=== PATIENT | female | born 1965 | race Caucasian/White ===

== ENCOUNTER → 2022-04-12 | Outpatient (CLI) | payer OTHER, SELFPAY ==
[2022-04-12 16:25] LABS: D-Dimer Quantitative (DVT/PE) 0.34 FEU/ug/m (0.27-0.49)
== END | disposition home or self-care (01) ==
LOC: LABSPEC 15:04
PROVIDERS: Visit Provider Family Medicine
DX: R07.89 Other chest pain (principal)
CPT/HCPCS: 85379

== ENCOUNTER → 2024-05-03 | Outpatient (CLI) | payer OTHER, SELFPAY ==
--- NOTE | 2024-05-03 08:00 | RAD_ITS ---
PROCEDURE: ESOPHAGUS DUAL CONTRAST 05/03/2024 REASON FOR EXAM: GERD TECHNIQUE: Images from an intraoperative cholangiogram submitted by FLUOROSCOPIC TIME: 34 seconds. 3.6 mGy FLUOROGRAPHIC IMAGES: 44 COMPARISON: None. FINDINGS: The patient ingested barium. No evidence of esophageal obstruction. No mass lesion is seen. No evidence of gastroesophageal reflux. The patient ingested a 12 mm tablet of barium without any difficulty. RAD/Esophagus Dual Contrast IMPRESSION: Unremarkable air contrast esophagram. Reading Location: [facility]
== END | disposition home or self-care (01) ==
PROVIDERS: PCP Family Medicine; Referring Provider Otolaryngology; Visit Provider Otolaryngology
DX: K21.9 Gastro-esophageal reflux disease without esophagitis (principal)
CPT/HCPCS: 74221

== ENCOUNTER → 2024-08-06 | Outpatient (CLI) | payer OTHER, SELFPAY ==
--- OUTSIDE RECORDS SUMMARY | 2024-08-06 06:51 | XMS RPT_ITS | CCD ---
Author Organization [facility] Care Team Providers Care Insurance Producer Name Role Phone Shlomo Miller MD Primary Care Provider Shlomo Miller MD Primary Care Provider [employer] BUSINESS CONTINUITY MANAGER.Coleen CRUZ Unavailable [employer] BUSINESS CONTINUITY MANAGER.PEANUT SORTERBelkis Unavailable Dr. Mohinder Giron MD Attending Provider Dr. Mohinder Giron MD Referring Provider Dr. Shlomo Miller MD Primary Care Provider KASSANDRA NOE JR Attending Unavaila BETTINA Hummel Referring Unavailable ANGELA, SHLOMO Loredo Primary Care Unavailable JEN PALACIOS Attending Unavailable HILDA SUN Referring Unavail able ANGELA, SHLOMO Loredo Primary Care Unavailable JEN PALACIOS Attending Unavailable HILDA SUN Referring Unavail able SHLOMO MILLER Primary Care Unavailable JEN PALACIOS Attending Unavailable HILDA SUN Referring Unavail able ANGELA, SHLOMO Loredo Primary Care Unavailable SHLOMO MILLER Referring Unavailable SHLOMO MILLER Primary Care Unavailable SHLOMO MILLER Referring Unavailable ANGELA, SHLOMO Loredo Primary Care Unavailable SHLOMO MILLER Referring Unavailable ANGELA, SHLOMO Loredo Primary Care Unavailable GERTRUDE GOLDBERG Attending Unavailable SHLOMO MILLER Primary Care Unavailable SHLOMO MILLER Referring Unavailable SHLOMO MILLER Primary Care Unavailable SHLOMO MILLER Attending Unavailable SHLOMO MILLER Primary Care Unavailable COLEEN DUNNE Attending Unavailable ANGELA, SHLOMO Loredo Primary Care Unavailable GERTRUDE GOLDBERG Referring Unavailable MADELEINE MILLAN Attending Unavailable SHLOMO MILLER Primary Care Unavailable HAURY, KEON Referring Unavailable ANGELA, SHLOMO Loredo Primary Care Unavailable BETTINA BERMUDEZ Attending Unavailable ANGELA, SHLOMO Loredo Primary Care Unavailable HILDA SUN Referring Unavail able ANGELA, SHLOMO J Primary Care Unavailable HILDA SUN Referring Unavail able ANGELA, SHLOMO Loredo Primary Care Unavailable BETTINA BERMUDEZ Referring Unavailable ANGELA, SHLOMO Loredo Attending Unavailable ANGELA, SHLOMO J Primary Care Unavailable ANGELA, SHLOMO J Primary Care Unavailable HILDA SUN Referring Unavail able KEON RIGGS Attending Unavailable ANGELA, SHLOMO Loredo Primary Care Unavailable ANGELA, SHLOMO Loredo Primary Care Unavailable HILDA SUN Attending Unavail able BETTINA BERMUDEZ Referring Unavailable ANGELA, SHLOMO Loredo Primary Care Unavailable ANGELA, SHLOMO Loredo Primary Care Unavailable ANTHONY PRITCHARD Admitting Unavaila ble ANTHONY PRITCHARD Attending Unavaila ble ANGELA, SHLOMO Loredo Primary Care Unavailable MADELEINE MILLAN Referring Unavailable ANGELA, SHLOMO Gertrude Primary Care Unavailable Mohinder Giron Referring Unavailabl e Angela, Shlomo Primary Care Unavailable Mohinder Giron Attending Unavailmarcelo e Madeleine Millan Attending Unavailable Madeleine Millan Referring Unavailable Pol[place], Shlomo Primary Care Unavailable Madeleine Millan Attending Unavailable Madeleine Millan Referring Unavailable [place], Shlomo Primary Care Unavailable Allergies Allergy Classification Reported Allergen(s) Allergy Type Date of Onset Reaction(s) Facility 5-jdkefi-6-methyl- 7-hffgjyvltxbg-8-o ne (1 source) 2-dqcblh-8-methy j-5-tonhdetwnifn -3-one Drug Allergy 9 Rash [facility] hydroquinone (1 source) hydroquinone Drug Allergy [address] [facility] Opioid Agonists (1 source) Meperidine Drug Allergy 6 [facility] Work Phone: Penicillins (antibiotic) (1 source) Penicillin G Drug Allergy 6 [facility] Propylene glycol (1 source) Propylene glycol Drug Allergy 9 Rash [facility] Sulfonamides (antibiotic) (1 source) Sulfonamides (Antibiotic) Drug Allergy 6 [facility] (20 sources) 8-xxqugh-1-methy f-0-ekeetfuhreip -3-one; Translations: [METHYLCHLOROISO THIAZOLINONE] Drug Allergy 9 [facility] (20 sources) hydroquinone; Translations: [HYDROQUINONE] Drug Allergy 1 [facility] Work Phone: (20 sources) Meperidine; Translations: [MEPERIDINE (PF)] Drug Allergy 6 Other: See Comments [facility] Work Phone: (20 sources) Penicillin G; Translations: [PENICILLIN G] Drug Allergy 6 [facility] Work Phone: (20 sources) Propylene glycol; Translations: [PROPYLENE GLYCOL] Drug Allergy 9 [facility] (20 sources) Sulfonamides (Antibiotic); Translations: [SULFA (SULFONAMIDE ANTIBIOTICS)] Propensity to adverse reactions 6 [facility] Work Phone: (20 sources) Methylisothiazol inone; Translations: [METHYLISOTHIAZO LINONE] Drug Allergy 9 [facility] (1 source) 0-rwtusj-2-methy w-1-judrxyogqvzg -3-one Drug Allergy 5 [facility] (1 source) hydroquinone Drug Allergy 5 [facility] (1 source) Meperidine Drug Allergy 5 [facility] (1 source) Penicillins Drug allergy (disorder) 5 [facility] (1 source) Propylene glycol Drug Allergy 5 [facility] (1 source) Sulfonamides (Antibiotic) Drug allergy (disorder) 5 [facility] Medications Current Medications Medication Drug Class(es) Dates Sig (Normalized) Sig (Original) Ascorbic Acid (20 sources) Vitamin C ascorbic acid (V ITAMIN C ORAL) Take by mouth. Last dose 05/14/24 for OR 06/12/24 Active ascorbic acid (V ITAMIN C ORAL) Take by mouth. Active ascorbic acid (V ITAMIN C ORAL) Take by mouth. 0 Active Comment on above: Take by mouth. cholecalciferol 0.05 mg oral capsule (20 sources) Vitamin D Cholecalciferol, Vitamin D3, 50 mcg (2,000 unit) cap Take by mouth. Last dose 05/14/24 for OR 06/12/24 Active Cholecalciferol, Vitamin D3, 50 mcg (2,000 unit) cap Take by mouth. Active Comment on above: Take by mouth. clobetasol propionate 0.0005 mg/mg topical ointment (20 sources) Corticosteroid Start: 03-02-19 clobetasol (TEMOVATE) 0.05 % ointment Apply 1 application to affected area twice daily. For two weeks then use once per week . 30 g 03/02/2019 Active Comment on above: Apply 1 application to affected area twice daily. For two weeks then use once per week . dapsone 100 mg oral tablet (6 sources) Sulfone Start: 07-05-19 End: 10-03-19 take 1 tablet by mouth once daily dapsone 100 mg tablet Indications: Organizing pneumonia (HCC) , Need for pneumocystis prophylaxis Take 1 tablet by mouth once daily. 30 tablet 2 07/04/2024 10/02/2024 Active doxycycline monohydrate 100 mg oral tablet (3 sources) Tetracycline-class Drug Start: 05-17-19 End: 05-27-19 take 1 tablet by mouth twice daily doxycycline monohydrate 100 mg tablet Indications: Multiple lung nodules on CT Take 1 tablet by mouth two times a day for 10 days. 20 tablet 05/16/2024 05/26/2024 Active Start: 11-26-2022 End: 12-06-2022 take 1 tablet by mouth twice daily doxycycline (VIBRA-TABS) 100 mg tablet Indications: Persistent cough for 3 weeks or longer Take 1 tablet by mouth two times a day for 10 days. 20 tablet 0 11/26/2022 12/06/2022 Active Start: 04-13-2022 End: 04-23-2022 take 1 tablet by mouth twice daily doxycycline monohydrate 100 mg tablet Indications: Abnormal x-ray Take 1 tablet by mouth twice daily for 10 days. 20 tablet 0 04/13/2022 04/23/2022 Active Comment on above: Take 1 tablet by essence th twice daily for 10 days. Take 1 tablet by essence th two times a day for 10 days. iv contrast (will be provided with radiology test) (20 sources) Start: 05-02-2024 End: 05-03-2024 iv contrast (will be provided with radiology test) Indications: Liver mass MRI Liver Inject, intravenously, once for 1 dose. No IV access, insert saline lock prior to the beginning of sedation, infusion, injection of imaging exam. Discontinue saline lock post exam. If Pt. has a central line or IVAD, may access for administration according to line specific nursing protocol. Once exam is complete flush line and de-access according to line specific nursing protocol in the MR contrast administration guidelines link. 1 Each 05/02/2024 05/03/2024 Active Start: 04-17-2024 End: 06-06-2024 iv contrast (will be provide d with radiology test) CT Urogram WO/W Inject, intravenously, once for 1 dose.No IV access, insert saline lock prior to the beginning of sedation, infusion, injection of imaging exam. Discontinue saline lock post exam. If Pt. has a central line or IVAD, may access for administration according to line specific nursing protocol. Once exam is complete flush line and de-access according to line specific nursing protocol in the CT contrast administration guidelines link. 1 Each 04/17/2024 06/06/2024 Discontinued (Course of therapy completed) Start: 04-17-2024 iv contrast (w ill be provided with radiology test) CT Urogram WO/W Inject, intravenously, once for 1 dose.No IV access, insert saline lock prior to the beginning of sedation, infusion, injection of imaging exam. Discontinue saline lock post exam. If Pt. has a central line or IVAD, may access for administration according to line specific nursing protocol. Once exam is complete flush line and de-access according to line specific nursing protocol in the CT contrast administration guidelines link. 1 Each 04/17/2024 Active Start: 06-15-2023 End: 06-16-2023 iv contrast (will be provide d with radiology test) CT Chest W -Inject, intravenously, once for 1 dose.No IV access, insert saline lock prior to the beginning of sedation, infusion, injection of imaging exam. Discontinue saline lock post exam. If Pt. has a central line or IVAD, may access for administration according to line specific nursing protocol. Once exam is complete flush line and de-access according to line specific nursing protocol in the CT contrast administration guidelines link. 1 Each 0 06/15/2023 06/16/2023 Active MULTIVITAMIN TAB (20 sources) Start: 03-29-2005 MULTIVITAMIN T AB Take by mouth. Last dose 05/14/24 for OR 06/12/24 0 03/29/2005 Active Start: 03-29-2005 MULTIVITAMIN T AB Take one(1) tablet daily. 0 03/29/2005 Active Comment on above: Take one(1) tablet d aily. nitrofurantoin, macrocrystals 25 mg / nitrofurantoin, monohydrate 75 mg oral capsule (20 sources) Nitrofuran Antibacterial Start: 11-05-2020 End: 10-13-2023 nitrofurantoin monohydrate and macrocrystal (MACROBID) 100 mg capsule Take one tablet PO after intercourse 30 capsule 2 10/14/2023 Active Comment on above: Take one tablet PO a fter intercourse Take 1 capsule by mo [facility] twice daily for 7 days. Take 1 capsule by mo [facility] twice daily with meals for 7 days. pentamidine isethionate 50 mg/ml inhalation solution (4 sources) Antiprotozoal Start: 07-23-2024 End: 07-23-2024 pentamidine (NEBUPENT) 300 mg inhalation solution Indications: Need for pneumocystis prophylaxis 300 mg nebulized every 4 weeks 1 each 5 07/23/2024 Active predniSONE 10 mg oral tablet (20 sources) Start: 07-31-2024 predniSONE (DELTASONE) 10 mg tablet Take 30 mg a day for 4 weeks then 20 mg a day until further notice 100 tablet 1 07/31/2024 Active Start: 07-04-2024 End: 08-03-2024 take 2 tablets by mouth once daily predniSONE (DELTASONE) 20 mg tablet Indications: Organizing pneumonia (HCC) Take 2 tablets by mouth once daily. 60 tablet 07/04/2024 08/03/2024 Active Start: 11-26-2022 End: 12-05-2022 predniSONE (DELTASONE) 10 mg tablet Indications: Persistent cough for 3 weeks or longer Take 4 tabs daily for 3 days, then 2 tabs daily for 3 days, then 1 tab daily for 3 days with food. 21 tablet 11/26/2022 12/05/2022 Start: 02-11-2022 End: 06-13-2023 predniSONE (DELTASONE) 20 mg tablet as needed. 02/11/2022 06/13/2023 Discontinued Comment on above: as needed. Take 4 tabs daily fo r 3 days, then 2 tabs daily for 3 days, then 1 tab daily for 3 days with food. 1000 ml sodium chloride 9 mg/ml injection (2 sources) Start: 04-18-19 End: 04-18-19 inject 1 dose intravenously once 0.9 % sodium chloride (NACL 0.9%) infusion Inject 150 mL/hr intravenously one time only for 1 dose. Administer at rate defined per CT contrast administration specifications. To be provided with radiology test. 1 Each 04/17/2024 04/17/2024 Active Completed/Discontinued Medications Medication Drug Class(es) Dates Sig (Normalized) Sig (Original) benzonatate 100 mg oral capsule (20 sources) Non-narcotic Antitussive Start: 08-30-2023 End: 04-06-2024 take 100-200 mg by mouth every eight hours as needed benzonatate (TESSALON PERLES) 100 mg capsule Take 1-2 capsules by mouth three times a day as needed for cough. 40 capsule 08/30/2023 04/06/2024 Discontinued Start: 09-08-2022 End: 06-13-2023 take 1 capsule by mouth three times daily as needed for cough benzonatate (TESSALON PERLES) 100 mg capsule Indications: URI, acute Take 1 capsule by mouth three times daily as needed for cough. 30 capsule 09/08/2022 06/13/2023 Discontinued Comment on above: Take 1 capsule by mo uth three times daily as needed for cough. cetirizine hydrochloride 10 mg oral capsule (12 sources) Histamine-1 Receptor Antagonist End: take 1 capsule by mouth every twenty-four hours as needed Cetirizine (ZYRTEC) 10 mg cap Take 1 capsule by mouth at bedtime as needed. 06/13/2023 Discontinued Comment on above: Take 1 capsule by mo uth at bedtime as needed. ciprofloxacin 500 mg oral tablet (2 sources) Quinolone Antimicrobial Start: 025 End: ciprofloxacin HCl 500 mg tab(s) (CIPRO) fluticasone propionate 0.05 mg/actuat metered dose nasal spray (12 sources) Corticosteroid End: fluticasone (FLONASE ALLERGY RELIEF) 50 mcg/actuation nasal spray Use 2 Sprays in each nostril as needed. 06/13/2023 Discontinued Comment on above: Use 2 Sprays in each nostril as needed. 120 actuat fluticasone propionate 0.115 mg/actuat / salmeterol 0.021 mg/actuat metered dose inhaler (15 sources) Corticosteroid, beta2-Adrenergic Agonist Start: End: take 2 puff(s) by mouth twice daily fluticasone-salmeter ol HFA (ADVAIR HFA) 115-21 mcg/actuation inhaler Indications: Chronic cough Inhale 2 Puffs as instructed two times a day. Rinse mouth after use. 1 Each 3 06/13/2023 04/06/2024 Discontinued hydrocortisone 25 mg/ml topical cream (20 sources) Corticosteroid End: hydrocortisone 2.5 % cream Apply to affected area twice daily. 04/06/2024 Discontinued Comment on above: Apply to affected ar ea twice daily. miSOPROStol 0.2 mg oral tablet (6 sources) Prostaglandin E1 Analog Start: End: miSOPROStol (CYTOTEC) 200 mcg tablet Take two tablets PO night before procedure and two tablets morning of procedure 4 tablet 0 01/12/2023 06/13/2023 Discontinued Comment on above: Take two tablets PO night before procedure and two tablets morning of procedure omeprazole 20 mg delayed release oral capsule (20 sources) Proton Pump Inhibitor Start: End: take 1 capsule by mouth once daily before breakfast omeprazole (PRILOSEC) 20 mg capsule Indications: Indigestion , Chronic cough Take 1 capsule by mouth daily before breakfast. 1/2 hr before meal. 30 capsule 1 07/13/2023 05/30/2024 Discontinued sertraline 50 mg oral tablet (6 sources) Serotonin Reuptake Inhibitor Start: End: take 0.5 tablet by mouth once daily, then take 1 tablet by mouth once daily sertraline (ZOLOFT) 50 mg tablet Indications: Anxiety Take 1/2 tab once a day orally for one week then 1 tab once a day 30 tablet 5 04/12/2022 05/13/2022 Discontinued Comment on above: Take 1/2 tab once a day orally for one week then 1 tab once a day triamcinolone acetonide 0.005 mg/mg topical ointment (20 sources) Corticosteroid Start: 021 End: 025 triamcinolone acetonide topical 0.5 % ointment Apply to affected area twice daily. 30 g 11/10/2021 04/06/2024 Discontinued Start: 11-05-2020 End: 10-27-2021 Triamcinolone Acetonide 0.05 % oint Use pea sized amount on affected area twice daily for two weeks the use prn or once per week for maintenance 30 g 0 11/05/2020 10/27/2021 Discontinued Comment on above: Apply to affected ar ea twice daily. Use pea sized amount on affected area twice daily for two weeks the use prn or once per week for maintenance Problems Active Problems Problem Classification Problem Date Documented Date Episodic/Chronic Abdominal pain (1 source) Pain in pelvis; Translations: [Pelvic and perineal pain] 04-02-2024 Episodic Anxiety disorders (20 sources) Obsessive-compulsive disorder; Translations: [Obsessive-compulsive disorder, unspecified] Onset: 03-30-2010 02-09-2021 Chronic Disorders of lipid metabolism (20 sources) Mixed hyperlipidemia; Translations: [Mixed hyperlipidemia] Onset: 03-17-2017 Chronic Esophageal disorders (3 sources) Gastroesophageal reflux disease without esophagitis; Translations: [Gastro-esophageal reflux disease without esophagitis] Onset: 04-25-2024 04-25-2024 Chronic Genitourinary symptoms and ill-defined conditions (20 sources) Urinary incontinence; Translations: [Unspecified urinary incontinence] Onset: 03-28-2013 03-28-2013 Chronic Lymphadenitis (20 sources) Hilar lymphadenopathy ; Translations: [Localized enlarged lymph nodes] Onset: 05-30-2024 05-16-2024 Episodic Nonmalignant breast conditions (8 sources) Lump in upper inner quadrant of left breast; Translations: [Unspecified lump in the left breast, upper inner quadrant] Onset: 04-24-2024 04-06-2024 Episodic Nonspecific chest pain (1 source) Chest discomfort; Translations: [Other chest pain] Episodic Nutritional deficiencies (1 source) Vitamin D deficiency; Translations: [Vitamin D deficiency, unspecified] Chronic Other diseases of bladder and urethra (20 sources) Overactive bladder; Translations: [Overactive bladder] Onset: 11-22-2011 11-22-2011 Chronic Other disorders of stomach and duodenum (1 source) Indigestion; Translations: [Functional dyspepsia] 07-13-2023 Episodic Other ear and sense organ disorders (1 source) Otalgia, right ear; Translations: [Otalgia, unspecified] 11-26-2022 Episodic Other hematologic conditions (1 source) Methemoglobinemia; Translations: [Methemoglobinemia, unspecified] 07-23-2024 Episodic Other hematologic conditions (2 sources) Methemoglobinemia, unspecified; Translations: [Methemoglobinemia] Onset: 07-23-2024 Episodic Other liver diseases (1 source) Liver cyst; Translations: [Other specified diseases of liver] 05-30-2024 Chronic Other liver diseases (1 source) Other specified diseases of liver; Translations: [Liver cyst] Onset: 05-30-2024 Chronic Other liver diseases (5 sources) Liver mass; Translations: [Hepatomegaly, not elsewhere classified] 05-02-2024 Episodic Other liver diseases (1 source) Hepatomegaly, not elsewhere classified; Translations: [Liver mass] Onset: 05-03-2024 Episodic Other lower respiratory disease (2 sources) Cough; Translations: [Cough, unspecified type] Episodic Other lower respiratory disease (4 sources) Persistent cough; Translations: [Persistent cough for 3 weeks or longer] 11-25-2022 Episodic Other lower respiratory disease (20 sources) Chronic cough; Translations: [Chronic cough] Onset: 05-30-2024 06-13-2023 Episodic Other lower respiratory disease (10 sources) Multiple nodules of lung; Translations: [Other nonspecific abnormal finding of lung field] 05-02-2024 Episodic Other lower respiratory disease (18 sources) Nodule of lung; Translations: [Solitary pulmonary nodule] Onset: 05-30-2024 05-30-2024 Episodic Other lower respiratory disease (9 sources) Computed tomography result abnormal; Translations: [Other nonspecific abnormal finding of lung field] Onset: 06-12-2024 06-12-2024 Episodic Other lower respiratory disease (1 source) Solitary pulmonary nodule; Translations: [Lung nodule] Onset: 05-30-2024 Episodic Other lower respiratory disease (3 sources) Other nonspecific abnormal finding of lung field; Translations: [Multiple lung nodules on CT] Onset: 05-08-2024 Episodic Other screening for suspected conditions (not mental disorders or infectious disease) (2 sources) Plain X-ray result abnormal; Translations: [Abnormal findings on diagnostic imaging of other specified body structures] Chronic Other upper respiratory infections (2 sources) Acute upper respiratory infection; Translations: [Acute upper respiratory infection, unspecified] Onset: 04-25-2024 04-25-2024 Episodic Residual codes; unclassified (1 source) Prevention status; Translations: [Need for pneumocystis prophylaxis] 07-23-2024 Episodic Spondylosis; intervertebral disc disorders; other back problems (20 sources) Degeneration of cervical intervertebral disc; Translations: [Other cervical disc degeneration, unspecified cervical region] Onset: 11-19-2021 Chronic Unclassified (1 source) Need for pneumocystis prophylaxis; Translations: [Need for pneumocystis prophylaxis] Onset: 07-04-2024 Unclassified (1 source) Encounter for other specified prophylactic measures; Translations: [Encounter for other specified prophylactic measures] Onset: 08-01-2024 Past or Other Problems Problem Classification Problem Date Documented Date Episodic/Chronic Anal and rectal conditions (20 sources) Anal fissure; Translations: [Anal fissure, unspecified] Onset: 09-09-2013 09-09-2013 Episodic Genitourinary symptoms and ill-defined conditions (20 sources) Carlo hematuria; Translations: [Gross hematuria] Onset: 03-28-2013 03-28-2013 Episodic Menopausal disorders (20 sources) Postmenopausal bleeding; Translations: [Postmenopausal bleeding] Onset: 10-04-2011 Resolved: 02-28-2012 01-24-2023 Chronic Other connective tissue disease (20 sources) Plantar fasciitis of left foot; Translations: [Plantar fascial fibromatosis] Onset: 11-30-2018 11-30-2018 Episodic Other connective tissue disease (20 sources) Muscle weakness; Translations: [Muscle weakness (generalized)] Onset: 04-26-2023 04-26-2023 Episodic Other female genital disorders (20 sources) Abnormal uterine bleeding; Translations: [Abnormal uterine and vaginal bleeding, unspecified] Onset: 02-28-2012 Resolved: 02-02-2017 02-02-2017 Chronic Other non-epithelial cancer of skin (20 sources) Basal cell carcinoma of face; Translations: [Basal cell carcinoma of skin of unspecified parts of face] Onset: 10-16-2020 Episodic Other non-traumatic joint disorders (20 sources) Instability of joint of left ankle; Translations: [Other instability, left ankle] Onset: 03-29-2017 03-29-2017 Episodic Other screening for suspected conditions (not mental disorders or infectious disease) (8 sources) Patient encounter status; Translations: [Encounter for screening mammogram for malignant neoplasm of breast] Onset: 10-03-2023 Episodic Spondylosis; intervertebral disc disorders; other back problems (20 sources) Symptom of neck; Translations: [Cervicalgia] Onset: 12-31-2011 Resolved: 03-13-2012 Episodic Thyroid disorders (20 sources) Subclinical hypothyroidism; Translations: [Other specified hypothyroidism] Onset: 02-19-2010 Resolved: 03-13-2012 02-09-2021 Chronic Unclassified (1 source) Patient encounter status 04-06-2024 Unclassified (2 sources) Preprocedural examination done 05-30-2024 Results Test Name Value Interpretation Reference Range Facility JOSE ROBERTO [id number] 07-23-2024 Angiotensin converting enzyme [Catalytic activity/Vol] 31 U/L Normal <=52 [facility] Comment on above: Order Comment: Speci men Type: BLOOD SPECIMENOrdering Facility: [facility] Address: [address] [place] [address] Result Comment: Yaneli ficially low JOSE ROBERTO levels may be found for patients taking JOSE ROBERTO inhibitors or after the administration of gadolinium. This test was developed, and its performance characteristics determined by the [facility] Department of Pathology and Laboratory Medicine. It has not been cleared or approved by the FDA. The [facility] Department of Pathology and Laboratory Medicine is regulated under CLIA as qualified to perform high-complexity testing. This test is used for clinical purposes. It should not be regarded as investigational or for research. Performed By: #### [id number] ####[facility] [id number] [place] [address] [place] ARTERIAL BLOOD GASESOrdered By: Demetra Nascimento on 07-23-2024 Base excess Calc (Bld) [Moles/Vol] 2 mmol/L 0 - 2 mmol/L [facility] Body temperature 98.6 [degF] [facility] Carboxyhemoglobin (BldA) [Mass fraction] 1.9 % 0.0 - 2.0 % [facility] Comment on above: Carboxyhemoglobin Re ference Range for Smokers: 2.0-8.0% CO2 (Bld) [Partial pressure] 37 mm[Hg] [facility] HCO3 (Bld) [Moles/Vol] 26 mmol/L 22 - 26 mmol/L [facility] Hemoglobin (Bld) [Mass/Vol] 12.1 g/dL 11.5 - 15.5 g/dL [facility] Interpretation and review of laboratory results Abnormal [facility] Methemoglobin (Bld) [Mass fraction] 4.1 % High 0.0 - 1.5 % [facility] O2 Therapy RA=Room Air [facility] Oxygen (Bld) [Partial pressure] 78 mm[Hg] Low [facility] Oxyhemoglobin (BldA) [Mass fraction] 90 % Low 95 - 98 % [facility] pH (d) 7.46 [pH] High 7.35 - 7.45 [facility] PO2 / FIO2 Ratio 371 - PINF [facility] ARTERIAL BLOOD GASESon 07-23 Base excess Calc (Bld) [Moles/Vol] 2 mmol/L Normal 0-2 [facility] Comment on above: Order Comment: Speci men Type: ARTERIAL BLOOD SPECIMENOrdering Facility: [facility] Address: [address] [place] [address] Performed By: #### A LLBG ####[facility] RESPIRATORY THERAPYCLIA [id number] [address] Body temperature 98.6 [degF] Normal [facility] Comment on above: Order Comment: Speci men Type: ARTERIAL BLOOD SPECIMENOrdering Facility: [facility] Address: [address] [place] [address] Performed By: #### A LLBG ####[facility] RESPIRATORY THERAPYCLIA [id number] [place] [id number] [place] Carboxyhemoglobin (BldA) [Mass fraction] 1.9 % Normal 0.0-2.0 [facility] Comment on above: Order Comment: Speci men Type: ARTERIAL BLOOD SPECIMENOrdering Facility: [facility] Address: [address] [place] [address] Result Comment: Carb oxyhemoglobin Reference Range for Smokers: 2.0-8.0% Performed By: #### A LLBG ####[facility] RESPIRATORY THERAPYCLIA [id number] [place] [address] [place] CO2 (Bld) [Partial pressure] 37 mm Hg Normal 36-46 [facility] Comment on above: Order Comment: Speci men Type: ARTERIAL BLOOD SPECIMENOrdering Facility: [facility] Address: [address] [place] [address] Performed By: #### A LLBG ####[facility] RESPIRATORY THERAPYCLIA [id number] [place] [address] [place] HCO3 (Bld) [Moles/Vol] 26 mmol/L Normal 22-26 [facility] Comment on above: Order Comment: Speci men Type: ARTERIAL BLOOD SPECIMENOrdering Facility: [facility] Address: [address] [place] [address] Performed By: #### A LLBG ####[facility] RESPIRATORY THERAPYCLIA [id number] [place] [address] [place] Hemoglobin (Bld) [Mass/Vol] 12.1 g/dL Normal 11.5-15.5 [facility] Comment on above: Order Comment: Speci men Type: ARTERIAL BLOOD SPECIMENOrdering Facility: [facility] Address: [address] [place] [address] Performed By: #### A LLBG ####[facility] RESPIRATORY THERAPYCLIA [id number] [place] [address] [place] Methemoglobin (Bld) [Mass fraction] 4.1 % High 0.0-1.5 [facility] Comment on above: Order Comment: Speci men Type: ARTERIAL BLOOD SPECIMENOrdering Facility: [facility] Address: [address] [place] [address] Performed By: #### A LLBG ####[facility] RESPIRATORY THERAPYCLIA [id number] [address] [place] O2 THERAPY RA=Room Air Normal [facility] Comment on above: Order Comment: Speci men Type: ARTERIAL BLOOD SPECIMENOrdering Facility: [facility] Address: [address] [place] [address] Performed By: #### A LLBG ####[facility] RESPIRATORY THERAPYCLIA [id number] [address] [place] Oxygen (Bld) [Partial pressure] 78 mm Hg Low 85-95 [facility] Comment on above: Order Comment: Speci men Type: ARTERIAL BLOOD SPECIMENOrdering Facility: [facility] Address: [address] [place] [address] Performed By: #### A LLBG ####[facility] RESPIRATORY THERAPYCLIA [id number] [address] [place] Oxyhemoglobin (BldA) [Mass fraction] 90 % Low 95-98 [facility] Comment on above: Order Comment: Speci men Type: ARTERIAL BLOOD SPECIMENOrdering Facility: [facility] Address: [address] [place] [address] Performed By: #### A LLBG ####[facility] RESPIRATORY THERAPYCLIA [id number] [place] [address] [place] pH (Bld) 7.46 [pH] High 7.35-7.45 [facility] Comment on above: Order Comment: Speci men Type: ARTERIAL BLOOD SPECIMENOrdering Facility: [facility] Address: [address] [place] [address] Performed By: #### A LLBG ####[facility] RESPIRATORY THERAPYCLIA [id number] [place] [id number] [place] PO2 / FIO2 RATIO 371 mmHg Normal >300 [facility] Comment on above: Order Comment: Speci men Type: ARTERIAL BLOOD SPECIMENOrdering Facility: [facility] Address: [address] [place] [address] Performed By: #### A LLBG ####[facility] RESPIRATORY THERAPYCLIA [id number] [place] [address] [place] ASPERGILLUS AB CFon 07-24-19 25 ASPERGILLUS ANTIBODY BY CF <1:8 Normal <1:8 [facility] Comment on above: Order Comment: Speci men Type: BLOOD SPECIMENOrdering Facility: [facility] Address: [address] [place] [address] Result Comment: INTE RPRETIVE INFORMATION: Aspergillus Antibodies by CF A titer of 1:8 or greater suggests Aspergillus infection or allergy. Cross-reactions with dimorphic fungi are not unusual within the genus Aspergillus. Performed By: [facility] [address] [place] [address] [employer]: Mahin Gimenez MD, PhD CLIA Number: [id number] Performed By: #### A SPRCF ####[facility]IA [id number] [place] [address] BLASTOMYCES ANTIGEN, URINEon 07-23-2024 BLASTOMYCES ANTIGEN, URINE Not detected Normal [facility] Comment on above: Order Comment: Speci men Type: URINE SPECIMENOrdering Facility: [facility] Address: [address] [place] [address] Performed By: #### U BLSAG ####[facility]IESCLIA [id number] [place] [address] BLASTOMYCES DERMATITIDIS EIA, INTERP Not detected Normal Not Detected [facility] Comment on above: Order Comment: Speci men Type: URINE SPECIMENOrdering Facility: [facility] Address: [address] [place] [address] Result Comment: INTE RPRETIVE INFORMATION:Blastomyces Ag Quant by SHAKIRA, Urine The quantitative range of this assay is 1.25-200 U/mL. Antigen concentrations less than 1.25 U/mL or greater than 200 U/mL fall outside the linear range of the assay and cannot be accurately quantified. This EIA test should be used in conjunction with other diagnostic procedures, including microbiological culture, histological examination of biopsy samples, serology and/or radiographic evidence, to aid in the diagnosis of blastomycosis. Cross-reactivity with other endemic mycoses (Histoplasma and Coccidioides) may occur. Positive test results should be correlated with other clinical findings and relevant exposure history. This test was developed and its performance characteristics determined by [facility]. It has not been cleared or approved by the [place] Food and Drug Administration. This test was performed in a CLIA certified laboratory and is intended for clinical purposes. Performed By: [facility] [address] [place] [address] [employer]: Mahin Gimenez MD, PhD CLIA Number: [id number] Performed By: #### U BLSAG ####[facility]CLIA [id number] [place] [address] BLASTOMYCES DERMATITIDIS AB WITH REFLEXon 07-23-2024 BLASTOMYCES DERMATITIDIS TOTAL ANTIBODY QUALITATIVE RESULT Negative Normal Negative [facility] Comment on above: Order Comment: Speci men Type: BLOOD SPECIMENOrdering Facility: [facility] Address: [address] [place] [address] Result Comment: This EIA detects Blastomyces total (IgM and IgG) antibodies that typically appear within a few weeks after infection. Cross-reactivity with other dimorphic endemic fungi is not uncommon. Where the result is negative/indeterminate but Blastomycosis is clinically and epidemiologically suspected, repeat testing is suggested after 2-4 weeks. Performed By: #### B LASAB, 40504-1 ####[facility] [id number] [address] STATES OF [facility] CNOVon 07-23-2024 CNOV Office Visit (PULMWS ) DIXIE MILLER ([id number]) 1965 F Date Time Provider Department 07/23/24 8:00 AM MADELEINE MILLAN PULMWS During your visit today, we recorded the following information about you: Pulse Respiration Blood pressure Weight 74/minute 14/minute 128/80 73.5 kg Madeleine Millan MD 07/23/2024 10:15 AM Signed . Respiratory [place] Note Patient name: Dixie Miller PCP: Shlomo Miller MD CC: Follow up bronchoscopy and steroids Recording using Enval software for draft documentation of the visit was discussed with the patient/authorized it sales representative; all questions welcomed and answered. Patient/authorized it sales representative agreed to proceed HPI: Dixie Miller 58 year old female never smoker with PMH significant for eczema, chronic cough for 2 years recently seen in lung nodule clinic for abnormal CT chest, [place] showed multiple nodules, largest 1.2 cm groundglass and enlarged precarinal and hilar lymph nodes. Cough originally started in 2022 starting out as a typical URI and then developed persistent nonproductive cough, abnormal chest x-ray, treated with doxycycline for pneumonia. Initially cough was severe with coughing jags, occurred mainly at night and when lying supine. No GERD symptoms. She had improvement but not complete resolution of her cough. She was treated again with antibiotics, chest x-ray showing increased reticular markings. She had COVID infection in March of last year which resulted in worsening of her cough. Pulmonary function test showed some obstruction with improvement postbronchodilator so she was started on Advair at that time. No improvement in her cough with inhaled therapy nor empiric treatment for possible GERD. Chest CT ordered due to her persistent cough with findings as above. Initial evaluation in the lung nodule clinic concerning for possible sarcoidosis. She underwent a bronchoscopy with transbronchial biopsy which did not show granulomas but did show chronic inflammation. Cultures negative. BAL with 26% lymphocytes. No FCM. Procedure note states the multiple lymph nodes were evaluated but I could not find any pathology report report in the EMR. Started on steroids for possible organizing pneumonia. Unfortunately she has a sulfa allergy so unable to use Bactrim for PJP prophylaxis. She is currently on dapsone. No other respiratory symptoms including wheezing, chest pain, chest pressure, shortness of breath. DATA: PFT 2023: Labs: Calcium normal in 2022 Bronchoscopy: Component Ref Range AND Units 1 mo ago Diff Total, BAL cells counted 100 Neut%, BAL % 4 Lymph%, BAL % 26 [place]%, BAL % 5 Macro%, BAL % 64 Eosin%, BAL % 1 BAL Pathologist Interpretation Lymphocytes, monocytes, macrophages, and mesothelial cells with non-specific reactive change. Component FINAL DIAGNOSIS A - Lung, Left Upper Lobe, Transbronchial, [place] - Transbronchial BLADIMIR--lingula - Negative for malignant cells. B - Bronchoalveolar Lavage - right middle lobe BAL - Negative for malignant cells. FINAL DIAGNOSIS A. Lung, left upper lobe, lingula, transbronchial biopsy: - Fragments of lung parenchyma with a minute focus of organizing pneumonia and focal, mild, non-specific chronic inflammation (see comment). at 2011 EDT Diagnosis Comment CCM A. No neoplasm or granulomas are seen. Immunohistochemical stains show that CAM5.2 highlights benign pneumocytes and mesothelial cells while TTF-1 highlights benign pneumocytes. There is no significant positivity for p40 and Ki-67 does not highlight any areas of increased proliferation. These findings are consistent with the above diagnosis. Select slides were also reviewed by Dr. Iglesia Weiss, Thoracic pathologist, who agrees with the diagnosis. Imaging / Diagnostic Studies: DATE OF EXAM: May 08 2024 1:50PM [facility] 0539 - CT CHEST W IVCON / CLINICAL HISTORY: Lung nodules RESULT: Limitations: None. Lines, tubes, and devices: None. Lung parenchyma and airways: There are innumerable bilateral pulmonary nodules, predominantly along bronchovascular bundles and the pleural surface. For example: *8 mm nodule right upper lobe (7:45) *8 mm nodule right lower lobe (7:99) *12 mm nodule left upper lobe (7:43) *8 mm nodule left lower lobe (7:85) No consolidation. Right middle lobe atelectasis. Narrowing of bronchi to the right upper, middle and lower lobes due to hilar lymphadenopathy. Pleural space: No pleural effusion. No pleural thickening. Lower neck, lymph nodes, and mediastinum: The imaged thyroid gland is normal. Enlarged mediastinal and bilateral hilar lymph nodes. For example: *1.4 cm precarinal lymph node (5:65) *1.2 cm right hilar lymph node (5:76) (more content not included)... [facility] (PULWS) DIXIE MILLER ([id number]) 1965 F Date Time Provider Department 07/23/24 MADELEINE MILLAN PULWS During your visit today, we recorded the following information about you: Vaishali Davis LPN 07/23/2024 10:20 AM Signed Patient calling in wondering if she should take the Dapsone prior to getting the ABG at [facility]? She is on her way now. CARLOS Donovan Kathleen, LPN 07/23/2024 10:39 AM Signed Spoke with patient. She will hold dose until her ABG results are available. CARLOS Sanchez Jennifer, MA 07/23/2024 1:40 PM Signed [facility] phones to report order for pentamidine is missing diagnosis. Order needs Dx code and or DX. SOFIYA Hurley Elizabeth Ann, MD 07/23/2024 4:13 PM Signed Addended by: MADELEINE MILLAN on: 07/23/2024 04:13 PM Modules accepted: Orders Merly Schmitz LPN 07/23/2024 4:24 PM Signed Order coded and faxed. Merly Schmitz LPN Allergies As of Date: 07/23/2024 Noted Allergy Reaction DEMEROL (MEPERIDINE (PF)) 03/19/2005 14 - Other: See Comments Comments: Very bad reaction-Possible Low BP HYDROQUINONE 02/19/2010 2 - Rash METHYLCHLOROISOTHIAZOL INONE 03/01/2018 2 - Rash METHYLISOTHIAZOLINONE 03/01/2018 2 - Rash PENICILLIN G 03/19/2005 PROPYLENE GLYCOL 03/01/2018 2 - Rash SULFA (SULFONAMIDE ANTIBIOTICS) 03/19/2005 Date Reviewed: 07/23/2024 Reviewed by: Madeleine Millan MD - Fully Assessed Primary Visit Diagnosis:Need for pneumocystis prophylaxis [Z29.89] Order(s):pentamidine (NEBUPENT) 300 mg inhalation mg nebulized every 4 weeksDisp: 1 eachRfl: 5 Prescriptions as of 07/23/2024 - pentamidine (NEBUPENT) 300 mg inhalation solution 300 mg nebulized every 4 weeks - dapsone 100 mg tablet Take 1 tablet by mouth once daily. - predniSONE (DELTASONE) 20 mg tablet Take 2 tablets by mouth once daily. - nitrofurantoin monohydrate and macrocrystal (MACROBID) 100 mg capsule Take one tablet PO after intercourse - Cholecalciferol, Vitamin D3, 50 mcg (2,000 unit) cap Take by mouth. Last dose 05/14/24 for OR 06/12/24 - ascorbic acid (VITAMIN C ORAL) Take by mouth. Last dose 05/14/24 for OR 06/12/24 - clobetasol (TEMOVATE) 0.05 % ointment Apply 1 application to affected area twice daily. For two weeks then use once per week . - MULTIVITAMIN TAB Take by mouth. Last dose 05/14/24 for OR 06/12/24 Problem List As Of Date 07/23/2024 Noted Resolved Routine general medical examination at [facility]*02/19/2010 07/14/2011 Class: Chronic Routine gynecological examination [Z01.419] 02/19/2010 07/14/2011 Class: Chronic Subclinical hypothyroidism [E03.8] 02/19/2010 03/13/2012 OCD (obsessive compulsive disorder) [F42.9] 03/30/2010 Postmenopausal bleeding [N95.0] 10/04/2011 02/28/2012 Overactive bladder [N32.81] 11/22/2011 Cervicalgia [M54.2] 12/31/2011 03/13/2012 Brachial neuritis or radiculitis NOS [M54.12] 12/31/2011 03/13/2012 Abnormal uterine bleeding [N93.9] 02/28/2012 02/02/2017 Urinary incontinence [R32] 03/28/2013 Gross hematuria [R31.0] 03/28/2013 Urge incontinence [N39.41] 03/28/2013 Anal fissure [K60.2] 09/09/2013 Mixed hyperlipidemia [E78.2] 03/17/2017 Left ankle instability [M25.372] 03/29/2017 Plantar fasciitis of left foot [M72.2] 11/30/2018 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] 10/16/2020 DDD (degenerative disc disease), cervical [M50.*11/19/2021 Urinary, incontinence, stress female [N39.3] 04/26/2023 Muscle weakness [M62.81] 04/26/2023 Lung nodule [R91.1] 05/30/2024 Preop testing [Z01.818] 06/08/2024 Chronic cough [R05.3] 06/12/2024 Lymphadenopathy [R59.1] 06/12/[address] lung screening [R91.8] 06/12/2024 Prescriptions ordered this encounter Disp Refills Start End PENTAMIDINE 300 MG SOLUTION FOR INHA* 1 ea* 5 07/23/2024 Class: Print RX Si mg nebulized every 4 weeks Medications Discontinued During This Encounter Prescriptions - pentamidine (NEBUPENT) 300 mg inhalation solution (Discontinued) 300 mg nebulized every 4 weeks Encounter Status:Closed by MERLY SCHMITZ on 07/23/24 Normal [facility] Coccidioides sp IgG and IgM panel (Unsp spec)on 07-23-2024 Coccidioides sp Ab Ql (S) Negative Normal Negative [facility] Comment on above: Order Comment: Speci men Type: BLOOD SPECIMENOrdering Facility: [facility] Address: [address] [place] [address] Performed By: #### Chantal ABDULLAHI, 49288-8 ####[facility] [id number] [place] [address] [place] Coccidioides sp IgG Ql (S) Negative Normal Negative [facility] Comment on above: Order Comment: Speci men Type: BLOOD SPECIMENOrdering Facility: [facility] Address: [address] [place] [address] Result Comment: This EIA detects Coccidioides IgG antibodies that are typically directed against the CF antigen and appear several weeks after infection. Cross-reactivity with other dimorphic endemic fungi is not uncommon. Clinical and epidemiological correlation is required. Performed By: #### Chantal ABDULLAHI, 07072-8 ####[facility] [id number] [place] [address] [place] Coccidioides sp IgM Ql (S) Negative Normal Negative [facility] Comment on above: Order Comment: Chano carmen Type: BLOOD SPECIMENOrdering Facility: [facility] Address: [address] [place] [address] Result Comment: This EIA detects Coccidioides IgM antibodies that are typically directed against the TP antigen and appear within a few weeks after infection. Cross-reactivity with other dimorphic endemic fungi is not uncommon. Where IgM is positive/indeterminate but IgG is negative/indeterminate, repeat testing is suggested after 2-3 weeks. Clinical and epidemiological correlation is required. Performed By: #### B LAS, 23761-1 ####[facility] [id number] [place] [address] [place] Fungus identified Nom (Isol) on 07-23-2024 Aspergillus sp Ab Immune diff Ql (S) Negative Normal Negative [facility] Comment on above: Order Comment: Specdavid carmen Type: BLOOD SPECIMENOrdering Facility: [facility] Address: [address] [place] [address] Result Comment: [place] rgillus antibody test by immunodiffusion may be used as an aid in diagnosis of chronic pulmonary aspergillosis including chronic cavitary pulmonary aspergillosis and chronic fibrosing pulmonary aspergillosis. Immunodiffusion test is more specific but less sensitive than complement fixation test. Clinical correlation is required. Performed By: #### 4 2804-5 ####[facility] [id number] [place] [address] [place] B. dermatitidis Ab Immune diff Ql (S) Negative Normal Negative [facility] Comment on above: Order Comment: Chano carmen Type: BLOOD SPECIMENOrdering Facility: [facility] Address: [address] [place] [address] Result Comment: [place] tomyces antibody test by Immunodiffusion may be used as an aid in diagnosis of infection with the dimorphic fungus Blastomyces dermatitidis. Blastomyces serology has low overall diagnostic sensitivity especially with localized disease. Immunodiffusion test is more specific but less sensitive than complement fixation test. Clinical and epidemiological correlation is required. Performed By: #### 4 2804-5 ####[facility] [id number] [place] [address] [place] Coccidioides sp Ab Immune diff Ql (S) Negative Normal Negative [facility] Comment on above: Order Comment: Speci men Type: BLOOD SPECIMENOrdering Facility: [facility] Address: [address] [place] [address] Result Comment: Cocc idioides antibody test by Immunodiffusion may be used as an aid in diagnosis of infection with the dimorphic fungus Coccidioides spp. Cannot exclude acute infection if the specimen collected 4-6 weeks after onset of signs and symptoms. Immunodiffusion test is more specific but less sensitive than EIA test. Clinical and epidemiological correlation is required. Performed By: #### 4 2804-5 ####[facility] [id number] [address] [place] H. capsulatum Ab Immune diff Ql (S) Negative Normal Negative [facility] Comment on above: Order Comment: Speci men Type: BLOOD SPECIMENOrdering Facility: [facility] Address: [address] [place] [address] Result Comment: Hist oplasma antibody test by Immunodiffusion may be used as an aid in diagnosis of infection with the dimorphic fungus Histoplasma capsulatum. Histoplasma antibody test has low overall diagnostic sensitivity especially with localized disease. Immunodiffusion test is more specific but less sensitive than complement fixation test. Clinical and epidemiological correlation is required. Performed By: #### 4 2804-5 ####[facility]ITAL[facility] [id number] [place] [address] [place] HISTOPLASMA AB CFon 07-24-19 25 HISTOPLASMA MYCELIA, CF <1:8 Normal <1:8 [facility] Comment on above: Order Comment: Speci men Type: BLOOD SPECIMENOrdering Facility: [facility] Address: [address], [place] [address] Result Comment: INTE RPRETIVE INFORMATION: Histoplasma Mycelia Antibodies by CF A titer of 1:8 or greater is generally considered presumptive evidence of histoplasmosis. A titer of 1:32 or greater or rising titers indicate strong presumptive evidence of histoplasmosis. Cross reactions, usually at lower titers, may occur with other fungal diseases. Performed By: #### H ISTCF ####[facility]IESCLIA [id number] [place] [address] HISTOPLASMA YEAST, CF <1:8 Normal <1:8 [facility] Comment on above: Order Comment: Speci men Type: BLOOD SPECIMENOrdering Facility: [facility] Address: [address] [place] [address] Result Comment: INTE RPRETIVE INFORMATION: Histoplasma Yeast Antibodies by CF A titer of 1:8 or greater is generally considered presumptive evidence of histoplasmosis. A titer of 1:32 or greater or rising titers indicate strong presumptive evidence of histoplasmosis. Cross reactions, usually at lower titers, may occur with other fungal diseases. Performed By: [facility] [address] [id number] Heel Seat Fitter Machine: Mahin Gimenez MD, PhD CLIA Number: [id number] Performed By: #### H ISTCF ####[facility]ORATORIESCLIA [id number] [place] [address] HISTOPLASMA AG URINEon 07-23 H. capsulatum Ag (U) [Mass/Vol] <0.2 Normal <0.2 [facility] Comment on above: Order Comment: Speci men Type: URINE SPECIMENOrdering Facility: [facility] Address: [address] [place] [address] Performed By: #### U HISTO ####[facility] [id number] [place] [address] [place] H. capsulatum Ag IA Ql (U) Negative Normal Negative [facility] Comment on above: Order Comment: Speci men Type: URINE SPECIMENOrdering Facility: [facility] Address: [address] [place] [address] Result Comment: Hist oplasma galactomannan antigen, urine test is used as an aid in diagnosing histoplasmosis. A negative result cannot rule out infection. Low positive results may at times be due to cross-reactivity with Blastomyces, Talaromyces marneffei, Paracoccidioides, and some Elida species. Clinical radiological, and epidemiological correlation is required. Performed By: #### U HISTO ####[facility] [id number] [facility] [place] [address] [place] INTERLEUKIN 2 RECEPTOR, ERIKAU WILFRIDO, SERUMon 07-23-2024 INTERLEUKIN-2 RECEPTOR 560.5 pg/mL Normal 175.3-858.2 [facility] Comment on above: Order Comment: Speci men Type: BLOOD SPECIMENOrdering Facility: [facility] Address: [address] [place] [address] Result Comment: INTE RPRETIVE INFORMATION: Cytokines Results are used to understand the pathophysiology of immune, infectious, or inflammatory disorders, or may be used for research purposes. This test was developed and its performance characteristics determined by [facility]. It has not been cleared or approved by the US Food and Drug Administration. This test was performed in a CLIA certified laboratory and is intended for clinical purposes. Performed By: [facility] [address] [place] [address] Heel Seat Fitter Machine: Mahin Gimenez MD, PhD CLIA Number: [id number] Performed By: #### S IL2R ####[facility] [id number] [place] [address] CNTHERAPYon 07-17-2024 CNTHERAPY OT/PT/Speech Visit (AKPTB) DIXIE MILLER ([id number]) 1965 F Date Time Provider Department 07/17/24 9:30 AM JEN PALACIOS AKPTB Date Time Provider Department Center 07/17/2024 9:30 AM [id number] PALACIOSAAKPTB [facility] Reason for Visit: PT Discharge [752] Primary Visit Diagnosis:Urinary, incontinence, stress female [N39.3] Allergies As of Date: 07/17/2024 Noted Allergy Reaction DEMEROL (MEPERIDINE (PF)) 03/19/2005 14 - Other: See Comments Comments: Very bad reaction-Possible Low BP HYDROQUINONE 02/19/2010 2 - Rash METHYLCHLOROISOTHIAZOL INONE 03/01/2018 2 - Rash METHYLISOTHIAZOLINONE 03/01/2018 2 - Rash PENICILLIN G 03/19/2005 PROPYLENE GLYCOL 03/01/2018 2 - Rash SULFA (SULFONAMIDE ANTIBIOTICS) 03/19/2005 Date Reviewed: 06/12/2024 Reviewed by: Linda Lguo, RN - Fully Assessed Prescriptions as of 07/17/2024 - dapsone 100 mg tablet Take 1 tablet by mouth once daily. - predniSONE (DELTASONE) 20 mg tablet Take 2 tablets by mouth once daily. - nitrofurantoin monohydrate and macrocrystal (MACROBID) 100 mg capsule Take one tablet PO after intercourse - Cholecalciferol, Vitamin D3, 50 mcg (2,000 unit) cap Take by mouth. Last dose 05/14/24 for OR 06/12/24 - ascorbic acid (VITAMIN C ORAL) Take by mouth. Last dose 05/14/24 for OR 06/12/24 - clobetasol (TEMOVATE) 0.05 % ointment Apply 1 application to affected area twice daily. For two weeks then use once per week . - MULTIVITAMIN TAB Take by mouth. Last dose 05/14/24 for OR 06/12/24 Normal [facility] G-6-PD QUANTITATIVEon 2024 G6PD (RBC) [Catalytic activity/Mass] 11.5 U/g Hb Normal 9.8-15.5 [facility] Comment on above: Order Comment: Speci men Type: BLOOD SPECIMEN [facility] Address: [address] [place] [address] Result Comment: This test was developed, and its performance characteristics determined by the [facility] Department of Pathology and Laboratory Medicine. It has not been cleared or approved by the FDA. The [facility] Department of Pathology and Laboratory Medicine is regulated under CLIA as qualified to perform high-complexity testing. This test is used for clinical purposes. It should not be regarded as investigational or for research. Performed By: #### 2 4323-8 #### [facility] CLIA [id number] [address] Hgb Bld-mCncon 07-04-2024 Hemoglobin (Bld) [Mass/Vol] 14.1 g/dL Normal 11.5-15.5 [facility] Comment on above: Order Comment: Speci men Type: BLOOD SPECIMEN [facility] Address: [address] [place] [address] Performed By: #### 2 4323-8 #### [facility] CLIA [id number] [address] [place] [address] CNTHERAPYon 06-19-2024 CNTHERAPY OT/PT/Speech Visit (AKPTB) DIXIE MILLER ([id number]) 1965 F Date Time Provider Department 06/19/24 9:30 AM JEN PALACIOS AKTRACIE Date Time Provider Department Center 06/19/2024 9:30 AM [id number] PALACIOSAAKPTB [facility] Reason for Visit: PT Progress Note [1596] Primary Visit Diagnosis:Urinary, incontinence, stress female [N39.3] Allergies As of Date: 06/19/2024 Noted Allergy Reaction DEMEROL (MEPERIDINE (PF)) 03/19/2005 14 - Other: See Comments Comments: Very bad reaction-Possible Low BP HYDROQUINONE 02/19/2010 2 - Rash METHYLCHLOROISOTHIAZOL INONE 03/01/2018 2 - Rash METHYLISOTHIAZOLINONE 03/01/2018 2 - Rash PENICILLIN G 03/19/2005 PROPYLENE GLYCOL 03/01/2018 2 - Rash SULFA (SULFONAMIDE ANTIBIOTICS) 03/19/2005 Date Reviewed: 06/12/2024 Reviewed by: Linda Lugo RN - Fully Assessed Prescriptions as of 06/19/2024 - nitrofurantoin monohydrate and macrocrystal (MACROBID) 100 mg capsule Take one tablet PO after intercourse - Cholecalciferol, Vitamin D3, 50 mcg (2,000 unit) cap Take by mouth. Last dose 05/14/24 for OR 06/12/24 - ascorbic acid (VITAMIN C ORAL) Take by mouth. Last dose 05/14/24 for OR 06/12/24 - clobetasol (TEMOVATE) 0.05 % ointment Apply 1 application to affected area twice daily. For two weeks then use once per week . - MULTIVITAMIN TAB Take by mouth. Last dose 05/14/24 for OR 06/12/24 Normal [facility] [id number] 06-12-2024 [id number] HNO ID: [id number] Author: LINDA LUGO, RN Service: ? Author Type: Registered Nurse Type: [id number] Filed: 06/12/2024 13:47 Note Text: What happens after a bronchoscopy? - In most cases, bronchoscopy is an outpatient procedure, so you won?t need to spend the night in the hospital. You can typically go home within a few hours of the procedure. - Your healthcare team will monitor you after the procedure to ensure you?re breathing and swallowing properly. Your provider may decide to order a chest X-ray after the procedure to check for any signs of problems. - You may have a numb throat for up to an hour. You may have a sore throat, cough or hoarseness for the next 24 hours. Using cough drops can help with this. Most people can return to normal activities the next day. - Your healthcare provider will let you know if you should restrict your activities in any way. - Your healthcare team will let you know when you should expect test results and when you should schedule a follow-up appointment. Can I eat and drink after a bronchoscopy? You shouldn?t eat or drink until the numbness wears off, which could take an hour or more. Once you don?t feel numb, start by sipping water and eating soft foods. Eating and drinking too soon could cause you to breathe the food or drink into your lungs (aspirate) or choke. Results and Follow-Up: How long does it take to get the results of a bronchoscopy? Ask your healthcare team when you can expect results. If they took biopsies during the procedure, the results should be available within one week. Other test results may be available sooner or later depending on the kind of testing.Your healthcare provider will use the results to determine the next steps of your care. This varies from person to person depending on what your provider finds during the bronchoscopy. When should I contact my healthcare provider? Call your healthcare team if you have any of the following symptoms, which can indicate an infection, collapsed lung or other problem: - Chest pain. - Difficulty breathing. - Persistent fever. - Persistent cough or coughing up blood. - Signs of pneumonia. A note from [facility]: Bronchoscopy is a safe procedure that helps your healthcare provider diagnose the cause of lung and airway problems. In some cases, providers also use bronchoscopy to treat lung and airway conditions. This outpatient procedure involves inserting a tube down into your lungs. If your healthcare provider recommends bronchoscopy, you?ll get more details to prepare. Information obtained from: [email or web address] py [facility] ANES POSTPROC EVALon 025 ANES POSTPROC EVAL HNO ID: [id number] Author: AGUILA ALLRED DO Service: ? Author Type: Anesthesiologist Type: Anesthesia Postprocedure Evaluation Filed: 06/12/2024 13:23 Note Text: POST ANESTHESIA EVALUATION NOTE : 1965 Procedure Summary Date: 06/12/24 [facility] Anest[facility] Start: 1146 Anesthesia Stop: 1250 Procedure: BRONCHOSCOPY,RIGID/FLE XIBLE,W/ FLUORO,W/TRANSENDOSCOP IC ENDOBRONCHIAL ULTRASOUND (EBUS) DURING BRONCHOSCOPIC DIAGNOSTIC/THERAPEUTIC INTERVENTION(S) PERIPHERAL LESION(S) (Bronchus) Diagnosis: Lymphadenopathy (Lymphadenopathy [R59.1]) Surgeons: Anthony Pritchard MD Responsible Provider: Aguila Allred DO Anesthesia Type: general ASA Status: 2 Anesthesia Type: general Airway Type: LMA Last Vitals Vitals Value Taken Time BP 109/66 06/12/24 1315 Temp 36.7 ?C (98.1 ?F) 06/12/24 1250 Pulse 98 06/12/24 1322 Resp 20 06/12/24 1315 SpO2 89 % 06/12/24 1322 Vitals shown include unfiled device data. Post Anesthesia Patient Status Patient Evaluation: PACU. PACU/ICU Patient Condition: stable. Anticipated Disposition: phase 2 then home. Neurological Status: aware and responsive. Pulmonary Status: breathing comfortably on room air Airway Control: returned to baseline unsupported. Cardiovascular Status: stable. Pain Management: clinically adequate Postoperative Hydration: acceptable. Intraoperative Events: no significant anesthesia events Post Operative Nausea/Vomiting Status: no significant post operative nausea or vomiting Recommendation: continue current plan of care. Anesthesia Observations No Documentation SIGNATURE: Aguila Allred DO PATIENT NAME: Dixie Miller DATE: June 12, 2024 TIME: 1:23 PM CSN: [id number] [facility] ANES PRE-OPon 06-12-2024 ANES PRE-OP HNO ID: [id number] Author: AGUILA ALLRED DO Service: ? Author Type: Anesthesiologist Type: Anesthesia Preprocedure Evaluation Filed: 06/12/2024 10:44 Note Text: ANESTHESIOLOGY DAY OF SURGERY NOTE : 1965 Procedure Information Date/Time: 06/12/24 1130 Procedure: BRONCHOSCOPY,RIGID/FLE XIBLE,W/ FLUORO,W/TRANSENDOSCOP IC ENDOBRONCHIAL ULTRASOUND (EBUS) DURING BRONCHOSCOPIC DIAGNOSTIC/THERAPEUTIC INTERVENTION(S) PERIPHERAL LESION(S) (Bronchus) Location: [facility] Surgeons: Anthony Pritchard MD Estimated body mass index is 26.18 kg/m? as calculated from the following: Height as of this encounter: 165.1 cm (5' 5). Weight as of this encounter: 71.4 kg (157 lb 4.8 oz). Most recent hematocrit and potassium results: Hematocrit 43.4 05/03/2024 Potassium 3.7 05/03/2024 Relevant Problems No relevant active problems I - PHYSICAL EVALUATION AIRWAY Patient intubated: No. Tracheostomy tube not present Mallampati: II. TM distance: <3 FB. Neck ROM: full ROM without neurological symptoms. Mouth opening: adequate. Short neck: no. Thick neck: no Additional exam findings: no II - ANESTHESIA PLAN ASA Score: 2 Anesthetic Plan: general Airway type: LMA The patient is not a current smoker. NPO Status: adequate Beta Katelyn Administration of chronic beta katelyn medication planned. Monitoring Plan Monitoring plan: standard ASA. Post Procedure Analgesic Plan Postoperative analgesic plan: parenteral or oral opioids and multimodal analgesia. Informed Consent Anesthetic risks, benefits, alternatives, personnel and consent discussed: yes. Patient / Responsible Republican agrees to proceed: yes Patient / Surrogate agrees to blood products: Yes DNR status not reviewed with patient and/or family prior to surgery. Significant changes in the patient condition since the History and Physical, not otherwise documented in primary service progress note: no. Vitals Value Taken Time BP 143/83 06/12/24 1015 Pulse 87 06/12/24 1013 Resp 18 06/12/24 1013 Temp 36.6 ?C (97.8 ?F) 06/12/24 1013 SpO2 97 % 06/12/24 1013 Facility-Administered Medications as of 06/12/2024 Medication Dose Route Frequency lidocaine (PF) 10 mg/mL (1 %) 2 mg injection (XYLOCAINE) 0.2 mL INTRADERMAL PRN NaCl 0.9% iv infusion 30 mL/hr INTRAVENOUS CONTINUOUS NaCl 0.9% iv flush bag 20 mL INTRAVENOUS PRN Outpatient Medications as of 06/12/2024 Medication Sig nitrofurantoin monohydrate and macrocrystal (MACROBID) 100 mg capsule Take one tablet PO after intercourse (Patient taking differently: Take 100 mg by mouth as needed. Take one tablet PO after intercourse) Cholecalciferol, Vitamin D3, 50 mcg (2,000 unit) cap Take by mouth. Last dose 05/14/24 for OR 06/12/24 ascorbic acid (VITAMIN C ORAL) Take by mouth. Last dose 05/14/24 for OR 06/12/24 clobetasol (TEMOVATE) 0.05 % ointment Apply 1 application to affected area twice daily. For two weeks then use once per week . MULTIVITAMIN TAB Take by mouth. Last dose 05/14/24 for OR 06/12/24 I have interviewed and examined the patient. I have reviewed the medical record and/or the pre-anesthesia evaluation, pertinent labs, and test results. This contains updated information obtained within 48 hours of Surgery/Procedure. SIGNATURE: Aguila Allred DO PATIENT NAME: Dixie Miller DATE: June 12, 2024 TIME: 10:44 AM CSN: [id number] Normal [facility] ASPERGILLUS GALACTOMANNAN BA Reji 06-12-2024 ASPER. AG BAL,QUAL Negative Normal Negative [facility] Comment on above: Order Comment: Speci men Type: SPECIMEN OBTAINED BY LAVAGEOrdering Facility: [facility] Address: [address] [place] [address] Result Comment: Aspe rgillus Galactomannan antigen assay is used as an aid in diagnosis of invasive aspergillosis in immunocompromised individuals especially in post-stem cell transplant, hematological malignancies on chemotherapy, and HIV-positive patients with very low CD4 T-cell counts. The test may also be used in disease prognostication and for monitoring response to anti-fungal therapy. False positive and false negative results are not uncommon. Clinical and radiological correlation is required. Performed By: #### A SGALB ####[facility] [id number] [place] [address] [place] ASPERGILLUS GALACTOMANNAN 0.01 Index Value Normal <=0.49 [facility] Comment on above: Order Comment: Speci men Type: SPECIMEN OBTAINED BY LAVAGEOrdering Facility: [facility] Address: [address] [place] [address] Performed By: #### A SGALB ####[facility] [id number] [place] [id number] [place] BAL MANUAL DIFFon 06-12-2024 DIF TTL, BA LAVAGE 100 cells counted [facility] Comment on above: Order Comment: Speci men Type: SPECIMEN OBTAINED BY LAVAGEOrdering Facility: [facility] Address: [address] [place] [address] Performed By: #### B YOHANNES, [id number], [id number] ####[facility] [id number] [place] [id number] [place] EOSIN%, BA LAVAGE 1 % [facility] Comment on above: Order Comment: Speci men Type: SPECIMEN OBTAINED BY LAVAGEOrdering Facility: [facility] Address: [address] [place] [address] Performed By: #### Chantal SHEFFIELD [id number], [id number] ####[facility] [id number] [address] [place] [address] [place] LYMPH%, BA LAVAGE 26 % Normal [facility] Comment on above: Order Comment: Speci men Type: SPECIMEN OBTAINED BY LAVAGEOrdering Facility: [facility] Address: [address] [place] [address] Performed By: #### Chantal SHEFFIELD [id number], [id number] ####[facility] [id number] [address], [facility]95 [place] MACRO%, BA LAVAGE 64 % Normal [facility] Comment on above: Order Comment: Speci men Type: SPECIMEN OBTAINED BY LAVAGEOrdering Facility: [facility] Address: [address] [place] [address] Performed By: #### Chantal SHEFFIELD, [id number], [id number] ####[facility] [id number] [address], [facility]95 [place] MONO%, BA LAVAGE 5 % Normal [facility] Comment on above: Order Comment: Speci men Type: SPECIMEN OBTAINED BY LAVAGEOrdering Facility: [facility] Address: [address] [place] [address] Performed By: #### Chantal SHEFFIELD, [id number], [id number] ####[facility] [id number] [address] [place] [address] [place] NEUT%, BA LAVAGE 4 % Normal [facility] Comment on above: Order Comment: Speci men Type: SPECIMEN OBTAINED BY LAVAGEOrdering Facility: [facility] Address: [address] [place] [address] Performed By: #### Chantal SHEFFIELD [id number], [id number] ####[facility] [id number] [address] [place] BAL ROUTINE BFLon 06-12-2024 BAL COMMENT Normal [facility] Comment on above: Order Comment: Speci men Type: SPECIMEN OBTAINED BY LAVAGEOrdering Facility: [facility] Address: [address] [place] [address] Result Comment: Coun t may be inaccurate due to Disintegration Clumped on chamber Performed By: #### Chantal SHEFFIELD [id number], [id number] ####[facility] [id number] [address], [place] [address] [place] Clarity (Unsp spec) Clear Normal Clear [facility] Comment on above: Order Comment: Speci men Type: SPECIMEN OBTAINED BY LAVAGEOrdering Facility: [facility] Address: [address] [place] [address] Performed By: #### Chantal SHEFFIELD [id number], [id number] ####[facility] [id number] [place] [address] [place] Color (Bronch spec) Colorless Normal Colorless [facility] Comment on above: Order Comment: Speci men Type: SPECIMEN OBTAINED BY LAVAGEOrdering Facility: [facility] Address: [address] [place] [address] Performed By: #### Chantal SHEFFIELD [id number], [id number] ####[facility] [id number] [place] [address] [place] RBC LM.HPF (BAL) [#/Area] 469 /uL Normal Reference range not established. [facility] Comment on above: Order Comment: Speci men Type: SPECIMEN OBTAINED BY LAVAGEOrdering Facility: [facility] Address: [address] [place] [address] Performed By: #### Chantal SHEFFIELD [id number], [id number] ####[facility] [id number] [place] [address] [place] WBC Manual cnt (Bronch spec) [#/Vol] 70 /uL Normal Reference range not established. [facility] Comment on above: Order Comment: Speci men Type: SPECIMEN OBTAINED BY LAVAGEOrdering Facility: [facility] Address: [address] [place] [address] Performed By: #### Chantal SHEFFIELD, [id number], [id number] ####[facility] [id number] [address] BAL STAFF REVIEW (LAB ORDER) on 06-12-2024 BAL REVIEW Reviewed by Joan Subramanian MD Normal [facility] Comment on above: Order Comment: Speci men Type: SPECIMEN OBTAINED BY LAVAGEOrdering Facility: [facility] Address: [address] [place] [address] Performed By: #### Chantal SHEFFIELD, [id number], [id number] ####[facility] [id number] [address] BAL STAFF COMMENTS Lymphocytes, monocytes, macrophages, and mesothelial cells with non-specific reactive change. Normal [facility] Comment on above: Order Comment: Speci men Type: SPECIMEN OBTAINED BY LAVAGEOrdering Facility: [facility] Address: [address] [place] [address] Performed By: #### Chantal SHEFFIELD, [id number], [id number] ####[facility] [id number] [address] [place] Bacteria BAL Aerobe Culton 0 06-12-2024 Bacteria identified Aer cx Nom (BAL) ORGANISM ID: 1 100 CFU/mL Rothia mucilaginosa (stomatococcus mucilaginosus) No further workup ORGANISM ID: 3 200 CFU/mL Viridans streptococcus No further workup ORGANISM ID: 4 100 CFU/mL Neisseria subflava No further workup GRAM STAIN: Moderate Polymorphonuclear leukocytes Rare Epithelial cells No organisms seen Abnormal [facility] Comment on above: Performed By: #### 4 [id number] ####[facility] LABORATORYCLIA [id number] [id number] CYTOLOGY NON-GYNon 5 AP DISCLAIMER Normal [facility] Comment on above: Order Comment: Speci men Type: SPECIMEN OBTAINED BY LAVAGEOrdering Facility: [facility] Address: [address] [place] [address] Result Comment: Reed gruber Developed Test (LDT) Disclaimer: Performance characteristics of immunohistochemical, immunofluorescent, and chromogenic in-situ hybridization tests have been determined by the performing laboratory within [facility]'s [facility] Pathology and Laboratory Medicine Department ([facility], [facility], [facility], [facility], [facility], [facility], or [facility]) in a manner consistent with CLIA requirements. One or more of these tests may not have been cleared or approved by the FDA. [facility] is regulated under CLIA as qualified to perform high-complexity testing. These tests are used for clinical purposes. These should not be regarded as investigational or for research. Positive and negative controls stain appropriately. Performed By: #### C YTONON ####[facility] LABORATORYCLIA [id number] [address] [place] CASE REPORT [facility] Comment on above: Order Comment: Speci men Type: SPECIMEN OBTAINED BY LAVAGEOrdering Facility: [facility] Address: [address] [place] [address] Result Comment: [facility] Cytology Report Case: [id number] Authorizing Provider: Anthony Pritchard, Collected: 06/12/2024 12:18 PM Ordering Location: [facility] Minor Received: 06/12/2024 02:16 PM Surgery Pathologist: Annette Crockett MD Specimens: A) - Lung, Left Upper Lobe, Transbronchial, Transbronchial BLADIMIR--lingula B) - Bronchoalveolar Lavage, right middle lobe BAL Performed By: #### C YTONON ####[facility] LABORATORYCLIA [id number] [address] OF [place] CLINICAL HISTORY Normal [facility] Comment on above: Order Comment: Speci men Type: SPECIMEN OBTAINED BY LAVAGEOrdering Facility: [facility] Address: [address] [place] [address] Result Comment: Pre- op diagnosis: Lymphadenopathy [R59.1] Performed By: #### C YTONON ####[facility] LABORATORYCLIA [id number] [address] DIAGNOSIS COMMENT See associated surgical specimen ([id number]). [facility] Comment on above: Order Comment: Speci men Type: SPECIMEN OBTAINED BY LAVAGEOrdering Facility: [facility] Address: [address] [place] [address] Performed By: #### C YTONON ####[facility] LABORATORYCLIA [id number] [address] FINAL DIAGNOSIS [facility] Comment on above: Order Comment: Speci men Type: SPECIMEN OBTAINED BY LAVAGEOrdering Facility: [facility] Address: [address] [place] [address] Result Comment: A - Lung, Left Upper Lobe, Transbronchial, [place] - Transbronchial BLADIMIR--lingula - Negative for malignant cells. B - Bronchoalveolar Lavage - right middle lobe BAL - Negative for malignant cells. The following cell blocks were associated with this case: A1 Cell Block, Formalin Fixed [facility] B1 Cell Block, Formalin Fixed [facility] at 1600 EDT Performed By: #### C YTONON ####[facility] LABORATORYCLIA [id number] [address] FINAL PERFORMING LAB [facility] Comment on above: Order Comment: Speci men Type: SPECIMEN OBTAINED BY LAVAGEOrdering Facility: [facility] Address: [address] [place] [address] Result Comment: Tech nical component, certified performance technologist screening performed at: [facility], [address] [place] [address] CLIA: [id number] Diagnostic interpretation performed at: [facility], [address] [place] [address] CLIA# [id number] Heel Seat Fitter Machine: Annette Crockett MD Performed By: #### C YTONON ####[facility] LABORATORYCLIA [id number] [address] GROSS DESCRIPTION Normal [facility] Comment on above: Order Comment: Speci men Type: SPECIMEN OBTAINED BY LAVAGEOrdering Facility: [facility] Address: [address] [place] [address] Result Comment: A. L debra, Left Upper Lobe, Transbronchial <5 cc clear colorless fluid with brush with particles. ThinPrep and Cell Block prepared. B. Bronchoalveolar Lavage 10 cc cloudy colorless fluid with particles. ThinPrep and Cell Block prepared. Performed By: #### C YTONON ####[facility] LABORATORYCLIA [id number] [address] ORDER COMMENT [facility] Comment on above: Order Comment: Speci men Type: SPECIMEN OBTAINED BY LAVAGEOrdering Facility: [facility] Address: [address] [place] [address] Result Comment: Pre- op diagnosis: Lymphadenopathy [R59.1] Performed By: #### C YTONON ####[facility] LABORATORYCLIA [id number] [address] [place] Fungus Spec Culton 5 Fungus identified Cx Nom (Unsp spec) CULTURE, FUNGAL: No Fungus isolated after 28 days [facility] Comment on above: Performed By: #### 5 80-1, 16909-6 ####[facility] LAB[facility] [id number] [address] [place] HISTORY PHYSICALon 5 HISTORY PHYSICAL HNO ID: [id number] Author: ANTHONY PRITCHARD MD Service: Critical Care Author Type: Physician Type: H&P Filed: 06/12/2024 11:11 Note Text: [facility] DATE: June 12, 2024 SERVICE TIME: 11:08 AM HPI: This 58 year old female is being evaluated for chronic cough and abnormal CT of the chest. Patient was seen by pulmonary for chronic cough for 2 to 3 years. Cannot predict when this coughing should occur. Initially had episodes of proximal isms that would cause her to lose urine. Patient had multiple treatments with steroids antibiotics, Delsym, Mucinex which would help initially but would never relieve coughing. Patient does not have coughing at night that wakes her up. Patient does state that at activity does help cough. Patient does not bring up any congestion. Patient does state possible exposure to COVID during this time. is at bedside. Imaging and testing were reviewed. PAST MEDICAL HISTORY: SEE CHRONIC ISSSUES: PAST MEDICAL HISTORY Diagnosis Date Atopic eczema Dr. Saravanan James DSC Basal cell carcinoma Remvoed from forehead and left side of nose. Bladder incontinence Bettina Bermudez PA-C Chicken pox 03/31/1966 as a child-lasted [address] Pritchard Lung nodules PT states she has [address] Pritchard Lymphadenopathy Around lung region: Dr. Pritchard to do EBUS 06/12/24 Motion sickness Mumps [id number] as a child PAST SURGICAL HISTORY Procedure Laterality Date COLONOSCOPY FLX DX W/COLLJ SPEC WHEN PFRMD 12/23/2016 Colonoscopy PAST SURGICAL HISTORY OF basil cell removal forehead and left side of nose PAST SURGICAL HISTORY OF FAMILY HISTORY Problem Relation Age of Onset Breast Cancer Mother age 60's-triple negative Hypertension Father Under control Diabetes Paternal Grandmother Diabetes Paternal Uncle Colon Cancer Other none Social History Tobacco Use Smoking status: Never Passive exposure: Past Smokeless tobacco: Never Vaping Use Vaping status: Never Used Substance Use Topics Alcohol use: Not Currently Drug use: No lives with . No smoking, drinking, alcohol, illicits. 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 HOME MEDICATIONS: nitrofurantoin monohydrate and macrocrystal (MACROBID) 100 mg capsuleTake one tablet PO after intercourseDisp: 30 capsuleRfl: 2 (Patient taking differently: Take 100 mg by mouth as needed. Take one tablet PO after intercourse) Cholecalciferol, Vitamin D3, 50 mcg (2,000 unit) capTake by mouth. Last dose 05/14/24 for OR 06/12/24Disp: Rfl: ascorbic acid (VITAMIN C ORAL)Take by mouth. Last dose 05/14/24 for OR 06/12/24Disp: Rfl: clobetasol (TEMOVATE) 0.05 % ointmentApply 1 application to affected area twice daily. For two weeks then use once per week .Disp: 30 gRfl: 0 MULTIVITAMIN TABTake by mouth. Last dose 05/14/24 for OR 06/12/24Disp: Rfl: 0 INPATIENT MEDICATIONS: Current Facility-Administered Medications Medication Dose Route Frequency lidocaine (PF) 10 mg/mL (1 %) 2 mg injection (XYLOCAINE) 0.2 mL INTRADERMAL PRN NaCl 0.9% iv infusion 30 mL/hr INTRAVENOUS CONTINUOUS NaCl 0.9% iv flush bag 20 mL INTRAVENOUS PRN ALLERGIES: Demerol [Meperidine (Pf)], Hydroquinone, Methylchloroisothiazol inone, Methylisothiazolinone, Penicillin G, Propylene Glycol, and Sulfa (Sulfonamide Antibiotics) COMPLETE REVIEW OF SYSTEMS: General: Denies fever/chills, fatigue, malaise or weight loss HEENT: Denies headaches, nosebleeds, congestion Neck: Denies lumps, pain or significant neck swelling Respiratory: Denies dyspnea, wheezing, cough, productive sputum, hemoptysis Cardiovascular: Denies chest pain, syncope or palpitations GI: Denies Abdominal pain, nausea, vomiting, diarrhea : No dysuria, positive stress incontinence with coughing. Musculoskeletal: Denies joint pain or swelling Extremities: Denies calf pain or swelling Skin:Denies rash or itching Neuro: Denies headaches, syncope, dizziness VITALS: 06/04/24 1450 06/12/24 1013 06/12/24 1015 BP: 135/77 143/83 Pulse: 87 Resp: 18 Temp: 36.6 ?C (97.8 ?F) TempSrc: Temporal SpO2: 97% Weight: 73 kg (161 lb) 71.4 kg (157 lb 4.8 oz) Height: 163.8 cm (5' 4.5) 165.1 cm (5' 5) PHYSICAL EXAM: Gen: Alert AND Oriented x 3, No acute distress HEENT: Normocephalic, Atraumatic, Pupils Equally Reactive to light and accomodation, moist mucous membranes, Neck: Supple, no rigidity, Trachea is midline, no Lymphadenopathy Lungs: Clear to Auscultation bilaterally , No wheezing, rhonchi or rales Heart: Regular Rate and Rhythm, Normal S1 and S2, no murmurs, rhonchi or wheezing Abd: Soft, Nontender and nodistended, Positive Bowel Sounds x all four quadrants Ext: No edema, +2 pulses Neuro: CN II - XII grossly intact, no sensory/motor deficits noted ICU Checklist (more content not included)... Normal [facility] L. pneumophila DNA RENÉ+probe Ql (Unsp spec)on 06-12-2024 Legionella spp Spec Ql RENÉ+probe Not detected Normal Not detected [facility] Comment on above: Order Comment: Speci men Type: SPECIMEN OBTAINED BY LAVAGEOrdering Facility: [facility] Address: [address] [place] [address] Performed By: #### 2 1363-7 ####[facility] LABCLIA [id number] [address] [place] Microorganism Spec Culton Microorganism identified Cx Nom (Unsp spec) CULTURE, AFB: No Acid Fast Bacilli isolated after 42 days AFB STAIN: No acid fast bacilli seen by fluorochrome stain [facility] Comment on above: Performed By: #### 5 80-1, 80448-7 ####[facility] LABCLIA [id number] [place] [address] [place] PNEUMOCYSTIS JIROVECII PCRon 06-12-2024 P. jiroveci DNA RENÉ+probe (Unsp spec) [#/Vol] Not detected Normal Pneumocystis jirovecii Not Detected by PCR [facility] Comment on above: Order Comment: Speci men Type: SPECIMEN OBTAINED BY LAVAGEOrdering Facility: [facility] Address: [address] [place] [address] Performed By: #### P JPCR ####[facility] LABCLIA [id number] [address] STATES OF [place] Pathology biopsy report Homero (Tiss)on 06-12-2024 AP DISCLAIMER Normal [facility] Comment on above: Order Comment: Speci men Type: TISSUE SPECIMENOrdering Facility: [facility] Address: [address] [place] [address] Result Comment: Reed Smith Test (LDT) Disclaimer: Performance characteristics of immunohistochemical, immunofluorescent, and chromogenic in-situ hybridization tests have been determined by the performing laboratory within [facility]'s [facility] Pathology and Laboratory Medicine Department ([facility], [facility], [facility], [facility], [facility], [facility], or [facility]) in a manner consistent with CLIA requirements. One or more of these tests may not have been cleared or approved by the FDA. RT[facility]M is regulated under CLIA as qualified to perform high-complexity testing. These tests are used for clinical purposes. These should not be regarded as investigational or for research. Positive and negative controls stain appropriately. Performed By: #### 6 6121-5 ####[facility] LABCLIA [id number] [address] LABORATORYCLIA [id number] [place] [address] OF [place] CASE REPORT Normal [facility] Comment on above: Order Comment: Chano carmen Type: TISSUE SPECIMENOrdering Facility: [facility] Address: [address] [place] [address] Result Comment: Surg ica Pathology Report Case: [id number] Authorizing Provider: Anthony Pritchard, Collected: 06/12/2024 12:31 PM Ordering Location: [facility] Minor Received: 06/12/2024 02:13 PM Surgery Pathologist: Chary Calderon MD, PhD Specimen: Lung, Left Lobe, Transbronchial Biopsy, Left upper lobe, lingula Performed By: #### 6 6121-5 ####[facility] LABCLIA [id number] [place] [id number] [facility] LABORATORYCLIA [id number] [address] [place] CLINICAL HISTORY Normal [facility] Comment on above: Order Comment: Speci men Type: TISSUE SPECIMENOrdering Facility: [facility] Address: [address] [place] [address] Result Comment: Pre- op diagnosis: Lymphadenopathy [R59.1] Performed By: #### 6 6121-5 ####[facility] LABCLIA [id number] [address] [address] [facility] LABORATORYCLIA [id number] [address] DIAGNOSIS COMMENT Normal [facility] Comment on above: Order Comment: [facility] Type: TISSUE SPECIMENOrdering Facility: [facility] Address: [address] [place] [address] Result Comment: A. N o neoplasm or granulomas are seen. Immunohistochemical stains show that CAM5.2 highlights benign pneumocytes and mesothelial cells while TTF-1 highlights benign pneumocytes. There is no significant positivity for p40 and Ki-67 does not highlight any areas of increased proliferation. These findings are consistent with the above diagnosis. Select slides were also reviewed by Dr. Iglesia Weiss, Thoracic pathologist, who agrees with the diagnosis. Performed By: #### 6 6121-5 ####[facility] LABCLIA [id number] [address] LABORATORYCLIA [id number] [address] FINAL DIAGNOSIS [facility] Comment on above: Order Comment: Speci men Type: TISSUE SPECIMENOrdering Facility: [facility] Address: [address] [place] [address] Result Comment: A. L debra, left upper lobe, lingula, transbronchial biopsy: - Fragments of lung parenchyma with a minute focus of organizing pneumonia and focal, mild, non-specific chronic inflammation (see comment). at 2011 EDT Performed By: #### 6 6121-5 ####[facility] LABCLIA [id number] [address] [address] [id number], [address] LABORATORYCLIA [id number] [address] STATES [place] FINAL PERFORMING LAB [facility] Comment on above: Order Comment: Speci men Type: TISSUE SPECIMENOrdering Facility: [facility] Address: [address] [place] [address] Result Comment: Diag nostic interpretation performed at: [facility], [address] [place] [address] CLIA# [id number] Heel Seat Fitter Machine: Otis Fink MD Performed By: #### 6 6121-5 ####[facility] LABCLIA [id number] [address] LABORATORYCLIA [id number] [address] GROSS DESCRIPTION Normal [facility] Comment on above: Order Comment: Speci men Type: TISSUE SPECIMENOrdering Facility: [facility] Address: [address] [place] [address] Result Comment: A. L debra, Left Lobe, Transbronchial Biopsy Received in 2 separate containers, in formalin and in CytoLyt, labeled as BLADIMIR-lingula, left lung lobe transbronchial biopsy are multiple, white-pritchard to red-pink, soft tissues aggregating to 0.6 x 0.4 x 0.2 cm. The specimen is entirely submitted intact as follows: A1. Soft tissue received in formalin A2. Soft tissue received in CytoLyt CG June 12, 2024 2:20 PM Gross examination performed at [facility] [address] [place] [address] Performed By: #### 6 6121-5 ####[facility] LABCLIA [id number] [address] LABORATORYCLIA [id number] [address] STATES OF [facility] Respiratory pathogens DNA an d RNA panel RENÉ+probe (Nph)on 06-12-2024 Adenovirus hexon gene RENÉ+probe Ql (Nph) Not detected Normal Not detected [facility] Comment on above: Order Comment: Speci men Type: SPECIMEN OBTAINED BY LAVAGEOrdering Facility: [facility] Address: [facility] [place] [address] Performed By: #### 7 8922-2 ####[facility] LABCLIA [id number] [place] [address] [place] C. pneumoniae DNA RENÉ+probe Ql (Unsp spec) Not detected Normal Not detected [facility] Comment on above: Order Comment: Speci men Type: SPECIMEN OBTAINED BY LAVAGEOrdering Facility: [facility] Address: [address] [place] [address] Performed By: #### 7 8922-2 ####[facility] LABCLIA [id number] [place] [address] [place] FLUAV RNA RENÉ+probe Ql (Unsp spec) Not detected Normal Not detected [facility] Comment on above: Order Comment: Speci men Type: SPECIMEN OBTAINED BY LAVAGEOrdering Facility: [facility] Address: [address] [place] [address] Performed By: #### 7 8922-2 ####[facility] LABCLIA [id number] [place] [address] [place] FLUBV RNA RENÉ+probe Ql (Unsp spec) Not detected Normal Not detected [facility] Comment on above: Order Comment: Speci men Type: SPECIMEN OBTAINED BY LAVAGEOrdering Facility: [facility] Address: [address] [place] [address] Performed By: #### 7 8922-2 ####[facility] LABCLIA [id number] [place] [address] [place] HCoV 229E+OC43 RNA RENÉ+probe Ql (Nph) Not detected Normal Not detected [facility] Comment on above: Order Comment: Speci men Type: SPECIMEN OBTAINED BY LAVAGEOrdering Facility: [facility] Address: [address] [place] [address] Performed By: #### 7 8922-2 ####[facility] LABCLIA [id number] [address] [place] [address] [place] HCoV HKU1 RNA RENÉ+probe Ql (Unsp spec) Not detected Normal Not detected [facility] Comment on above: Order Comment: Speci men Type: SPECIMEN OBTAINED BY LAVAGEOrdering Facility: [facility] Address: [address] [place] [address] Performed By: #### 7 8922-2 ####[facility] LABCLIA [id number] [place] [address] [place] HCoV NL63 RNA RENÉ+non-probe Ql (Nph) Not detected Normal Not detected [facility] Comment on above: Order Comment: Speci men Type: SPECIMEN OBTAINED BY LAVAGEOrdering Facility: [facility] Address: [address] [place] [address] Performed By: #### 7 8922-2 ####[facility] LABCLIA [id number] [place] [address] [place] HCoV OC43 RNA RENÉ+probe Ql (Unsp spec) Not detected Normal Not detected [facility] Comment on above: Order Comment: Speci men Type: SPECIMEN OBTAINED BY LAVAGEOrdering Facility: [facility] Address: [address] [place] [address] Performed By: #### 7 8922-2 ####[facility] LABCLIA [id number] [place] [address] [place] hMPV RNA RENÉ+probe Ql (Unsp spec) Not detected Normal Not detected [facility] Comment on above: Order Comment: Speci men Type: SPECIMEN OBTAINED BY LAVAGEOrdering Facility: [facility] Address: [address] [place] [address] Performed By: #### 7 8922-2 ####[facility] LABCLIA [id number] [place] [address] [place] M. pneumoniae DNA RENÉ+probe Ql (Unsp spec) Not detected Normal Not detected [facility] Comment on above: Order Comment: Speci men Type: SPECIMEN OBTAINED BY LAVAGEOrdering Facility: [facility] Address: [address] [place] [address] Performed By: #### 7 8922-2 ####[facility] LABCLIA [id number] [address] [place] Parainfluenza virus 1 RNA RENÉ+probe Ql (Unsp spec) Not detected Normal Not detected [facility] Comment on above: Order Comment: Speci men Type: SPECIMEN OBTAINED BY LAVAGEOrdering Facility: [facility] Address: [address] [place] [address] Performed By: #### 7 8922-2 ####[facility] LABCLIA [id number] [address] [place] Parainfluenza virus 2 RNA RENÉ+probe Ql (Unsp spec) Not detected Normal Not detected [facility] Comment on above: Order Comment: Speci men Type: SPECIMEN OBTAINED BY LAVAGEOrdering Facility: [facility] Address: [address] [place] [address] Performed By: #### 7 8922-2 ####[facility] LABIA [id number] [address] [place] Parainfluenza virus 3 RNA RENÉ+probe Ql (Unsp spec) Not detected Normal Not detected [facility] Comment on above: Order Comment: Speci men Type: SPECIMEN OBTAINED BY LAVAGEOrdering Facility: [facility] Address: [address] [place] [address] Performed By: #### 7 8922-2 ####[facility] LABCLIA [id number] [place] [address] [place] Parainfluenza virus 4 P gene RENÉ+probe Ql (Nph) Not detected Normal Not detected [facility] Comment on above: Order Comment: Speci men Type: SPECIMEN OBTAINED BY LAVAGEOrdering Facility: [facility] Address: [address] [place] [address] Performed By: #### 7 8922-2 ####[facility]CLIA [id number] [address] [place] Rhinovirus 5' UTR RNA RENÉ+probe Ql (Nph) Not detected Normal Not detected [facility] Comment on above: Order Comment: Speci men Type: SPECIMEN OBTAINED BY LAVAGEOrdering Facility: [facility] Address: [address] [place] [address] Performed By: #### 7 8922-2 ####[facility] LABIA [id number] [place] [address] [place] RSV RNA RENÉ+probe Ql (Upper resp) Not detected Normal Not detected [facility] Comment on above: Order Comment: Speci men Type: SPECIMEN OBTAINED BY LAVAGEOrdering Facility: [facility] Address: [address] [place] [address] Performed By: #### 7 8922-2 ####[facility] LABIA [id number] [place] [address] [place] SARS-CoV-2 (COVID-19) RNA RENÉ+probe Ql (Unsp spec) Not detected Normal See comment [facility] Comment on above: Order Comment: Speci men Type: SPECIMEN OBTAINED BY LAVAGEOrdering Facility: [facility] Address: [address] [place] [address] Performed By: #### 7 8922-2 ####[facility] LABIA [id number] [place] [address] [place] EKGon 06-06-2024 Atrial Rate 79 BPM [facility] Calculated P Carroll 43 degrees [facility] Calculated R Carroll 29 degrees [facility] Calculated T Carroll 13 degrees [facility] P-R Interval 174 ms [facility] QRS Duration 116 ms [facility] QT Interval 396 ms [facility] QTC Calculation (Bazett) 454 ms [facility] Ventricular Rate 79 BPM [facility] Normal sinus rhythm Non-specific ST abnormality Abnormal ECG No previous ECGs available Confirmed by MALACHI BENAVIDEZ MD ([id number]) on 06/06/2024 6:05:56 PM [facility] NAME : DIXIE MILLER PID : [id number] : 1965 Gender : Female Race : ORD : Procedure Date : Jun 06 2024 08:56:56 Edit Date : Jun 06 2024 18:05:57 Diagnosis: Normal sinus rhythm Non-specific ST abnormality Abnormal ECG No previous ECGs available Confirmed by MALACHI BENAVIDEZ MD ([id number]) on 06/06/2024 6:05:56 PM Test Reason : PREOP Location : 2 : PEAT Overread By : MALACHI BENAVIDEZ MD Edited By : MALACHI BENAVIDEZ MD Referred By : ANGELA PRITCHARD Acquired by : KIRK, [facility] Electrocardiogram Ventricular Rate : 7 9 BPM Atrial Rate : 79 BPM P-R Interval : 174 ms QRS Duration : 116 ms Q-T Interval : 396 ms QTC Calculation(Bazett) : 454 ms Calculated P Carroll : 43 degrees Calculated R Carroll : 29 degrees Calculated T Carroll : 13 degrees Normal sinus rhythm Non-specific ST abnormality Abnormal ECG No previous ECGs available Confirmed by MALACHI BENAVIDEZ MD ([id number]) on 06/06/2024 6:05:56 PM NAME : DIXIE MILLER PID : [id number] : 1965 Gender : Female Race : ORD : Procedure Date : Jun 06 2024 08:56:56 Edit Date : Jun 06 2024 18:05:57 Diagnosis: Normal sinus rhythm Non-specific ST abnormality Abnormal ECG No previous ECGs available Confirmed by MALACHI BENAVIDEZ MD ([id number]) on 06/06/2024 6:05:56 PM Test Reason : PREOP Location : 2 : [facility] Overread By : MALACHI BENAVIDEZ MD Edited By : MALACHI BENAVIDEZ MD Referred By : ANGELA PRITCHARD Acquired by : KIRK [facility] Dominic 06-05-2024 LITZY Telephone (PLMCYM) J CARLOS MILLERORAReinaldo Crawford ([id number]) 1965 F Date Time Provider Department 06/05/24 GERTRUDE GOLDBERG [facility] During your visit today, we recorded the following information about you: Leo Keila, MA 06/05/2024 2:06 PM Signed Can you put in a new order for an ECG to be done for pretesting please. I spoke with Isaura in Pre testing and they would like to the order to be listed under the requesting provider. Thank you. Gertrude Goldberg PA-C 06/05/2024 4:06 PM Signed Order placed. Gertrude Larios PA-C 06/05/2024 4:07 PM Signed Addended by: GERTRUDE GOLDBERG on: 06/05/2024 04:07 PM Modules accepted: Orders Allergies As of Date: 06/05/2024 Noted Allergy Reaction DEMEROL (MEPERIDINE (PF)) 03/19/2005 14 - Other: See Comments Comments: Very bad reaction-Possible Low BP HYDROQUINONE 02/19/2010 2 - Rash METHYLCHLOROISOTHIAZOL INONE 03/01/2018 2 - Rash METHYLISOTHIAZOLINONE 03/01/2018 2 - Rash PENICILLIN G 03/19/2005 PROPYLENE GLYCOL 03/01/2018 2 - Rash SULFA (SULFONAMIDE ANTIBIOTICS) 03/19/2005 Date Reviewed: 06/04/2024 Reviewed by: Jovi Rushing RN - Fully Assessed Primary Visit Diagnosis:Preoperative examination [Z01.818] Order(s):ECG COMPLETE [ECG01] Order #: [id number] FUTURE Prescriptions as of 06/05/2024 - iv contrast (will be provided with radiology test) CT Urogram WO/W Inject, intravenously, once for 1 dose.No IV access, insert saline lock prior to the beginning of sedation, infusion, injection of imaging exam. Discontinue saline lock post exam. If Pt. has a central line or IVAD, may access for administration according to line specific nursing protocol. Once exam is complete flush line and de-access according to line specific nursing protocol in the CT contrast administration guidelines link. - nitrofurantoin monohydrate and macrocrystal (MACROBID) 100 mg capsule Take one tablet PO after intercourse - Cholecalciferol, Vitamin D3, 50 mcg (2,000 unit) cap Take by mouth. Last dose 05/14/24 for OR 06/12/24 - ascorbic acid (VITAMIN C ORAL) Take by mouth. Last dose 05/14/24 for OR 06/12/24 - clobetasol (TEMOVATE) 0.05 % ointment Apply 1 application to affected area twice daily. For two weeks then use once per week . - MULTIVITAMIN TAB Take by mouth. Last dose 05/14/24 for OR 06/12/24 Problem List As Of Date 06/05/2024 Noted Resolved Routine general medical examination at [facility]*02/19/2010 07/14/2011 Class: Chronic Routine gynecological examination [Z01.419] 02/19/2010 07/14/2011 Class: Chronic Subclinical hypothyroidism [E03.8] 02/19/2010 03/13/2012 OCD (obsessive compulsive disorder) [F42.9] 03/30/2010 Postmenopausal bleeding [N95.0] 10/04/2011 02/28/2012 Overactive bladder [N32.81] 11/22/2011 Cervicalgia [M54.2] 12/31/2011 03/13/2012 Brachial neuritis or radiculitis NOS [M54.12] 12/31/2011 03/13/2012 Abnormal uterine bleeding [N93.9] 02/28/2012 02/02/2017 Urinary incontinence [R32] 03/28/2013 Gross hematuria [R31.0] 03/28/2013 Urge incontinence [N39.41] 03/28/2013 Anal fissure [K60.2] 09/09/2013 Mixed hyperlipidemia [E78.2] 03/17/2017 Left ankle instability [M25.372] 03/29/2017 Plantar fasciitis of left foot [M72.2] 11/30/2018 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] 10/16/2020 DDD (degenerative disc disease), cervical [M50.*11/19/2021 Urinary, incontinence, stress female [N39.3] 04/26/2023 Muscle weakness [M62.81] 04/26/2023 Lung nodule [R91.1] 05/30/2024 Encounter Status:Closed by KEILA KENNY on 06/05/24 [facility] Dominic 06-01-2024 CNPN Telephone (PLYM) DIXIE MILLER ([id number]) 1965 F Date Time Provider Department 06/01/24 FRANCHESKA ANTHONY [facility] During your visit today, we recorded the following information about you: Keila Kenny MA 06/01/2024 7:59 AM Signed Can you put in the order for ebus for 06/12, this is the patient Ivon spoke with you about yesterday. Thank you. Keila Kenny MA 06/04/2024 10:45 AM Signed Left vm for pt to call back, to give time and date for bronch. Pt is already scheduled for PEAT Keila Kenny MA 06/05/2024 1:53 PM Signed Pt aware Allergies As of Date: 06/01/2024 Noted Allergy Reaction DEMEROL (MEPERIDINE (PF)) 03/19/2005 HYDROQUINONE 02/19/2010 2 - Rash METHYLCHLOROISOTHIAZOL INONE 03/01/2018 2 - Rash METHYLISOTHIAZOLINONE 03/01/2018 2 - Rash PENICILLIN G 03/19/2005 PROPYLENE GLYCOL 03/01/2018 2 - Rash SULFA (SULFONAMIDE ANTIBIOTICS) 03/19/2005 Date Reviewed: 05/30/2024 Reviewed by: Diana Zamorano LPN - Fully Assessed Prescriptions as of 06/05/2024 - iv contrast (will be provided with radiology test) CT Urogram WO/W Inject, intravenously, once for 1 dose.No IV access, insert saline lock prior to the beginning of sedation, infusion, injection of imaging exam. Discontinue saline lock post exam. If Pt. has a central line or IVAD, may access for administration according to line specific nursing protocol. Once exam is complete flush line and de-access according to line specific nursing protocol in the CT contrast administration guidelines link. - nitrofurantoin monohydrate and macrocrystal (MACROBID) 100 mg capsule Take one tablet PO after intercourse - Cholecalciferol, Vitamin D3, 50 mcg (2,000 unit) cap Take by mouth. Last dose 05/14/24 for OR 06/12/24 - ascorbic acid (VITAMIN C ORAL) Take by mouth. Last dose 05/14/24 for OR 06/12/24 - clobetasol (TEMOVATE) 0.05 % ointment Apply 1 application to affected area twice daily. For two weeks then use once per week . - MULTIVITAMIN TAB Take by mouth. Last dose 05/14/24 for OR 06/12/24 Problem List As Of Date 06/01/2024 Noted Resolved Routine general medical examination at [facility]*02/19/2010 07/14/2011 Class: Chronic Routine gynecological examination [Z01.419] 02/19/2010 07/14/2011 Class: Chronic Subclinical hypothyroidism [E03.8] 02/19/2010 03/13/2012 OCD (obsessive compulsive disorder) [F42.9] 03/30/2010 Postmenopausal bleeding [N95.0] 10/04/2011 02/28/2012 Overactive bladder [N32.81] 11/22/2011 Cervicalgia [M54.2] 12/31/2011 03/13/2012 Brachial neuritis or radiculitis NOS [M54.12] 12/31/2011 03/13/2012 Abnormal uterine bleeding [N93.9] 02/28/2012 02/02/2017 Urinary incontinence [R32] 03/28/2013 Gross hematuria [R31.0] 03/28/2013 Urge incontinence [N39.41] 03/28/2013 Anal fissure [K60.2] 09/09/2013 Mixed hyperlipidemia [E78.2] 03/17/2017 Left ankle instability [M25.372] 03/29/2017 Plantar fasciitis of left foot [M72.2] 11/30/2018 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] 10/16/2020 DDD (degenerative disc disease), cervical [M50.*11/19/2021 Urinary, incontinence, stress female [N39.3] 04/26/2023 Muscle weakness [M62.81] 04/26/2023 Lung nodule [R91.1] 05/30/2024 Encounter Status:Closed by KEILA KENNY on 06/01/24 [facility] CNOVkorey 05-30-2024 CNOV Office Visit (FAMPWS ) DIXIE MILLER ([id number]) 1965 F Date Time Provider Department 05/30/24 2:20 PM [facility] During your visit today, we recorded the following information about you: Pulse Respiration Blood pressure Weight 75/minute 16/minute 124/80 73 kg Shlomo Miller MD 05/30/2024 2:44 PM Signed Your liver MRI confirmed that the liver nodules are most likely benign cysts. Your chronic cough improved greatly after taking doxycycline. Your lung nodules and mildly enlarged lymph nodes will continue to be monitored. One option is a follow-up CT scan in 8-12 weeks, but for now we will sit tight and watch them. The negative cystoscopy and CT urogram suggest no serious urinary issue; the blood noted may be related to atrophic changes on the pap A follow-up appointment is planned for about three months to review your overall status and address any questions. Continue to monitor your symptoms and contact us if you notice any new or worsening issues. Shlomo Miller MD 05/30/2024 3:23 PM Signed Subjective J Carlos is a 58 year old female who presents for Follow Up (Feeling great! Doxy has helped cough is better. Saw pulm this morning. ) History of Present Illness Liver and Lung Nodules: - Recent CT urogram revealed questionable liver and lung nodules. - MRI of the liver suggested liver cysts. - CT scan showed borderline enlarged periaortic lymph nodes and lung nodules with swollen glands. - Discussed potential sarcoidosis with pulmonary vs other causes such as resolving infection. - Recent cystoscopy was clear; CT urogram did not show significant findings. 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 Chronic Cough: - Chronic cough improved significantly after a course of doxycycline. - Cough is less frequent and severe, particularly at night. - Aggravated by certain positions, such as slouching in a recliner. - Denies current dyspnea. - Previous treatments included Flonase, Advair, albuterol, and prednisone. - Pulmonary function tests in June showed mild obstruction with bronchodilator response, indicating small airway obstruction. - Previous chest X-rays in May and December 2022 showed atelectasis and scarring. - Denies current use of Prilosec; only takes it PRN for mild heartburn. - Recent ENT evaluation showed no esophageal or gastrointestinal issues. - Recent sinus issues resolved completely after doxycycline treatment. - Denies current abdominal pain, fever, or chills. Review of Systems Constitutional: (-) fever, (-) chills Ears/Nose/Mouth/Throat : (-) nasal congestion Respiratory: (+) chronic cough, (-) shortness of breath Gastrointestinal: (-) abdominal pain, (-) heartburn Objective Blood pressure 124/80, pulse 75, resp. rate 16, weight 73 kg (161 lb), last menstrual period 11/26/2014, SpO2 100%. Physical Exam GENERAL: NAD, alert and oriented. SKIN: Unremarkable, no rash or skin lesions. NECK: Supple, no lymphadenopathy, normal thyroid, no carotid bruits. LUNGS: Clear to auscultation bilaterally, no wheezes/rhonchi/rales. HEART: Regular rate and rhythm, no murmurs. No ectopy. EXTREMITIES: Normal, no deformities, no skin discoloration, no edema. Results IMPRESSION: CT lungs 1. Bilateral pulmonary nodules which may be infectious/inflammator y or neoplastic 2. Mediastinal and bilateral hilar lymphadenopathy MRI liver: IMPRESSION: 1. MULTIPLE HEPATIC CYSTS. NO LESIONS ARE VISUALIZED TO CORRESPOND TO THE HYPODENSITY SEEN IN SEGMENT II AND SEGMENT Yannick ON THE PRIOR CT. 2. BORDERLINE ENLARGED PERIAORTIC LYMPH NODES CT urogram. IMPRESSION: 1. No cause for hematuria detected. No renal or ureteral calculi. No hydronephrosis or hydroureter. No upper tract urothelial filling defects or strictures. 2. Multiple new findings for which the possibility of metastatic disease from an unknown primary should be excluded. There are hypodense hepatic lesions which are not adequately characterized on single phase imaging but are suspicious for solid hepatic lesions and may represent metastatic disease. Would advise further evaluation with an MRI of the liver with and without contrast at this time. There are also multiple mildly enlarged upper abdominal lymph nodes which are new when compared to the prior study and may represent metastatic adenopathy. Limited evaluation of the lower chest demonstrates multiple scattered pulmonary nodules. Would advise further evaluation with a CT of the chest with intravenous contrast. Assessment AND Plan 1. Multiple lung nodules on CT (R91.8) Rule out inflammatory or infectious process, malignancy much less likely. Debating about repeat ct vs bronchoscopy. 2. Lymphadenopathy, hilar (R59.0) - as above. 3. Lung nodule (R91.1) - CT (more content not included)... [facility] CNOV Office Visit (PULMWS ) DIXIE MILLER ([id number]) 1965 F Date Time Provider Department 05/30/24 10:00 AM GERTRUDE GOLDBERG PULMWS During your visit today, we recorded the following information about you: Pulse Respiration Blood pressure Weight 75/minute 16/minute 124/80 73 kg Gertrude Goldberg, PAMatthewC 05/30/2024 12:12 PM Signed [facility] INCIDENTAL LUNG NODULE PROGRAM Impression / Recommendations 1. Chronic cough - ICD9: 786.2, ICD10: R05.3 (primary diagnosis) 2. Lymphadenopathy, hilar - ICD9: 785.6, ICD10: R59.0 3. Multiple lung nodules on CT - ICD9: 793.19, ICD10: R91.8 Reviewed imaging with patient. I discussed the differential diagnosis of chronic cough: asthma, post nasal drip, gastro-esophageal reflux disease, medications, aspiration, malignancy, infections, cardiac disease, and other less common causes. We discussed Econsult with Interventional Pulmonary. I have a high index of suspicion for sarcoidosis. Further evaluation and management following E consult and possible EBUS. Gertrude Goldberg PA-C Requesting Provider: Shlomo Miller Reason for the Consult Dixie Miller presents today for consultation / opinion regarding lung nodule(s). My impression and final recommendations will be communicated back to the requesting physician by way of shared medical record or letter via US mail. History of Present Illness Dixie Miller is a 58 year old female with a pertinent past medical history significant for chronic cough who is being seen as a new consultation for evaluation of a lung nodule(s). Dixie Miller had a CT chest on 05/08/2024 for the indication of chronic cough. 4 nodules were detected Incidentally. The nodule of greatest concern is a Ground Glass 12 mm nodule with a Smooth border in the Left upper lobe/lingula of the lung. The following nodules were noted as well as enlarged mediastinal and bilateral hilar lymph nodes: *8 mm nodule right upper lobe (7:45) *8 mm nodule right lower lobe (7:99) *12 mm nodule left upper lobe (7:43) *8 mm nodule left lower lobe (7:85) *1.4 cm precarinal lymph node (5:65) *1.2 cm right hilar lymph node (5:76) *1 cm left hilar lymph node (5:68) She was initially evaluated by PCP for cough 04/12/2022 at which time she had chest discomfort and nonproductive cough x 6 weeks that was preceded by URI. CXR at that time demonstrated small patchy opacities overlying the left mid lung and she was treated with Doxycyline. Cough improved and follow up CXR showed no acute issues. URI in August 2022 with viral panel negative and persistent non-productive cough in November 2022. CXR concerning for left sided pneumonia and patient treated with Doxycycline. CXR improved, but cough persisted until she had Covid in April 2023 and then cough worsened. At times it was productive of clear, sticky phlegm. PFTs June 2023 demonstrated some obstruction and improvement post bronchodilator and patient was started on Advair. She was also started on PPI for possible GERD. Patient was eventually referred to ENT at which time Omeprazole was increased to 40 mg. She underwent an esophagram which was unremarkable. Stopped PPI due to cough not improving. Most recently treated for URI early May 2024 with Doxycycline with minimal improvement in cough. Today, patient states she has had chronic cough for 2 years. She has tried Flonase nasal spray, Advair, Albuterol, Omeprazole 40 mg and Doxycycline over the course of the past 2 years. Nothing has helped. Currently her cough is non-productive. Typically occurs in the evenings, but does not wake her from sleep. Also triggered by cold air and occasionally is worse after eating. No fevers, chills, or night sweats. No unintentional weight loss. No wheezing, chest tightness or SOB. No family or personal history of lung cancer. History of basal cell cancer, facial. 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 Dog in home. No chickens or birds. Respiratory symptoms include: SOB: No Chest tightness: No Coughing: Yes: Without mucus Hemoptysis: No Wheezing: No Fever/Chills: No Recent Respiratory Infection: Yes Unintentional weight loss: No Last 6 Encounter Wt Readings: Date: Wt: 05/10/2024 74.8 kg (165 lb) 04/25/2024 74.8 kg (165 lb) 04/17/2024 74.4 kg (164 lb) 04/06/2024 72.6 kg (160 lb) 04/02/2024 76.2 kg (168 lb) 09/07/2023 73.5 kg (162 lb) Modified Medical Research [place] Dyspnea Scale (MMRC) I only get breathless with strenous exercise 0 Other Pertinent Clinical Risk Factors: Significant exposures (1 year or more of exposure): None. Recent travel history: None Animal exposure: Dog Second hand smoke exposure: No Does the patient have a p (more content not included)... [facility] DIXIE [facility] ([id number]) 1965 F Date Time Provider Department 05/16/24 SHLOMO MILLER [facility] During your visit today, we recorded the following information about you: Allergies As of Date: 05/16/2024 Noted Allergy Reaction DEMEROL (MEPERIDINE (PF)) 03/19/2005 HYDROQUINONE 02/19/2010 2 - Rash METHYLCHLOROISOTHIAZOL INONE 03/01/2018 2 - Rash METHYLISOTHIAZOLINONE 03/01/2018 2 - Rash PENICILLIN G 03/19/2005 PROPYLENE GLYCOL 03/01/2018 2 - Rash SULFA (SULFONAMIDE ANTIBIOTICS) 03/19/2005 Date Reviewed: 05/10/2024 Reviewed by: Natasha George MA - Fully Assessed Prescriptions as of 05/16/2024 - doxycycline monohydrate 100 mg tablet Take 1 tablet by mouth two times a day for 10 days. - iv contrast (will be provided with radiology test) CT Urogram WO/W Inject, intravenously, once for 1 dose.No IV access, insert saline lock prior to the beginning of sedation, infusion, injection of imaging exam. Discontinue saline lock post exam. If Pt. has a central line or IVAD, may access for administration according to line specific nursing protocol. Once exam is complete flush line and de-access according to line specific nursing protocol in the CT contrast administration guidelines link. - nitrofurantoin monohydrate and macrocrystal (MACROBID) 100 mg capsule Take one tablet PO after intercourse - omeprazole (PRILOSEC) 20 mg capsule Take 1 capsule by mouth daily before breakfast. 1/2 hr before meal. - Cholecalciferol, Vitamin D3, 50 mcg (2,000 unit) cap Take by mouth. - ascorbic acid (VITAMIN C ORAL) Take by mouth. - clobetasol (TEMOVATE) 0.05 % ointment Apply 1 application to affected area twice daily. For two weeks then use once per week . - MULTIVITAMIN TAB Take one(1) tablet daily. Problem List As Of Date 05/16/2024 Noted Resolved Routine general medical examination at [facility]*02/19/2010 07/14/2011 Class: Chronic Routine gynecological examination [Z01.419] 02/19/2010 07/14/2011 Class: Chronic Subclinical hypothyroidism [E03.8] 02/19/2010 03/13/2012 OCD (obsessive compulsive disorder) [F42.9] 03/30/2010 Postmenopausal bleeding [N95.0] 10/04/2011 02/28/2012 Overactive bladder [N32.81] 11/22/2011 Cervicalgia [M54.2] 12/31/2011 03/13/2012 Brachial neuritis or radiculitis NOS [M54.12] 12/31/2011 03/13/2012 Abnormal uterine bleeding [N93.9] 02/28/2012 02/02/2017 Urinary incontinence [R32] 03/28/2013 Gross hematuria [R31.0] 03/28/2013 Urge incontinence [N39.41] 03/28/2013 Anal fissure [K60.2] 09/09/2013 Mixed hyperlipidemia [E78.2] 03/17/2017 Left ankle instability [M25.372] 03/29/2017 Plantar fasciitis of left foot [M72.2] 11/30/2018 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] 10/16/2020 DDD (degenerative disc disease), cervical [M50.*11/19/2021 Urinary, incontinence, stress female [N39.3] 04/26/2023 Muscle weakness [M62.81] 04/26/2023 Encounter Status:Closed by SHLOMO MILLER on [facility]/16/24 [facility]IX[facility] ([id number]) 1965 F Date Time Provider Department 05/16/24 SHLOMO MILLER During your visit today, we recorded the following information about you: Shlomo Miller MD 05/16/2024 12:[address] with patient. Ct shows some lymphadenopathy and multiple nodules. Rule out infectious vs inflammatory vs neoplastic. Has had a chronic cough for which she has been seeing ent. He had felt it was reflex. Has also recently been ill and still has some mild symptoms. Her mri of her liver showed hepatic cysts. Borderline lymph nodes as well. Labs are stable. Add doxycycline given recent illness, allergies and symptoms. Red flags for re-assessment reviewed with patient in detail. See pulmonary to start. She will set up appt with me after. Staff: please get into pulmonary YSABEL Aggie Andres 05/16/2024 1:54 PM Signed Scheduled with pulm 05/30 Allergies As of Date: 05/16/2024 Noted Allergy Reaction DEMEROL (MEPERIDINE (PF)) 03/19/2005 HYDROQUINONE 02/19/2010 2 - Rash METHYLCHLOROISOTHIAZOL INONE 03/01/2018 2 - Rash METHYLISOTHIAZOLINONE 03/01/2018 2 - Rash PENICILLIN G 03/19/2005 PROPYLENE GLYCOL 03/01/2018 2 - Rash SULFA (SULFONAMIDE ANTIBIOTICS) 03/19/2005 Date Reviewed: 05/10/2024 Reviewed by: Natasha George MA - Fully Assessed Reason for Visit: Results [95] Primary Visit Diagnosis:Lymphadenopa thy, hilar [R59.0] Other Visit Diagnosis:Multiple lung nodules on CT [R91.8] Order(s):CONSULT TO PULM/CRITICAL CARE [076297] Order #: [id number]: 1 FUTURE doxycycline monohydrate 100 mg tabletTake 1 tablet by mouth two times a day for 10 days.Disp: 20 tabletRfl: 0 Prescriptions as of 05/16/2024 - doxycycline monohydrate 100 mg tablet Take 1 tablet by mouth two times a day for 10 days. - iv contrast (will be provided with radiology test) CT Urogram WO/W Inject, intravenously, once for 1 dose.No IV access, insert saline lock prior to the beginning of sedation, infusion, injection of imaging exam. Discontinue saline lock post exam. If Pt. has a central line or IVAD, may access for administration according to line specific nursing protocol. Once exam is complete flush line and de-access according to line specific nursing protocol in the CT contrast administration guidelines link. - nitrofurantoin monohydrate and macrocrystal (MACROBID) 100 mg capsule Take one tablet PO after intercourse - omeprazole (PRILOSEC) 20 mg capsule Take 1 capsule by mouth daily before breakfast. 1/2 hr before meal. - Cholecalciferol, Vitamin D3, 50 mcg (2,000 unit) cap Take by mouth. - ascorbic acid (VITAMIN C ORAL) Take by mouth. - clobetasol (TEMOVATE) 0.05 % ointment Apply 1 application to affected area twice daily. For two weeks then use once per week . - MULTIVITAMIN TAB Take one(1) tablet daily. Problem List As Of Date 05/16/2024 Noted Resolved Routine general medical examination at [facility]*02/19/2010 07/14/2011 Class: Chronic Routine gynecological examination [Z01.419] 02/19/2010 07/14/2011 Class: Chronic Subclinical hypothyroidism [E03.8] 02/19/2010 03/13/2012 OCD (obsessive compulsive disorder) [F42.9] 03/30/2010 Postmenopausal bleeding [N95.0] 10/04/2011 02/28/2012 Overactive bladder [N32.81] 11/22/2011 Cervicalgia [M54.2] 12/31/2011 03/13/2012 Brachial neuritis or radiculitis NOS [M54.12] 12/31/2011 03/13/2012 Abnormal uterine bleeding [N93.9] 02/28/2012 02/02/2017 Urinary incontinence [R32] 03/28/2013 Gross hematuria [R31.0] 03/28/2013 Urge incontinence [N39.41] 03/28/2013 Anal fissure [K60.2] 09/09/2013 Mixed hyperlipidemia [E78.2] 03/17/2017 Left ankle instability [M25.372] 03/29/2017 Plantar fasciitis of left foot [M72.2] 11/30/2018 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] 10/16/2020 DDD (degenerative disc disease), cervical [M50.*11/19/2021 Urinary, incontinence, stress female [N39.3] 04/26/2023 Muscle weakness [M62.81] 04/26/2023 Prescriptions ordered this encounter Disp Refills Start End DOXYCYCLINE MONOHYDRATE 100 MG TABLET 20 t* 0 05/16/2024 05/26/2024 Route: ORAL Sig: Take 1 tablet by mouth two times a day for 10 days. Encounter Status:Closed by SHLOMO MILLER on 05/16/24 [facility] CNTHERAPYon 05-15-2024 CNTHERAPY OT/PT/Speech Visit (AKPTB) DIXIE MILLER ([id number]) 1965 F Date Time Provider Department 05/15/24 2:00 PM JEN PALACIOSPTChantal Date Time Provider Department Center 05/15/2024 2:00 PM [id number] PALACIOSTB [facility] Reason for Visit: PT Eval [747] Primary Visit Diagnosis:Urinary, incontinence, stress female [N39.3] Allergies As of Date: 05/15/2024 Noted Allergy Reaction DEMEROL (MEPERIDINE (PF)) 03/19/2005 HYDROQUINONE 02/19/2010 2 - Rash METHYLCHLOROISOTHIAZOL INONE 03/01/2018 2 - Rash METHYLISOTHIAZOLINONE 03/01/2018 2 - Rash PENICILLIN G 03/19/2005 PROPYLENE GLYCOL 03/01/2018 2 - Rash SULFA (SULFONAMIDE ANTIBIOTICS) 03/19/2005 Date Reviewed: 05/10/2024 Reviewed by: Natasha George MA - Fully Assessed Prescriptions as of 05/15/2024 - iv contrast (will be provided with radiology test) CT Urogram WO/W Inject, intravenously, once for 1 dose.No IV access, insert saline lock prior to the beginning of sedation, infusion, injection of imaging exam. Discontinue saline lock post exam. If Pt. has a central line or IVAD, may access for administration according to line specific nursing protocol. Once exam is complete flush line and de-access according to line specific nursing protocol in the CT contrast administration guidelines link. - nitrofurantoin monohydrate and macrocrystal (MACROBID) 100 mg capsule Take one tablet PO after intercourse - omeprazole (PRILOSEC) 20 mg capsule Take 1 capsule by mouth daily before breakfast. 1/2 hr before meal. - Cholecalciferol, Vitamin D3, 50 mcg (2,000 unit) cap Take by mouth. - ascorbic acid (VITAMIN C ORAL) Take by mouth. - clobetasol (TEMOVATE) 0.05 % ointment Apply 1 application to affected area twice daily. For two weeks then use once per week . - MULTIVITAMIN TAB Take one(1) tablet daily. Normal [facility] CNOVon 05-10-2024 [facility] Office Visit (AKURFL ) MILLERDIXIE Yvette ([id number]) 1965 F Date Time Provider Department 05/10/24 9:30 AM KASSANDRA NOE JR During your visit today, we recorded the following information about you: Pulse Respiration Blood pressure Weight 104/minute 14/minute 135/85 74.8 kg Kassandra Noe Jr., MD 05/11/2024 3:52 PM Signed CYSTOSCOPY PROCEDURE NOTE: Dixie Miller is a 58 year old female who presents with hematuria gross for a cystoscopy. Pt ID verified with patient: Yes Fire risk assessment done Procedure verified with patient: Yes Procedure confirmed with physician and behaviour support teacher: Yes UNIVERSAL PROTOCOL / SAFETY CHECKLIST Procedure to be Performed: cysto Sign In: A Moment of CARE was completed. Appropriate PPE (Personal Protective Equipment) worn by all providers involved with the procedure. Special equipment not required. Patient/Surrogate Stated/Verified: Patient name, Date of , Relevant allergies, and The intended procedure Time Out: Relevant labs, photos, and/or imaging studies have been reviewed. Intended patient and procedure match the source document(s) (e.g. consent, HANDP, associated studies [imaging, pathology]) match the intended patient and procedure. Consent obtained and matches the intended procedure. Yes. Correct side/site is not applicable. Medications required for this procedure are verified. Fire risk assessed and is not applicable. Implants: are not applicable. Sign Out: Specimens are all correctly labeled and sent. All instruments, equipment, possible retained foreign bodies are accounted for. Yes. The post-procedure plan of care has been communicated to the patient or surrogate. Pre procedure dx: gross hematuria Post procedure dx: same A urinalysis was performed revealing no evidence of infection. The benefits, risks, alternatives of the cystoscopy procedure and personnel were discussed with the patient. The verbal consent was obtained and the patient agrees to proceed. Female staff present for entire exam/procedure. Procedure: The patient was placed on the procedure table in the supine position and prepped and draped in the usual sterile fashion. 2% Lidocaine Jelly was placed per urethra as an anesthetic in the standard fashion. Once adequate local anesthesia was achieved, the tip of the flexible cystoscope was carefully placed into the urethra under direct visual guidance. The scope was negotiated per urethra with no evidence of stricture into the bladder. Careful mcnamara endoscopy was carried out. The posterior, superior and lateral rider and dome of the bladder were all well visualized and the scope was retroflexed upon itself. The findings were consistent with no evidence of bladder mucosal pathology. At the conclusion of the procedure, the flexible cystoscope was removed atraumatically. The patient tolerated the procedure without complications. Patient was given standard post-procedure instructions, and was directed to complete the course of oral antibiotics and increase oral fluid intake as directed. ASSESSMENT/PLAN: Heme martino neg prn Kassandra Noe Jr, MD Referring Provider: BETTINA BERMUDEZ [[id number]] Allergies As of Date: 05/10/2024 Noted Allergy Reaction DEMEROL (MEPERIDINE (PF)) 03/19/2005 HYDROQUINONE 02/19/2010 2 - Rash METHYLCHLOROISOTHIAZOL INONE 03/01/2018 2 - Rash METHYLISOTHIAZOLINONE 03/01/2018 2 - Rash PENICILLIN G 03/19/2005 PROPYLENE GLYCOL 03/01/2018 2 - Rash SULFA (SULFONAMIDE ANTIBIOTICS) 03/19/2005 Date Reviewed: 05/10/2024 Reviewed by: Natasha George MA - Fully Assessed Reason for Visit: Cystoscopy-1 [303] Primary Visit Diagnosis:Gross hematuria [R31.0] Order(s):UA DIP, URINE (POC) [[id number]] Order #: [id number]. #:[id number] [] ciprofloxacin HCl 500 mg tab(s) (CIPRO)Disp: Rfl: [] ciprofloxacin HCl 500 mg tab(s) (CIPRO)Disp: Rfl: Prescriptions as of 05/11/2024 - iv contrast (will be provided with radiology test) CT Urogram WO/W Inject, intravenously, once for 1 dose.No IV access, insert saline lock prior to the beginning of sedation, infusion, injection of imaging exam. Discontinue saline lock post exam. If Pt. has a central line or IVAD, may access for administration according to line specific nursing protocol. Once exam is complete flush line and de-access according to line specific nursing protocol in the CT contrast administration guidelines link. - nitrofurantoin monohydrate and macrocrystal (MACROBID) 100 mg capsule Take one tablet PO after intercourse - omeprazole (PRILOSEC) 20 mg capsule Take 1 capsule by mouth daily before breakfast. 1/2 hr before meal. - Cholecalciferol, Vitamin D3, 50 mcg (2,000 unit) cap Take by mouth. - ascorbic acid (VITAMIN C ORAL) Take by mouth. - clobetasol (TEMOVATE) 0.05 % ointment (more content not included)... Normal [facility] UA DIP, URINE (POC)on 2024 BILIRUBIN UA (POCT) Negative Negative [facility] CLARITY UA (POCT) Clear [facility] COLOR UA (POCT) Yellow [facility] GLUCOSE UA (POCT) Negative Negative mg/dL [facility] Hemoglobin Ql (U) Trace-intact Abnormal Negative [facility] Interpretation and review of laboratory results Abnormal [facility] KETONE UA (POCT) Negative Negative mg/dL [facility] LEUKOCYTES UA (POCT) Negative Negative [facility] NITRITE UA (POCT) Negative Negative [facility] PH UA (POCT) 7 4.5 - 8.0 [facility] Protein Ql (U) Negative Negative mg/dL [facility] SPECIFIC GRAVITY UA (POCT) 1.015 1.005 - 1.030 [facility] UROBILINOGEN UA (POCT) 0.2 Normal E.U./dL [facility] Location:[facility], [address] [place] [address], [address] [place] [address] POINT OF CARE [facility] CT CHEST W IVCONon CT CHEST W IVCON * * *Final Report* * * DATE OF EXAM: May 08 2024 1:50PM [facility] 0539 - CT CHEST W IVCON / PROCEDURE REASON: Lung nodules * * * * Physician Interpretation * * * * EXAMINATION: CHEST CT WITH CONTRAST CLINICAL HISTORY: Lung nodules Technique: Spiral CT acquisition of the chest from the thoracic inlet to the upper abdomen following IV contrast. MQ: [id number]_6 Contrast: 50 mL Omnipaque [address] Radiation dose: Integrated Dose-length product (DLP) for this visit = 210 mGy*cm CT Dose Reduction Employed: Iterative recon Comparison: CT urogram 04/26/2024. No prior CT chest is available for comparison. RESULT: Limitations: None. Lines, tubes, and devices: None. Lung parenchyma and airways: There are innumerable bilateral pulmonary nodules, predominantly along bronchovascular bundles and the pleural surface. For example: *8 mm nodule right upper lobe (7:45) *8 mm nodule right lower lobe (7:99) *12 mm nodule left upper lobe (7:43) *8 mm nodule left lower lobe (7:85) No consolidation. Right middle lobe atelectasis. Narrowing of bronchi to the right upper, middle and lower lobes due to hilar lymphadenopathy. Pleural space: No pleural effusion. No pleural thickening. Lower neck, lymph nodes, and mediastinum: The imaged thyroid gland is normal. Enlarged mediastinal and bilateral hilar lymph nodes. For example: *1.4 cm precarinal lymph node (5:65) *1.2 cm right hilar lymph node (5:76) *1 cm left hilar lymph node (5:68) Heart, pericardium, and thoracic vessels: The thoracic aorta and main pulmonary artery are normal in caliber. The cardiac chambers are normal in size. No coronary artery atherosclerotic calcifications are noted, although the study is not optimized for coronary assessment. No pericardial effusion or thickening. Bones and soft tissues: No destructive bone lesion. Chest wall is unremarkable. Upper abdomen: Small hiatal hernia. No acute abnormality in the imaged upper abdomen. Localizer images: No additional findings. IMPRESSION: 1. Bilateral pulmonary nodules which may be infectious/inflammator y or neoplastic 2. Mediastinal and bilateral hilar lymphadenopathy Lead Mobile Developer: [facility] Transcribe Date/Time: May 16 2024 9:59A Dictated by : ELVI SOLOMON MD This examination was interpreted and the report reviewed and electronically signed by: ELVI SOLOMON MD on May 16 2024 10:17AM EST [id number] Normal [facility] MR Liver WO and W contrast I Von 05-08-2024 IMPRESSION: 1. MULTIPLE HEPATIC CYSTS. NO LESIONS ARE VISUALIZED TO CORRESPOND TO THE HYPODENSITY SEEN IN SEGMENT II AND SEGMENT Yannick ON THE PRIOR CT. 2. BORDERLINE ENLARGED PERIAORTIC LYMPH NODES Lead Mobile Developer: [facility] Transcribe Date/Time: May 08 2024 3:06P Dictated by : ELVI SOLOMON MD This examination was interpreted and the report reviewed and electronically signed by: ELVI SOLOMON MD on May 08 2024 3:28PM [facility] DIVISION OF RADIOLOGY * * *Final Report* * * DATE OF EXAM: May 08 2024 2:55PM [facility] 0727 - MRI LIVER WO/W IVCON / PROCEDURE REASON: Liver mass * * * * Physician Interpretation * * * * MRI ABDOMEN WITHOUT AND WITH CONTRAST 05/08/2024 2:55 PM HISTORY: This study is done for further evaluation of low-density lesions in the liver seen on CT urogram TECHNIQUE: Multisequential, multiplanar MR imaging of the abdomen was performed both prior to and following the administration of intravenous gadolinium-based contrast. Contrast: IV: 7.5 mL of Elucirem COMPARISON: CT urogram 04/26/2024 RESULT: Liver: No enhancing mass. Multiple hepatic cysts. For example there is a 1 cm cyst in segment IV (8:18) and a 0.8 cm cyst in segment VII (8:15). No enhancing mass is visualized. No lesion is visualized to correspond to the hyperdensities seen in segment II and segment Yannick on CT. Normal morphology. Biliary: No duct dilation or filling defect. Gallbladder is unremarkable. Spleen: No mass. No splenomegaly. Pancreas: No mass or duct dilation. Adrenals: No mass. Kidneys: The kidneys enhance symmetrically. No hydronephrosis. GI tract: No bowel dilatation or wall thickening. Small hiatal hernia. Lymph nodes: Borderline enlarged periaortic lymph nodes measure up to 1 cm short axis Mesentery/peritoneum: No mass or ascites Vasculature: No abdominal aortic aneurysm. Celiac axis and SMA are patent. Portal vein and branches, splenic vein, SMV and hepatic veins are patent. - - DIVISION OF RADIOLOGY Provider, [facility] - 05/08/2024 * * *Final Report* * * DATE OF EXAM: May 08 2024 2:55PM [facility] 0727 - MRI LIVER WO/W IVCON / PROCEDURE REASON: Liver mass * * * * Physician Interpretation * * * * MRI ABDOMEN WITHOUT AND WITH CONTRAST 05/08/2024 2:55 PM HISTORY: This study is done for further evaluation of low-density lesions in the liver seen on CT urogram TECHNIQUE: Multisequential, multiplanar MR imaging of the abdomen was performed both prior to and following the administration of intravenous gadolinium-based contrast. Contrast: IV: 7.5 mL of Elucirem COMPARISON: CT urogram 04/26/2024 RESULT: Liver: No enhancing mass. Multiple hepatic cysts. For example there is a 1 cm cyst in segment IV (8:18) and a 0.8 cm cyst in segment VII (8:15). No enhancing mass is visualized. No lesion is visualized to correspond to the hyperdensities seen in segment II and segment Yannick on CT. Normal morphology. Biliary: No duct dilation or filling defect. Gallbladder is unremarkable. Spleen: No mass. No splenomegaly. Pancreas: No mass or duct dilation. Adrenals: No mass. Kidneys: The kidneys enhance symmetrically. No hydronephrosis. GI tract: No bowel dilatation or wall thickening. Small hiatal hernia. Lymph nodes: Borderline enlarged periaortic lymph nodes measure up to 1 cm short axis Mesentery/peritoneum: No mass or ascites Vasculature: No abdominal aortic aneurysm. Celiac axis and SMA are patent. Portal vein and branches, splenic vein, SMV and hepatic veins are patent. - - IMPRESSION IMPRESSION: 1. MULTIPLE HEPATIC CYSTS. NO LESIONS ARE VISUALIZED TO CORRESPOND TO THE HYPODENSITY SEEN IN SEGMENT II AND SEGMENT Yannick ON THE PRIOR CT. 2. BORDERLINE ENLARGED PERIAORTIC LYMPH NODES Lead Mobile Developer: HOLLY Transcribe Date/Time: May 08 2024 3:06P Dictated by : ELVI SOLOMON MD This examination was interpreted and the report reviewed and electronically signed by: ELVI SOLOMON MD on May 08 2024 3:28PM EST [facility] Radiology Study observation (narrative) [facility] MR Liver WO and W contrast I VOrdered By: [facility] Provider on 05-08-2024 [facility] MRI LIVER WO/W IVCONon 05-08 MRI LIVER WO/W IVCON * * *Final Report* * * DATE OF EXAM: May 08 2024 2:55PM [facility] 0727 - MRI LIVER WO/W IVCON / PROCEDURE REASON: Liver mass * * * * Physician Interpretation * * * * MRI ABDOMEN WITHOUT AND WITH CONTRAST 05/08/2024 2:55 PM HISTORY: This study is done for further evaluation of low-density lesions in the liver seen on CT urogram TECHNIQUE: Multisequential, multiplanar MR imaging of the abdomen was performed both prior to and following the administration of intravenous gadolinium-based contrast. Contrast: IV: 7.5 mL of Elucirem COMPARISON: CT urogram 04/26/2024 RESULT: Liver: No enhancing mass. Multiple hepatic cysts. For example there is a 1 cm cyst in segment IV (8:18) and a 0.8 cm cyst in segment VII (8:15). No enhancing mass is visualized. No lesion is visualized to correspond to the hyperdensities seen in segment II and segment Yannick on CT. Normal morphology. Biliary: No duct dilation or filling defect. Gallbladder is unremarkable. Spleen: No mass. No splenomegaly. Pancreas: No mass or duct dilation. Adrenals: No mass. Kidneys: The kidneys enhance symmetrically. No hydronephrosis. GI tract: No bowel dilatation or wall thickening. Small hiatal hernia. Lymph nodes: Borderline enlarged periaortic lymph nodes measure up to 1 cm short axis Mesentery/peritoneum: No mass or ascites Vasculature: No abdominal aortic aneurysm. Celiac axis and SMA are patent. Portal vein and branches, splenic vein, SMV and hepatic veins are patent. - - IMPRESSION: 1. MULTIPLE HEPATIC CYSTS. NO LESIONS ARE VISUALIZED TO CORRESPOND TO THE HYPODENSITY SEEN IN SEGMENT II AND SEGMENT Yannick ON THE PRIOR CT. 2. BORDERLINE ENLARGED PERIAORTIC LYMPH NODES Lead Mobile Developer: HOLLY Transcribe Date/Time: May 08 2024 3:06P Dictated by : ELVI SOLOMON MD This examination was interpreted and the report reviewed and electronically signed by: ELVI SOLOMON MD on May 08 2024 3:28PM EST [id number] Normal [facility] CBC W Auto Differential pane l (Bld)on 05-03-2024 Basophils (Bld) [#/Vol] 0.09 10*3/uL Normal <0.11 [facility] Comment on above: Order Comment: Speci men Type: BLOOD SPECIMENOrdering Facility: [facility] Address: [address] [place] [address] Performed By: #### 5 7021-8 ####[facility] [id number] [place] [address] [place] Basophils/100 WBC (Bld) 1.4 % Normal [facility] Comment on above: Order Comment: Speci men Type: BLOOD SPECIMENOrdering Facility: [facility] Address: [address] [place] [address] Performed By: #### 5 7021-8 ####[facility] [id number] [place] [address] [place] Differential cell count method Nom (Bld) Auto Normal [facility] Comment on above: Order Comment: Speci men Type: BLOOD SPECIMENOrdering Facility: [facility] Address: [address] [place] [address] Performed By: #### 5 7021-8 ####[facility] [id number] [place] [address] [place] Eosinophils (Bld) [#/Vol] 0.16 10*3/uL Normal <0.46 [facility] Comment on above: Order Comment: Speci men Type: BLOOD SPECIMENOrdering Facility: [facility] Address: [address] [place] [address] Performed By: #### 5 7021-8 ####[facility] [id number] [place] [address] [place] Eosinophils/100 WBC (Bld) 2.6 % Normal [facility] Comment on above: Order Comment: Speci men Type: BLOOD SPECIMENOrdering Facility: [facility] Address: [address] [place] [address] Performed By: #### 5 7021-8 ####[facility]NC[facility] [id number] [place] [address] [place] Erythrocyte distribution width (RBC) [Ratio] 12.5 % Normal 11.5-15.0 [facility] Comment on above: Order Comment: Speci men Type: BLOOD SPECIMENOrdering Facility: [facility] Address: [address] [place] [address] Performed By: #### 5 7021-8 ####[facility] [id number] [place] [address] [place] Hematocrit (Bld) [Volume fraction] 43.4 % Normal 36.0-46.0 [facility] Comment on above: Order Comment: Speci men Type: BLOOD SPECIMENOrdering Facility: [facility] Address: [address] [place] [address] Performed By: #### 5 7021-8 ####[facility] [id number] [place] [address] [place] Hemoglobin (Bld) [Mass/Vol] 14.4 g/dL Normal 11.5-15.5 [facility] Comment on above: Order Comment: Speci men Type: BLOOD SPECIMENOrdering Facility: [facility] Address: [address] [place] [address] Performed By: #### 5 7021-8 ####[facility] MILLWNCLIA [id number] [place] [address] [place] Immature granulocytes (Bld) [#/Vol] 10*3/uL Normal <0.10 [facility] Comment on above: Order Comment: Speci men Type: BLOOD SPECIMENOrdering Facility: [facility] Address: [address] [place] [address] Performed By: #### 5 7021-8 ####[facility]ITALNCL[facility] [id number] [place] [address] [place] Immature granulocytes/100 WBC (Bld) 0.3 % Normal [facility] Comment on above: Order Comment: Speci men Type: BLOOD SPECIMENOrdering Facility: [facility] Address: [address] [place] [address] Performed By: #### 5 7021-8 ####[facility] [id number] [place] [address] [place] Lymphocytes (Bld) [#/Vol] 0.97 10*3/uL Low 1.00-4.00 [facility] Comment on above: Order Comment: Speci men Type: BLOOD SPECIMENOrdering Facility: [facility] Address: [address] [place] [address] Performed By: #### 5 7021-8 ####[facility]WNCL[facility] [id number] [place] [address] [place] Lymphocytes/100 WBC (Bld) 15.5 % Normal [facility] Comment on above: Order Comment: Speci men Type: BLOOD SPECIMENOrdering Facility: [facility] Address: [address] [place] [address] Performed By: #### 5 7021-8 ####[facility] [id number] [place] [address] [place] MCH (RBC) [Entitic mass] 29.3 pg Normal 26.0-34.0 [facility] Comment on above: Order Comment: Speci men Type: BLOOD SPECIMENOrdering Facility: [facility] Address: [address] [place] [address] Performed By: #### 5 7021-8 ####[facility]ITALFABY [id number] [address] [place] MCHC (RBC) [Mass/Vol] 33.2 g/dL Normal 30.5-36.0 [facility] Comment on above: Order Comment: Speci men Type: BLOOD SPECIMENOrdering Facility: [facility] Address: [address] [place] [address] Performed By: #### 5 7021-8 ####[facility]ITALNCLANRE [id number] [place] [address] [place] MCV (RBC) [Entitic vol] 88.4 fL Normal 80.0-100.0 [facility] Comment on above: Order Comment: Speci men Type: BLOOD SPECIMENOrdering Facility: [facility] Address: [address] [place] [address] Performed By: #### 5 7021-8 ####[facility]ITALFAB[facility] [id number] [place] [address] [place] Monocytes (Bld) [#/Vol] 0.64 10*3/uL Normal <0.87 [facility] Comment on above: Order Comment: Speci men Type: BLOOD SPECIMENOrdering Facility: [facility] Address: [address] [place] [address] Performed By: #### 5 7021-8 ####[facility]ITALNCLIA [id number] [place] [address] [place] Monocytes/100 WBC (Bld) 10.2 % Normal [facility] Comment on above: Order Comment: Speci men Type: BLOOD SPECIMENOrdering Facility: [facility] Address: [address] [place] [address] Performed By: #### 5 7021-8 ####[facility] RAPHAELGRAYLANDKIMBERLYLIA [id number] [place] [address] [place] Neutrophils (Bld) [#/Vol] 4.39 10*3/uL Normal 1.45-7.50 [facility] Comment on above: Order Comment: Speci men Type: BLOOD SPECIMENOrdering Facility: [facility] Address: [address] [place] [address] Performed By: #### 5 7021-8 ####[facility] [id number] [place] [address] [place] Neutrophils/100 WBC (Bld) 70.0 % Normal [facility] Comment on above: Order Comment: Speci men Type: BLOOD SPECIMENOrdering Facility: [facility] Address: [address] [place] [address] Performed By: #### 5 7021-8 ####[facility]ITALA [id number] [place] [address] [place] Nucleated RBC (Bld) [#/Vol] 10*3/uL Normal <0.01 [facility] Comment on above: Order Comment: Speci men Type: BLOOD SPECIMENOrdering Facility: [facility] Address: [address] [place] [address] Performed By: #### 5 7021-8 ####[facility] [id number] [place] [address] [place] Nucleated RBC/100 WBC (Bld) [Ratio] 0.0 /100 WBC Normal [facility] Comment on above: Order Comment: Speci men Type: BLOOD SPECIMENOrdering Facility: [facility] Address: [address] [place] [address] Performed By: #### 5 7021-8 ####[facility] MILLTOWNCLIA [id number] [place] [address] [place] Platelet mean volume (Bld) [Entitic vol] 8.5 fL Low 9.0-12.7 [facility] Comment on above: Order Comment: Speci men Type: BLOOD SPECIMENOrdering Facility: [facility] Address: [address] [place], [place] [address] Performed By: #### 5 7021-8 ####[facility]ITALWNCL[facility] [id number] [place] [address] [place] Platelets (Bld) [#/Vol] 368 10*3/uL Normal 150-400 [facility] Comment on above: Order Comment: Speci men Type: BLOOD SPECIMENOrdering Facility: [facility] [facility] Address: [address] [place], [place] [id number] Performed By: #### 5 7021-8 ####[facility] [id number] [place] [address] [place] RBC (Bld) [#/Vol] 4.91 10*6/uL Normal 3.90-5.20 [facility] Comment on above: Order Comment: Speci men Type: BLOOD SPECIMENOrdering Facility: [facility] Address: [address] [place] [address] Performed By: #### 5 7021-8 ####[facility] [id number] [place] [address] [place] WBC (Bld) [#/Vol] 6.27 10*3/uL Normal 3.70-11.00 [facility] Comment on above: Order Comment: Speci men Type: BLOOD SPECIMENOrdering Facility: [facility] Address: [address] [place], [place] [address] Performed By: #### 5 7021-8 ####[facility]CL[facility] [id number] [place] [address] [place] Comprehensive metabolic 2000 panelon 05-03-2024 Albumin [Mass/Vol] 4.5 g/dL Normal 3.9-4.9 [facility] Comment on above: Order Comment: Speci men Type: BLOOD SPECIMEN Ordering Facility: [facility] Address: [address] [place] [address] Performed By: #### 2 4323-8 #### [facility] CLIA [id number] [address] [place] [address] [place] ALP [Catalytic activity/Vol] 76 U/L Normal 34-123 [facility] Comment on above: Order Comment: Speci men Type: BLOOD SPECIMEN Ordering Facility: [facility] Address: [address] [place] [address] Performed By: #### 2 4323-8 #### [facility] CLIA [id number] [address] [place] [address] [place] ALT [Catalytic activity/Vol] 15 U/L Normal 7-38 [facility] Comment on above: Order Comment: Speci men Type: BLOOD SPECIMEN Ordering Facility: [facility] Address: [address] [place], [place] [address] Performed By: #### 2 4323-8 #### [facility] CLIA [id number] [address] [place] [address] [place] Anion gap [Moles/Vol] 10 mmol/L Normal 8-15 [facility] Comment on above: Order Comment: Speci men Type: BLOOD SPECIMEN Ordering Facility: [facility] Address: [address] [place] [address] Performed By: #### 2 4323-8 #### [facility] CLIA [id number] [address] [place] [address] [place] AST [Catalytic activity/Vol] 17 U/L Normal 13-35 [facility] Comment on above: Order Comment: Speci men Type: BLOOD SPECIMEN Ordering Facility: [facility] Address: [address] [place] [address] Performed By: #### 2 4323-8 #### [facility] CLIA [id number] [address] [place] [address] [place] Bilirubin [Mass/Vol] 0.6 mg/dL Normal 0.2-1.3 [facility] Comment on above: Order Comment: Speci men Type: BLOOD SPECIMEN Ordering Facility: [facility] Address: [address] [place] [address] Performed By: #### 2 4323-8 #### [facility] CLIA [id number] [address] [place] [address] [place] Calcium [Mass/Vol] 9.8 mg/dL Normal 8.5-10.2 [facility] Comment on above: Order Comment: Speci men Type: BLOOD SPECIMEN Ordering Facility: [facility] Address: [address] [place] [address] Performed By: #### 2 4323-8 #### [facility] CLIA [id number] [address] [place] [address] [place] Chloride [Moles/Vol] 103 mmol/L Normal 98-107 [facility] Comment on above: Order Comment: Speci men Type: BLOOD SPECIMEN Ordering Facility: [facility] Address: [address] [place] [address] Performed By: #### 2 4323-8 #### [facility] CLIA [id number] [address] [place] [address] [place] CO2 [Moles/Vol] 27 mmol/L Normal 22-30 [facility] Comment on above: Order Comment: Speci men Type: BLOOD SPECIMEN Ordering Facility: [facility] Address: [address] [place] [address] Performed By: #### 2 4323-8 #### [facility] [id number] [address] [place] [address] [place] Creatinine [Mass/Vol] 0.85 mg/dL Normal 0.58-0.96 [facility] Comment on above: Order Comment: Chano carmen Type: BLOOD SPECIMEN Ordering Facility: [facility] Address: [address] [place] [address] Performed By: #### 2 4323-8 #### [facility] [id number] [address] [place] [address] [place] Creatinine and Glomerular filtration rate.predicted panel (S/P/Bld) 80 mL/min/1.73m??? Normal >=60 [facility] Comment on above: Order Comment: Chano carmen Type: BLOOD SPECIMEN Ordering Facility: [facility] Address: [address] [place] [address] Result Comment: Tiana mated Glomerular Filtration Rate (eGFR) is calculated using the 2020 CKD-EPI creatinine equation. This equation utilizes serum creatinine, sex, and age as parameters. The creatinine assay has traceable calibration to isotope dilution-mass spectrometry. Refer to KDIGO guidelines for clinical interpretation. In patients with unstable renal function, e.g. those with acute kidney injury, the eGFR may not accurately reflect actual GFR. Performed By: #### 2 4323-8 #### [facility] [id number] [address] [place] [address] [place] Glucose [Mass/Vol] 108 mg/dL High 74-99 [facility] Comment on above: Order Comment: Chano carmen Type: BLOOD SPECIMEN Ordering Facility: [facility] Address: [address] [place] [address] Result Comment: The [place] Diabetes Association (ADA) provides guidance for cutoff values for fasting glucose and random glucose. The ADA defines fasting as no caloric intake for at least 8 hours. Fasting plasma glucose results between 100 to 125 mg/dL indicate increased risk for diabetes (prediabetes). Fasting plasma glucose results greater than or equal to 126 mg/dL meet the criteria for diagnosis of diabetes. In the absence of unequivocal hyperglycemia, results should be confirmed by repeat testing. In a patient with classic symptoms of hyperglycemia or hyperglycemic crisis, random plasma glucose results greater than or equal to 200 mg/dL meet the criteria for diagnosis of diabetes. Reference: Standards of Medical Care in Diabetes 2016, [place] Diabetes Association. Diabetes Care. 2016.39(Suppl 1). Performed By: #### 2 4323-8 #### [facility] CLIA [id number] [address] [place] [address] [place] Potassium [Moles/Vol] 3.7 mmol/L Normal 3.7-5.1 [facility] Comment on above: Order Comment: Speci men Type: BLOOD SPECIMEN Ordering Facility: [facility] Address: [address] [place] [address] Performed By: #### 2 4323-8 #### [facility] [id number] [address] [place] [address] [place] Protein [Mass/Vol] 7.6 g/dL Normal 6.3-8.0 [facility] Comment on above: Order Comment: Speci men Type: BLOOD SPECIMEN Ordering Facility[facility] Address: [address] [place] [address] Performed By: #### 2 4323-8 #### [facility] [id number] [address] [place] [address] [place] Sodium [Moles/Vol] 140 mmol/L Normal 136-144 [facility] Comment on above: Order Comment: Speci men Type: BLOOD SPECIMEN Order[facility] Facility[facility] Address: [address] [place] [address] Performed By: #### 2 4323-8 #### [facility] [id number] [address] [place] [address] [place] Urea nitrogen [Mass/Vol] 15 mg/dL Normal 7-21 [facility] Comment on above: Order Comment: Speci men Type: BLOOD SPECIMEN Order[facility] Address: [address] [place] [address] Performed By: #### 2 4323-8 #### [facility] CLIA [id number] [address] [place] [address] [place] ESR Westergren method (Bld) [Velocity]on 05-03-2024 ESR (Bld) [Velocity] 8 mm/h Normal 0-20 [facility] Comment on above: Order Comment: Speci men Type: BLOOD SPECIMEN Order[facility] Facility: [facility] Address: [address] [place] [id number] Performed By: #### 2 4323-8 #### [facility] CLIA [id number] [address] [place] [address] OF [facility] [place] Esophagus Dual Contraston Esophagus Dual Contrast [facility] Imaging Services [address] [place] [address] Esophagus Dual Contrast MR#: [id number] Acct: [id number] Name: DIXIE MILLER Rep #: [id number] : 1965 F 58 From: Jarrod pantoja MD PCP: Dr. Shlomo Miller MD Status: REG CLI Study: Esophagus Dual Contrast Date of Exam: 05/03/24 Exam# [id number] Ordering Dr: Mohinder Giron MD PROCEDURE: ESOPHAGUS DUAL CONTRAST 05/03/2024 REASON FOR EXAM: GERD TECHNIQUE: Images from an intraoperative cholangiogram submitted by FLUOROSCOPIC TIME: 34 seconds. 3.6 mGy FLUOROGRAPHIC IMAGES: 44 COMPARISON: None. FINDINGS: The patient ingested barium. No evidence of esophageal obstruction. No mass lesion is seen. No evidence of gastroesophageal reflux. The patient ingested a 12 mm tablet of barium without any difficulty. RAD/Esophagus Dual Contrast IMPRESSION: Unremarkable air contrast esophagram. Reading Location: [facility] CC: Dr. Mohinder Giron MD; Dr. Shlomo Miller MD Lead Mobile Developer: Signed [facility] CNPEvelyne 05-02-2024 CNPN Telephone (UROLWS) DIXIE MILLER ([id number]) 1965 F Date Time Provider Department 05/02/24 BETTINA BERMUDEZ UROLPIERRE During your visit today, we recorded the following information about you: Gabrielle White MA 05/02/2024 8:18 AM Signed Patient calling and states she had a CT scan done last week on 04/26. She received the results in my chart. States she needs further testing done as soon as possible. Patient is concerned and asking when these should be done? Patient is asking if you will order the additional testing or if her PCP needs to order it? Elle Hernandez, MARIAH 05/02/2024 8:31 AM Signed Pt called in and reports she called Dr Bermudez's office about her CT results. She states he is out of the office today and they were going to try an get a hold of him to see if he wanted to do anything about this of have her PCP work on it. Pt wanted me to send message to Dr Miller as she is very nervous about it. Please call and advise. Impression IMPRESSION: 1. No cause for hematuria detected. No renal or ureteral calculi. No hydronephrosis or hydroureter. No upper tract urothelial filling defects or strictures. 2. Multiple new findings for which the possibility of metastatic disease from an unknown primary should be excluded. There are hypodense hepatic lesions which are not adequately characterized on single phase imaging but are suspicious for solid hepatic lesions and may represent metastatic disease. Would advise further evaluation with an MRI of the liver with and without contrast at this time. There are also multiple mildly enlarged upper abdominal lymph nodes which are new when compared to the prior study and may represent metastatic adenopathy. Limited evaluation of the lower chest demonstrates multiple scattered pulmonary nodules. Would advise further evaluation with a CT of the chest with intravenous contrast. Shlomo Miller MD 05/02/2024 9:11 AM Signed I have placed orders for labs, mri and ct. I spoke with patient she is aware. Please get set up ysabel. I will handle follow up from here. Nydia Barrera 05/02/2024 9:56 AM Signed Contacted patient, scheduled CT and MRI patient will be calling insurance to try and hurry up authorization. She will do a walk-in lab in the next few days Ana Melendrez RN 05/02/2024 11:17 AM Signed Patient calls and states that she was told by [facility] that Andre has to be contacted at [phone] to get approval expedited. Ana Melendrez RN 05/02/2024 1:48 PM Signed Called and left detailed message on patient's identified voicemail that insurance approved of MRI and CT scan. Advised patient that if she has questions she can call office back. Ana Melendrez RN Allergies As of Date: 05/02/2024 Noted Allergy Reaction DEMEROL (MEPERIDINE (PF)) 03/19/2005 HYDROQUINONE 02/19/2010 2 - Rash METHYLCHLOROISOTHIAZOL INONE 03/01/2018 2 - Rash METHYLISOTHIAZOLINONE 03/01/2018 2 - Rash PENICILLIN G 03/19/2005 PROPYLENE GLYCOL 03/01/2018 2 - Rash SULFA (SULFONAMIDE ANTIBIOTICS) 03/19/2005 Date Reviewed: 04/25/2024 Reviewed by: Nicolle Lora, RT(R) - Fully Assessed Reason for Visit: Results - Ct [3560] Primary Visit Diagnosis:Lung nodules [R91.8] Other Visit Diagnosis:Liver mass [R16.0] Order(s):CT CHEST W IVCON [[id number]] Order #: [id number] FUTURE COMPLETE BLOOD COUNT AND DIFFERENTIAL [SQCBCDIF] Order #: [id number] FUTURE COMPREHENSIVE METABOLIC PANEL [SQCMP] Order #: [id number] FUTURE SEDIMENTATION RATE, WESTERGREN [SQWSR] Order #: [id number] FUTURE MRI LIVER WO/W IVCON [[id number]] Order #: [id number] FUTURE MRI LIVER WO/W IVCON [[id number]] Order #: [id number] FUTURE iv contrast (will be provided with radiology test)MRI Liver Inject, intravenously, once for 1 dose. No IV access, insert saline lock prior to the beginning of sedation, infusion, injection of imaging exam. Discontinue saline lock post exam. If Pt. has a central line or IVAD, may access for administration according to line specific nursing protocol. Once exam is complete flush line and de-access according to line specific nursing protocol in the MR contrast administration guidelines link.Disp: 1 EachRfl: 0 CT CHEST W IVCON [[id number]] Order #: [id number] FUTURE Prescriptions as of 05/02/2024 - iv contrast (will be provided with radiology test) MRI Liver Inject, intravenously, once for 1 dose. No IV access, insert saline lock prior to the beginning of sedation, infusion, injection of imaging exam. Discontinue saline lock post exam. If Pt. has a central line or IVAD, may access for administration according to line specific nursing protocol. Once exam is complete flush line and de-access according to line specific nursing protocol in the MR contrast administration guidelines link. - iv contrast (will be provided with radiology test) CT Urogram WO/W Inject, intravenously, (more content not included)... Normal [facility] CT UROGRAM WO/W IVCONon 04-14 CT UROGRAM WO/W IVCON * * *Final Report* * * DATE OF EXAM: Apr 26 2024 11:18AM [facility] 0560 - CT UROGRAM WO/W IVCON / PROCEDURE REASON: Gross hematuria * * * * Physician Interpretation * * * * EXAMINATION: CT ABDOMEN AND PELVIS WITHOUT AND WITH IV CONTRAST, INCLUDING EXCRETORY PHASE IMAGING (CT UROGRAM) 3D RECONSTRUCTIONS CLINICAL HISTORY: Gross hematuria. TECHNIQUE: CT urogram protocol including unenhanced, renal parenchymal phase and excretory phase renal imaging was obtained following IV contrast. Normal saline was also administered IV. No oral contrast was given. 3D image post-processing was performed and archived at the request of the referring physician, on the CT scanner workstation without concurrent physician supervision. MQ: CTU_2 Contrast: IV: 125 ml of Omnipaque 350 IV Saline: 100 ml of 0.9% NACL Solution Oral Contrast: None CT Radiation dose: Integrated dose-length product (DLP) for this visit = 1676 mGy*cm. CT Dose Reduction Employed: Automated exposure control(AEC) and iterative recon COMPARISON: CT urogram from 04/05/2013 RESULT: Kidneys and urinary tract: Right: No renal or ureteral calculi. No hydronephrosis or hydroureter. No upper tract urothelial filling defects or strictures detected. Left: No renal or ureteral calculi. No hydronephrosis or hydroureter. No upper tract urothelial filling defects or strictures detected. Bladder: No filling defect, calculus, focal or diffuse wall thickening. Abdomen and Pelvis: Liver: Small cyst near the junction of segments 4A and 4B of the liver. Additional subcentimeter hypodense hepatic lesions which are too small to characterize. Some of the lesions appear greater in density than expected for simple hepatic cysts. For example, there is a subcentimeter lesion in segment 2 of the liver on slice 16 of series 6, segment 4A of the liver on slice 17 of series 6, and segment 8 of the liver on slice 23 of series 6. The possibility of these representing solid hepatic masses should be excluded. Biliary: No bile duct dilation. Gallbladder is unremarkable. Spleen: No mass. No splenomegaly. Pancreas: No mass or duct dilation. Adrenals: No mass. GI tract: Small hiatal hernia. No small bowel obstruction. Appendix is visualized and is normal. Mild diverticulosis throughout the colon. Lymph nodes: Multiple mildly enlarged lymph nodes in the upper abdomen which have increased in size when compared to the prior exam. For example, on series 6, -1.7 x 0.7 cm peripancreatic lymph node on slice 28. -1.5 x 1.0 cm aortocaval lymph node on slice 43 of series 6. -1.6 x 0.9 cm left para-aortic lymph node on slice 44. -1.4 x 0.9 cm left para-aortic lymph node on slice 45. Mesentery/Peritoneum: No ascites or mass. Pelvis: No mass, ascites or fluid collection. Bones and Soft Tissues: Degenerative changes. Small fat-containing periumbilical hernia and small fat-containing hernia along the midline upper abdominal wall. Lower thorax: Limited evaluation of the lower chest and straight multiple scattered pulmonary nodules. For example, there is a 7 mm nodule in the right lower lobe on slice 6 of series 5, a 9 mm nodule in the right lower lobe on slice 70 of series 5, and a 5 mm nodule in the left lower lobe on slice 9 of series 5. These are new when compared to the prior CT urogram. Localizer images: IMPRESSION: 1. No cause for hematuria detected. No renal or ureteral calculi. No hydronephrosis or hydroureter. No upper tract urothelial filling defects or strictures. 2. Multiple new findings for which the possibility of metastatic disease from an unknown primary should be excluded. There are hypodense hepatic lesions which are not adequately characterized on single phase imaging but are suspicious for solid hepatic lesions and may represent metastatic disease. Would advise further evaluation with an MRI of the liver with and without contrast at this time. There are also multiple mildly enlarged upper abdominal lymph nodes which are new when compared to the prior study and may represent metastatic adenopathy. Limited evaluation of the lower chest demonstrates multiple scattered pulmonary nodules. Would advise further evaluation with a CT of the chest with intravenous contrast. ACTIONABLE RESULT: FOLLOW-UP Acuity: Actionable Findings: Liver Routing Code: LV_1 Recommendation: MRI LIVER WO/W IVCON (add Dotarem in comments) Time Frame: as soon as possible, when the patient's clinical state allows. COMMUNICATION: Results will be communicated with the ordering provider via [email or web address] staff message or phone message by [facility] Support Services within 2 business days of report finalization. --END OF FINDING-- Acuity: Actionable Findings: Thoracic-LUNG NODULES Routing Code: RI_1 Recommendation: CT Chest W IVCON TimeFrame: as soon as possible, when the patient's clinical state allows. --END OF FINDING-- (more content not included)... Invalid Interpretation Code [facility] BLAKEOVkorey 04-25-2024 CNOV Office Visit (ANAWS ) DIXIE MILLER ([id number]) 1965 F Date Time Provider Department 04/25/24 9:40 AM SHLOMO MILLER During your visit today, we recorded the following information about you: Pulse Blood pressure Weight 84/minute 132/82 74.8 kg Shlomo Miller MD 04/25/2024 10:06 AM Signed - Resume taking Omeprazole 20 mg daily until your esophageal exam on the . - Use hqyi-nmg-ivsliut Delsym or Mucinex DM to manage your cough. - Take Tylenol as needed for discomfort. - Rest and drink plenty of fluids. - Monitor for symptoms such as shortness of breath, high fever, or worsening condition. Contact us if these occur. - If symptoms do not improve within a week, notify us. - Follow up with urology as scheduled. - Consider scheduling a physical exam to check cholesterol and other health metrics at your convenience. Shlomo Miller MD 04/25/2024 10:14 AM Signed Subjective J Carlos is a 58 year old female who presents for Cough (Productive, congestion, throat madrigal/) History of Present Illness Acute Cough and URI Symptoms: - Onset of symptoms 4 days ago, with worsening on Tuesday. - Describes cough as dry, producing only saliva. - J Carlos reports hot sensation in throat, rhinorrhea, and nasal congestion. - Nasal discharge described as green. - Denies frontal sinus congestion or headaches. - Cough exacerbated at night. - Denies fatigue, eye drainage, nausea, emesis, or diarrhea. - Denies recent illness in household members. - No home COVID test performed. Chronic Cough and GERD: - Chronic cough previously evaluated by ENT, suspected to be related to GERD. - Scheduled for esophageal exam on the . - Previously prescribed omeprazole 40 mg, reduced to 20 mg due to constipation. - Currently not taking omeprazole. - Denies heartburn, dysphagia, or melena. Hematuria: - Recent episode of hematuria following abdominal pain. - Scheduled for CT scan and cystoscopy. - Denies dysuria. Basal Cell Carcinoma: - Mohs surgery performed in September for basal cell carcinoma on the left side of the face. Review of Systems As above Objective Blood pressure 132/82, pulse 84, weight 74.8 kg (165 lb), last menstrual period 11/26/2014, SpO2 98%. Physical Exam GENERAL: NAD, alert and oriented. SKIN: Unremarkable, no rash or skin lesions. Evidence of Mohs surgery on the left side of the face. HEAD: Normocephalic. EYES: PERRLA, EOMI, conjunctiva clear. EARS: External ears normal, canals clear, TM's normal. NOSE/SINUSES: Nares normal. Septum midline. No sinus tenderness. OROPHARYNX: Lips, mucosa, and tongue normal, good dentition. No oral lesions noted. NECK: Supple, no lymphadenopathy, normal thyroid, no carotid bruits. LUNGS: Clear to auscultation bilaterally, no wheezes/rhonchi/rales. HEART: Regular rate and rhythm, no murmurs. No ectopy. ABDOMEN: Soft, non-tender, no masses. Bowel sounds normal. EXTREMITIES: Normal, no deformities, no skin discoloration, no edema. NEURO: Awake, alert and oriented x3, cranial nerves II-XII grossly intact, normal gait, no involuntary motions. Results Labs: (Today) COVID/Influenza/RSV Swab: Results pending Urinalysis: Negative for blood Urinalysis: Positive for blood Tests: (September) Mohs Surgery: Basal cell carcinoma on the left side of the face ASSESSMENT/PLAN: 1. URI, acute - ICD9: 465.9, ICD10: J06.9 (primary diagnosis) - Discussed viral etiology and rationale for treatment. - Symptomatic treatment with prn analgesia - Supportive care with fluids and rest - COVID AND INFLUENZA A/B AND RSV PCR, ROUTINE 2. Mixed hyperlipidemia - ICD9: 272.2, ICD10: E78.2 -rto for check up 3. Facial basal cell cancer - ICD9: 173.31, ICD10: C44.310 - per derm 4. Microscopic hematuria - ICD9: 599.72, ICD10: R31.29 - per urology 5. Gastroesophageal reflux disease without esophagitis - ICD9: 530.81, ICD10: K21.9 -resume omeprazole. Get egd. 6. Chronic cough - ICD9: 786.2, ICD10: R05.3 - start omeprazole at 20 mg Shlomo Miller MD Medical Decision Making: Problems: Moderate: Acute illness with systemic symptoms and 1+ chronic illnesses with change Data: Unique test result(s) reviewed: 1 Unique test(s) ordered: 1 Risk: Moderate: Drug management Medical Decision Making Level: 4 - Moderate Allergies As of Date: 04/25/2024 Noted Allergy Reaction DEMEROL (MEPERIDINE (PF)) 03/19/2005 HYDROQUINONE 02/19/2010 2 - Rash METHYLCHLOROISOTHIAZOL INONE 03/01/2018 2 - Rash METHYLISOTHIAZOLINONE 03/01/2018 2 - Rash PENICILLIN G 03/19/2005 PROPYLENE GLYCOL 03/01/2018 2 - Rash SULFA (SULFONAMIDE ANTIBIOTICS) 03/19/2005 Date Reviewed: 04/25/2024 Reviewed by: Diana Zamorano LPN - Fully Assessed Reason for Visit: Cough [28] Cmt: Productive, congestion, throat madrigal Primary Visit Diagnosis:URI, acute [J06.9] Other Visit Diagnos (more content not included)... Normal [facility] DBT Breast - left diagnostic for implanton 04-24-2024 IMPRESSION: 3 mm sebaceous cyst within the skin of the left breast 10:00, 5 cm from the nipple is benign. There is no mammographic or sonographic evidence of malignancy. Return to annual screening mammogram is recommended. Annual mammogram will be due in 6 months. BI-RADS Category 2: Benign RISK: Based on the Tyrer-Cuzick (TC) risk assessment model, this patient has a 15.5% lifetime risk of developing breast cancer, meaning they are at average risk for developing breast cancer. However, this is only an estimate based on available history provided on the patient's questionnaire. We encourage all patients to talk with their providers about these results, further recommendations for managing breast health, and appropriate supplemental screening options if the patient has dense breast tissue. Interpreting Radiologist: Toni Esposito M.D. Electronically signed on: 04/24/2024 Lead Mobile Developer: TARUN Transcribe Date/Time: Apr 24 2024 3:00P Dictated by: TONI ESPOSITO MD This examination was interpreted and the report reviewed and electronically signed by: TONI ESPOSITO MD on Apr 24 2024 3:37PM [facility] DIVISION OF RADIOLOGY * * *Final Report* * * DATE OF EXAM: Apr 24 2024 3:11PM W 0628 - [facility] KATLYN STEWART LT / PROCEDURE REASON: Mass of upper inner quadrant of left breast * * * * Physician Interpretation * * * * RESULT: [place] [address] [place] [id number] #[id number] - GENARO STEWART LT #[id number] - [facility] BREAST LTD LT HISTORY: 58 year-old patient seen for diagnostic evaluation of skin changes to the breast in the left breast at 10 o'clock. Patient states no personal history of breast cancer. The patient has a family history of breast cancer. COMPARISON STUDIES: The present examination has been compared to prior imaging studies dated 09/26/2020 (mammogram), 09/28/2021 (mammogram), 09/30/2022 (mammogram), 10/20/2022 (ultrasound) and 10/03/2023 (mammogram). MAMMOGRAM TECHNIQUE: The study was acquired using full field digital technology and interpreted from soft copy. Digital Breast Tomosynthesis (DBT) images were obtained and used to assist in the interpretation of this examination. MAMMOGRAM FINDINGS: There are scattered areas of fibroglandular density. No suspicious masses, calcifications or other abnormalities are seen in the left breast. ULTRASOUND TECHNIQUE: Targeted ultrasound of the indicated area was performed. Staples scale images were saved. ULTRASOUND FINDINGS: There is an oval parallel sebaceous cyst measuring 0.3 cm in the left breast at 10 o'clock, in the skin, 5 cm from the nipple. This corresponds with the area of palpable concern. Associated tract extends to the skin surface. There are no suspicious findings in the imaged area. DIVISION OF RADIOLOGY Provider, [facility] - 04/24/2024 * * *Final Report* * * DATE OF EXAM: Apr 24 2024 3:11PM [facility] 0628 - [facility] KATLYN Meneses PAT / PROCEDURE REASON: Mass of upper inner quadrant of left breast * * * * Physician Interpretation * * * * RESULT: [place] [address] #[id number] - [facility] KATLYN Meneses [employer] #[id number] - [facility] [employer] LT HISTORY: 58 year-old patient seen for diagnostic evaluation of skin changes to the breast in the left breast at 10 o'clock. Patient states no personal history of breast cancer. The patient has a family history of breast cancer. COMPARISON STUDIES: The present examination has been compared to prior imaging studies dated 09/26/2020 (mammogram), 09/28/2021 (mammogram), 09/30/2022 (mammogram), 10/20/2022 (ultrasound) and 10/03/2023 (mammogram). MAMMOGRAM TECHNIQUE: The study was acquired using full field digital technology and interpreted from soft copy. Digital Breast Tomosynthesis (DBT) images were obtained and used to assist in the interpretation of this examination. MAMMOGRAM FINDINGS: There are scattered areas of fibroglandular density. No suspicious masses, calcifications or other abnormalities are seen in the left breast. ULTRASOUND TECHNIQUE: Targeted ultrasound of the indicated area was performed. Staples scale images were saved. ULTRASOUND FINDINGS: There is an oval parallel sebaceous cyst measuring 0.3 cm in the left breast at 10 o'clock, in the skin, 5 cm from the nipple. This corresponds with the area of palpable concern. Associated tract extends to the skin surface. There are no suspicious findings in the imaged area. IMPRESSION IMPRESSION: 3 mm sebaceous cyst within the skin of the left breast 10:00, 5 cm from the nipple is benign. There is no mammographic or sonographic evidence of malignancy. Return to annual screening mammogram is recommended. Annual mammogram will be due in 6 months. BI-RADS Category 2: Benign RISK: Based on the Tyrer-Cuzick (TC) risk assessment model, this patient has a 15.5% lifetime risk of developing breast cancer, meaning they are at average risk for developing breast cancer. However, this is only an estimate based on available history provided on the patient's questionnaire. We encourage all patients to talk with their providers about these results, further recommendations for managing breast health, and appropriate supplemental screening options if the patient has dense breast tissue. Interpreting Radiologist: Toni Esposito M.D. Electronically signed on: 04/24/2024 Lead Mobile Developer: TARUN Transcribe Date/Time: Apr 24 2024 3:00P Dictated by: TONI ESPOSITO MD This examination was interpreted and the report reviewed and electronically signed by: TONI ESPOSITO MD on Apr 24 2024 3:37PM [facility] GENARO POTTS W PAT LTon 025 GENARO POTTS W PAT LT * * *Final Report* * * DATE OF EXAM: Apr 24 2024 3:11PM [facility] 0628 - [facility] KATLYN STEWART LT / PROCEDURE REASON: Mass of upper inner quadrant of left breast * * * * Physician Interpretation * * * * RESULT: [facility] [address] [place] [address] #[id number] - [facility] KATLYN Meneses PAT LT #[id number] - [facility] US BREAST LTD LT HISTORY: 58 year-old patient seen for diagnostic evaluation of skin changes to the breast in the left breast at 10 o'clock. Patient states no personal history of breast cancer. The patient has a family history of breast cancer. COMPARISON STUDIES: The present examination has been compared to prior imaging studies dated 09/26/2020 (mammogram), 09/28/2021 (mammogram), 09/30/2022 (mammogram), 10/20/2022 (ultrasound) and 10/03/2023 (mammogram). MAMMOGRAM TECHNIQUE: The study was acquired using full field digital technology and interpreted from soft copy. Digital Breast Tomosynthesis (DBT) images were obtained and used to assist in the interpretation of this examination. MAMMOGRAM FINDINGS: There are scattered areas of fibroglandular density. No suspicious masses, calcifications or other abnormalities are seen in the left breast. ULTRASOUND TECHNIQUE: Targeted ultrasound of the indicated area was performed. Staples scale images were saved. ULTRASOUND FINDINGS: There is an oval parallel sebaceous cyst measuring 0.3 cm in the left breast at 10 o'clock, in the skin, 5 cm from the nipple. This corresponds with the area of palpable concern. Associated tract extends to the skin surface. There are no suspicious findings in the imaged area. IMPRESSION: 3 mm sebaceous cyst within the skin of the left breast 10:00, 5 cm from the nipple is benign. There is no mammographic or sonographic evidence of malignancy. Return to annual screening mammogram is recommended. Annual mammogram will be due in 6 months. BI-RADS Category 2: Benign RISK: Based on the Tyrer-Cuzick (TC) risk assessment model, this patient has a 15.5% lifetime risk of developing breast cancer, meaning they are at average risk for developing breast cancer. However, this is only an estimate based on available history provided on the patient's questionnaire. We encourage all patients to talk with their providers about these results, further recommendations for managing breast health, and appropriate supplemental screening options if the patient has dense breast tissue. Interpreting Radiologist: Toni Esposito M.D. Electronically signed on: 04/24/2024 Lead Mobile Developer: TARUN Transcrivelia Date/Time: Apr 24 2024 3:00P Dictated by: TONI ESPOSITO MD This examination was interpreted and the report reviewed and electronically signed by: TONI ESPOSITO MD on Apr 24 2024 3:37PM EST [id number] Normal [facility] US BREAST LTD LTon 04-24 [facility] US BREAST LTD LT * * *Final Report* * * DATE OF EXAM: Apr 24 2024 3:31PM WRU [id number] - [facility] US BREAST LTD LT / PROCEDURE REASON: Mass of upper inner quadrant of left breast * * * * Physician Interpretation * * * * [place] [address] #[id number] - [facility] DIAG W PAT LT #[id number] - [facility] [employer] BREAST LTD LT HISTORY: 58 year-old patient seen for diagnostic evaluation of skin changes to the breast in the left breast at 10 o'clock. Patient states no personal history of breast cancer. The patient has a family history of breast cancer. COMPARISON STUDIES: The present examination has been compared to prior imaging studies dated 09/26/2020 (mammogram), 09/28/2021 (mammogram), 09/30/2022 (mammogram), 10/20/2022 (ultrasound) and 10/03/2023 (mammogram). MAMMOGRAM TECHNIQUE: The study was acquired using full field digital technology and interpreted from soft copy. Digital Breast Tomosynthesis (DBT) images were obtained and used to assist in the interpretation of this examination. MAMMOGRAM FINDINGS: There are scattered areas of fibroglandular density. No suspicious masses, calcifications or other abnormalities are seen in the left breast. ULTRASOUND TECHNIQUE: Targeted ultrasound of the indicated area was performed. Stalpes scale images were saved. ULTRASOUND FINDINGS: There is an oval parallel sebaceous cyst measuring 0.3 cm in the left breast at 10 o'clock, in the skin, 5 cm from the nipple. This corresponds with the area of palpable concern. Associated tract extends to the skin surface. There are no suspicious findings in the imaged area. IMPRESSION: 3 mm sebaceous cyst within the skin of the left breast 10:00, 5 cm from the nipple is benign. There is no mammographic or sonographic evidence of malignancy. Return to annual screening mammogram is recommended. Annual mammogram will be due in 6 months. BI-RADS Category 2: Benign RISK: Based on the Tyrer-Cuzick (TC) risk assessment model, this patient has a 15.5% lifetime risk of developing breast cancer, meaning they are at average risk for developing breast cancer. However, this is only an estimate based on available history provided on the patient's questionnaire. We encourage all patients to talk with their providers about these results, further recommendations for managing breast health, and appropriate supplemental screening options if the patient has dense breast tissue. Interpreting Radiologist: Tnoi Esposito M.D. Electronically signed on: 04/24/2024 Lead Mobile Developer: TARUN Transcribe Date/Time: Apr 24 2024 3:21P Dictated by : TONI ESPOSITO MD This examination was interpreted and the report reviewed and electronically signed by: TONI ESPOSITO MD on Apr 24 2024 3:37PM EST [id number] Normal [facility] No Panel InformationOrdered By: Cc Provider on 04-24-2024 [facility] No Panel Informationon 04-24 Radiology Study observation (narrative) [facility] US Breast - left limitedon 0 04-24-2024 IMPRESSION: 3 mm sebaceous cyst within the skin of the left breast 10:00, 5 cm from the nipple is benign. There is no mammographic or sonographic evidence of malignancy. Return to annual screening mammogram is recommended. Annual mammogram will be due in 6 months. BI-RADS Category 2: Benign RISK: Based on the Tyrer-Cuzick (TC) risk assessment model, this patient has a 15.5% lifetime risk of developing breast cancer, meaning they are at average risk for developing breast cancer. However, this is only an estimate based on available history provided on the patient's questionnaire. We encourage all patients to talk with their providers about these results, further recommendations for managing breast health, and appropriate supplemental screening options if the patient has dense breast tissue. Interpreting Radiologist: Toni Esposito M.D. Electronically signed on: 04/24/2024 Lead Mobile Developer: TARUN Sterlingribe Date/Time: Apr 24 2024 3:21P Dictated by : OTNI ESPOSITO MD This examination was interpreted and the report reviewed and electronically signed by: TONI ESPOSITO MD on Apr 24 2024 3:37PM [facility] DIVISION OF RADIOLOGY * * *Final Report* * * DATE OF EXAM: Apr 24 2024 3:31PM [id number] - [facility] [employer] BREAST LTD LT / PROCEDURE REASON: Mass of upper inner quadrant of left breast * * * * Physician Interpretation * * * * [place] [address] #[id number] - [facility] KATLYN STEWART LT #[id number] - [facility] [employer] LT HISTORY: 58 year-old patient seen for diagnostic evaluation of skin changes to the breast in the left breast at 10 o'clock. Patient states no personal history of breast cancer. The patient has a family history of breast cancer. COMPARISON STUDIES: The present examination has been compared to prior imaging studies dated 09/26/2020 (mammogram), 09/28/2021 (mammogram), 09/30/2022 (mammogram), 10/20/2022 (ultrasound) and 10/03/2023 (mammogram). MAMMOGRAM TECHNIQUE: The study was acquired using full field digital technology and interpreted from soft copy. Digital Breast Tomosynthesis (DBT) images were obtained and used to assist in the interpretation of this examination. MAMMOGRAM FINDINGS: There are scattered areas of fibroglandular density. No suspicious masses, calcifications or other abnormalities are seen in the left breast. ULTRASOUND TECHNIQUE: Targeted ultrasound of the indicated area was performed. Staples scale images were saved. ULTRASOUND FINDINGS: There is an oval parallel sebaceous cyst measuring 0.3 cm in the left breast at 10 o'clock, in the skin, 5 cm from the nipple. This corresponds with the area of palpable concern. Associated tract extends to the skin surface. There are no suspicious findings in the imaged area. DIVISION OF RADIOLOGY Provider, [facility] - 04/24/2024 * * *Final Report* * * DATE OF EXAM: Apr 24 2024 3:31PM [id number] - [facility] [employer] BREAST LTD LT / PROCEDURE REASON: Mass of upper inner quadrant of left breast * * * * Physician Interpretation * * * * [place] [address] #[id number] - GENARO KAT[facility]N STEWART LT #[id number] - [facility] [employer] BREAST LTD LT HISTORY: 58 year-old patient seen for diagnostic evaluation of skin changes to the breast in the left breast at 10 o'clock. Patient states no personal history of breast cancer. The patient has a family history of breast cancer. COMPARISON STUDIES: The present examination has been compared to prior imaging studies dated 09/26/2020 (mammogram), 09/28/2021 (mammogram), 09/30/2022 (mammogram), 10/20/2022 (ultrasound) and 10/03/2023 (mammogram). MAMMOGRAM TECHNIQUE: The study was acquired using full field digital technology and interpreted from soft copy. Digital Breast Tomosynthesis (DBT) images were obtained and used to assist in the interpretation of this examination. MAMMOGRAM FINDINGS: There are scattered areas of fibroglandular density. No suspicious masses, calcifications or other abnormalities are seen in the left breast. ULTRASOUND TECHNIQUE: Targeted ultrasound of the indicated area was performed. Staples scale images were saved. ULTRASOUND FINDINGS: There is an oval parallel sebaceous cyst measuring 0.3 cm in the left breast at 10 o'clock, in the skin, 5 cm from the nipple. This corresponds with the area of palpable concern. Associated tract extends to the skin surface. There are no suspicious findings in the imaged area. IMPRESSION IMPRESSION: 3 mm sebaceous cyst within the skin of the left breast 10:00, 5 cm from the nipple is benign. There is no mammographic or sonographic evidence of malignancy. Return to annual screening mammogram is recommended. Annual mammogram will be due in 6 months. BI-RADS Category 2: Benign RISK: Based on the Tyrer-Cuzick (TC) risk assessment model, this patient has a 15.5% lifetime risk of developing breast cancer, meaning they are at average risk for developing breast cancer. However, this is only an estimate based on available history provided on the patient's questionnaire. We encourage all patients to talk with their providers about these results, further recommendations for managing breast health, and appropriate supplemental screening options if the patient has dense breast tissue. Interpreting Radiologist: Toni Esposito M.D. Electronically signed on: 04/24/2024 Lead Mobile Developer: TARUN Transcribe Date/Time: Apr 24 2024 3:21P Dictated by : TONI ESPOSITO MD This examination was interpreted and the report reviewed and electronically signed by: TONI ESPOSITO MD on Apr 24 2024 3:37PM EST [facility] CREATININE BLDon 04-18-2024 Creatinine [Mass/Vol] 0.77 mg/dL Normal 0.58-0.96 [facility] Comment on above: Order Comment: Speci men Type: BLOOD SPECIMENOrdering Facility: [facility] Address: [address] [place] [address] Performed By: #### C RET1 ####[facility] [id number] [place] [address] [place] Creatinine and Glomerular filtration rate.predicted panel (S/P/Bld) 90 mL/min/1.73m??? Normal >=60 [facility] Comment on above: Order Comment: Speci nella Type: BLOOD SPECIMENOrdering Facility: [facility] Address: [address] [place] [address] Result Comment: Tiana mated Glomerular Filtration Rate (eGFR) is calculated using the 2020 CKD-EPI creatinine equation. This equation utilizes serum creatinine, sex, and age as parameters. The creatinine assay has traceable calibration to isotope dilution-mass spectrometry. Refer to KDIGO guidelines for clinical interpretation. In patients with unstable renal function, e.g. those with acute kidney injury, the eGFR may not accurately reflect actual GFR. Performed By: #### C RET1 ####[facility] [id number] [place] [address] [place] Bacteria Ur Culton 5 Bacteria identified Cx Nom (U) CULTURE, URINE: No growth (<1,000 CFU/ml) Normal [facility] Comment on above: Performed By: #### 6 30-4 ####[facility] [id number] [address] [place] CNOVon 04-17-2024 CNOV Office Visit (UROLWS ) DIXIE MILLER ([id number]) 1965 F Date Time Provider Department 04/17/24 11:00 AM BETTINA BERMUDEZ UROSHRUTHI During your visit today, we recorded the following information about you: Pulse Blood pressure Weight Height 99/minute 131/79 74.4 kg 1.638 m Bettina Bermudez PA-C 04/17/2024 11:32 AM Signed [facility] NEW PATIENT CLINIC NOTE (F) SERVICE DATE: April 17, 2024 NAME: Dixie Miller GENDER: female CHIEF COMPLAINT: Gross Hematuria HISTORY OF PRESENT ILLNESS: Dixie Miller is a 58 year old female new patient here for Gross Hematuria The patient reports over she noticed gross blood in the urine along with cramping pain over the lower abdomen She has had this before in 2013 and work-up was negative. Recommended Hematuria work-up > We discussed the common causes of urinary frequency and urgency, and restricting water intake In hopes to mitigate the need to urinate, we discussed how this behavior more often worsen the problem not improving it, > We discussed increasing daily water intake to 64-84 oz 7a -7p and try to reduce bladder irritants, caffeine, alcohol and acid foods and drink. LUTS: None LABS: No results found for: PSA Creatinine Date Value Ref Range Status 04/12/2022 0.76 0.58 - 0.96 mg/dL Final 11/10/2021 0.75 0.58 - 0.96 mg/dL Final 10/16/2020 0.74 0.58 - 0.96 mg/dL Final MEDICATIONS: nitrofurantoin monohydrate and macrocrystal (MACROBID) 100 mg capsule Take one tablet PO after intercourse omeprazole (PRILOSEC) 20 mg capsule Take 1 capsule by mouth daily before breakfast. 1/2 hr before meal. Cholecalciferol, Vitamin D3, 50 mcg (2,000 unit) cap Take by mouth. ascorbic acid (VITAMIN C ORAL) Take by mouth. clobetasol (TEMOVATE) 0.05 % ointment Apply 1 application to affected area twice daily. For two weeks then use once per week . MULTIVITAMIN TAB Take one(1) tablet daily. PAST MEDICAL HISTORY: PAST MEDICAL HISTORY Diagnosis Date Bladder incontinence Chicken pox [birth year]/31/66 as a child-lasted 12 weeks Mumps 1330-2522 as a child NONE PAST SURGICAL HISTORY: PAST SURGICAL HISTORY Procedure Laterality Date COLONOSCOPY FLX DX W/COLLJ SPEC WHEN PFRMD 12/23/2016 Colonoscopy PAST SURGICAL HISTORY OF basil cell removal forehead FAMILY HISTORY: FAMILY HISTORY Problem Relation Age of Onset Breast Cancer Mother age 60's-triple negative Hypertension Father Under control Diabetes Paternal Grandmother Diabetes Paternal Uncle Colon Cancer Other none SOCIAL HISTORY: Social Connections: Moderately Isolated (06/10/2023) Social Connection and Isolation Panel [NHANES] Frequency of Communication with Friends and Family: Three times a week Frequency of Social Gatherings with Friends and Family: Patient declined Attends Islam Services: Never Active Member of Clubs or Organizations: No Attends Club or Organization Meetings: Never Marital Status: REVIEW OF SYSTEMS: GENERAL: No fever, chills, weight loss, or fatigue. ENMT: Negative CARDIOVASCULAR:NO CHEST PAIN, PALPITATIONS, ANKLE EDEMA RESPIRATORY: No chronic cough, wheezing, dyspnea, hemoptysis. GENITOURINARY: SEE HPI MUSCULOSKELETAL:NO CHRONIC BACK PAIN, ARTHRITIS, CHRONIC NECK PAIN SKIN: NO VARICOSE VEINS, RASH, ABNORMAL ITCHING HEME/LYMPH/IMMUNE:Nega tive for prolonged bleeding, bruising easily or swollen nodes NEUROLOGICAL: NO HEADACHES, NUMBNESS, SEIZURES, STROKE DIABETES: No All other systems reviewed and are negative PHYSICAL EXAMINATION: Blood pressure 131/79, pulse 99, height 163.8 cm (5' 4.5), weight 74.4 kg (164 lb), last menstrual period 11/26/2014. GENERAL: WNL nutrition, no deformities, healthy appearing NEURO: Awake, alert and oriented x 3 and Normal gait PSYCH: No signs of depression, anxiety, or agitation ENMT (Ear, Nose, Mouth, Throat): No masses, adenopathy, icterus. Thyroid nonpalpable RESP: NL effort, no retractions or purse-lip breathing. CV: No extremity swelling, varices, edema, pallor, erythema GASTROINTESTINAL: Soft, nontender, nondistended, no masses. HERNIAS: None SKIN: No rash, lesions No palpable lymphadenopathy MUSCULOSKELETAL: Extremities normal. No deformities, edema, clubbing or skin discoloration. PROBLEM LIST REVIEW: Yes LABS: Results for orders placed or performed in visit on 04/17/24 UA DIP, URINE (POC) Result Value Ref Range GLUCOSE UA (POCT) Negative Negative mg/dL BILIRUBIN UA (POCT) Negative Negative KETONE UA (POCT) Trace Negative mg/dL SPECIFIC GRAVITY UA (POCT) 1.025 1.005 - 1.030 HEMOGLOBIN/BLOOD UA (POCT) Negative Negative PH UA (POCT) 5.5 4.5 - 8.0 PROTEIN UA (POCT) Trace (A) Negative mg/dL UROBILINOGEN UA (POCT) 0.2 Normal E.U./dL NITRITE UA (POCT) Negative Negative LEUKOCY (more content not included)... [facility] DIX[facility] ([id number]) 1965 F Date Time Provider Department 04/17/24 BETTINA BERMUDEZ During your visit today, we recorded the following information about you: Gabrielle Elias 04/17/2024 12:20 PM Addendum Pt confirmed cysto with Dr. Noe in [place] on 05/10/24 @ 9:[address] prior 04/26/24. Ref by Chantal Bermudez for hematuria. Jessica Allergies As of Date: 04/17/2024 Noted Allergy Reaction DEMEROL (MEPERIDINE (PF)) 03/19/2005 HYDROQUINONE 02/19/2010 2 - Rash METHYLCHLOROISOTHIAZOL INONE 03/01/2018 2 - Rash METHYLISOTHIAZOLINONE 03/01/2018 2 - Rash PENICILLIN G 03/19/2005 PROPYLENE GLYCOL 03/01/2018 2 - Rash SULFA (SULFONAMIDE ANTIBIOTICS) 03/19/2005 Date Reviewed: 04/17/2024 Reviewed by: Toya Juarez MA - Fully Assessed Reason for Visit: Appointment [186] Prescriptions as of 04/17/2024 - iv contrast (will be provided with radiology test) CT Urogram WO/W Inject, intravenously, once for 1 dose.No IV access, insert saline lock prior to the beginning of sedation, infusion, injection of imaging exam. Discontinue saline lock post exam. If Pt. has a central line or IVAD, may access for administration according to line specific nursing protocol. Once exam is complete flush line and de-access according to line specific nursing protocol in the CT contrast administration guidelines link. - 0.9 % sodium chloride (NACL 0.9%) infusion Inject 150 mL/hr intravenously one time only for 1 dose. Administer at rate defined per CT contrast administration specifications. To be provided with radiology test. - nitrofurantoin monohydrate and macrocrystal (MACROBID) 100 mg capsule Take one tablet PO after intercourse - omeprazole (PRILOSEC) 20 mg capsule Take 1 capsule by mouth daily before breakfast. 1/2 hr before meal. - Cholecalciferol, Vitamin D3, 50 mcg (2,000 unit) cap Take by mouth. - ascorbic acid (VITAMIN C ORAL) Take by mouth. - clobetasol (TEMOVATE) 0.05 % ointment Apply 1 application to affected area twice daily. For two weeks then use once per week . - MULTIVITAMIN TAB Take one(1) tablet daily. Problem List As Of Date 04/17/2024 Noted Resolved Routine general medical examination at a [facility]*02/19/2010 07/14/2011 Class: Chronic Routine gynecological examination [Z01.419] 02/19/2010 07/14/2011 Class: Chronic Subclinical hypothyroidism [E03.8] 02/19/2010 03/13/2012 OCD (obsessive compulsive disorder) [F42.9] 03/30/2010 Postmenopausal bleeding [N95.0] 10/04/2011 02/28/2012 Overactive bladder [N32.81] 11/22/2011 Cervicalgia [M54.2] 12/31/2011 03/13/2012 Brachial neuritis or radiculitis NOS [M54.12] 12/31/2011 03/13/2012 Abnormal uterine bleeding [N93.9] 02/28/2012 02/02/2017 Urinary incontinence [R32] 03/28/2013 Gross hematuria [R31.0] 03/28/2013 Urge incontinence [N39.41] 03/28/2013 Anal fissure [K60.2] 09/09/2013 Mixed hyperlipidemia [E78.2] 03/17/2017 Left ankle instability [M25.372] 03/29/2017 Plantar fasciitis of left foot [M72.2] 11/30/2018 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] 10/16/2020 DDD (degenerative disc disease), cervical [M50.*11/19/2021 Urinary, incontinence, stress female [N39.3] 04/26/2023 Muscle weakness [M62.81] 04/26/2023 Encounter Status:Closed by GABRIELLE ELIAS on 04/17/24 Normal [facility] CYTOLOGY NON-GYNon 5 AP DISCLAIMER Normal [facility] Comment on above: Order Comment: Speci men Type: BLOOD SPECIMEN Ordering Facility: [facility] Address: [address] [place] [address] Result Comment: Reed Smith Test (LDT) Disclaimer: Performance characteristics of immunohistochemical, immunofluorescent, and chromogenic in-situ hybridization tests have been determined by the performing laboratory within [facility]'s Rupert Mcintyre [facility] Pathology and Laboratory Medicine Department ([facility], [facility], [facility], [facility], [facility], [facility], or [facility]) in a manner consistent with CLIA requirements. One or more of these tests may not have been cleared or approved by the FDA. [facility] is regulated under CLIA as qualified to perform high-complexity testing. These tests are used for clinical purposes. These should not be regarded as investigational or for research. Positive and negative controls stain appropriately. Performed By: #### 2 4323-8 #### [facility] CLIA [id number] [address] [place] [address] [place] CASE REPORT Normal [facility] Comment on above: Order Comment: Speci men Type: BLOOD SPECIMEN Ordering Facility: [facility] Address: [address] [place] [address] Result Comment: [facility] Cytology Report Case: [id number] Authorizing Provider: Bettina Bermudez PA-C Collected: 04/17/2024 11:34 AM Ordering Location: Urology Received: 04/17/2024 02:09 PM Pathologist: Brianna Sol MD Specimen: Urine, Midstream Performed By: #### 2 4323-8 #### [facility] CLIA [id number] [address] [place] [address] [place] CLINICAL HISTORY hematuria Normal [facility] Comment on above: Order Comment: Speci men Type: BLOOD SPECIMEN Ordering Facility: [facility] Address: [address] [place] [address] Performed By: #### 2 4323-8 #### [facility] CLIA [id number] [address] [place] [address] OF [facility] FINAL DIAGNOSIS Normal [facility] Comment on above: Order Comment: Speci men Type: BLOOD SPECIMEN Ordering Facility: [facility] Address: [address] [place] [address] Result Comment: A - Urine, Midstream Negative for high-grade urothelial carcinoma. at 1450 EST Performed By: #### 2 4323-8 #### [facility] CLIA [id number] [address] [place] [address] [place] FINAL PERFORMING LAB Normal [facility] Comment on above: Order Comment: Speci men Type: BLOOD SPECIMEN Ordering Facility: [facility] Address: [address] [place] [address] Result Comment: Tech nical component, certified performance technologist screening performed at: [facility], [address] [place] [address] CLIA: [id number] Diagnostic interpretation performed at: [facility], [address] [place] [address] CLIA# [id number] Heel Seat Fitter Machine: Otis Fink MD Performed By: #### 2 4323-8 #### [facility] CLIA [id number] [address] [place] [address] [place] GROSS DESCRIPTION Normal [facility] Comment on above: Order Comment: Speci men Type: BLOOD SPECIMEN Ordering Facility: [facility] Address: [address] [place] [address] Result Comment: A. U rine, Midstream 8 cc clear yellow fluid . ThinPrep prepared. Performed By: #### 2 4323-8 #### [facility] CLIA [id number] [address] [place] [address] [place] UA DIP, URINE (POC)on 2024 BILIRUBIN UA (POCT) Negative Negative [facility] CLARITY UA (POCT) Clear [facility] COLOR UA (POCT) Yellow [facility] GLUCOSE UA (POCT) Negative Negative mg/dL [facility] Hemoglobin Ql (U) Negative Negative [facility] Interpretation and review of laboratory results Abnormal [facility] KETONE UA (POCT) Trace Negative mg/dL [facility] LEUKOCYTES UA (POCT) Negative Negative [facility] NITRITE UA (POCT) Negative Negative [facility] PH UA (POCT) 5.5 4.5 - 8.0 [facility] Protein Ql (U) Trace Abnormal Negative mg/dL [facility] SPECIFIC GRAVITY UA (POCT) 1.025 1.005 - 1.030 [facility] UROBILINOGEN UA (POCT) 0.2 Normal E.U./dL [facility] Location:[facility], [address] [place] [address], [address] [facility] POINT OF CARE [facility] CNOVon 04-06-2024 CNOV Office Visit (OBGYWM ) DIXIE MILLER Yvette ([id number]) 1965 F Date Time Provider Department 04/06/24 2:00 PM HILDA SUN OBGYWM During your visit today, we recorded the following information about you: Blood pressure Weight Height 112/60 72.6 kg 1.638 m Hilda Sun MD 04/06/2024 2:36 PM Signed Sports Internship offered: Patient declines. J Carlos is a 58 year old who presents for an annual gynecologic exam without complaints. 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: Sexual Activity: Yes; Male; HAD VASECTOMY Contraception: Surgical, Vasectomy PAST MEDICAL HISTORY Diagnosis Date Bladder incontinence Chicken pox 03/31/66 as a child-lasted 12 weeks Mumps [id number] as a child NONE PAST SURGICAL HISTORY Procedure Laterality Date COLONOSCOPY FLX DX W/COLLJ SPEC WHEN PFRMD 12/23/2016 Colonoscopy PAST SURGICAL HISTORY OF basil cell removal forehead FAMILY HISTORY Problem Relation Age of Onset Breast Cancer Mother age 60's-triple negative Hypertension Father Under control Diabetes Paternal Grandmother Diabetes Paternal Uncle Colon Cancer Other none SOCIAL HISTORY Social History Tobacco Use Smoking status: Never Smokeless tobacco: Never Vaping Use Vaping status: Never Used Substance Use Topics Alcohol use: Yes Comment: OCCASSIONALLY Drug use: No REVIEW OF SYSTEMS Abdomen: No abdominal pain, nausea, vomiting, diarrhea, or constipation. No bloating, early satiety, indigestion, or increased flatulence. Bladder: No dysuria, gross hematuria, urinary frequency, urinary urgency, or incontinence Breast: No breast lumps, nipple d/c, overlying skin changes, redness or skin retraction Allergies and current medication updated:Yes SENSITIVE EXAM: The sensitive examination was discussed with the Patient or Patient's Authorized Location Man. As applicable, any other physician, advance practice provider, medical student, or other health professional student that will be observing or involved in the sensitive examination for educational or training purposes was discussed with the Patient or Authorized Location Man. The Patient or Authorized Location Man has agreed to proceed with the sensitive examination. (Sensitive examination includes inspection and/or palpation of the breasts, pelvis, prostate and anorectal regions). EXAM: BP 112/60 Ht 5' 4.5 (1.64m) Wt 160 lb (72.6kg) LMP 11/26/2014 BMI 27.05 kg/(m2). GENERAL: pleasant, female in no apparent distress HEENT: Normocephalic, atraumatic, mucus membranes moist, and no lesions NECK: Supple, full range of motion, no adenopathy, and thyroid normal DERMATOLOGY: Normal, without lesions, non-icteric, and non-hirsute BREAST: soft, non-tender, symmetric, left breast with tiny superficial mass noted at 10:00 position ? Cyst, normal nipple-areolar complex, no lymphadenopathy, and no nipple discharge CHEST: Normal inspiratory effort ABDOMEN: soft, non-tender, and no masses PELVIC: external genitalia normal, normal Bartholin's glands, urethra, [place]'s glands, no vulvar lesions, no cervical lesions, good vaginal support, physiologic discharge present, normal appearing perineal body and perianal region BIMANUAL: uterus normal size, shape and consistency, no adnexal masses, and non-tender RECTOVAGINAL: deferred. NEURO: alert and oriented x3,exam grossly non-focal EXTREMITIES: normal ASSESSMENT/PLAN: 1) Health maintenance: Pap done with HPV.- done on 04/02 Colonoscopy up to date If urology work up negative- consider Pelvic us - previous ultrasound 2023 lining 2.3mm 2) Follow up one year or sooner as needed 3) mammogram ordered 4) diagnostic mammogram ordered Hilda Ferrer MD Allergies As of Date: 04/06/2024 Noted Allergy Reaction DEMEROL (MEPERIDINE (PF)) 03/19/2005 HYDROQUINONE 02/19/2010 2 - Rash METHYLCHLOROISOTHIAZOL INONE 03/01/2018 2 - Rash METHYLISOTHIAZOLINONE 03/01/2018 2 - Rash PENICILLIN G 03/19/2005 PROPYLENE GLYCOL 03/01/2018 2 - Rash SULFA (SULFONAMIDE ANTIBIOTICS) 03/19/2005 Date Reviewed: 04/06/2024 Reviewed by: Eliza Oconnor MA - Fully Assessed Reason for Visit: Yearly Exam [187] Primary Visit Diagnosis:Encounter for gynecological examination (general) (routine) without abnormal findings [Z01.419] Other Vi (more content not included)... Normal [facility] BACTERIAL VAGINOSIS NAATon 0 04-02-2024 Lactobacillus crispatus+gasseri+ivon senii + Gardnerella vaginalis + Atopobium vaginae rRNA RENÉ+probe Ql (Vag fld) Not detected Normal Not detected [facility] Comment on above: Order Comment: Speci men Type: BLOOD SPECIMEN Ordering Facility: [facility] Address: [address] [place] [address] Performed By: #### 2 4323-8 #### [facility] [id number] [address] [place] [address] [place] Bacteria Ur Culton Bacteria identified Cx Nom (U) CULTURE, URINE: No growth (<1,000 CFU/ml) Normal [facility] Comment on above: Performed By: #### 6 30-4 ####[facility] [id number] [place] [address] [place] ELIDA/TRICHOMONAS NAATon 0 04-02-2024 C. glabrata RNA RENÉ+probe Ql (Vag fld) Not detected Normal Not detected [facility] Comment on above: Order Comment: Speci men Type: BLOOD SPECIMEN Ordering Facility: [facility] Address: [address] [place] [address] Performed By: #### 2 4323-8 #### [facility] CLIA [id number] [address] [place] [address] Elida sp DNA RENÉ+probe Ql (Vag fld) Not detected Normal Not detected [facility] Comment on above: Order Comment: Speci men Type: BLOOD SPECIMEN Ordering Facility: [facility] Address: [address] [place] [address] Result Comment: The Elida species group target includes C. albicans, C. tropicalis, C. parapsilosis, and C. dubliniensis. Performed By: #### 2 4323-8 #### [facility] CLIA [id number] [address] [place] [address] T. vaginalis DNA RENÉ+probe Ql (Unsp spec) Not detected Normal Not detected [facility] Comment on above: Order Comment: Speci men Type: BLOOD SPECIMEN Ordering Facility: [facility] Address: [address] [place] [address] Performed By: #### 2 4323-8 #### [facility] CLIA [id number] [address] [place] [address] OF [facility] CNOVon 04-02-2024 CNOV Office Visit (OBGYWM ) DIXIE MILLER ([id number]) 1965 F Date Time Provider Department 04/02/24 3:15 PM KEON RIGGS During your visit today, we recorded the following information about you: Blood pressure Weight 108/64 76.2 kg Keon Riggs APRN.PEANUT SORTER 04/02/2024 3:42 PM Signed Sports Internship offered: Patient declines. Dixie Miller is a 58 year old female who presents for problem visit for blood in urine. HPI: J Carlos reports pelvic cramping that occurred 2 days ago. She then had a small amount of blood in urine this morning. No concerns with constipation or urination. Denies discharge, irritation, frequency, or burning with urination. Reports an overall soreness from the cramping. UA today shows trace amount of blood. 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: Sexual Activity: Yes; Male; HAD VASECTOMY Contraception: Surgical, Vasectomy PAST MEDICAL HISTORY Diagnosis Date - Bladder incontinence - Chicken pox 03/31/66 as a child-lasted 12 weeks - Mumps [id number] as a child - NONE PAST SURGICAL HISTORY Procedure Laterality Date - COLONOSCOPY FLX DX W/COLLJ SPEC WHEN PFRMD 12/23/2016 Colonoscopy - PAST SURGICAL HISTORY OF basil cell removal forehead FAMILY HISTORY Problem Relation Age of Onset - Breast Cancer Mother age 60's - Hypertension Father Under control - Diabetes Paternal Grandmother - Diabetes Paternal Uncle - Colon Cancer Other none Social History Tobacco Use - Smoking status: Never - Smokeless tobacco: Never Vaping Use - Vaping status: Never Used Substance Use Topics - Alcohol use: Yes Comment: OCCASSIONALLY - Drug use: No Current Outpatient Medications Medication Sig - omeprazole (PRILOSEC) 20 mg capsule Take 1 capsule by mouth daily before breakfast. 1/2 hr before meal. - Cholecalciferol, Vitamin D3, 50 mcg (2,000 unit) cap Take by mouth. - ascorbic acid (VITAMIN C ORAL) Take by mouth. - MULTIVITAMIN TAB Take one(1) tablet daily. - nitrofurantoin monohydrate and macrocrystal (MACROBID) 100 mg capsule Take one tablet PO after intercourse - benzonatate (TESSALON PERLES) 100 mg capsule Take 1-2 capsules by mouth three times a day as needed for cough. (Patient not taking: Reported on 04/02/2024) - fluticasone-salmeterol HFA (ADVAIR HFA) 115-21 mcg/actuation inhaler Inhale 2 Puffs as instructed two times a day. Rinse mouth after use. (Patient not taking: Reported on 04/02/2024) - hydrocortisone 2.5 % cream Apply to affected area twice daily. - triamcinolone acetonide topical 0.5 % ointment Apply to affected area twice daily. - clobetasol (TEMOVATE) 0.05 % ointment Apply 1 application to affected area twice daily. For two weeks then use once per week . No current facility-administered medications for this visit. Allergies As of Date: 04/02/2024 Allergen Noted Reaction DEMEROL [MEPERIDINE (PF)] 03/19/2005 HYDROQUINONE 02/19/2010 Rash METHYLCHLOROISOTHIAZOL INONE 03/01/2018 Rash METHYLISOTHIAZOLINONE 03/01/2018 Rash PENICILLIN G 03/19/2005 PROPYLENE GLYCOL 03/01/2018 Rash SULFA (SULFONAMIDE ANTIBIOTICS) 03/19/2005 Fully Assessed 04/02/2024 REVIEW OF SYSTEMS Bladder: No dysuria, urinary frequency, urinary urgency, or incontinence. 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 As applicable, any other physician, advance practice provider, medical student, or other health professional student that will be observing or involved in the sensitive examination for educational or training purposes was discussed with the Patient or Authorized Location Man. The Patient or Authorized Location Man has agreed to proceed with the sensitive examination. (Sensitive examination includes inspection and/or palpation of the breasts, pelvis, prostate and anorectal regions). EXAM: BP 108/64 Wt 168 lb (76.2kg) LMP 11/26/2014 GENERAL: pleasant, female in no apparent distress HEENT: Normocephalic, atraumatic, mucus membranes moist, and no lesions CHEST: Normal inspiratory effort PELVIC: external genitalia atrophic, normal Bartholin's glands, urethra, [place]'s glands, no vulvar lesions, no cervical lesions, atrophic cervix, small amount of blood to 3:00 position of cervix noted likely related to atrophy, no blood coming from os, good vaginal support, physiologic discharge present, normal appearing perineal body and perianal region BIMANUAL: uterus normal size, shape and consistency, no adnexal masses, and non-tender NEURO: alert and oriented x3,exam grossly non-focal EXTREMITI (more content not included)... Normal [facility] HIGH RISK HUMAN PAPILLOMA ANNABELLA (HPV), PCR FOR DETECTION AND GENOTYPINGon 04-02-2024 HPV 16 Ag Ql (Unsp spec) Not detected Normal Not detected [facility] Comment on above: Order Comment: Speci men Type: FLUID SPECIMEN Ordering Facility: [facility] Address: [address] [place] [address] Performed By: #### H PVHRT #### [facility] CLIA [id number] [address] [place] [address] [place] HPV 18 Ag Ql (Unsp spec) Not detected Normal Not detected [facility] Comment on above: Order Comment: Speci men Type: FLUID SPECIMEN Ordering Facility: [facility] Address: [address] [place] [address] Performed By: #### H PVHRT #### [facility] CLIA [id number] [address] [place] [address] [place] HPV 31+33+35+39+45+51+52+ 56+58+59+66+68 DNA RENÉ+probe Ql (Cvx) Not detected Normal Not detected [facility] Comment on above: Order Comment: Speci men Type: FLUID SPECIMEN Ordering Facility: [facility] Address: [address] [place] [address] Result Comment: High Risk HPV Other Type includes HPV types 31, 33, 35, 39, 45, 51, 52, 56, 58, 59, 66 and 68. Performed By: #### H PVHRT #### [facility] CLIA [id number] [address] [place] [address] [place] PAP TESTon 04-02-2024 ADEQUACY Satisfactory for interpretation. Normal [facility] Comment on above: Order Comment: Speci men Type: BLOOD SPECIMEN Ordering Facility: [facility] Address: [address] [place] [address] Performed By: #### 2 4323-8 #### [facility] CL[facility] [id number] [address] [place] [address] [place] CASE REPORT Normal [facility] Comment on above: Order Comment: Speci men Type: BLOOD SPECIMEN Ordering Facility: [facility] Address: [address] [place] [address] Result Comment: Gyne cologic Cytology Report Case: [id number] Authorizing Provider: Keon Riggs APRN.PEANUT SORTER Collected: 04/02/2024 03:50 PM Ordering Location: OB/Gynecology Received: 04/02/2024 04:19 PM First Screen: Clapacs, Tatum Specimen: Pap Test, ThinPrep, Cervix Performed By: #### 2 4323-8 #### [facility] CLIA [id number] [address] [place] [address] [place] CLINICAL HISTORY, CYTOLOGY, SLASHER TENDER HELPER Post Menopausal Normal [facility] Comment on above: Order Comment: Speci men Type: BLOOD SPECIMEN Ordering Facility: [facility] Address: [address] [place] [address] Performed By: #### 2 4323-8 #### [facility] CLIA [id number] [address] [place] [address] [place] CYTOLOGY PAP OTHER INTERPRETATION Atrophic specimen. Normal [facility] Comment on above: Order Comment: Speci men Type: BLOOD SPECIMEN Ordering Facility: [facility] Address: [address] [place] [address] Performed By: #### 2 4323-8 #### [facility] CLIA [id number] [address] [place] [address] [place] FINAL PERFORMING LAB Normal [facility] Comment on above: Order Comment: Speci men Type: BLOOD SPECIMEN Ordering Facility: [facility] Address: [address] [place] [address] Result Comment: Tech nical component, certified performance technologist screening performed at [facility], [address] [place] [address] CLIA# [id number] Diagnostic interpretation performed at [facility] [address] [place] [address] CLIA# [id number] Heel Seat Fitter Machine: Otis Fink M.D. Performed By: #### 2 4323-8 #### [facility] [facility] CLIA [id number] [address] [place] [address] [place] INTERPRETATION, CYTOLOGY, SLASHER TENDER HELPER [facility] Comment on above: Order Comment: Speci men Type: BLOOD SPECIMEN Ordering Facility: [facility] Address: [address] [place] [address] Result Comment: Nega tive for intraepithelial lesion or malignancy. at 1122 EST Performed By: #### 2 4323-8 #### [facility] CLIA [id number] [address] [place] [address] [place] PAP DISCLAIMER COMMENT The Pap Smear is a screening test for cervical cancer. False negative results occur with all screening tests, emphasizing the need for rescreening at recommended intervals, and clinical correlation. [facility] Comment on above: Order Comment: Speci men Type: BLOOD SPECIMEN Ordering Facility: [facility] Address: [address] [place] [address] Performed By: #### 2 4323-8 #### [facility] CLIA [id number] [address] [place] [address] [place] PAP LICENSED PROSTHETIST/ORTHOTIST COMMENT This specimen has be en analyzed by the ThinPrep Imaging System, an automated imaging and review system, which assists the laboratory in evaluating cells on ThinPrep Pap tests. Following automated imaging, selected antoine from every slide are reviewed by a certified performance technologist. [facility] Comment on above: Order Comment: Speci men Type: BLOOD SPECIMEN Ordering Facility: [facility] Address: [address] [place] [address] Performed By: #### 2 4323-8 #### [facility] CLIA [id number] [address] [place], [place] [address] [place] UA DIP, URINE (POC)on 2024 BILIRUBIN UA (POCT) Negative Negative [facility] CLARITY UA (POCT) Clear [facility] COLOR UA (POCT) Yellow [facility] GLUCOSE UA (POCT) Negative Negative mg/dL [facility] Hemoglobin Ql (U) Trace-intact Abnormal Negative [facility] Interpretation and review of laboratory results Abnormal [facility] KETONE UA (POCT) Negative Negative mg/[facility] LEUKOCYTES UA (POCT) Negative Negative [facility] NITRITE UA (POCT) Negative Negative [facility] PH UA (POCT) 5.5 4.5 - 8.0 [facility] Protein Ql (U) Negative Negative mg/dL [facility] SPECIFIC GRAVITY UA (POCT) <=1.005 Abnormal 1.005 - 1.030 [facility] UROBILINOGEN UA (POCT) 0.2 Normal E.U./dL [facility] Location:[facility], [address] [place] [address], [address] [place] [address] POINT OF CARE [facility] CNCOon 10-03-2023 CNCO HNO ID: [id number] Author: COORDINATOR, MAMMOGRAPHY, ? Service: ? Author Type: Physician Type: Letter Filed: 10/03/2023 09:06 Note Text: October 03, 2023 PID: [id number] Dixie Miller [address] [place] [address] Dear Ms. Miller, We are pleased to inform you that the results of your recent breast imaging exam on 10/03/2023 are normal. Breast tissue can be either dense or not dense. Dense tissue makes it harder to find breast cancer on a mammogram and also raises the risk of developing breast cancer. Your breast tissue is not dense. Talk to your healthcare provider about breast density, risks for breast cancer, and your individual situation. Early detection of cancer is very important. We also understand recommendations regarding breast cancer screening are controversial. Please discuss with your primary care provider which strategy is best for you and whether a mammogram is right for you. Your imaging studies and report will be kept on file at [facility] as part of your permanent medical record and are available for your continuing care. Thank you for allowing us to help in meeting your health care needs. Sincerely, Dr. Martinez Interpreting Radiologist [facility] (Normal over 40) [facility] DBT Breast - bilateral diana nelson 10-03-2023 IMPRESSION: NEGATIVE There is no mammographic evidence of malignancy. A 1 year screening mammogram is recommended. Concetta Martinez M.D. cp/ibrahima:10/03/2023 09:06:17 Press Leader(s): RT Julien(R)(M), [facility] letter sent: Normal over 40 Mammogram BI-RADS: Category 1: Negative Multiple national specialty organizations have released breast cancer screening guidelines for women at average risk for developing breast cancer - guidelines that are based on both evidence and opinion, yet differ on when to start and how often to screen for breast cancer. With representation from Breast Imaging, Internal Medicine, Women's Health, Family Medicine, and Medical/Surgical Oncology, the [facility] has carefully reviewed the data and reached the following consensus: 1) All women should engage in shared decision-making with their providers to decide when to start and how often to screen; 2) All women should have the opportunity to start screening mammography at age 40; 3) For women ages 45-55, we recommend annual screening mammograms; 4) For women ages 55 and over, we support both the transition from an annual to a biennial interval if this aligns more with patient's values and preferences, or continuation with annual screening; 5) All women should discuss with their providers when to stop screening mammograms. Lead Mobile Developer: Ibrahima Transcribe Date/Time: Oct 03 2023 7:27A Dictated by: CONCETTA MARTINEZ MD This examination was interpreted and the report reviewed and electronically signed by: CONCETTA MARTINEZ MD on Oct 03 2023 9:06AM [facility] DIVISION OF RADIOLOGY * * *Final Report* * * DATE OF EXAM: Oct 03 2023 7:44AM W [id number] - [facility] SCREENING W PAT / PROCEDURE REASON: Encounter for screening mammogram for breast cancer * * * * Physician Interpretation * * * * RESULT: #[id number] - [facility] SCREENING W PAT BILATERAL DIGITAL SCREENING MAMMOGRAM TOMOSYNTHESIS WITH CAD: 10/03/2023 HISTORY: Encounter For Screening Mammogram For Breast Cancer / Screening Mammogram-Patient reports NO symptoms. /priors available for comparison. RESULT: TECHNIQUE: The study was acquired using full field digital technology and interpreted from soft copy. Digital Breast Tomosynthesis (DBT) images were obtained and used to assist in the interpretation of this examination. Current study was also evaluated with a Computer Aided Detection (CAD). Comparison is made to exams dated: 10/20/2022 ultrasound, 09/30/2022 mammogram, 09/28/2021 mammogram, and 09/26/2020 mammogram - [facility]. There are scattered areas of fibroglandular density. No significant masses, calcifications, or other findings are seen in either breast. There has been no significant interval change. DIVISION OF RADIOLOGY Provider, [facility] - 10/03/2023 * * *Final Report* * * DATE OF EXAM: Oct 03 2023 7:44AM WRW [id number] - [facility] SCREENING W PAT / PROCEDURE REASON: Encounter for screening mammogram for breast cancer * * * * Physician Interpretation * * * * RESULT: #[id number] - [facility] SCREENING W PAT BILATERAL DIGITAL SCREENING MAMMOGRAM TOMOSYNTHESIS WITH CAD: 10/03/2023 HISTORY: Encounter For Screening Mammogram For Breast Cancer / Screening Mammogram-Patient reports NO symptoms. /priors available for comparison. RESULT: TECHNIQUE: The study was acquired using full field digital technology and interpreted from soft copy. Digital Breast Tomosynthesis (DBT) images were obtained and used to assist in the interpretation of this examination. Current study was also evaluated with a Computer Aided Detection (CAD). Comparison is made to exams dated: 10/20/2022 ultrasound, 09/30/2022 mammogram, 09/28/2021 mammogram, and 09/26/2020 mammogram - [facility]. There are scattered areas of fibroglandular density. No significant masses, calcifications, or other findings are seen in either breast. There has been no significant interval change. IMPRESSION IMPRESSION: NEGATIVE There is no mammographic evidence of malignancy. A 1 year screening mammogram is recommended. Concetta Martinez M.D. cp/penrad:10/03/2023 09:06:17 Press Leader(s): RT Julien(R)(M), [facility] letter sent: Normal over 40 Mammogram BI-RADS: Category 1: Negative Multiple national specialty organizations have released breast cancer screening guidelines for women at average risk for developing breast cancer - guidelines that are based on both evidence and opinion, yet differ on when to start and how often to screen for breast cancer. With representation from Breast Imaging, Internal Medicine, Women's Health, Family Medicine, and Medical/Surgical Oncology, the [facility] has carefully reviewed the data and reached the following consensus: 1) All women should engage in shared decision-making with their providers to decide when to start and how often to screen; 2) All women should have the opportunity to start screening mammography at age 40; 3) For women ages 45-55, we recommend annual screening mammograms; 4) For women ages 55 and over, we support both the transition from an annual to a biennial interval if this aligns more with patient's values and preferences, or continuation with annual screening; 5) All women should discuss with their providers when to stop screening mammograms. Lead Mobile Developer: Ibrahima Transcribe Date/Time: Oct 03 2023 7:27A Dictated by: CONCETTA MARTINEZ MD This examination was interpreted and the report reviewed and electronically signed by: CONCETTA MARTINEZ MD on Oct 03 2023 9:06AM EST [facility] Radiology Study observation (narrative) [facility] DBT Breast - bilateral scree ningOrdered By: [facility] Provider on 10-03-2023 [facility] SCREENING W TOMOon 10-02 [facility] SCREENING W PAT * * *Final Report* * * DATE OF EXAM: Oct 03 2023 7:44AM [id number] - [facility] SCREENING W PAT / PROCEDURE REASON: Encounter for screening mammogram for breast cancer * * * * Physician Interpretation * * * * RESULT: #[id number] - [facility] SCREENING W PAT BILATERAL DIGITAL SCREENING MAMMOGRAM TOMOSYNTHESIS WITH CAD: 10/03/2023 HISTORY: Encounter For Screening Mammogram For Breast Cancer / Screening Mammogram-Patient reports NO symptoms. /priors available for comparison. RESULT: TECHNIQUE: The study was acquired using full field digital technology and interpreted from soft copy. Digital Breast Tomosynthesis (DBT) images were obtained and used to assist in the interpretation of this examination. Current study was also evaluated with a Computer Aided Detection (CAD). Comparison is made to exams dated: 10/20/2022 ultrasound, 09/30/2022 mammogram, 09/28/2021 mammogram, and 09/26/2020 mammogram - [facility]. There are scattered areas of fibroglandular density. No significant masses, calcifications, or other findings are seen in either breast. There has been no significant interval change. IMPRESSION: NEGATIVE There is no mammographic evidence of malignancy. A 1 year screening mammogram is recommended. Concetta Martinez M.D., cp/ibrahima:10/03/2023 09:06:17 Press Leader(s): RT Julien(R)(M), [facility] letter sent: Normal over 40 Mammogram BI-RADS: Category 1: Negative Multiple national specialty organizations have released breast cancer screening guidelines for women at average risk for developing breast cancer - guidelines that are based on both evidence and opinion, yet differ on when to start and how often to screen for breast cancer. With representation from Breast Imaging, Internal Medicine, Women's Health, Family Medicine, and Medical/Surgical Oncology, the [facility] has carefully reviewed the data and reached the following consensus: 1) All women should engage in shared decision-making with their providers to decide when to start and how often to screen; 2) All women should have the opportunity to start screening mammography at age 40; 3) For women ages 45-55, we recommend annual screening mammograms; 4) For women ages 55 and over, we support both the transition from an annual to a biennial interval if this aligns more with patient's values and preferences, or continuation with annual screening; 5) All women should discuss with their providers when to stop screening mammograms. Lead Mobile Developer: Ibrahima Transcribe Date/Time: Oct 03 2023 7:27A Dictated by: CONCETTA MARTINEZ MD This examination was interpreted and the report reviewed and electronically signed by: CONCETTA MARTINEZ MD on Oct 03 2023 9:06AM EST [id number] [facility] CNOVon 09-07-2023 CNOV Office Visit (FAMPWS ) DIXIE MILLER ([id number]) 1965 F Date Time Provider Department 09/07/23 9:20 AM COLEEN DUNNE During your visit today, we recorded the following information about you: Temperature Pulse Blood pressure Weight 98.8 degrees 80/minute 112/82 73.5 kg Coleen Dunne APRN.PEANUT SORTER 09/07/2023 1:54 PM Signed This is a 58 year old female who presents today with: Patient presents with: Cough HISTORY OF PRESENT ILLNESS: Dixie Miller is a 58 year old female. Patient presents with: Cough Pt presents today to follow-up on cough. Thinks that the cough is getting better. Refers that she stopped the advair. Doesn't notice a lot of difference. Mostly dry cough. Cough doesn't seem as deep, not as much mucus. Refers that she is taking the tessalon perles three times daily. She is using zyrtec at night. Feels fine, just the occasional cough. Refers that she notices the tickle in her throat is feeling better -- not as frequent. Does have some throat clearing. No hemoptysis. No night sweats of changes in her weight. PAST MEDICAL HISTORY: PAST MEDICAL HISTORY Diagnosis Date Bladder incontinence Chicken pox 03/31/66 as a child-lasted 12 weeks Mumps [id number] as a child NONE PAST SURGICAL HISTORY Procedure Laterality Date COLONOSCOPY FLX DX W/COLLJ SPEC WHEN PFRMD 12/23/2016 Colonoscopy PAST SURGICAL HISTORY OF basil cell removal forehead ALLERGIES Demerol [Meperidine (Pf)], Hydroquinone, Methylchloroisothiazol inone, Methylisothiazolinone, Penicillin G, Propylene Glycol, and Sulfa (Sulfonamide Antibiotics) MEDICATIONS Current Outpatient Medications Medication Sig benzonatate (TESSALON PERLES) 100 mg capsule Take 1-2 capsules by mouth three times a day as needed for cough. omeprazole (PRILOSEC) 20 mg capsule Take 1 capsule by mouth daily before breakfast. 1/2 hr before meal. fluticasone-salmeterol HFA (ADVAIR HFA) 115-21 mcg/actuation inhaler Inhale 2 Puffs as instructed two times a day. Rinse mouth after use. hydrocortisone 2.5 % cream Apply to affected area twice daily. Cholecalciferol, Vitamin D3, 50 mcg (2,000 unit) cap Take by mouth. ascorbic acid (VITAMIN C ORAL) Take by mouth. triamcinolone acetonide topical 0.5 % ointment Apply to affected area twice daily. clobetasol (TEMOVATE) 0.05 % ointment Apply 1 application to affected area twice daily. For two weeks then use once per week . MULTIVITAMIN TAB Take one(1) tablet daily. nitrofurantoin monohydrate and macrocrystal (MACROBID) 100 mg capsule Take one tablet PO after intercourse No current facility-administered medications for this visit. FAMILY HISTORY Problem Relation Age of Onset Breast Cancer Mother age 60's Hypertension Father Under control Diabetes Paternal Grandmother Diabetes Paternal Uncle Colon Cancer Other none Social History Tobacco Use Smoking status: Never Smokeless tobacco: Never Vaping Use Vaping Use: Never used Substance Use Topics Alcohol use: Yes Comment: OCCASSIONALLY Drug use: No EXAM: BP 112/82 (BP Site: Left Arm, BP Position: Sitting, BP Cuff Size: Regular Adult) Pulse 80 Temp 37.1 ?C (98.8 ?F) Wt 73.5 kg (162 lb) LMP 11/26/2014 SpO2 97% BMI (P) 27.66 kg/m? PHYSICAL EXAM: General Appearance: Well appearing, alert, in no acute distress, well-hydrated, well nourished.. Skin: Skin color, texture, turgor normal, no suspicious rashes or lesions. Head: Normocephalic, no masses, lesions, tenderness or abnormalities. Eyes: Anicteric sclera. Extraocular movements are intact. . Ears: External ears normal, canals clear. Normal TMs bilaterally. Oropharynx: Lips, mucosa, and tongue normal, teeth and gums normal, oropharynx normal. Neck: Supple, no adenopathy; thyroid symmetric, normal size, no bruits. Lungs: Lungs clear to auscultation. No wheezing, rhonchi, rales.. Heart: RRR without murmur, gallop, or rubs. No ectopy. Neurologic: Gait normal. . ASSESSMENT/PLAN: 1. Chronic cough - ICD9: 786.2, ICD10: R05.3 Improving. Does notice some throat clearing. Has used flonase in the past, but caused epistaxis. Continue to monitor for improvement. If does not continue, consider ENT vs pulmonology. Discussed treatment plan and patient voices understanding. Patient's questions answered appropriately. Medications and potential side effects were discussed and patient voices understanding. Return to the office as scheduled or as needed for worsening/no improvement. WILBERTO Humhpries Christy, APRN.CNP 09/07/2023 9:41 AM Signed Continue the same medication. If cough continues, consider pulmonology and/or ENT referral. Allergies As of Date: 09/07/2023 Noted Allergy Reaction DEMEROL (MEPERIDINE (PF)) 03/19/2005 HYDROQUINONE 02/19/2010 2 - Rash METHYLCHLOROISOTHIAZOL INONE 03/01/2018 2 - Rash MET (more content not included)... 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 No contraindications or sensitivities were noted. Meds taken: Advair 1.5/hours before testing. Current ATS/ERS acceptability and repeatability standards for spirometry met. Start of test and EOFE criteria met. 2 puffs Albuterol (180 mcg) delivered by MDI via holding chamber. HR pre = 87/min, HR post = 86/min. Current ATS/ERS acceptability and repeatability standards for lung volumes met. Current ATS/ERS acceptability and repeatability standards for DLCO met with 2 acceptable maneuvers. IMPRESSION: Spirometry indicates mild obstruction. The increase in FEF 25-75 post-bronchodilator reflects an improvement in the small airway obstruction. The TLC, RV and RV/TLC are normal. The diffusing capacity is normal. Electronically Signed On 5-2-2024 12:37:50 EDT by Madeleine Millan MD ID: [id number] Name: DIXIE MILLER Race: White Ht: 64.17 in Wt: 158.00 lbs Age: 57 Gender: Female : 1965 Dx: Chronic cough_ Smoking Hx: Non-smoker Doctor: SHLOMO MILLER Test Date: 06/16/2023 Site: Tech: Ana Mirza PRE-BRONCH POST-BRONCH Pre LLN Pred ULN %Pred Post %Pred %Chg SPIROMETRY FVC (L) 2.66 2.24 3.06 3.90 87 2.67 87 0 FEV1 (L) 1.79 1.77 2.45 3.09 73 2.01 81 8 FEV1/FVC 0.67 0.68 0.80 0.90 83 0.75 93 11 PEF L/s (L/sec) 3.87 4.72 6.44 8.16 60 4.92 76 27 FEF50 (L/sec) 1.77 1.80 3.41 5.02 51 2.10 61 18 FIF50 (L/sec) 2.63 3.09 17 FEF50/FIF50 0.67 90-100 0.68 1 FIVC (L) 2.44 2.50 2 QMC51-13 (L/sec) 1.16 1.25 2.38 3.88 48 1.64 69 42 Time (sec) 6.54 6.96 6 FET PEF (sec) 0.10 0.15 60 CARLY (L) 0.06 0.10 60 Vol Extrap % (%) 2 4 60 LUNG VOLUMES TGV (L) 2.69 2.00 2.87 3.73 94 ERV (L) 0.86 1.02 83 RV (Pleth) (L) 1.84 1.32 1.95 2.58 94 SVC (L) 2.59 2.24 3.06 3.90 84 IC (L) 1.65 2.04 80 TLC (Pleth) (L) 4.35 4.20 5.08 5.96 85 RV/TLC (Pleth) (%) 42 29 38 47 110 LUNG DIFFUSION DLCOunc (ml/min/mmHg) 18.95 15.77 21.94 28.11 86 VA (L) 3.74 3.99 5.09 6.19 73 DLunc/VA (ml/min/mmHg/L) 5.06 3.15 4.47 5.79 113 BHT (sec) 10.91 IVC (L) 2.55 Comments: Medications and Allergies were reviewed for possible drug interactions per policy. No contraindications or sensitivities were noted. Meds taken: Advair 1.5/hours before testing. Current ATS/ERS acceptability and repeatability standards for spirometry met. Start of test and EOFE criteria met. 2 puffs Albuterol (180 mcg) delivered by MDI via holding chamber. HR pre = 87/min, HR post = 86/min. Current ATS/ERS acceptability and repeatability standards for lung volumes met. Current ATS/ERS acceptability and repeatability standards for DLCO met with 2 acceptable maneuvers. PULMONARY FUNCTION LAB [facility] SPIROMETRY WITH DILATOR IF O BSTRUCTEDon 06-16-2023 DLCO (ml/min/mmHg) 18.95 ml/min/mmHg [facility] DLCO/VA (ml/min/mmHg/L) 5.06 ml/min/mmHg/L [facility] ERV BOX (L) 0.86 L [facility] NWQ22-05% POST (L/S) 1.64 L/S [facility] NEN83-31% PRE (L/S) 1.16 L/S [facility] FEV1 PRE (L) 1.79 L [facility] FEV1/FVC POST (%) 75 % [facility] FEV1/FVC PRE (%) 67 % [facility] FEV1_POST (L) 2.01 L [facility] FRC Box (L) 2.69 L [facility] FVC POST (L) 2.67 L [facility] FVC PRE (L) 2.66 L [facility] IC BOX (L) 1.65 L [facility] PEF POST (L/S) 4.92 L/S [facility] PEF PRE (L/S) 3.87 L/S [facility] RV Box (L) 1.84 L [facility] RV/TLC Box (%) 42 % [facility] TLC Box (L) 4.35 L [facility] VA (L) 3.74 L [facility] VC (L) BOX 2.59 L [facility] XR Chest PA and Lateralon IMPRESSION: Overall findings unchanged. Lead Mobile Developer: HOLLY Transcribe Date/Time: Jun 15 2023 8:36A Dictated by : JENNIFER MOY MD This examination was interpreted and the report reviewed and electronically signed by: JENNIFER MOY MD on Jun 15 2023 8:37AM [facility] DIVISION OF RADIOLOGY * * *Final Report* * * DATE OF EXAM: Jun 13 2023 6:47PM WOX [id number] - XR CHEST 2V FRONTAL/LAT / PROCEDURE REASON: Chronic cough * * * * Physician Interpretation * * * * EXAMINATION: CHEST RADIOGRAPH (2 VIEW FRONTAL & LATERAL) CLINICAL HISTORY: Chronic cough MQ: XC2_6 EXAM DATE/TIME: 06/13/2023 6:47 PM COMPARISON: Chest x-ray on 11/26/2022 RESULT: Lines, tubes, and devices: None. Lungs and pleura: There are scattered reticulonodular opacities in the bilateral lungs, grossly unchanged. A linear opacity seen on lateral view, presumably representing atelectasis or pleural thickening. No new consolidations. No masses. No pleural effusions or pneumothorax. Cardiomediastinal silhouette: Normal cardiomediastinal silhouette. Bones and soft tissues: Unremarkable. DIVISION OF RADIOLOGY Provider, [facility] - 06/15/2023 * * *Final Report* * * DATE OF EXAM: Jun 13 2023 6:47PM WOX 5291 - XR CHEST 2V FRONTAL/LAT / PROCEDURE REASON: Chronic cough * * * * Physician Interpretation * * * * EXAMINATION: CHEST RADIOGRAPH (2 VIEW FRONTAL & LATERAL) CLINICAL HISTORY: Chronic cough MQ: XC2_6 EXAM DATE/TIME: 06/13/2023 6:47 PM COMPARISON: Chest x-ray on 11/26/2022 RESULT: Lines, tubes, and devices: None. Lungs and pleura: There are scattered reticulonodular opacities in the bilateral lungs, grossly unchanged. A linear opacity seen on lateral view, presumably representing atelectasis or pleural thickening. No new consolidations. No masses. No pleural effusions or pneumothorax. Cardiomediastinal silhouette: Normal cardiomediastinal silhouette. Bones and soft tissues: Unremarkable. IMPRESSION IMPRESSION: Overall findings unchanged. Lead Mobile Developer: HOLLY Transcribe Date/Time: Jun 15 2023 8:36A Dictated by : JENNIFER MOY MD This examination was interpreted and the report reviewed and electronically signed by: JENNIFER MOY MD on Jun 15 2023 8:37AM EST [facility] XR Chest PA and LateralOrder ed By: Ccf Provider on 06-15-2023 [facility] XR Chest PA and Lateralon Radiology Study observation (narrative) [facility] PELVIC US WHIon 01-24-2023 [facility] XR Chest PA and Lateralon IMPRESSION: Scattered reticular nodular opacities in the bilateral mid lung zones are unchanged from an earlier chest radiograph dated 04/12/2022, and likely postinfectious/postinf lammatory. No new consolidations. No pleural effusion. Lead Mobile Developer: HOLLY Transcribe Date/Time: Jan 02 2023 1:17A Dictated by : PINO ROSENTHAL MD This examination was interpreted and the report reviewed and electronically signed by: PINO ROSENTHAL MD on Jan 02 2023 1:20AM EST DIVISION OF RADIOLOGY * * *Final Report* * * DATE OF EXAM: Dec 31 2022 10:27AM WOX [id number] - XR CHEST 2V FRONTAL/LAT / PROCEDURE REASON: Persistent cough for 3 weeks or longer * * * * Physician Interpretation * * * * EXAMINATION: CHEST RADIOGRAPH (2 VIEW FRONTAL & LATERAL) CLINICAL HISTORY: Persistent cough for 3 weeks or longer MQ: XC2_6 EXAM DATE/TIME: 12/31/2022 10:27 AM COMPARISON: 11/26/2022 RESULT: Lines, tubes, and devices: None. Lungs and pleura: The upper lobes are mildly hyperlucent. Again noted are reticular and nodular opacities scattered in the bilateral mid lung zones. There are no focal consolidations. No pleural effusion or pneumothorax. Cardiomediastinal silhouette: Stable upper limits normal cardiomediastinal silhouette. There is mild bilateral hilar fullness. Bones and soft tissues: Unremarkable. DIVISION OF RADIOLOGY Provider, Marylou [facility] - 01/02/2023 * * *Final Report* * * DATE OF EXAM: Dec 31 2022 10:27AM WOX [id number] - XR CHEST 2V FRONTAL/LAT / PROCEDURE REASON: Persistent cough for 3 weeks or longer * * * * Physician Interpretation * * * * EXAMINATION: CHEST RADIOGRAPH (2 VIEW FRONTAL & LATERAL) CLINICAL HISTORY: Persistent cough for 3 weeks or longer MQ: XC2_6 EXAM DATE/TIME: 12/31/2022 10:27 AM COMPARISON: 11/26/2022 RESULT: Lines, tubes, and devices: None. Lungs and pleura: The upper lobes are mildly hyperlucent. Again noted are reticular and nodular opacities scattered in the bilateral mid lung zones. There are no focal consolidations. No pleural effusion or pneumothorax. Cardiomediastinal silhouette: Stable upper limits normal cardiomediastinal silhouette. There is mild bilateral hilar fullness. Bones and soft tissues: Unremarkable. IMPRESSION IMPRESSION: Scattered reticular nodular opacities in the bilateral mid lung zones are unchanged from an earlier chest radiograph dated 04/12/2022, and likely postinfectious/postinf lammatory. No new consolidations. No pleural effusion. Lead Mobile Developer: HOLLY Transcribe Date/Time: Jan 02 2023 1:17A Dictated by : PINO ROSENTHAL MD This examination was interpreted and the report reviewed and electronically signed by: PINO ROSENTHAL MD on Jan 02 2023 1:20AM EST [facility] XR Chest PA and LateralOrder ed By: Ccf Provider on 01-02-2023 [facility] XR Chest PA and Lateralon Radiology Study observation (narrative) [facility] XR CHEST 2V FRONTAL/LATon [facility] XR Chest PA and Lateralon IMPRESSION: Stable exam without acute findings. Lead Mobile Developer: HOLLY Transcribe Date/Time: Nov 26 2022 1:14P Dictated by : JENNIFER MOY MD This examination was interpreted and the report reviewed and electronically signed by: JENNIFER MOY MD on Nov 26 2022 1:15PM EST DIVISION OF RADIOLOGY * * *Final Report* * * DATE OF EXAM: Nov 26 2022 12:41PM WOX [id number] - XR CHEST 2V FRONTAL/LAT / PROCEDURE REASON: Persistent cough for 3 weeks or longer * * * * Physician Interpretation * * * * EXAMINATION: CHEST RADIOGRAPH (2 VIEW FRONTAL & LATERAL) CLINICAL HISTORY: Persistent cough for 3 weeks or longer MQ: XC2_6 EXAM DATE/TIME: 11/26/2022 12:41 PM COMPARISON: Chest x-ray on 04/12/2022 RESULT: Lines, tubes, and devices: None. Lungs and pleura: Nodular or small patchy opacities visualized in the left mid lung. No consolidations. No masses. No pleural effusions or pneumothorax. Cardiomediastinal silhouette: Normal cardiomediastinal silhouette. Bones and soft tissues: Unremarkable. DIVISION OF RADIOLOGY Provider, [facility] - 11/26/2022 * * *Final Report* * * DATE OF EXAM: Nov 26 2022 12:41PM WOX [id number] - XR CHEST 2V FRONTAL/LAT / PROCEDURE REASON: Persistent cough for 3 weeks or longer * * * * Physician Interpretation * * * * EXAMINATION: CHEST RADIOGRAPH (2 VIEW FRONTAL & LATERAL) CLINICAL HISTORY: Persistent cough for 3 weeks or longer MQ: XC2_6 EXAM DATE/TIME: 11/26/2022 12:41 PM COMPARISON: Chest x-ray on 04/12/2022 RESULT: Lines, tubes, and devices: None. Lungs and pleura: Nodular or small patchy opacities visualized in the left mid lung. No consolidations. No masses. No pleural effusions or pneumothorax. Cardiomediastinal silhouette: Normal cardiomediastinal silhouette. Bones and soft tissues: Unremarkable. IMPRESSION IMPRESSION: Stable exam without acute findings. Lead Mobile Developer: HOLLY Transcribe Date/Time: Nov 26 2022 1:14P Dictated by : JENNIFER MOY MD This examination was interpreted and the report reviewed and electronically signed by: JENNIFER MOY MD on Nov 26 2022 1:15PM EST [facility] Radiology Study observation (narrative) [facility] XR Chest PA and LateralOrder ed By: Ccf Provider on 11-26-2022 [facility] US BREAST LTD RIGHTon 2022 [facility] XR Chest PA and Lateralon IMPRESSION: No acute radiographic abnormality. Lead Mobile Developer: HOLLY Transcribe Date/Time: May 13 2022 4:45P Dictated by : ALVAREZ MARTIN MD This examination was interpreted and the report reviewed and electronically signed by: ALVAREZ MARTIN MD on May 13 2022 4:46PM EST DIVISION OF RADIOLOGY * * *Final Report* * * DATE OF EXAM: May 13 2022 2:27PM WOX [id number] - XR CHEST 2V FRONTAL/LAT / PROCEDURE REASON: Abnormal x-ray * * * * Physician Interpretation * * * * EXAMINATION: CHEST RADIOGRAPH (2 VIEW FRONTAL & LATERAL) CLINICAL HISTORY: Abnormal x-ray MQ: XC2_6 EXAM DATE/TIME: 05/13/2022 2:27 PM COMPARISON: 04/12/2022 RESULT: Lines, tubes, and devices: None. Lungs and pleura: No consolidation. No lung mass. No pleural effusion. No pneumothorax. Lung antoine are now clear Cardiomediastinal silhouette: Normal cardiomediastinal silhouette. Bones and soft tissues: Unremarkable. DIVISION OF RADIOLOGY Provider, Marylou [facility] - 05/13/2022 * * *Final Report* * * DATE OF EXAM: May 13 2022 2:27PM WOX [id number] - XR CHEST 2V FRONTAL/LAT / PROCEDURE REASON: Abnormal x-ray * * * * Physician Interpretation * * * * EXAMINATION: CHEST RADIOGRAPH (2 VIEW FRONTAL & LATERAL) CLINICAL HISTORY: Abnormal x-ray MQ: XC2_6 EXAM DATE/TIME: 05/13/2022 2:27 PM COMPARISON: 04/12/2022 RESULT: Lines, tubes, and devices: None. Lungs and pleura: No consolidation. No lung mass. No pleural effusion. No pneumothorax. Lung antoine are now clear Cardiomediastinal silhouette: Normal cardiomediastinal silhouette. Bones and soft tissues: Unremarkable. IMPRESSION IMPRESSION: No acute radiographic abnormality. Lead Mobile Developer: HOLLY Transcribe Date/Time: May 13 2022 4:45P Dictated by : ALVAREZ MARTIN MD This examination was interpreted and the report reviewed and electronically signed by: ALVAREZ MARTIN MD on May 13 2022 4:46PM [facility] Radiology Study observation (narrative) [facility] XR Chest PA and LateralOrder ed By: Ccf Provider on 05-13-2022 [facility] XR Chest PA and Lateralon IMPRESSION: Small patchy opacities overlying the left midlung. Consider follow-up. Lead Mobile Developer: PSCB Transcribe Date/Time: Apr 13 2022 2:35P Dictated by : JENNIFER MOY MD This examination was interpreted and the report reviewed and electronically signed by: JENNIFER MOY MD on Apr 13 2022 2:37PM [facility] DIVISION OF RADIOLOGY * * *Final Report* * * DATE OF EXAM: Apr 12 2022 2:27PM WOX [id number] - XR CHEST 2V FRONTAL/LAT / PROCEDURE REASON: Cough, unspecified type * * * * Physician Interpretation * * * * EXAMINATION: CHEST RADIOGRAPH (2 VIEW FRONTAL & LATERAL) CLINICAL HISTORY: Cough, unspecified type MQ: XC2_6 EXAM DATE/TIME: 04/12/2022 2:27 PM COMPARISON: No relevant prior studies available. RESULT: Lines, tubes, and devices: None. Lungs and pleura: There appears be small patchy opacities overlying the left midlung. Questionable subcentimeter nodules versus nipple shadows in the lower lungs. No consolidation. No lung mass. No pleural effusion. No pneumothorax. Cardiomediastinal silhouette: Normal cardiomediastinal silhouette. Bones and soft tissues: There are mild degenerative changes in the spine. DIVISION OF RADIOLOGY Provider, [facility] - 04/13/2022 * * *Final Report* * * DATE OF EXAM: Apr 12 2022 2:27PM WOX 5291 - XR CHEST 2V FRONTAL/LAT / PROCEDURE REASON: Cough, unspecified type * * * * Physician Interpretation * * * * EXAMINATION: CHEST RADIOGRAPH (2 VIEW FRONTAL & LATERAL) CLINICAL HISTORY: Cough, unspecified type MQ: XC2_6 EXAM DATE/TIME: 04/12/2022 2:27 PM COMPARISON: No relevant prior studies available. RESULT: Lines, tubes, and devices: None. Lungs and pleura: There appears be small patchy opacities overlying the left midlung. Questionable subcentimeter nodules versus nipple shadows in the lower lungs. No consolidation. No lung mass. No pleural effusion. No pneumothorax. Cardiomediastinal silhouette: Normal cardiomediastinal silhouette. Bones and soft tissues: There are mild degenerative changes in the spine. IMPRESSION IMPRESSION: Small patchy opacities overlying the left midlung. Consider follow-up. Lead Mobile Developer: PSCB Transcribe Date/Time: Apr 13 2022 2:35P Dictated by : JENNIFER MOY MD This examination was interpreted and the report reviewed and electronically signed by: JENNIFER MOY MD on Apr 13 2022 2:37PM EST [facility] XR Chest PA and LateralOrder ed By: Ccf Provider on 04-13-2022 [facility] CBC W Auto Differential pane l (Bld)on 04-12-2022 Basophils (Bld) [#/Vol] 0.10 10*3/uL <0.11 k/uL [facility] Basophils/100 WBC (Bld) 1.4 % [facility] Differential cell count method Nom (Bld) Auto [facility] Eosinophils (Bld) [#/Vol] 0.07 10*3/uL <0.46 k/uL [facility] Eosinophils/100 WBC (Bld) 1.0 % [facility] Erythrocyte distribution width (RBC) [Ratio] 11.9 % 11.5 - 15.0 % [facility] Hematocrit (Bld) [Volume fraction] 46.3 % High 36.0 - 46.0 % [facility] Hemoglobin (Bld) [Mass/Vol] 15.0 g/dL 11.5 - 15.5 g/dL [facility] Immature granulocytes (Bld) [#/Vol] <0.10 k/uL [facility] Immature granulocytes/100 WBC (Bld) 0.3 % [facility] Lymphocytes (Bld) [#/Vol] 1.07 10*3/uL 1.00 - 4.00 k/uL [facility] Lymphocytes/100 WBC (Bld) 15.3 % [facility] MCH (RBC) [Entitic mass] 29.6 pg 26.0 - 34.0 pg [facility] MCHC (RBC) [Mass/Vol] 32.4 g/dL 30.5 - 36.0 g/dL [facility] MCV (RBC) [Entitic vol] 91.5 fL 80.0 - 100.0 fL [facility] Monocytes (Bld) [#/Vol] 0.58 10*3/uL <0.87 k/uL [facility] Monocytes/100 WBC (Bld) 8.3 % [facility] Neutrophils (Bld) [#/Vol] 5.17 10*3/uL 1.45 - 7.50 k/uL [facility] Neutrophils/100 WBC (Bld) 73.7 % [facility] Nucleated RBC (Bld) [#/Vol] <0.01 k/uL [facility] Nucleated RBC/100 WBC (Bld) [Ratio] 0.0 /100 WBC [facility] Platelet mean volume (Bld) [Entitic vol] 9.1 fL 9.0 - 12.7 fL [facility] Platelets (Bld) [#/Vol] 405 10*3/uL High 150 - 400 k/uL [facility] RBC (Bld) [#/Vol] 5.06 10*6/uL 3.90 - 5.2 0 m/uL [facility] WBC (Bld) [#/Vol] 7.01 10*3/uL 3.70 - 11. 00 k/uL [facility] Fibrin D-dimer FEU (PPP) [Ma ss/Vol]on 04-12-2022 Fibrin D-dimer FEU IA (Bld) [Mass/Vol] 0.34 ug/mL [facility] XR Chest PA and Lateralon Radiology Study observation (narrative) [facility] UA DIP, URINE (POC)on 2021 BILIRUBIN UA (POCT) Negative Negative [facility] CLARITY UA (POCT) Clear [facility] COLOR UA (POCT) Yellow [facility] GLUCOSE UA (POCT) Negative Negative mg/dL [facility] HEMOGLOBIN/BLOOD UA (POCT) Negative Negative [facility] KETONE UA (POCT) Negative Negative [facility] LEUKOCYTES UA (POCT) Small Abnormal Negative [facility] NITRITE UA (POCT) Negative Negative [facility] PH UA (POCT) 5.5 4.5 - 8.0 [facility] Protein Ql (U) Negative Negative mg/dL [facility] SPECIFIC GRAVITY UA (POCT) 1.025 1.005 - 1.030 [facility] UROBILINOGEN UA (POCT) 0.2 E.U./dL Normal E.U./dL [facility] No Panel Informationon 11-10 [facility] Vital Signs Date Time Vital Sign Value Performing Clinician Facility 07-23-2024 11:54-0400 SaO2% (BldA) [Mass fraction] 90 % Madeleine Millan MD Work Phone: [facility] 07-23-2024 11:38-0400 SaO2% (BldA) [Mass fraction] 90 % SHLOMO [facility] Comment on above: Order Comment: Specimen Type: ARTERIAL B LOOD SPECIMENOrdering Facility: [facility] Address: [address] [place] [id number] Performed By: #### A LLBG ####[facility] RESPIRATORY THERAPYCLIA [id number] [place] [address] [place] 07-23-2024 07:57-0400 Body mass index (BMI) [Ratio] 26.96 kg/m2 Madeleine Millan MD Work Phone: [facility] 07-23-2024 07:57-0400 Body weight 73.48 kg Madeleine Millan MD Work Phone: [facility] 07-23-2024 07:57-0400 Diastolic blood pressure 80 mm[Hg] Madeleine Millan MD Work Phone: [facility] 07-23-2024 07:57-0400 Heart rate 74 /min Madeleine Millan MD Work Phone: [facility] 07-23-2024 07:57-0400 Respiratory rate 14 /min Madeleine Millan MD Work Phone: [facility] 07-23-2024 07:57-0400 SaO2% (BldA) [Mass fraction] 90 % Madeleine Millan MD Work Phone: [facility] 07-23-2024 07:57-0400 Systolic blood pressure 128 mm[Hg] Madeleine Millan MD Work Phone: [facility] 06-06-2024 09:30-0400 Diastolic blood pressure 74 mm[Hg] Pacc 2 Work Phone: [facility] 06-06-2024 09:30-0400 Systolic blood pressure 134 mm[Hg] Pacc 2 Work Phone: [facility] 06-06-2024 09:29-0400 Body height 166.4 cm Pacc 2 Work Phone: [facility] 06-06-2024 09:29-0400 Body mass index (BMI) [Ratio] 26.09 kg/m2 Pacc 2 Work Phone: [facility] 06-06-2024 09:29-0400 Body weight 72.21 kg Pacc 2 Work Phone: [facility] 06-06-2024 09:29-0400 Heart rate 81 /min Pacc 2 Work Phone: [facility] 06-06-2024 09:29-0400 Respiratory rate 16 /min Pacc 2 Work Phone: [facility] 06-06-2024 09:29-0400 SaO2% (BldA) [Mass fraction] 99 % Pacc 2 Work Phone: [facility] 05-30-2024 14:14-0400 Body mass index (BMI) [Ratio] 27.21 kg/m2 Shlomo Miller MD Work Phone: [facility] 05-30-2024 14:14-0400 Body weight 73.03 kg Shlomo Miller MD Work Phone: [facility] 05-30-2024 14:14-0400 Diastolic blood pressure 80 mm[Hg] Shlomo Miller MD Work Phone: [facility] 05-30-2024 14:14-0400 Heart rate 75 /min Shlomo Miller MD Work Phone: [facility] 05-30-2024 14:14-0400 Respiratory rate 16 /min Shlomo Miller MD Work Phone: [facility] 05-30-2024 14:14-0400 SaO2% (BldA) [Mass fraction] 100 % Shlomo Miller MD Work Phone: [facility] 05-30-2024 14:14-0400 Systolic blood pressure 124 mm[Hg] Shlomo Miller MD Work Phone: [facility] 05-30-2024 09:46-0400 Body mass index (BMI) [Ratio] 27.21 kg/m2 Gertrude Breanna PA-C Work Phone: [facility] 05-30-2024 09:46-0400 Body weight 73.03 kg Gertrude Breanna PA-C Work Phone: [facility] 05-30-2024 09:46-0400 Diastolic blood pressure 80 mm[Hg] Gertrude Breanna PA-C Work Phone: [facility] 05-30-2024 09:46-0400 Heart rate 75 /min Gertrude Breanna PA-C Work Phone: [facility] 05-30-2024 09:46-0400 Respiratory rate 16 /min Gertrude Breanna PA-C Work Phone: [facility] 05-30-2024 09:46-0400 SaO2% (BldA) [Mass fraction] 100 % Gertrude Breanna PA-C Work Phone: [facility] 05-30-2024 09:46-0400 Systolic blood pressure 124 mm[Hg] Gertrude Breanna PA-C Work Phone: [facility] 05-10-2024 09:14-0400 Body mass index (BMI) [Ratio] 27.88 kg/m2 Kassandra Noe Jr., MD Work Phone: [facility] 05-10-2024 09:14-0400 Body weight 74.84 kg Kassandra Noe Jr., MD Work Phone: [facility] 05-10-2024 09:14-0400 Diastolic blood pressure 85 mm[Hg] Kassandra Noe Jr., MD Work Phone: [facility] 05-10-2024 09:14-0400 Heart rate 104 /min Kassandra Noe Jr., MD Work Phone: [facility] 05-10-2024 09:14-0400 Respiratory rate 14 /min Kassandra Noe Jr., MD Work Phone: [facility] 05-10-2024 09:14-0400 SaO2% (BldA) [Mass fraction] 98 % Kassandra Noe Jr., MD Work Phone: [facility] 05-10-2024 09:14-0400 Systolic blood pressure 135 mm[Hg] Kassandra Noe Jr., MD Work Phone: [facility] 04-25-2024 09:47-0400 Body mass index (BMI) [Ratio] 27.88 kg/m2 Shlomo Miller MD Work Phone: [facility] 04-25-2024 09:47-0400 Body weight 74.84 kg Shlomo Miller MD Work Phone: [facility] 04-25-2024 09:47-0400 Diastolic blood pressure 82 mm[Hg] Shlomo Miller MD Work Phone: [facility] 04-25-2024 09:47-0400 Heart rate 84 /min Shlomo Miller MD Work Phone: [facility] 04-25-2024 09:47-0400 SaO2% (BldA) [Mass fraction] 98 % Shlomo Miller MD Work Phone: [facility] 04-25-2024 09:47-0400 Systolic blood pressure 132 mm[Hg] Shlomo Miller MD Work Phone: [facility] 04-17-2024 10:44-0500 Body height 163.8 cm Bettina Bermudez PA-C Work Phone: [facility] 04-17-2024 10:44-0500 Body mass index (BMI) [Ratio] 27.72 kg/m2 Bettina Bermudez PA-C Work Phone: [facility] 04-17-2024 10:44-0500 Body weight 74.39 kg Bettina Bermudez PA-C Work Phone: [facility] 04-17-2024 10:44-0500 Diastolic blood pressure 79 mm[Hg] Bettina Bermudez PA-C Work Phone: [facility] 04-17-2024 10:44-0500 Heart rate 99 /min Bettina Bermudez PA-C Work Phone: [facility] 04-17-2024 10:44-0500 Systolic blood pressure 131 mm[Hg] Bettina Starr PA-C Work Phone: [facility] 04-06-2024 13:52-0500 Body height 163.8 cm Hilda Breaux MD Work Phone: [facility] 04-06-2024 13:52-0500 Body mass index (BMI) [Ratio] 27.04 kg/m2 Hilda Breaux MD Work Phone: [facility] 04-06-2024 13:52-0500 Body weight 72.58 kg Hilda Breaux MD Work Phone: [facility] 04-06-2024 13:52-0500 Diastolic blood pressure 60 mm[Hg] Hilda Breaux MD Work Phone: [facility] 04-06-2024 13:52-0500 Systolic blood pressure 112 mm[Hg] Hilda Breaux MD Work Phone: [facility] 04-02-2024 15:24-0500 Body mass index (BMI) [Ratio] 28.39 kg/m2 Keon Riggs BUSINESS CONTINUITY MANAGER.[employer] Work Phone: [facility] 04-02-2024 15:24-0500 Body weight 76.2 kg Keon Hamariel BUSINESS CONTINUITY MANAGER.[employer] Work Phone: [facility] 04-02-2024 15:24-0500 Diastolic blood pressure 64 mm[Hg] Keon Haury BUSINESS CONTINUITY MANAGER.[employer] Work Phone: [facility] 04-02-2024 15:24-0500 Systolic blood pressure 108 mm[Hg] Keon Haury BUSINESS CONTINUITY MANAGER.[employer] Work Phone: [facility] 09-07-2023 09:12-0400 Body mass index (BMI) [Ratio] 27.38 kg/m2 Coleen Dunne BUSINESS CONTINUITY MANAGER.[employer] Work Phone: [facility] 09-07-2023 09:12-0400 Body temperature 98.8 [degF] Coleen Haagen BUSINESS CONTINUITY MANAGER.[employer] Work Phone: [facility] 09-07-2023 09:12-0400 Body weight 73.48 kg Coleen Haagen BUSINESS CONTINUITY MANAGER.[employer] Work Phone: [facility] 09-07-2023 09:12-0400 Diastolic blood pressure 82 mm[Hg] Coleen Haagen BUSINESS CONTINUITY MANAGER.[employer] Work Phone: [facility] 09-07-2023 09:12-0400 Heart rate 80 /min Coleen Haagen BUSINESS CONTINUITY MANAGER.[employer] Work Phone: [facility] 09-07-2023 09:12-0400 SaO2% (BldA) [Mass fraction] 97 % Coleen Haagen BUSINESS CONTINUITY MANAGER.[employer] Work Phone: [facility] 09-07-2023 09:12-0400 Systolic blood pressure 112 mm[Hg] Coleen Haagen BUSINESS CONTINUITY MANAGER.[employer] Work Phone: [facility] 07-13-2023 09:53-0400 Diastolic blood pressure 86 mm[Hg] Coleen Haagen BUSINESS CONTINUITY MANAGER.[employer] Work Phone: [facility] 07-13-2023 09:53-0400 Heart rate 73 /min Coleen Haagen BUSINESS CONTINUITY MANAGER.PEANUT SORTER Work Phone: [facility] 07-13-2023 09:53-0400 Respiratory rate 16 /min Coleen Haagen BUSINESS CONTINUITY MANAGER.PEANUT SORTER Work Phone: [facility] 07-13-2023 09:53-0400 SaO2% (BldA) [Mass fraction] 99 % Coleen Haagen BUSINESS CONTINUITY MANAGER.PEANUT SORTER Work Phone: [facility] 07-13-2023 09:53-0400 Systolic blood pressure 136 mm[Hg] Coleen Haagen BUSINESS CONTINUITY MANAGER.PEANUT SORTER Work Phone: [facility] 06-16-2023 09:33-0400 Body mass index (BMI) [Ratio] 26.7 kg/m2 Pulm Wstr Work Phone: [facility] 06-16-2023 09:33-0400 Body weight 71.67 kg Pulm Wstr Work Phone: [facility] 06-16-2023 09:33-0400 Heart rate 86 /min Pulm Wstr Work Phone: [facility] 06-16-2023 09:33-0400 Respiratory rate 14 /min Pulm Wstr Work Phone: [facility] 06-16-2023 09:33-0400 SaO2% (BldA) [Mass fraction] 97 % Pulm Wstr Work Phone: [facility] 06-13-2023 17:51-0400 Body mass index (BMI) [Ratio] 27.21 kg/m2 Shlomo Miller MD Work Phone: [facility] 06-13-2023 17:51-0400 Body weight 73.03 kg Shlomo Miller MD Work Phone: [facility] 06-13-2023 17:51-0400 Diastolic blood pressure 79 mm[Hg] Shlomo Miller MD Work Phone: [facility] 06-13-2023 17:51-0400 Heart rate 84 /min Shlomo Miller MD Work Phone: [facility] 06-13-2023 17:51-0400 SaO2% (BldA) [Mass fraction] 97 % Shlomo Miller MD Work Phone: [facility] 06-13-2023 17:51-0400 Systolic blood pressure 129 mm[Hg] Shlomo Miller MD Work Phone: [facility] 01-27-2023 13:57-0500 Body weight 74.39 kg Hilda Breaux MD Work Phone: [facility] 01-27-2023 13:57-0500 Diastolic blood pressure 80 mm[Hg] Hilda Breaux MD Work Phone: [facility] 01-27-2023 13:57-0500 Heart rate 102 /min Hilda Breaux MD Work Phone: [facility] 01-27-2023 13:57-0500 SaO2% (BldA) [Mass fraction] 96 % Hilda Breaux MD Work Phone: [facility] 01-27-2023 13:57-0500 Systolic blood pressure 122 mm[Hg] Hilda Breaux MD Work Phone: [facility] 11-26-2022 12:01-0400 Body temperature 98.29 [degF] Parish Eusebio BUSINESS CONTINUITY MANAGER.PEANUT SORTER Work Phone: [facility] 11-26-2022 12:01-0400 Body weight 71.12 kg Parish Eusebio BUSINESS CONTINUITY MANAGER.PEANUT SORTER Work Phone: [facility] 11-26-2022 12:01-0400 Diastolic blood pressure 81 mm[Hg] Parish Eusebio BUSINESS CONTINUITY MANAGER.PEANUT SORTER Work Phone: [facility] 11-26-2022 12:01-0400 Heart rate 87 /min Parish Eusebio BUSINESS CONTINUITY MANAGER.PEANUT SORTER Work Phone: [facility] 11-26-2022 12:01-0400 Respiratory rate 16 /min Parish Eusebio BUSINESS CONTINUITY MANAGER.PEANUT SORTER Work Phone: [facility] 11-26-2022 12:01-0400 SaO2% (BldA) [Mass fraction] 100 % Parish Eusebio BUSINESS CONTINUITY MANAGER.PEANUT SORTER Work Phone: [facility] 11-26-2022 12:01-0400 Systolic blood pressure 138 mm[Hg] Parish Eusebio BUSINESS CONTINUITY MANAGER.PEANUT SORTER Work Phone: [facility] 04-12-2022 12:58-0500 Body height 165.1 cm Shlomo Miller MD Work Phone: [facility] 04-12-2022 12:58-0500 Body weight 68.04 kg Shlomo Miller MD Work Phone: [facility] 04-12-2022 12:58-0500 Diastolic blood pressure 80 mm[Hg] Shlomo Miller MD Work Phone: [facility] 04-12-2022 12:58-0500 Heart rate 81 /min Shlomo Miller MD Work Phone: [facility] 04-12-2022 12:58-0500 Respiratory rate 16 /min Shlomo Miller MD Work Phone: [facility] 04-12-2022 12:58-0500 SaO2% (BldA) [Mass fraction] 98 % Shlomo Miller MD Work Phone: [facility] 04-12-2022 12:58-0500 Systolic blood pressure 132 mm[Hg] Shlomo Miller MD Work Phone: [facility] 01-29-2022 16:44-0500 Body temperature 97.5 [degF] Ramone Pendlebury BUSINESS CONTINUITY MANAGER.PEANUT SORTER Work Phone: [facility] 01-29-2022 16:44-0500 Body weight 67.5 kg Ramone Pendlebury BUSINESS CONTINUITY MANAGER.PEANUT SORTER Work Phone: [facility] 01-29-2022 16:44-0500 Diastolic blood pressure 82 mm[Hg] Ramone Pendlebury BUSINESS CONTINUITY MANAGER.PEANUT SORTER Work Phone: [facility] 01-29-2022 16:44-0500 Heart rate 67 /min Ramone Pendlebury BUSINESS CONTINUITY MANAGER.PEANUT SORTER Work Phone: [facility] 01-29-2022 16:44-0500 Respiratory rate 18 /min Ramone Pendlebury BUSINESS CONTINUITY MANAGER.PEANUT SORTER Work Phone: [facility] 01-29-2022 16:44-0500 SaO2% (BldA) [Mass fraction] 100 % Ramone Pendlebury BUSINESS CONTINUITY MANAGER.PEANUT SORTER Work Phone: [facility] 01-29-2022 16:44-0500 Systolic blood pressure 142 mm[Hg] Ramone Pendlebury BUSINESS CONTINUITY MANAGER.PEANUT SORTER Work Phone: [facility] 11-10-2021 08:36-0400 Body height 167.6 cm Hilda Breaux MD Work Phone: [facility] 11-10-2021 08:36-0400 Body weight 67.59 kg Hilda Breaux MD Work Phone: [facility] 11-10-2021 08:36-0400 Diastolic blood pressure 80 mm[Hg] Hilda Breaux MD Work Phone: [facility] 11-10-2021 08:36-0400 Systolic blood pressure 120 mm[Hg] Hilda Breaux MD Work Phone: [facility] 10-27-2021 14:59-0400 Body height 165.1 cm Shlomo Miller MD Work Phone: [facility] 10-27-2021 14:59-0400 Body weight 67.68 kg Shlomo Miller MD Work Phone: [facility] 10-27-2021 14:59-0400 Diastolic blood pressure 80 mm[Hg] Shlomo Miller MD Work Phone: [facility] 10-27-2021 14:59-0400 Heart rate 101 /min Shlomo Miller MD Work Phone: [facility] 10-27-2021 14:59-0400 SaO2% (BldA) [Mass fraction] 99 % Shlomo Miller MD Work Phone: [facility] 10-27-2021 14:59-0400 Systolic blood pressure 122 mm[Hg] Shlomo Miller MD Work Phone: [facility] Encounters Encounter Date Encounter Type Care Provider Facility Start: 2024 ambulatory Madeleine Millan Facilit y:[facility] Start: 08-06-2024 ambulatory Madeleine Millan Facilit y:[facility] Start: 07-30-2024 End: 07-30-2024 ambulatory Gertrude Goldberg PA-C Work Phone: Pulmonary Medicine Comment on above: Prednisone Prescript ion Start: 07-23-2024 End: 07-31-2024 E-mail encounter from caregiver [facility] Provider Pulmonary Medicine Start: 07-23-2024 End: 07-23-2024 Telephone encounter Madeleine Millan MD Work Phone: Pulmonary Medicine Start: 07-23-2024 End: 07-23-2024 ambulatory MADELEINE MILLAN Facility:[id number] Start: 07-23-2024 End: 07-23-2024 Patient encounter procedure Madeleine Millan MD Work Phone: Pulmonary Medicine Comment on above: Lung nodules (Primar y Dx); Methemoglobinemia; Lymphadenopathy Start: 07-23-2024 End: 07-31-2024 ambulatory MADELEINE MILLAN Facility:[facility] Comment on above: Pentamidine treatmen t Start: 07-17-2024 End: 07-17-2024 ambulatory JEN EVERETT Facility:[facility] Comment on above: Urinary, incontinenc e, stress female (Primary Dx) Start: 07-16-2024 End: 07-17-2024 ambulatory Gertrude Goldberg PA-C Work Phone: Pulmonary Medicine Comment on above: Upcoming Appt with Dank Millan Start: 07-04-2024 End: 07-04-2024 ambulatory SHLOMO MILLER Facility:[facility] Start: 06-19-2024 End: 06-19-2024 ambulatory Jen Everett PT Work Phone: [facility] Comment on above: Urinary, incontinenc e, stress female (Primary Dx) Start: 06-12-2024 End: 06-12-2024 ambulatory ANTHONY PRITCHARD Facility:[id number] Start: 06-08-2024 Patient encounter status Jen Everett PT Work Phone: [facility] Work Phone: Start: 06-06-2024 End: 06-06-2024 Office outpatient new 45 minutes [facility] Work Phone: Pre Anesthesia Comment on above: Preop testing [Z01.8 18] (Primary Dx); Lymphadenopathy; Chronic cough Start: 06-06-2024 End: 06-06-2024 Patient encounter status [facility] Work Phone: [facility] Work Phone: Start: 06-06-2024 End: 06-06-2024 ambulatory SHLOMO MILLER Facility:[id number] Start: 06-06-2024 Encounter for other preprocedural examination [facility] Start: 06-05-2024 End: 06-05-2024 Preprocedural examination done Gertrude Goldberg PA-C Work Phone: [facility] Start: 06-05-2024 End: 06-05-2024 Telephone encounter Gertrude BERNALC [facility] Start: 06-01-2024 End: 06-01-2024 ambulatory Gertrude BERNALC Work Phone: Pulmonary Medicine Start: 06-01-2024 End: 06-01-2024 Telephone encounter Anthony Pritchard MD Work Phone: [facility] Start: 06-01-2024 End: 06-01-2024 Telephone follow-up Gertrude Goldberg PA-C Work Phone: Pulmonary Medicine Comment on above: Followup from our Phone Conversation regarding EKG & Bronchoscopy Start: 05-30-2024 End: 05-30-2024 Preprocedural examination done Tae Multani MD Work Phone: [facility] Start: 05-30-2024 End: 05-30-2024 Patient encounter procedure Gertrude BERNALC Work Phone: Pulmonary Medicine Comment on above: Chronic cough (Prima ry Dx); Lymphadenopathy, hilar; Multiple lung nodules on CT Bronchoscopy Schedul ing (Initial Bronch Request ) Multiple lung nodule s on CT (Primary Dx); Lymphadenopathy, hilar; Liver cyst; Chronic cough; Microscopic hematuria; Gross hematuria; Lung nodule; Atrophic vaginitis Start: 05-30-2024 End: 06-01-2024 ambulatory Gertrude Goldberg PA-C Work Phone: Pulmonary Medicine Comment on above: May 30 Appt Note Start: 05-16-2024 End: 05-16-2024 Telephone encounter Shlomo Miller MD Work Phone: [facility] Comment on above: Results Start: 05-15-2024 End: 05-15-2024 ambulatory Jen Dipesh Everett PT Work Phone: [facility] Comment on above: Urinary, incontinenc e, stress female (Primary Dx) Start: 05-10-2024 End: 05-10-2024 Patient encounter procedure Kassandra Noe MD Work Phone: [facility] Comment on above: Gross hematuria (Fozia blanca Dx) Start: 05-10-2024 End: 05-10-2024 ambulatory KASSANDRA NOE JR Facility:[facility] Start: 05-08-2024 End: 05-08-2024 ambulatory SHLOMO MILLER Facility:[facility] Start: 05-08-2024 End: 05-08-2024 Subsequent hospital visit by physician Mri Radio [facility] (I-Stat/1.5t) Work Phone: Radiology Comment on above: Liver mass [R16.0] Lung nodules [R91.8] Start: 05-07-2024 End: 05-07-2024 E-mail encounter from caregiver Kassandra Noe Jr., MD Work Phone: [facility] Start: 05-07-2024 End: 05-07-2024 Patient encounter procedure Kassandra Noe MD Work Phone: [facility] Comment on above: upcoming appointment Start: 05-04-2024 End: 05-04-2024 Follow-up encounter Shlomo Miller MD Work Phone: [facility] Start: 05-03-2024 End: 05-03-[address] Mohinder Giron MD Work Phone: [facility] Work Phone: Start: 05-03-2024 End: 05-03-[address] Mohinder Giron MD -Radiology, [facility] Work Phone: Start: 05-02-2024 End: 05-03-2024 ambulatory Shlomo Miller MD Work Phone: [facility] Comment on above: MRI - 05/07 & CAT Sca n 05/08 Start: 05-02-2024 End: 05-02-2024 Telephone encounter Bettina Bermudez PA-C Work Phone: Urology Comment on above: Results - Ct Start: 04-26-2024 End: 06-26-2024 Follow-up encounter Shlomo Miller MD Work Phone: [facility] Start: 04-26-2024 End: 04-26-2024 ambulatory BETTINA BERMUDEZ Facility:[facility] Start: 04-26-2024 End: 04-26-2024 [facility] Work Phone: Cat Scan Comment on above: Gross hematuria [R31 .0] Start: 04-25-2024 End: 04-25-2024 ambulatory SHLOMO MILLER Facility:[facility] Start: 04-25-2024 End: 04-25-2024 Office outpatient visit 25 minutes Shlomo Miller MD Work Phone: [facility] Comment on above: URI, acute (Primary Dx); Mixed hyperlipidemia; Facial basal cell cancer; Microscopic hematuria; Gastroesophageal reflux disease without esophagitis; Chronic cough Start: 04-24-2024 End: 04-24-2024 ambulatory SHLOMO MILLER Facility:[facility] Start: 04-24-2024 End: 04-24-2024 Subsequent hospital visit by physician [facility] Work Phone: Radiology Comment on above: Mass of upper inner quadrant of left breast [N63.22] Start: 04-23-2024 End: 06-23-2024 Follow-up encounter Bettina Bermudez PA-C Work Phone: Urology Start: 04-18-2024 End: 04-18-2024 ambulatory SHLOMO MILLER Facility:[facility] Start: 04-17-2024 End: 04-17-2024 Telephone encounter Bettina Bermudez PA-C Work Phone: [facility] Comment on above: Appointment Start: 04-17-2024 End: 04-17-2024 ambulatory KEON RIGGS Facility:[facility] Start: 04-17-2024 End: 04-17-2024 Patient encounter procedure Bettina Bermudez PA-C Work Phone: Urology Comment on above: Gross hematuria (Fozia blanca Dx) Start: 04-06-2024 End: 04-10-2024 ambulatory Hilda Breaux MD Work Phone: OB/Gynecology Comment on above: Jen sabillon Start: 04-06-2024 End: 04-06-2024 Patient encounter procedure Hilda Breaux MD Work Phone: OB/Gynecology Comment on above: Encounter for gyneco logical examination (general) (routine) without abnormal findings (Primary Dx); Encounter for screening mammogram for breast cancer; Mass of upper inner quadrant of left breast Start: 04-06-2024 End: 04-06-2024 Patient encounter status Hilda Breaux MD Work Phone: [facility] Start: 04-03-2024 End: 04-06-2024 Follow-up encounter Silvia Wells MD Work Phone: OB/Gynecology Comment on above: Hematuria, unspecifi ed type (Primary Dx); Mass of upper inner quadrant of left breast Start: 04-02-2024 End: 04-02-2024 ambulatory KEON RIGGS Facility:[facility] Start: 04-02-2024 End: 04-02-2024 Patient encounter procedure Keon Riggs APRN.CNP Work Phone: OB/Gynecology Comment on above: Hematuria, unspecifi ed type (Primary Dx); Pelvic cramping; Screening for cervical cancer; Screening for HPV (human papillomavirus) Start: 11-01-2023 End: 11-07-2023 ambulatory Shlomo Miller MD Work Phone: [facility] [place] Start: 11-01-2023 End: 11-07-2023 Follow-up encounter Shlomo Miller MD Work Phone: [facility] [place] Comment on above: Followup to Appointment with Coleen Dunne CNP Followup from 024 Appointment - Cough Start: 10-13-2023 End: 10-14-2023 Refill Hilda Michael Breaux MD Work Phone: OB/Gynecology Comment on above: Refill Request Start: 10-03-2023 End: 10-04-2023 Documentation procedure Mammography Coordinator [facility] Department Start: 10-03-2023 End: 10-04-2023 Letter encounter Mammography Coordinator [facility] Start: 10-03-2023 End: 10-03-2023 ambulatory SHLOMO MILLER Facility:[facility] Start: 10-03-2023 End: 10-03-2023 Subsequent hospital visit by physician Screen Mammo [facility] Mammogram Comment on above: Encounter for screen ing mammogram for breast cancer [Z12.31] Start: 09-07-2023 End: 09-07-2023 ambulatory SHLOMO MILLER Facility:[facility] Start: 09-07-2023 End: 09-07-2023 Office outpatient visit 15 minutes Coleen Dunne APRN.CNP Work Phone: [facility] [place] Comment on above: Chronic cough (Prima ry Dx) Start: 07-13-2023 End: 07-13-2023 Office outpatient visit 25 minutes Coleen Dunne APRN.PEANUT SORTER Work Phone: [facility] [place] Comment on above: Chronic cough (Prima ry Dx); Indigestion Start: 06-16-2023 End: 06-16-2023 ambulatory Pulm Lab [facility] Work Phone: PULM LAB [facility] Comment on above: Spirometry Start: 06-16-2023 End: 06-16-2023 Patient encounter procedure Pulm Lab [facility] Work Phone: PULM LAB [facility] Start: 06-15-2023 Telephone encounter Shlomo Miller MD Work Phone: [facility] Comment on above: Results Start: 06-13-2023 End: 06-13-2023 Subsequent hospital visit by physician Xr [facility] Work Phone: Radiology Comment on above: Chronic cough [R05.3 ] Start: 06-13-2023 End: 06-13-2023 Patient encounter procedure Shlomo Miller MD Work Phone: [facility] Comment on above: Chronic cough (Prima ry Dx) Start: 05-17-2023 End: 05-17-2023 ambulatory Jen Everett PT Work Phone: [facility] Comment on above: Urinary, incontinenc e, stress female (Primary Dx); Muscle weakness Start: 05-10-2023 ambulatory Hilda Breaux MD Work Phone: OB/Gynecology Comment on above: 01-24-2023 Test Resu lts Billing Start: 04-26-2023 End: 04-26-2023 ambulatory Jen Everett PT Work Phone: [facility] Comment on above: Urinary, incontinenc e, stress female (Primary Dx); Muscle weakness Start: 01-27-2023 End: 01-27-2023 Patient encounter procedure Hilda Breaux MD Work Phone: OB/Gynecology Comment on above: Postmenopausal atrop hic vaginitis (Primary Dx); Urinary, incontinence, stress female Start: 01-24-2023 End: 01-24-2023 ambulatory Ob Ultrasound Work Phone: OB/Gynecology Comment on above: SLASHER TENDER HELPER Ultrasound Start: 01-24-2023 End: 01-24-2023 Patient encounter procedure Work Station Support Specialist [facility] Work [facility] Start: 01-03-2023 ambulatory [facility] [place] Comment on above: Results Start: 01-03-2023 E-mail encounter constance perry caregiver [facility] Provider [facility] Start: 01-03-2023 Telephone encounter Parish lo APRN.PEANUT SORTER Work Phone: [facility] Comment on above: Results Start: 12-31-2022 End: 12-31-2022 Subsequent hospital visit by physician El [facility] Work Phone: Radiology Comment on above: Persistent cough for 3 weeks or longer [R05.3] Start: 11-26-2022 Telephone encounter Parish lo APRN.PEANUT SORTER Work Phone: [facility] Comment on above: Results Start: 11-26-2022 End: 11-26-2022 Subsequent hospital visit by physician El [facility] Work Phone: Radiology Comment on above: Persistent cough for 3 weeks or longer [R05.3] Start: 11-26-2022 End: 11-26-2022 Office outpatient visit 15 minutes Parish Kaplan APRN.PEANUT SORTER Work Phone: [facility] Comment on above: Persistent cough for 3 weeks or longer (Primary Dx); Right ear pain Start: 11-24-2022 Telephone encounter Shlomo Miller MD Work Phone: [facility] Comment on above: Cough Start: 10-20-2022 End: 10-20-2022 Subsequent hospital visit by physician Us [facility] Work Phone: Radiology Comment on above: Abnormal mammogram [ R92.8] Start: 10-01-2022 Documentation procedure Mammog iza Coordinator [facility] Start: 10-01-2022 Letter encounter Mammography Coordinator [facility] Department Start: 10-01-2022 Telephone encounter Lian dasilva BUSINESS CONTINUITY MANAGER.PEANUT SORTER Work Phone: OB/Gynecology Comment on above: Orders Mammogram Result Ronaldo l Back Start: 05-13-2022 End: 05-13-2022 Subsequent hospital visit by physician [facility] Work Phone: Radiology Comment on above: Abnormal x-ray [R93. 89] Start: 04-27-2022 Telephone encounter Shlomo Miller MD Work Phone: [facility] Comment on above: Pre-Certification fo r Stress Test Start: 04-13-2022 Telephone encounter Shlomo Miller MD Work Phone: [facility] Comment on above: Results Start: 04-12-2022 End: 04-12-2022 Subsequent hospital visit by physician [facility] Work Phone: Radiology Comment on above: Cough, unspecified t ype [R05.9] Start: 04-12-2022 Telephone encounter Shlomo Miller MD Work Phone: [facility] Comment on above: Patient Question; Or ders Results Start: 04-12-2022 End: 04-12-2022 Patient encounter procedure Shlomo Miller MD Work Phone: [facility] Comment on above: Chest discomfort (Pr imary Dx); Cough, unspecified type; Anxiety Start: 01-31-2022 Telephone encounter Jen baron PA-C Work Phone: [facility] Comment on above: Results Start: 01-29-2022 End: 01-29-2022 Office outpatient visit 25 minutes Ramone Carlson APRN.CNP Work Phone: [facility] Comment on above: Urinary frequency (P rimary Dx) Start: 12-01-2021 End: 12-01-2021 ambulatory Jonatan Meléndez PT [facility] Comment on above: DDD (degenerative di sc disease), cervical (Primary Dx) Start: 11-19-2021 End: 11-19-2021 ambulatory Joantan Meléndez PT [facility] Comment on above: DDD (degenerative di sc disease), cervical Start: 11-10-2021 End: 11-10-2021 Subsequent hospital visit by physician [facility] Work Phone: Radiology Comment on above: Neck discomfort [M54 .2] Start: 11-10-2021 End: 11-10-2021 Patient encounter procedure Hilda Breaux MD Work Phone: OB/Gynecology Comment on above: Encounter for gyneco logical examination (general) (routine) without abnormal findings (Primary Dx); Encounter for screening mammogram for malignant neoplasm of breast Start: 11-10-2021 End: 11-10-2021 Patient encounter status Hilda Breaux MD Work Phone: OB/Gynecology Start: 10-27-2021 End: 10-27-2021 Patient encounter procedure Shlomo Miller MD Work Phone: [facility] Comment on above: Well adult exam (Fozia blanca Dx); Hyperlipidemia, mixed; Vitamin D deficiency; Facial basal cell cancer; Neck discomfort; Discomfort of back Start: 10-27-2021 End: 10-27-2021 Patient encounter status Shlomo Miller MD Work Phone: [facility] Start: 02-19-2010 End: 07-14-2011 Patient encounter status Shlomo Miller MD Work Phone: [facility] Work Phone: Procedures Date Procedure Procedure Detail Performing Clinician Start: 06-06-2024 Ecg routine ecg w/le ast 12 lds trcg only w/o i&r [facility] Provider Start: 05-10-2024 Urnls dip stick/tabl et rgnt auto w/o microscopy Kassandra Noe MD Work Phone: Start: 05-08-2024 Mri abdomen w/o & w/contrast material Shlomo Miller MD Work Phone: Start: 05-03-2024 X-ray of esophagus w ith double contrast Dr. Mohinder Giron MD Work Phone: Start: 04-24-2024 Us breast uni real t jordon with image limited Hilda Breaux MD Work Phone: Start: 04-24-2024 Digital breast tomosynthesis unilateral Hilda Breaux MD Work Phone: Start: 04-17-2024 Urnls dip stick/tabl et rgnt auto w/o microscopy Bettina Bermudez PA-C Work Phone: Start: 04-02-2024 Urnls dip stick/tabl et rgnt auto w/o microscopy Keon Haury BUSINESS CONTINUITY MANAGER.PEANUT SORTER Work Phone: Start: 10-03-2023 Screening digital br east tomosynthesis bi Hilda Breaux MD Work Phone: Start: 06-16-2023 Brncdilat rspse spmt ry pre&post-brncdilat admn Shlomo Miller MD Work Phone: Start: 06-13-2023 Radiologic exam ches t 2 views Shlomo Miller MD Work Phone: Start: 01-24-2023 Us pelvic nonobstetr ic real-time image complete Hilda Breaux MD Work Phone: Start: 12-31-2022 Radiologic exam ches t 2 views Parish Kaplan BUSINESS CONTINUITY MANAGER.[facility] Work Phone: Start: 11-26-2022 Radiologic exam ches t 2 views Parish Eusebio BUSINESS CONTINUITY MANAGER.[facility] Work Phone: Start: 10-20-2022 Us breast uni real t jordon with image limited Lian [place] BUSINESS CONTINUITY MANAGER.[employer] Work Phone: Start: 09-30-2022 Mammography [facility] BUSINESS CONTINUITY MANAGER.[facility] Work Phone: Start: 05-13-2022 Radiologic exam ches t 2 views Shlomo Miller MD Work Phone: Start: 04-12-2022 Radiologic exam ches t 2 views Shlomo Miller MD Work Phone: Start: 04-12-2022 D-DIMER [facility] Start: 01-29-2022 Urnls dip stick/tabl et rgnt auto w/o microscopy Alexandria Rodriguez BUSINESS CONTINUITY MANAGER.[employer] Work Phone: Start: 11-10-2021 Radex spine cervical 4 or 5 views Shlomo Miller MD Work Phone: Start: 11-10-2021 Lipid 1996 panel - S gricelda or Plasma Shlomo Miller MD Work Phone: Start: 10-27-2021 Adult depression scr eening assessment Shlomo Miller MD Work Phone: Start: 09-28-2021 Mammography Shlomo Alarcon MD Work Phone: Start: 12-23-2016 Colonoscopy Shlomo Alarcon MD Work Phone: Plan of Treatment Date Care Activity Detail Author Start: 10-16-[address] [facility] Start: 04-02-2029 Screening for malignant neoplasm of cervix Cervical Cancer Screening [facility] Start: 05-04-2027 Diabetes Screening Diabetes Screening [facility] Start: 12-23-2026 Colonoscopy COLONOSCOPY [facility] Start: 12-23-2026 COLORECTAL CANCER SCREENING COLORECTAL CANCER SCREENING [facility] Start: 12-23-2026 Screening for malignant neoplasm of colon [facility] Start: 11-10-2026 Lipid 1996 panel - Serum or Plasma Lipid Screening [facility] Start: 11-10-2026 Lipid panel Lipid Screening [facility] Start: 11-10-2026 LIPID SCREEN LIPID SCREEN [facility] Start: 10-16-2025 LIPID SCREEN LIPID SCREEN [facility] Start: 04-12-2025 DIABETES SCREEN DIABETES SCREEN [facility] Start: 04-12-2025 Diabetes Screening Diabetes Screening [facility] Start: 11-10-2024 DIABETES SCREEN DIABETES SCREEN [facility] Start: 10-15-2024 Influenza vaccination Influenza Vaccine (Season Ended) [facility] Start: 10-10-2024 End: 10-10-2024 Patient encounter procedure 10/10/2024 9:00 AM EDT Office Visit Pulmonary Medicine [address] [place] [address] Brianna Laguerre APRN.[employer] [address] [place] [address] 10/03/24 Pulmonary Medicine Comment on above: review Chest CT 10/03/24 Start: 10-03-2024 End: 10-03-2024 Patient encounter procedure Mammogram Comment on above: Organizing pneumonia (HCC) [J84.89]; Pne umonia of both lungs due to infectious organism, unspecified part of lung [J18.9] Start: 10-02-2024 Screening for malignant neoplasm of breast Mammogram Screening [facility] Start: 09-19-2024 End: 09-19-2024 Patient encounter procedure 09/19/2024 2:20 PM EDT Office Visit [facility] [address] [place] [id number] Shlomo Miller MD [address] [place] [address] 3 mo/physical [facility] Comment on above: 3 mo/physical Start: 08-13-2024 Influenza [facility] Comment on above: Postponed from 10/16/2023 (Declined at t his time) Start: 07-23-2024 End: 10-22-2024 Angiotensin converting enzyme [Enzymatic activity/volume] in Serum or Plasma [facility] Comment on above: Expected: 07/23/2024, Expires: Start: 07-23-2024 End: 10-22-2024 BLASTOMYCES ANTIGEN, URINE [facility] jared Comment on above: Expected: 07/23/2024, Expires: Start: 07-23-2024 End: 10-22-2024 FUNGAL ANTIBODIES PANEL [facility] Comment on above: Expected: 07/23/2024, Expires: Start: 07-23-2024 End: 10-22-2024 Fungus identified in Isolate [facility] Comment on above: Expected: 07/23/2024, Expires: Start: 07-23-2024 End: 10-22-2024 HISTOPLASMA AG URINE [facility] Comment on above: Expected: 07/23/2024, Expires: Start: 07-23-2024 End: 10-22-2024 INTERLEUKIN 2 RECEPTOR, SOLUBLE, SERUM [facility] Work Phone: Comment on above: Expected: 07/23/2024, Expires: Start: 07-23-2024 End: 07-23-2024 Patient encounter procedure 07/23/2024 8:00 AM EDT Office Visit Pulmonary Medicine [address] [place] [address] Madeleine Millan MD [address] [place], [place] [id number] Bronchoscopy follow up, sulfa allergy Pulmonary Medicine Comment on above: Bronchoscopy follow up, sulfa allergy Start: 07-17-2024 End: 07-17-2024 ambulatory 07/17/2024 9:30 AM EDT OT/PT/Speech Visit [facility] [address] [place] [address] Jen Palacios, PT [address] [place] [address] Urine Incontinence, seen previously @ [facility] Comment on above: Urine Incontinence, seen previously @ [facility] Start: 06-19-2024 End: 06-19-2024 ambulatory 06/19/2024 9:30 AM EDT OT/PT/Speech Visit [facility] [address] [place] [address] Jne Palacios, PT [address] [place], [place] [id number] Urine Incontinence, seen previously @ [facility] Comment on above: Urine Incontinence, seen previously @ [facility] Start: 06-12-2024 End: 06-12-2024 Admission to same day surgery center 06/12/2024 11:30 AM EDT - 06/12/2024 1:00 PM EDT Surgery [facility] [address] [place] [address] [id number] Anthony Pritchard MD [address] [place] [address] BRONCHOSCOPY,RIGID/FLEXI BLE,W/ FLUORO,W/TRANSENDOSCOPIC ENDOBRONCHIAL ULTRASOUND (EBUS) DURING BRONCHOSCOPIC DIAGNOSTIC/THERAPEUTIC INTERVENTION(S) PERIPHERAL LESION(S) [facility] Comment on above: BRONCHOSCOPY,RIGID/FLEXIBLE,W/ FLUORO,W/ TRANSENDOSCOPIC ENDOBRONCHIAL ULTRASOUND (EBUS) DURING BRONCHOSCOPIC DIAGNOSTIC/THERAPEUTIC INTERVENTION(S) PERIPHERAL LESION(S) Start: 06-12-2024 End: 06-12-2024 [facility] ebus dx/tx intervention perph les BRONCHOSCOPY,RIGID/FLEXI BLE,W/ FLUORO,W/TRANSENDOSCOPIC ENDOBRONCHIAL ULTRASOUND (EBUS) DURING BRONCHOSCOPIC DIAGNOSTIC/THERAPEUTIC INTERVENTION(S) PERIPHERAL LESION(S) Lymphadenopathy 06/12/2024 11:30 AM EDT MR RANGEL Start: 06-12-2024 Subsequent hospital visit by physician [facility] Comment on above: Lymphadenopathy [R59.1] Start: 05-30-2024 End: 05-30-2024 Patient encounter procedure Pulmonary Medicine Comment on above: Lung nodules/evaluate for EBUS follow up after pulm consult Start: 05-29-2024 End: 05-29-2024 Patient encounter procedure Mammogram Comment on above: Mass of upper inner quadrant of left crow ast [N63.22] Start: 05-15-2024 End: 05-15-2024 ambulatory 05/15/2024 2:00 PM EDT OT/PT/Speech Visit [facility] [address] [place] [address] Jen Palacios, PT [address] [place], [place] [id number] Urine Incontinence, seen previously @ [facility] Comment on above: Urine Incontinence, seen previously @ [facility] Start: 05-10-2024 End: 05-10-2024 Patient encounter procedure [facility] Comment on above: cysto/ct prior 04/26/hematuria/ref by Chantal Bermudez cysto/ct prior 04/26 /hematuria/ref by Chantal Avila Start: 05-08-2024 Subsequent hospital visit by physician 05/08/2024 2:00 PM EDT Hospital Encounter Radiology [address] [place], [place] [id number] Liver mass [R16.0] Radiology Comment on above: Liver mass [R16.0] Start: 05-08-2024 End: 05-08-2024 Patient encounter procedure Cat Scan Comment on above: Lung nodules [R91.8] Liver mass [R16.0] Start: 05-07-2024 End: 05-07-2024 Patient encounter procedure 05/07/2024 2:30 PM EDT Appointment [facility] [address] [facility] [place] [address] Liver mass [R16.0] Radiology Comment on above: Liver mass [R16.0] Start: 05-03-2024 End: 06-01-2025 CT Chest W contrast IV CT CHEST W IVCON Radiology STAT Lung nodules Expected: 05/03/2024 (Approximate), Expires: 06/01/2025 [facility] Comment on above: Expected: 05/03/2024 (Approximate), Expi res: 06/01/2025 Start: 05-03-2024 End: 06-01-2025 MR Liver WO and W contrast IV MRI LIVER WO/W IVCON Radiology STAT Liver mass Expected: 05/03/2024 (Approximate), Expires: 06/01/2025 [facility] Comment on above: Expected: 05/03/2024 (Approximate), Expi res: 06/01/2025 Start: 05-02-2024 End: 08-01-2024 CBC W Auto Differential panel - Blood COMPLETE BLOOD COUNT AND DIFFERENTIAL Lab Routine Liver mass Expected: 05/02/2024, Expires: 08/01/2024 [facility] Comment on above: Expected: 05/02/2024, Expires: Start: 05-02-2024 End: 08-01-2024 Comprehensive metabolic 2000 panel - Serum or Plasma COMPREHENSIVE METABOLIC PANEL Lab Routine Liver mass Expected: 05/02/2024, Expires: 08/01/2024 [facility] Comment on above: Expected: 05/02/2024, Expires: Start: 05-02-2024 End: 07-25-2024 CT Chest W contrast IV CT CHEST W IVCON Radiology Routine Lung nodules Expected: 05/02/2024, Expires: 07/25/2024 [facility] Work Phone: Comment on above: Expected: 05/02/2024, Expires: Start: 05-02-2024 End: 08-01-2024 Erythrocyte sedimentation rate SEDIMENTATION RATE, WESTERGREN Lab Routine Liver mass Expected: 05/02/2024, Expires: 08/01/2024 [facility] Comment on above: Expected: 05/02/2024, Expires: Start: 05-02-2024 End: 07-25-2024 MR Liver WO and W contrast IV MRI LIVER WO/W IVCON Radiology Routine Liver mass Expected: 05/02/2024, Expires: 07/25/2024 [facility] Comment on above: Expected: 05/02/2024, Expires: Start: 05-01-2024 Cystourethroscopy CYSTO.PANENDO Procedures Routine Gross hematuria Expected: 05/01/2024 (Approximate) [facility] Work Phone: Comment on above: Expected: 05/01/2024 (Approximate) Start: 04-26-2024 End: 04-26-2024 Patient encounter procedure 04/26/2024 10:40 AM EDT Appointment Cat Scan [address] [place] [address] Gross hematuria [R31.0] Cat Scan Comment on above: Gross hematuria [R31.0] Start: 04-25-2024 End: 04-25-2024 Patient encounter procedure 04/25/2024 9:40 AM EDT Office Visit [facility] [address] [place] [address] Shlomo Miller MD [address] [place] [address] severe cough,some congestion,green nose discharge. [facility] Comment on above: severe cough,some congestion,green nose discharge. Start: 04-24-2024 End: 07-24-2024 CREATININE BLD CREATININE BLD Lab Routine Gross hematuria Expected: 04/24/2024 (Approximate), Expires: 07/24/2024 [facility] Comment on above: Expected: 04/24/2024 (Approximate), Expi res: 07/24/2024 Start: 04-24-2024 End: 05-18-2025 CT Kidney WO and W contrast IV CT UROGRAM WO/W IVCON Radiology Routine Gross hematuria Expected: 04/24/2024 (Approximate), Expires: 05/18/2025 [facility] Comment on above: Expected: 04/24/2024 (Approximate), Expi res: 05/18/2025 Start: 04-17-2024 End: 04-17-2024 Patient encounter procedure 04/17/2024 11:00 AM EST Office Visit Urology [address] [place] [address] Bettina Bermudez PA-C [address] [place] [address] hematuria Urology Comment on above: hematuria Start: 04-06-2024 End: 04-06-2024 Patient encounter procedure 04/06/2024 2:00 PM EST Office Visit OB/Gynecology [address] [place] [address] Hilda Sun MD [address] [place] [address] Annual gynecology exam [facility]Gynecology Comment on above: Annual gynecology exam Start: 03-02-2024 HPV TESTING HPV TESTING [facility] Start: 03-02-2024 PAP TESTING PAP TESTING [facility] Start: 03-02-2024 Screening for malignant neoplasm of cervix [facility] Start: 10-24-2023 End: 10-24-2023 Patient encounter procedure 10/24/2023 7:30 AM EDT Appointment Mammogram [address] [place] [address] Mammogram Start: 10-17-2023 DIABETES SCREEN DIABETES SCREEN [facility] Start: 10-16-2023 Covid-19 Vaccine () Covid-19 Vaccine () [facility] Start: 10-16-2023 Covid-19 Vaccine () Covid-19 Vaccine () [facility] Start: 10-16-2023 Influenza vaccination [facility] Start: 10-03-2023 End: 10-03-2023 Patient encounter procedure 10/03/2023 7:30 AM EDT Appointment Mammogram [address] [place] [address] Encounter for screening mammogram for breast cancer [Z12.31] Mammogram Comment on above: Encounter for screening mammogram for br east cancer [Z12.31] Start: 10-01-2023 Mammography [facility] Start: 10-01-2023 Screening for malignant neoplasm of breast Mammogram Screening [facility] Start: 08-10-2023 End: 08-10-2023 Patient encounter procedure 08/10/2023 9:20 AM EDT Office Visit [facility] [address] [place] [address] Coleen Dunne, BUSINESS CONTINUITY MANAGER.[employer] [address] [place] [address] 4 wk f/u Family [facility] [place] Comment on above: 4 wk f/u Start: 07-13-2023 End: 07-13-2023 Patient encounter procedure 07/13/2023 10:00 AM EDT Office Visit Family [facility] [place] [address] [place] [address] Coleen Dunne, BUSHRA.[employer]AN[employer] SORTER [address] [place] [address] 4 wk f/u Family [facility] [place] Comment on above: 4 wk f/u Start: 06-16-2023 End: 06-16-2023 ambulatory PULM LAB [facility] Comment on above: Chronic cough [R05.3] Start: 05-14-2023 COVID-19 VACCINE (4 - Moderna series) COVID-19 VACCINE (4 - Moderna series) [facility] Comment on above: Postponed from 03/19/2021 (Declined at t his time) Start: 05-14-2023 HEPATITIS B (1 of 3 - 3-dose series) HEPATITIS B (1 of 3 - 3-dose series) [facility] Comment on above: Postponed from 1965 (Declined at t his time) Start: 05-14-2023 Hepatitis B Vaccine (1 of 3 - 19+ 3-dose series) Hepatitis B Vaccine (1 of 3 - 19+ 3-dose series) [facility] Comment on above: Postponed from 1984 (Declined at t his time) Start: 05-14-2023 Hepatitis B Vaccine (1 of 3 - 3-dose series) Hepatitis B Vaccine (1 of 3 - 3-dose series) [facility] Comment on above: Postponed from 1965 (Declined at t his time) Start: 02-14-2023 Behavioral Health Screening Behavioral Health Screening [facility] Start: 02-14-2023 Depression Assessment Depression Assessment [facility] Start: 12-27-2022 End: 12-26-2023 Radiologic exam chest 2 views XR CHEST 2V FRONTAL/LAT Radiology Routine Persistent cough for 3 weeks or longer Expected: 12/27/2022 (Approximate), Expires: 12/26/2023 [facility] Work Phone: Comment on above: Expected: 12/27/2022 (Approximate), Expi res: 12/26/2023 Start: 10-27-2022 Adult depression screening assessment DEPRESSION SCREENING [facility] Start: 10-15-2022 Covid-19 Vaccine ( season) Covid-19 Vaccine ( season) [facility] Start: 10-15-2022 Influenza vaccination [facility] Start: 09-28-2022 Mammography MAMMOGRAM [facility] Start: 08-13-2022 Influenza vaccination INFLUENZA (#1) [facility] Comment on above: Postponed from 10/15/2021 (Declined at t his time) Start: 04-12-2022 End: 06-12-2022 Comprehensive metabolic 2000 panel - Serum or Plasma [facility] Work Phone: Comment on above: Expected: 04/12/2022, Expires: Start: 02-14-2022 DEPRESSION ASSESSMENT DEPRESSION ASSESSMENT [facility] Start: 10-27-2021 End: 12-27-2021 25-hydroxyvitamin D3 [Mass/volume] in Serum or Plasma VITAMIN D 25 HYDROXY Lab Routine Vitamin D deficiency Expected: 10/27/2021, Expires: 12/27/2021 [facility] Work Phone: Comment on above: Expected: 10/27/2021, Expires: 2 Start: 10-27-2021 End: 10-27-2022 CBC W Auto Differential panel - Blood CBC + DIFF Lab Routine Well adult exam Expected: 10/27/2021, Expires: 10/27/2022 [facility] Work Phone: Comment on above: Expected: 10/27/2021, Expires: 3 Start: 10-27-2021 End: 10-27-2022 Comprehensive metabolic 2000 panel - Serum or Plasma COMP METABOLIC PANEL Lab Routine Well adult exam Expected: 10/27/2021, Expires: 10/27/2022 [facility] Work Phone: Comment on above: Expected: 10/27/2021, Expires: 3 Start: 10-27-2021 End: 10-27-2022 Lipid 1996 panel - Serum or Plasma LIPID PANEL BASIC Lab Routine Well adult exam Expected: 10/27/2021, Expires: 10/27/2022 [facility] Work Phone: Comment on above: Expected: 10/27/2021, Expires: 3 Start: 05-23-2021 COVID-19 VACCINE (4 - Booster for Moderna series) COVID-19 VACCINE (4 - Booster for Moderna series) [facility] Start: 03-19-2021 COVID-19 VACCINE (4 - Booster for Moderna series) COVID-19 VACCINE (4 - Booster for Moderna series) [facility] Start: 02-14-2021 DEPRESSION ASSESSMENT DEPRESSION ASSESSMENT [facility] Start: 09-04-2015 Pneumococcal Vaccine: 50+ (1 of 1 - PCV) Pneumococcal Vaccine: 50+ (1 of 1 - PCV) [facility] Start: 2010 COLOGUARD (FIT-DNA) COLOGUARD (FIT-DNA) [facility] Start: [address] COLONOGRAPHY [facility] Start: 2010 FECAL OCCULT BLOOD FECAL OCCULT BLOOD [facility] Start: 2010 Screening for malignant neoplasm of colon [facility] Start: 2010 SIGMOIDOSCOPY SIGMOIDOSCOPY [facility] Start: 1984 Hepatitis B Vaccine (1 of 3 - 19+ 3-dose series) Hepatitis B Vaccine (1 of 3 - 19+ 3-dose series) [facility] Start: 09-04-1983 Anxiety Screening Anxiety Screening [facility] Start: 09-04-1983 Depression Screening Depression Screening [facility] Start: 1965 HEPATITIS B (1 of 3 - 3-dose series) HEPATITIS B (1 of 3 - 3-dose series) [facility] Bacteria identified in Urine by Culture URINE CULTURE Microbiology Routine Urinary frequency Ordered: 01/29/2022 [facility] Work Phone: Comment on above: Ordered: 01/29/2022 Bacteria identified in Urine by Culture BACTERIAL CULTURE, URINE Microbiology Routine Hematuria, unspecified type 04/02/2024 3:50 PM EST [facility] Work Phone: Bacteria identified in Urine by Culture BACTERIAL CULTURE, URINE Microbiology Routine Gross hematuria 04/17/2024 11:34 AM EST [facility] BACTERIAL VAGINOSIS NAAT BACTERI AL VAGINOSIS NAAT Lab Routine Hematuria, unspecified type 04/02/2024 3:50 PM [facility] Brnschsc ords ebus dx/tx intervention perph les BRONCHOSCOPY,RIGID/FLEXI BLE,W/ FLUORO,W/TRANSENDOSCOPIC ENDOBRONCHIAL ULTRASOUND (EBUS) DURING BRONCHOSCOPIC DIAGNOSTIC/THERAPEUTIC INTERVENTION(S) PERIPHERAL LESION(S) Lymphadenopathy MR MOPS ELIDA/TRICHOMONAS NAAT ELIDA /TRICHOMONAS NAAT Lab Routine Hematuria, unspecified type 04/02/2024 3:50 PM EST [facility] COVID & INFLUENZA A/ B & RSV PCR, ROUTINE COVID & INFLUENZA A/B & RSV PCR, ROUTINE Microbiology Routine URI, acute 04/25/2024 10:18 AM EDT [facility] Work Phone: End: 07-14-2024 CT Chest W contrast IV CT CHEST W IVCON Radiology Routine Chronic cough 1 Occurrences starting 06/15/2023 until 07/14/2024 [facility] Work Phone: Comment on above: 1 Occurrences starting 06/15/2023 until 07/14/2024 CT Chest W contrast IV CT CHEST W IVCON Radiology Routine Lung nodules 05/08/2024 1:50 PM EDT [facility] Work Phone: CT Kidney WO and W contrast IV CT UROGRAM WO/W IVCON Radiology Routine Gross hematuria 04/26/2024 11:18 AM EDT [facility] Work Phone: 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 NON-GY N Lab Routine Gross hematuria 04/17/2024 11:34 AM EST [facility] End: 05-06-2025 DBT Breast - bilateral screening GENARO SCREENING W PAT Radiology Routine Encounter for screening mammogram for breast cancer 1 Occurrences starting 04/06/2024 until 05/06/2025 [facility] Work Phone: Comment on above: 1 Occurrences starting 04/06/2024 until 05/06/2025 End: 04-12-2023 ECG COMPLETE ECG COMPLETE ECG Routine Chest discomfort 1 Occurrences starting 04/12/2022 until 04/12/2023 [facility] Work Phone: Comment on above: 1 Occurrences starting 04/12/2022 until 04/12/2023 End: 05-30-2025 ECG COMPLETE ECG COMPLETE ECG STAT Preoperative examination 1 Occurrences starting 05/30/2024 until 05/30/2025 [facility] Work Phone: Comment on above: 1 Occurrences starting 05/30/2024 until 05/30/2025 End: 06-05-2025 ECG COMPLETE ECG COMPLETE ECG Routine Preoperative examination 1 Occurrences starting 06/05/2024 until 06/05/2025 [facility] Work Phone: Comment on above: 1 Occurrences starting 06/05/2024 until 06/05/2025 End: 04-12-2023 EXERCISE STRESS ECG (WITHOUT IMAGING) EXERCISE STRESS ECG (WITHOUT IMAGING) Cardiology Routine Chest discomfort 1 Occurrences starting 04/12/2022 until 04/12/2023 [facility] Work Phone: Comment on above: 1 Occurrences starting 04/12/2022 until 04/12/2023 End: 07-12-2024 LUNG DIFFUSION CAPACITY (DLCO) LUNG DIFFUSION CAPACITY (DLCO) PFT Routine Chronic cough 1 Occurrences starting 06/13/2023 until 07/12/2024 [facility] Comment on above: 1 Occurrences starting 06/13/2023 until 07/12/2024 End: 07-12-2024 LUNG VOLUMES LUNG VOLUMES PFT Routine Chronic cough 1 Occurrences starting 06/13/2023 until 07/12/2024 [facility] Comment on above: 1 Occurrences starting 06/13/2023 until 07/12/2024 End: 10-31-2023 GENARO DIAGNOSTIC RIGHT GENARO DIAGNOSTIC RIGHT Radiology Routine Abnormal mammogram 1 Occurrences starting 10/01/2022 until 10/31/2023 [facility] Work Phone: Comment on above: 1 Occurrences starting 10/01/2022 until 10/31/2023 End: 12-10-2022 GENARO SCREENING W PAT GENARO SCREENING W PAT Radiology Routine Encounter for screening mammogram for malignant neoplasm of breast 1 Occurrences starting 11/10/2021 until 12/10/2022 [facility] Work Phone: Comment on above: 1 Occurrences starting 11/10/2021 until 12/10/2022 End: 05-06-2025 MG Breast - left Diagnostic for implant GENARO DIAGNOSTIC LEFT Radiology Routine Mass of upper inner quadrant of left breast 1 Occurrences starting 04/06/2024 until 05/06/2025 [facility] [facility] Comment on above: 1 Occurrences starting 04/06/2024 until 05/06/2025 PAP TEST PAP TEST Lab [facility] Screening for cervical cancer Screening for HPV (human papillomavirus) 04/02/2024 3:50 PM EST [facility] End: 11-26-2022 Radex spine cervical 4 or 5 views XR CERV OTHER 4V AP/LAT/OBL Radiology Routine Neck discomfort 1 Occurrences starting 10/27/2021 until 11/26/2022 [facility] Work Phone: Comment on above: 1 Occurrences starting 10/27/2021 until 11/26/2022 End: 11-26-2022 Radex spine thoracic 3 views XR THORACIC GENERAL 3V AP/LAT/SWIMMERS Radiology Routine Discomfort of back 1 Occurrences starting 10/27/2021 until 11/26/2022 [facility] Work Phone: Comment on above: 1 Occurrences starting 10/27/2021 until 11/26/2022 End: 05-12-2023 Radiologic exam chest 2 views XR CHEST 2V FRONTAL/LAT Radiology Routine Cough, unspecified type 1 Occurrences starting 04/12/2022 until 05/12/2023 [facility] Work Phone: Comment on above: 1 Occurrences starting 04/12/2022 until 05/12/2023 Radiologic exam ches t 2 views XR CHEST 2V FRONTAL/LAT Radiology Routine Cough, unspecified type 04/12/2022 2:27 PM EST [facility] Work Phone: End: 05-13-2023 Radiologic exam chest 2 views XR CHEST 2V FRONTAL/LAT Radiology Routine Abnormal x-ray 1 Occurrences starting 04/13/2022 until 05/13/2023 [facility] Work Phone: Comment on above: 1 Occurrences starting 04/13/2022 until 05/13/2023 End: 07-12-2024 SPIROMETRY WITH DILATOR IF OBSTRUCTED SPIROMETRY WITH DILATOR IF OBSTRUCTED PFT Routine Chronic cough 1 Occurrences starting 06/13/2023 until 07/12/2024 [facility] Work Phone: Comment on above: 1 Occurrences starting 06/13/2023 until 07/12/2024 End: 05-06-2025 US Breast - left limited US BREAST LTD LEFT Radiology Routine Mass of upper inner quadrant of left breast 1 Occurrences starting 04/06/2024 until 05/06/2025 [facility] Work Phone: Comment on above: 1 Occurrences starting 04/06/2024 until 05/06/2025 End: 10-31-2023 US BREAST LTD RIGHT US BREAST LTD RIGHT Radiology Routine Abnormal mammogram 1 Occurrences starting 10/01/2022 until 10/31/2023 [facility] Work Phone: Comment on above: 1 Occurrences starting 10/01/2022 until 10/31/2023 End: 07-12-2024 XR Chest PA and Lateral XR CHEST 2V FRONTAL/LAT Radiology Routine Chronic cough 1 Occurrences starting 06/13/2023 until 07/12/2024 [facility] Comment on above: 1 Occurrences starting 06/13/2023 until 07/12/2024 XR Chest PA and Lateral XR CHEST 2V FRONTAL/LAT Radiology Routine Chronic cough 06/13/2023 6:47 PM EDT [facility] Immunizations Immunization Date Immunization Notes Care Provider Fa cility 10-16-2020 tetanus and diphther ia toxoids, adsorbed, preservative free, for adult use (5 Lf of tetanus toxoid and 2 Lf of diphtheria toxoid) Shlomo Miller MD Work Phone: [facility] 10-25-2018 zoster vaccine recombinant Shlomo Miller MD Work Phone: [facility] Work Phone: 08-11-2018 zoster vaccine recombinant Shlomo Miller MD Work Phone: [facility] Work Phone: 03-16-2017 influenza virus vaccine, unspecified formulation Shlomo Miller MD Work Phone: [facility] 10-23-2010 hepatitis A vaccine, unspecified formulation Shlomo Miller MD Work Phone: [facility] Work Phone: 11-10-2009 influenza virus vaccine, unspecified formulation Shlomo Miller MD Work Phone: [facility] Work Phone: 10-28-2009 hepatitis A vaccine, unspecified formulation Shlomo Miller MD Work Phone: [facility] 10-28-2009 measles, mumps and rubella virus vaccine Shlomo Miller MD Work Phone: [facility] 10-28-2009 poliovirus vaccine, inactivated Shlomo Miller MD Work Phone: [facility] 08-08-2008 tetanus toxoid, redu marsha diphtheria toxoid, and acellular pertussis vaccine, adsorbed Shlomo Miller MD Work Phone: [facility] Work Phone: [birth year]1966 diphtheria, tetanus toxoids and pertussis vaccine Shlomo Miller MD Work Phone: [facility] 09-07-1966 measles virus vaccine Teto Miller MD Work Phone: [facility] 07-24-1966 poliovirus vaccine, inactivated Shlomo Miller MD Work Phone: [facility] 05-08-1966 poliovirus vaccine, inactivated Shlomo Miller MD Work Phone: [facility] 01-30-1966 diphtheria, tetanus toxoids and pertussis vaccine Shlomo Miller MD Work Phone: [facility] 01-02-1966 diphtheria, tetanus toxoids and pertussis vaccine Shlomo Miller MD Work Phone: [facility] 1965 diphtheria, tetanus toxoids and pertussis vaccine Shlomo Miller MD Work Phone: [facility] Payers Date Payer Category Payer Self-pay 2020 [place] Health [place] [employer] [id number] 2020 Unknown [facility] NAYELI SELF FUNDED [id number] 2020-Present [phone] [place] [id number] PPO [id number] 2020 Unknown [id number] 2005 Unknown [employer] PPO [id number] Unknown [id number] Unknown [id number] Unknown [id number] Social History Date Type Detail Facility Start: 07-08-2010 End: 06-04-2024 Tobacco smoking status NHIS Never smoked tobacco [facility] Work Phone: Start: 07-08-2010 End: 06-04-2024 Tobacco use and exposure Smokeless tobacco non-user [facility] Work Phone: Start: 10-27-2021 End: 04-25-2024 Alcohol intake Current drinker of alcohol (finding) [facility] Start: 10-20-2021 End: 04-05-2022 History SDOH Alcohol Frequency 2 [facility] Start: 10-20-2021 End: 04-05-2022 History SDOH Alcohol Std Drinks 1 [facility] Start: 10-20-2021 End: 04-05-2022 History SDOH Social Connections Phone 3 [facility] Start: 10-20-2021 History SDOH Physical Activity MPS 6 [facility] Start: 10-20-2021 End: 04-05-2022 History SDOH Financial 5 [facility] Start: 10-09-2020 Education 16 [facility] Start: 1965 Sex Assigned At Female [facility] Start: 10-17-2021 End: 11-11-2021 Exposure to SARS-CoV-2 (event) Not sure [facility] Start: 04-05-2022 History SDOH Alcohol Std Drinks 0 [facility] Start: 04-05-2022 End: 04-06-2024 History of Social function [facility] Start: 04-05-2022 End: 04-06-2024 Social connection and isolation panel [facility] Do you belong to any clubs or organizations such as baptist groups, unions, fraternal or athletic groups, or school groups? No [facility] Are you now , , , , never or living with a partner? [facility] How often to you hav e a drink containing alcohol? Never [facility] How many standard dr inks containing alcohol do you have on a typical day? Patient does not drink [facility] Do you feel stress - tense, restless, nervous, or anxious, or unable to sleep at night because your mind is troubled all the time - these days [OSQ] To some extent [facility] (I/We) worried wheravi er (my/our) food would run out before (I/we) got money to buy more. Never true [facility] Start: 07-14-2018 Gender identity Identifies as female gender (finding) [facility] Start: 07-14-2018 Sexual orientation Heterosexual (finding) [facility] Do you feel stress - tense, restless, nervous, or anxious, or unable to sleep at night because your mind is troubled all the time - these days [OSQ] Not at all [facility] if ever smoked [facility] Work Phone: Start: 05-11-2024 Sex Female (finding) [facility] History of tobacco use Passive smoker [facility] Start: 06-04-2024 End: 07-23-2024 Alcoholic beverage intake Ex-drinker (finding) [place] [facility] Functional Status Date Assessment Result Facility 11-22-2013 Are you deaf, or do you have serious difficulty hearing No 11/22/2013 8:47 AM Toya Kim, MARIAH No [facility] 11-22-2013 Are you blind, or do you have serious difficulty seeing, even when wearing glasses No 11/22/2013 8:47 AM Toya Kim, MARIAH No [facility] 11-22-2013 Do you have serious difficulty walking or climbing stairs No 11/22/2013 8:47 AM Toya Kim, MARIAH No [facility] 11-22-2013 Do you have difficul ty dressing or bathing No 11/22/2013 8:47 AM Toya Kim, MARIAH No [facility] 11-22-2013 Because of a physica l, mental, or emotional condition, do you have difficulty doing errands alone such as visiting a physician's office or shopping No 11/22/2013 8:47 AM Toya Kim, MARIAH No [facility] Mental Status Date Assessment Result Facility 11-22-2013 Because of a physica l, mental, or emotional condition, do you have serious difficulty concentrating, remembering, or making decisions No 11/22/2013 8:47 AM EDT Toya Rivera RN No [facility] Clinical Notes 02-28-2012 to 07-30-2024 Telephone Encounter - Merly Schmitz LPN - 07/30/2024 1:15 PM EDTTelephone Encounter - Merly Schmitz LPN - 07/30/2024 1:15 PM EDMadeleine Landis MD - 07/23/2024 8:00 AM EDT Note Date & Type Note Facility 07-30-2024 Telephone encounter Note See separate bead Buttonhart message. Merly Schmitz LPN [facility] 07-30-2024 Miscellaneous Notes See separate bead [employer] message. Merly Schmitz LPN documented in this encounter [facility] 07-30-2024 Telephone encounter Note See message from patient re: pentamidine tx. She is also needing a refill on prednisone- currently at 40mg per day, pending taper. Merly Schmitz LPN [facility] 07-30-2024 Miscellaneous Notes See message from patient re: pentamidine tx. She is also needing a refill on prednisone- currently at 40mg per day, pending taper. Merly Schmitz LPN documented in this encounter [facility] 07-23-2024 Telephone encounter Note Order coded and faxed. Merly Schmitz LPN [facility] 07-23-2024 Miscellaneous Notes Order coded and faxed. Merly Schmitz LPN Addended by: MADELEINE MILLAN on: 07/23/2024 04:13 PM Modules accepted: Orders [facility] phones to report order for pentamidine is missing diagnosis. Order needs Dx code and or DX. Gertrude Feldman MA Spoke with patient. She will hold dose until her ABG results are available. Merly Schmitz LPN Patient calling in wondering if she should take the Dapsone prior to getting the ABG at [facility]? She is on her way now. Vaishali Davis LPN documented in this encounter [facility] 07-23-2024 Note Addended by: MADELEINE MILLAN on: 07/23/2024 04:13 PM Modules accepted: Orders [facility] 07-23-2024 Telephone encounter Note [facility] phones to report order for pentamidine is missing diagnosis. Order needs Dx code and or DX. Gertrude Feldman MA [facility] 07-23-2024 Note Addended by: MADELEINE MILLAN on: 07/23/2024 12:40 PM Modules accepted: Orders [facility] 07-23-2024 Miscellaneous Notes Addended by: MADELEINE MILLAN on: 07/23/2024 12:40 PM Modules accepted: Orders documented in this encounter [facility] 07-23-2024 Telephone encounter Note Spoke with patient. She will hold dose until her ABG results are available. Merly Schmitz LPN [facility] 07-23-2024 Telephone encounter Note Patient calling in wondering if she should take the Dapsone prior to getting the ABG at [facility]? She is on her way now. Vaishali Davis LPN [facility] 07-23-2024 History of Present illness Narrative Images from the original note were not included. . [facility] [place] Note Patient name: Dixie Miller PCP: Shlomo Miller MD CC: Follow up bronchoscopy and steroids Recording using Enval software for draft documentation of the visit was discussed with the patient/authorized it sales representative; all questions welcomed and answered. Patient/authorized it sales representative agreed to proceed HPI: Dixie Miller 58 year old female never smoker with PMH significant for eczema, chronic cough for 2 years recently seen in lung nodule clinic for abnormal CT chest, new to me. CT showed multiple nodules, largest 1.2 cm groundglass and enlarged precarinal and hilar lymph nodes. Cough originally started in 2022 starting out as a typical URI and then developed persistent nonproductive cough, abnormal chest x-ray, treated with doxycycline for pneumonia. Initially cough was severe with coughing jags, occurred mainly at night and when lying supine. No GERD symptoms. She had improvement but not complete resolution of her cough. She was treated again with antibiotics, chest x-ray showing increased reticular markings. She had COVID infection in March of last year which resulted in worsening of her cough. Pulmonary function test showed some obstruction with improvement postbronchodilator so she was started on Advair at that time. No improvement in her cough with inhaled therapy nor empiric treatment for possible GERD. Chest CT ordered due to her persistent cough with findings as above. Initial evaluation in the lung nodule clinic concerning for possible sarcoidosis. She underwent a bronchoscopy with transbronchial biopsy which did not show granulomas but did show chronic inflammation. Cultures negative. BAL with 26% lymphocytes. No FCM. Procedure note states the multiple lymph nodes were evaluated but I could not find any pathology report report in the EMR. Started on steroids for possible organizing pneumonia. Unfortunately she has a sulfa allergy so unable to use Bactrim for PJP prophylaxis. She is currently on dapsone. No other respiratory symptoms including wheezing, chest pain, chest pressure, shortness of breath. DATA: PFT 2023: Labs: Calcium normal in 2022 Bronchoscopy: Component Ref Range & Units 1 mo ago Diff Total, BAL cells counted 100 Neut%, BAL % 4 Lymph%, BAL % 26 [place]%, BAL % 5 Macro%, BAL % 64 Eosin%, BAL % 1 BAL Pathologist Interpretation Lymphocytes, monocytes, macrophages, and mesothelial cells with non-specific reactive change. Component FINAL DIAGNOSIS A - Lung, Left Upper Lobe, Transbronchial, [place] - Transbronchial BLADIMIR--lingula - Negative for malignant cells. B - Bronchoalveolar Lavage - right middle lobe BAL - Negative for malignant cells. FINAL DIAGNOSIS A. Lung, left upper lobe, lingula, transbronchial biopsy: - Fragments of lung parenchyma with a minute focus of organizing pneumonia and focal, mild, non-specific chronic inflammation (see comment). at 2011 EDT Diagnosis Comment CCM A. No neoplasm or granulomas are seen. Immunohistochemical stains show that CAM5.2 highlights benign pneumocytes and mesothelial cells while TTF-1 highlights benign pneumocytes. There is no significant positivity for p40 and Ki-67 does not highlight any areas of increased proliferation. These findings are consistent with the above diagnosis. Select slides were also reviewed by Dr. Iglesia Weiss, Thoracic pathologist, who agrees with the diagnosis. Imaging / Diagnostic Studies: DATE OF EXAM: May 08 2024 1:50PM [facility] 0539 - CT CHEST W IVCON / CLINICAL HISTORY: Lung nodules RESULT: Limitations: None. Lines, tubes, and devices: None. Lung parenchyma and airways: There are innumerable bilateral pulmonary nodules, predominantly along bronchovascular bundles and the pleural surface. For example: *8 mm nodule right upper lobe (7:45) *8 mm nodule right lower lobe (7:99) *12 mm nodule left upper lobe (7:43) *8 mm nodule left lower lobe (7:85) No consolidation. Right middle lobe atelectasis. Narrowing of bronchi to the right upper, middle and lower lobes due to hilar lymphadenopathy. Pleural space: No pleural effusion. No pleural thickening. Lower neck, lymph nodes, and mediastinum: The imaged thyroid gland is normal. Enlarged mediastinal and bilateral hilar lymph nodes. For example: *1.4 cm precarinal lymph node (5:65) *1.2 cm right hilar lymph node (5:76) *1 cm left hilar lymph node (5:68) Heart, pericardium, and thoracic vessels: The thoracic aorta and main pulmonary artery are normal in caliber. The cardiac chambers are normal in size. No coronary artery atherosclerotic calcifications are noted, although the study is not optimized for coronary assessment. No pericardial effusion or thickening. Bones and soft tissues: No destructive bone lesion. Chest wall is unremarkable. Upper abdomen: Small hiatal hernia. No acute abnormality in the imaged upper abdomen. Localizer images: No additional findings. IMPRESSION: 1. Bilateral pulmonary nodules which may be infectious/inflammatory or neoplastic 2. Mediastinal and bilateral hilar lymphadenopathy I personally reviewed the images as well as with the patient which shows lateral pulmonary nodularity mainly distributed along bronchial vascular bundles and slightly enlarged mediastinal and hilar adenopathy. DATE OF EXAM: May 08 2024 2:55PM [facility] 0727 - MRI LIVER WO/W IVCON / IMPRESSION: 1. MULTIPLE HEPATIC CYSTS. NO LESIONS ARE VISUALIZED TO CORRESPOND TO THE HYPODENSITY SEEN IN SEGMENT II AND SEGMENT Yannick ON THE PRIOR CT. 2. BORDERLINE ENLARGED PERIAORTIC LYMPH NODES PAST MEDICAL HISTORY Diagnosis Date Atopic eczema Dr. Saravanan James DSC Basal cell carcinoma Remvoed from forehead and left side of nose. Bladder incontinence Bettina Bermudez PA-C Chicken pox 03/31/1966 as a child-lasted [address] Pritchard Lung nodules PT states she has [address] Pritchard Lymphadenopathy Around lung region: Dr. Pritchard to do EBUS 06/12/24 Motion sickness Mumps [id number] as a child ALLERGIES Allergen Reactions Demerol [Meperidine* Other: See Comments Very bad reaction-Possible Low BP Hydroquinone Rash Methylchloroisothia* Rash Methylisothiazolino* Rash Penicillin G Propylene Glycol Rash Sulfa (Sulfonamide * dapsone 100 mg tablet Take 1 tablet by mouth once daily. predniSONE (DELTASONE) 20 mg tablet Take 2 tablets by mouth once daily. Cholecalciferol, Vitamin D3, 50 mcg (2,000 unit) cap Take by mouth. Last dose 05/14/24 for OR 06/12/24 MULTIVITAMIN TAB Take by mouth. Last dose 05/14/24 for OR 06/12/24 nitrofurantoin monohydrate and macrocrystal (MACROBID) 100 mg capsule Take one tablet PO after intercourse (Patient taking differently: Take 100 mg by mouth as needed. Take one tablet PO after intercourse) ascorbic acid (VITAMIN C ORAL) Take by mouth. Last dose 05/14/24 for OR 06/12/24 clobetasol (TEMOVATE) 0.05 % ointment Apply 1 application to affected area twice daily. For two weeks then use once per week . Social History Tobacco Use Smoking status: Never Passive exposure: Past Smokeless tobacco: Never Vaping Use Vaping status: Never Used Substance Use Topics Alcohol use: Not Currently Drug use: No FAMILY HISTORY Problem Relation Age of Onset Breast Cancer Mother age 60's-triple negative Hypertension Father Under control Diabetes Paternal Grandmother Diabetes Paternal Uncle Colon Cancer Other none PAST SURGICAL HISTORY Procedure Laterality Date COLONOSCOPY FLX DX W/COLLJ SPEC WHEN PFRMD 12/23/2016 Colonoscopy PAST SURGICAL HISTORY OF basil cell removal forehead and left side of nose PAST SURGICAL HISTORY OF PMH, Social history, family history and surgical history reviewed and updated in EMR REVIEW OF SYSTEMS: Constitutional: (-) fever, (-) weight loss Eyes: (-) visual changes Ears/Nose/Mouth/Throat: (+) throat pruritus Cardiovascular: (-) chest pressure, (-) edema Respiratory: (+) cough, (-) sputum production, (-) shortness of breath, (-) wheezing Genitourinary: (+) discolored urine Musculoskeletal: (-) arthralgia Skin: (-) rash, (-) pruritus Neurological: (-) lightheadedness PHYSICAL EXAMINATION: BP 128/80 Pulse 74 Resp 14 Wt 162 lb (73.5kg) SpO2 90% LMP 11/26/2014 Saturation initially 86% then running between 89-90% General Appearance: Age appropriate, NAD Skin: Skin color, texture, turgor normal, no suspicious rashes or lesions. Head: Normocephalic, no masses, lesions, tenderness or abnormalities. Eyes: Sclera conjunctiva normal. Oropharynx: no oral lesions or thrush. Neck: No masses or adenopathy. Lungs: Not labored, normal to percussion, no wheezes or crackles. Heart: RRR, no murmur. Extremities: No edema or clubbing or cyanosis. Assessment/Plan: Lung nodules -Clinical history and radiographic findings most consistent with sarcoidosis -For completeness sake, ordered fungal serologies, urine histo and blasto antigen, JOSE ROBERTO level and interleukin-2 receptor Lymphadenopathy -See #1 Methemaglobinemia - Borderline low oximetry most concerning for possible methemoglobinemia related to dapsone usage. ABG to confirm. If confirmation of increased methemoglobin, will need to stop dapsone and would need to use nebulized pentamadine for PJP prophylaxis Madeleine Millan MD [facility] [place] documented in this encounter [facility] 07-23-2024 Note HNO ID: [id number] Author: MADELEINE MILLAN MD Service: ? Author Type: Physician Type: Progress Notes Filed: 07/23/2024 10:15 Note Text: . [facility] [place] Note Patient name: Dixie Miller PCP: Shlmoo Miller MD CC: Follow up bronchoscopy and steroids Recording using ambient [employer] software for draft documentation of the visit was discussed with the patient/authorized it sales representative; all questions welcomed and answered. Patient/authorized it sales representative agreed to proceed HPI: Dixie Miller 58 year old female never smoker with PMH significant for eczema, chronic cough for 2 years recently seen in lung nodule clinic [place] chest[place] showed multiple nodules, largest 1.2 cm groundglass and enlarged precarinal and hilar lymph nodes. Cough originally started in 2022 starting out as a typical URI and then developed persistent nonproductive cough, abnormal chest x-ray, treated with doxycycline for pneumonia. Initially cough was severe with coughing jags, occurred mainly at night and when lying supine. No GERD symptoms. She had improvement but not complete resolution of her cough. She was treated again with antibiotics, chest x-ray showing increased reticular markings. She had COVID infection in March of last year which resulted in worsening of her cough. Pulmonary function test showed some obstruction with improvement postbronchodilator so she was started on Advair at that time. No improvement in her cough with inhaled therapy nor empiric treatment for possible GERD. Chest CT ordered due to her persistent cough with findings as above. Initial evaluation in the lung nodule clinic concerning for possible sarcoidosis. She underwent a bronchoscopy with transbronchial biopsy which did not show granulomas but did show chronic inflammation. Cultures negative. BAL with 26% lymphocytes. No FCM. Procedure note states the multiple lymph nodes were evaluated but I could not find any pathology report report in the EMR. Started on steroids for possible organizing pneumonia. Unfortunately she has a sulfa allergy so unable to use Bactrim for PJP prophylaxis. She is currently on dapsone. No other respiratory symptoms including wheezing, chest pain, chest pressure, shortness of breath. DATA: PFT 2023: Labs: Calcium normal in 2022 Bronchoscopy: Component Ref Range AND Units 1 mo ago Diff Total, BAL cells counted 100 Neut%, BAL % 4 Lymph%, BAL % 26 [place]%, BAL % 5 Macro%, BAL % 64 Eosin%, BAL % 1 BAL Pathologist Interpretation Lymphocytes, monocytes, macrophages, and mesothelial cells with non-specific reactive change. Component FINAL DIAGNOSIS A - Lung, Left Upper Lobe, Transbronchial, [place] - Transbronchial BLADIMIR--lingula - Negative for malignant cells. B - Bronchoalveolar Lavage - right middle lobe BAL - Negative for malignant cells. FINAL DIAGNOSIS A. Lung, left upper lobe, lingula, transbronchial biopsy: - Fragments of lung parenchyma with a minute focus of organizing pneumonia and focal, mild, non-specific chronic inflammation (see comment). at 2011 EDT Diagnosis Comment CCM A. No neoplasm or granulomas are seen. Immunohistochemical stains show that CAM5.2 highlights benign pneumocytes and mesothelial cells while TTF-1 highlights benign pneumocytes. There is no significant positivity for p40 and Ki-67 does not highlight any areas of increased proliferation. These findings are consistent with the above diagnosis. Select slides were also reviewed by Dr. Iglesia Weiss, Thoracic pathologist, who agrees with the diagnosis. Imaging / Diagnostic Studies: DATE OF EXAM: May 08 2024 1:50PM [facility] 0539 - CT CHEST W IVCON / CLINICAL HISTORY: Lung nodules RESULT: Limitations: None. Lines, tubes, and devices: None. Lung parenchyma and airways: There are innumerable bilateral pulmonary nodules, predominantly along bronchovascular bundles and the pleural surface. For example: *8 mm nodule right upper lobe (7:45) *8 mm nodule right lower lobe (7:99) *12 mm nodule left upper lobe (7:43) *8 mm nodule left lower lobe (7:85) No consolidation. Right middle lobe atelectasis. Narrowing of bronchi to the right upper, middle and lower lobes due to hilar lymphadenopathy. Pleural space: No pleural effusion. No pleural thickening. Lower neck, lymph nodes, and mediastinum: The imaged thyroid gland is normal. Enlarged mediastinal and bilateral hilar lymph nodes. For example: *1.4 cm precarinal lymph node (5:65) *1.2 cm right hilar lymph node (5:76) *1 cm left hilar lymph node (5:68) Heart, pericardium, and thoracic vessels: The thoracic aorta and main pulmonary artery are normal in caliber. The cardiac chambers are normal in size. No coronary artery atherosclerotic calcifications are noted, although the study is not opti (more content not included)... [facility] 07-17-2024 Note HNO ID: [id number] Author: JEN PALACIOS, PT Service: ? Author Type: Physical Therapist Type: Progress Notes Filed: 07/17/2024 09:59 Note Text: Episode Visit Count: 3 Therapist That Will Accept/Oversee The Plan Of Care: Jen Everett Start of Care Date: 05/15/24 Onset Date: 04/25/22 Patient Identified by Name and Date of : Yes REHABILITATION AND SPORTS THERAPY PHYSICAL THERAPY DISCONTINUANCE OF CARE PLAN OF CARE UPDATE: Assessment: Dixie Miller is discontinued from Physical Therapy services due to goal achievement and maximal benefit.. Patient was seen for 3 visits from Start of Care Date: 05/15/24 to 07/17/2024 and treatment included: Therapeutic exercise and Self-correction management. Goals for Episode of Care: established 05/15/24 Updated on: 06/19/24, 07/17/24 Patient demonstrates independence and compliance with home exercise program.-MET Patient reports at least 85% improvement in bladder leaks while coughing compared to evaluation in order to increase bladder function in activities of daily living. -MET Patient reports increased ability to fully empty bladder at least 85% of the time to normalize bladder function.-MET Patient Goals: improve bladder function SUBJECTIVE: Pt reports knack technique with activation of TA has been helpful but still gets intermittent squirts when cough comes on suddenly without warning. Pt reports when she can anticipate a cough and perform knack, she's able to control bladder. Pt denies any other bladder concerns, denies bowel or pain concerns. Pt reports good compliance with HEP, feels comfortable continuing on her own at home. Pain: Pain Pain Level: 0 Post Treatment Pain Post Treatment Pain Level: 0 PROMIS Scales 07/11/2024 06/17/2024 05/08/2024 Higher is Better Self-Eff Symptom - T Score 39 (Low) Incomplete 41 (Average) Self-Eff Symptom - Percentile 14 18 07/11/2024 06/17/2024 05/08/2024 Lower is Better Pain Interference - T Score 40 (within normal limits) 40 (within normal limits) 40 (within normal limits) Pain Interference - Percentile 84 84 84 T-scores: mean of general population = 50. 5 points is clinically meaningfully difference Percentiles provide an indication of how the patient's score ranks in relation to the general population. Higher percentile rankings indicate better function/quality of life. 50th percentile is the average of the general population and indicates half of respondents had a worse score. OBJECTIVE MEASURES WITH LEVEL OF FUNCTION: Pelvic Floor Pain with penetration: No Incomplete emptying: No Stress Incontinence: Cough (intermittent with sudden onset) Urgency: No Daytime Frequency (hours): 2-3 Difficulty evacuating / Excessive Straining: No Incomplete emptying: No TREATMENT: Therapeutic Exercise: 1: Reassessment 2: Practiced timed quick flicks with increasing speeds to practice quick flick reaction to sudden cough 3: Given L2 TB to progress standing hip exercises 4: Discussed discharge planning Skilled Intervention: Patient was educated in proper exercise technique and purpose for exercises. Billing Therapeutic Exercise Treatment Minutes: 26 Skilled Treatment Time Minutes (timed and untimed codes): 26 Total Session Time (minutes): Session Start Time : 929 Session Stop Time : 955 Jen Everett, PT [facility] 07-17-2024 History of Present illness Narrative Episode Visit Count: 3 Therapist That Will Accept/Oversee The Plan Of Care: Jen Everett Start of Care Date: 05/15/24 Onset Date: 04/25/22 Patient Identified by Name and Date of : Yes REHABILITATION AND SPORTS THERAPY PHYSICAL THERAPY DISCONTINUANCE OF CARE PLAN OF CARE UPDATE: Assessment: Dixie Miller is discontinued from Physical Therapy services due to goal achievement and maximal benefit.. Patient was seen for 3 visits from Start of Care Date: 05/15/24 to 07/17/2024 and treatment included: Therapeutic exercise and Self-correction management. Goals for Episode of Care: established 05/15/24 Updated on: 06/19/24, 07/17/24 Patient demonstrates independence and compliance with home exercise program.-MET Patient reports at least 85% improvement in bladder leaks while coughing compared to evaluation in order to increase bladder function in activities of daily living. -MET Patient reports increased ability to fully empty bladder at least 85% of the time to normalize bladder function.-MET Patient Goals: improve bladder function SUBJECTIVE: Pt reports knack technique with activation of TA has been helpful but still gets intermittent squirts when cough comes on suddenly without warning. Pt reports when she can anticipate a cough and perform knack, she's able to control bladder. Pt denies any other bladder concerns, denies bowel or pain concerns. Pt reports good compliance with HEP, feels comfortable continuing on her own at home. Pain: Pain Pain Level: 0 Post Treatment Pain Post Treatment Pain Level: 0 PROMIS Scales 07/11/2024 06/17/2024 05/08/2024 Higher is Better Self-Eff Symptom - T Score 39 (Low) Incomplete 41 (Average) Self-Eff Symptom - Percentile 14 18 07/11/2024 06/17/2024 05/08/2024 Lower is Better Pain Interference - T Score 40 (within normal limits) 40 (within normal limits) 40 (within normal limits) Pain Interference - Percentile 84 84 84 T-scores: mean of general population = 50. 5 points is clinically meaningfully difference Percentiles provide an indication of how the patient's score ranks in relation to the general population. Higher percentile rankings indicate better function/quality of life. 50th percentile is the average of the general population and indicates half of respondents had a worse score. OBJECTIVE MEASURES WITH LEVEL OF FUNCTION: Pelvic Floor Pain with penetration: No Incomplete emptying: No Stress Incontinence: Cough (intermittent with sudden onset) Urgency: No Daytime Frequency (hours): 2-3 Difficulty evacuating / Excessive Straining: No Incomplete emptying: No TREATMENT: Therapeutic Exercise: 1: Reassessment 2: Practiced timed quick flicks with increasing speeds to practice quick flick reaction to sudden cough 3: Given L2 TB to progress standing hip exercises 4: Discussed discharge planning Skilled Intervention: Patient was educated in proper exercise technique and purpose for exercises. Billing Therapeutic Exercise Treatment Minutes: 26 Skilled Treatment Time Minutes (timed and untimed codes): 26 Total Session Time (minutes): Session Start Time : 929 Session Stop Time : 955 Jen Everett PT documented in this encounter [facility] 06-19-2024 Note HNO ID: [id number] Author: JEN PALACIOS PT Service: ? Author Type: Physical Therapist Type: Progress Notes Filed: 06/19/2024 10:07 Note Text: Episode Visit Count: 2 Therapist That Will Accept/Oversee The Plan Of Care: Jen Everett Start of Care Date: 05/15/24 Onset Date: 04/25/22 Patient Identified by Name and Date of : Yes REHABILITATION AND SPORTS THERAPY PHYSICAL THERAPY PROGRESS REPORT PLAN OF CARE UPDATE: Assessment: Dixie Miller demonstrates improvements in ability to empty bladder. The patient has progressed toward goals. Patient continues to present with impairments in CINDY with coughing. The patient will benefit from continued skilled therapy services to meet the updated goals for this plan of care as noted below. Goals for Episode of Care: established 05/15/24 Updated on: 06/19/24 Patient demonstrates independence and compliance with home exercise program.-PROGRESSING Patient reports at least 85% improvement in bladder leaks while coughing compared to evaluation in order to increase bladder function in activities of daily living. -NOT MET Patient reports increased ability to fully empty bladder at least 85% of the time to normalize bladder function.-MET Patient Goals: improve bladder function Planned Interventions, Frequency, and Duration: 1x/month, 4 weeks (reassess at 4 weeks and progress as indicated) Total Number of Visits Planned: 1 Patient to be seen for Therapeutic exercise (58060), Neuromuscular re-education (31788), Manual therapy (12438), Therapeutic activities (34668), Self-correction management (98821), Patient/Family/Caregiver Education PLAN FOR NEXT VISIT: recheck in 1 month SUBJECTIVE: Pt reports continued chronic cough, had a bronchoscopy procedure done and is waiting for results. Pt reports no change in CINDY, fair compliance with HEP. Pt reports when she remembers to do knack technique, she's able to control bladder but does not always perform knack. Pain: Pain Pain Level: 0 Post Treatment Pain Post Treatment Pain Level: 0 PROMIS Scales 06/17/2024 05/08/2024 04/26/2023 Higher is Better Phys Func - T Score 62 (within normal limits) Phys Func - Percentile 88 Self-Eff Symptom - T Score Incomplete 41 (Average) 49 (Average) Self-Eff Symptom - Percentile 18 46 06/17/2024 05/08/2024 11/18/2021 Lower is Better Pain Interference - T Score 40 (within normal limits) 40 (within normal limits) Incomplete Pain Interference - Percentile 84 84 T-scores: mean of general population = 50. 5 points is clinically meaningfully difference Percentiles provide an indication of how the patient's score ranks in relation to the general population. Higher percentile rankings indicate better function/quality of life. 50th percentile is the average of the general population and indicates half of respondents had a worse score. OBJECTIVE MEASURES WITH LEVEL OF FUNCTION: Pelvic Floor Incomplete emptying: No Stress Incontinence: Cough Pelvic Floor Muscle Assessment Consent for pelvic assessment/testing and treatment: Patient was educated regarding pelvic floor physical therapy assessment/treatment which may include pelvic floor and girdle muscle assessment externally or internally (vaginal or rectal approach)., Patient verbalized consent for the above treatment approaches today. Patient understands they have control of the treatment and an opportunity to stop treatment at any time. Pelvic Floor Muscle Assessment: PERFECT, Muscle Dynamics (standing position) Power: 4 Contracton Pressure: Strong squeeze, full circumference of fingers compressed Upon standing, patient unable to maintain good PFM contraction while coughing. Improved coordination when TA activated first followed by PFM. TREATMENT: Therapeutic Exercise: 1: Reassessment 2: standing hip abduction with TA and PF bracing, L1 TB around ankles, 1x10 each 3: standing hip extension with TA and PF bracing, L1 TB around ankles, 1x10 each 4: Discussed bracing TA first followed by PFM functionally while coughing to better coordinate knack Skilled Intervention: Patient was educated in proper exercise technique and purpose for exercises. Skilled judgment was used in selection of appropriate interventions. Billing Therapeutic Exercise Treatment Minutes: 40 Skilled Treatment Time Minutes (timed and untimed codes): 40 Total Session Time (minutes): 40 Session Start Time : 926 Session Stop Time : 1006 Jen Everett, PT [facility] 06-19-2024 History of Present illness Narrative Episode Visit Count: 2 Therapist That Will Accept/Oversee The Plan Of Care: Jen Eveertt Start of Care Date: 05/15/24 Onset Date: 04/25/22 Patient Identified by Name and Date of : Yes REHABILITATION AND SPORTS THERAPY PHYSICAL THERAPY PROGRESS REPORT PLAN OF CARE UPDATE: Assessment: Dixie Miller demonstrates improvements in ability to empty bladder. The patient has progressed toward goals. Patient continues to present with impairments in CINDY with coughing. The patient will benefit from continued skilled therapy services to meet the updated goals for this plan of care as noted below. Goals for Episode of Care: established 05/15/24 Updated on: 06/19/24 Patient demonstrates independence and compliance with home exercise program.-PROGRESSING Patient reports at least 85% improvement in bladder leaks while coughing compared to evaluation in order to increase bladder function in activities of daily living. -NOT MET Patient reports increased ability to fully empty bladder at least 85% of the time to normalize bladder function.-MET Patient Goals: improve bladder function Planned Interventions, Frequency, and Duration: 1x/month, 4 weeks (reassess at 4 weeks and progress as indicated) Total Number of Visits Planned: 1 Patient to be seen for Therapeutic exercise (35017), Neuromuscular re-education (12951), Manual therapy (60641), Therapeutic activities (24760), Self-correction management (13158), Patient/Family/Caregiver Education PLAN FOR NEXT VISIT: recheck in 1 month SUBJECTIVE: Pt reports continued chronic cough, had a bronchoscopy procedure done and is waiting for results. Pt reports no change in CINDY, fair compliance with HEP. Pt reports when she remembers to do knack technique, she's able to control bladder but does not always perform knack. Pain: Pain Pain Level: 0 Post Treatment Pain Post Treatment Pain Level: 0 PROMIS Scales 06/17/2024 05/08/2024 04/26/2023 Higher is Better Phys Func - T Score 62 (within normal limits) Phys Func - Percentile 88 Self-Eff Symptom - T Score Incomplete 41 (Average) 49 (Average) Self-Eff Symptom - Percentile 18 46 06/17/2024 05/08/2024 11/18/2021 Lower is Better Pain Interference - T Score 40 (within normal limits) 40 (within normal limits) Incomplete Pain Interference - Percentile 84 84 T-scores: mean of general population = 50. 5 points is clinically meaningfully difference Percentiles provide an indication of how the patient's score ranks in relation to the general population. Higher percentile rankings indicate better function/quality of life. 50th percentile is the average of the general population and indicates half of respondents had a worse score. OBJECTIVE MEASURES WITH LEVEL OF FUNCTION: Pelvic Floor Incomplete emptying: No Stress Incontinence: Cough Pelvic Floor Muscle Assessment Consent for pelvic assessment/testing and treatment: Patient was educated regarding pelvic floor physical therapy assessment/treatment which may include pelvic floor and girdle muscle assessment externally or internally (vaginal or rectal approach)., Patient verbalized consent for the above treatment approaches today. Patient understands they have control of the treatment and an opportunity to stop treatment at any time. Pelvic Floor Muscle Assessment: PERFECT, Muscle Dynamics (standing position) Power: 4 Contracton Pressure: Strong squeeze, full circumference of fingers compressed Upon standing, patient unable to maintain good PFM contraction while coughing. Improved coordination when TA activated first followed by PFM. TREATMENT: Therapeutic Exercise: 1: Reassessment 2: standing hip abduction with TA and PF bracing, L1 TB around ankles, 1x10 each 3: standing hip extension with TA and PF bracing, L1 TB around ankles, 1x10 each 4: Discussed bracing TA first followed by PFM functionally while coughing to better coordinate knack Skilled Intervention: Patient was educated in proper exercise technique and purpose for exercises. Skilled judgment was used in selection of appropriate interventions. Billing Therapeutic Exercise Treatment Minutes: 40 Skilled Treatment Time Minutes (timed and untimed codes): 40 Total Session Time (minutes): 40 Session Start Time : 926 Session Stop Time : 1006 Jen Everett PT documented in this encounter [facility] 06-12-2024 Note HNO ID: [id number] Author: PAMELA GROVES AA Service: ? Author Type: Optical Fabrication Technician Type: Anesthesia Procedure Notes Filed: 06/12/2024 12:06 Note Text: ANESTHESIOLOGY PROCEDURE NOTE Airway General Information Procedure Start Time/Medication Administration: 06/12/2024 11:53 AM Procedure End Time: 06/12/2024 11:53 AM Patient location during procedure: OR Timeout Performed Pre-procedure: timeout performed Consent Obtained: Yes Patient identity confirmed: arm band Staffing CAA: Pamela Groves AA Performed by: DENISHA Indications and Patient Condition Indications for airway management: anesthesia Preoxygenated: yes anesthesia circuit Patient position: sniffing Method: asleep Cricoid Pressure: No Manual In-Line Stabilization: No Difficult Mask: No Final Airway Details Final airway type: supraglottic airway Number of attempts at approach: 1 Final Supraglottic Airway: i-gel Size 4 Seal Adequate: yes Failed airway: no Unrecognized esophageal intubation: no Airway not difficult SIGNATURE: CRISPIN Flowers PATIENT NAME: Dixie Miller DATE: June 12, 2024 TIME: 12:06 PM CSN: [id number] [facility] 06-12-2024 Note Patient Name: Nicole Miller Procedure Date: 06/12/2024 7:21 AM Date of : 1965 Admit Type: Outpatient Room: MOPS - Bronch Suite Procedure: Bronchoscopy Indications: Chronic cough, Chronic cough with abnormal CT Providers: Anthony Pritchard MD (Doctor), Pamela Lauren RN, Kimberly Bajwa RN Referring MD: Gertrude Goldberg (Referring MD) Medicines: General Anesthesia, See the Anesthesia note for documentation of the administered medications Complications: No immediate complications Estimated Blood Loss: Estimated blood loss was minimal. Procedure: Pre-Anesthesia Assessment: - A History and Physical has been performed. Patient meds and allergies have been reviewed. The risks and benefits of the procedure and the sedation options and risks were discussed with the patient. All questions were answered and informed consent was obtained. Patient identification and proposed procedure were verified prior to the procedure by the physician, the nurse and the anesthesiologist in the procedure room. Mental Status Examination: alert and oriented. Airway Examination: normal oropharyngeal airway. Respiratory Examination: clear to auscultation. CV Examination: normal. ASA Grade Assessment: I - A normal healthy patient. After reviewing the risks and benefits, the patient was deemed in satisfactory condition to undergo the procedure. The anesthesia plan was to use general anesthesia. Immediately prior to administration of medications, the patient was re-assessed for adequacy to receive sedatives. The heart rate, respiratory rate, oxygen saturations, blood pressure, adequacy of pulmonary ventilation, and response to care were monitored throughout the procedure. The physical status of the patient was re-assessed after the procedure. After I obtained informed consent, the scope was passed under direct vision. Throughout the procedure, the patient's blood pressure, pulse, and oxygen saturations were monitored continuously. the Bronchoscope was introduced through the mouth, via laryngeal mask airway and advanced to the tracheobronchial tree. I was present and participated during the entire procedure, including non-mendoza portions, and during the administration and monitoring of Moderate Sedation. the Bronchoscope was introduced through the mouth, via laryngeal mask airway and advanced to the tracheobronchial tree. I was present and participated during the entire procedure, including non-mendoza portions, and during the administration and monitoring of Moderate Sedation. The procedure was accomplished without difficulty. The patient tolerated the procedure well. Findings: The laryngeal mask airway is in good position. The vocal cords appear normal. The subglottic space is normal. The trachea is of normal caliber. The adilene is sharp. The tracheobronchial tree was examined to at least the first subsegmental level. Bronchial mucosa and anatomy are normal; there are no endobronchial lesions, and no secretions. Once the airway inspection was completed, the standard bronchoscope was withdrawn and the convex probe endobronchial ultrasound (EBUS) bronchoscope was inserted through the same route. Lymph Nodes: The following lymph nodes were evaluated: 11L: 2.7 mm 10L: 3.8 4L:4.5 2L:2.3 2R2.3 4R: 3.9 7: not visualized. 10R: 3.3 11R: not visualized. BAL/brushing done RML transbronchial biopsy done BLADIMIR--linula Impression: - Chronic cough - Chronic cough with abnormal CT - Lymph node sizing and sampling was performed. Recommendation: - Await test results. MD Anthony Jay MD 06/12/2024 1:00:55 PM This report has been signed electronically by Anthony Pritchard MD Number of Addenda: 0 Note Initiated On: 06/12/2024 7:21 AM Procedure Start: 11:57:00 AM Procedure End: 12:28:31 PM [facility] 06-11-2024 Note HNO ID: [id number] Author: JOVI RUSHING RN Service: Nursing Author Type: Registered Nurse Type: Progress Notes Filed: 06/11/2024 14:27 Note Text: MEDICATION INSTRUCTIONS PRIOR TO SURGERY Please read below carefully for your personalized instructions. Medications: If you are on blood thinner or anticoagulants including aspirin, please confirm with your surgical team on when to stop these medications. Unless instructed differently by your surgical team, stay on all of your medications until your surgery. Pre Surgery Med Instructions Medication instructions ascorbic acid (VITAMIN C ORAL) Follow surgeon's instructions. Cholecalciferol, Vitamin D3, 50 mcg (2,000 unit) cap Follow surgeon's instructions. clobetasol (TEMOVATE) 0.05 % ointment DO NOT TAKE THE MORNING OF SURGERY. MULTIVITAMIN TAB Follow surgeon's instructions. nitrofurantoin monohydrate and macrocrystal (MACROBID) 100 mg capsule DO NOT TAKE THE MORNING OF SURGERY. If you have any medication changes between receiving these instructions and your surgery date, please provide this updated information with the nurse who calls you the week day prior to your surgical procedure so we can update your list and provide you with updated instructions for the morning of your procedure. PRE-PROCEDURE INSTRUCTIONS TO PREPARE FOR YOUR PROCEDURE: Your arrival time for your procedure is 1000. Do NOT eat or drink anything after MIDNIGHT the night prior to your procedure - this includes gum or mints. Shower the morning of the procedure, put on clean clothes, and have clean sheets for your bed to help prevent infection after your procedure. Leave all valuables such as jewelry including rings, piercings, wallets, and purses at home. Wear comfortable, loose-fitting clothing. If you wear glasses or contacts, please bring a case. SPECIAL INSTRUCTIONS: If instructed, bring your first voided urine specimen with you. If you were provided skin preparation to use prior to your procedure, complete this as directed. If a bowel preparation has been ordered by your physician, it is very important to follow the bowel prep instructions or your procedure may need to be rescheduled. If you use crutches or a walker, bring them with you. If you have a home CPAP/BIPAP machine, bring it with you. If you were instructed to complete a fleets enema or bowel prep, complete as directed. Bring copy of Living Will/Power of Refinery Process Engineer. Do not smoke or chew. If you use tobacco, quit or at least cut down before surgery. Do not smoke or chew after midnight the day before your surgery. This effects bleeding, infection, healing, and so much more. Do not take any Diet or Herbal Supplements 2 weeks prior to your surgery date. Please notify your physician if there is any change in your physical condition such as a cold, cough, fever, sore throat, or skin irritation near the surgical site. Visitors under the age of 14 are restricted in the Surgery Center. UPON ARRIVAL: Access to [facility] (the [facility]) is located on [address] [employer] parking is available for your convenience from 5am-5pm- there is a $5.00 charge for this service. Take the elevators directly inside the entrance to the 1st Floor Surgery Lobby. Sign in at the podium located to the left when you get off the elevators. A payment may be expected at the time of service. One visitor may come back to the preoperative area with you. The preoperative staff will be reviewing your medical history, please let them know if you prefer not to have a visitor with you during this time. Once you are ready for your procedure, two visitors at a time are permitted in your preprocedure room. [facility] 06-06-2024 History of Present illness Narrative Summary: preanesthesia review EBUS 06/12 Francheska 58yo female, nonsmoker. PMH: chronic cough, lung nodules with periaortic lymphadenopathy (EBUS to r/o sarcoid/infection), hematuria, liver cysts, bladder incontinence, motion sickness CT chest 05/2024: IMPRESSION: 1. Bilateral pulmonary nodules which may be infectious/inflammatory or neoplastic 2. Mediastinal and bilateral hilar lymphadenopathy MRI liver 04/2024: IMPRESSION: 1. MULTIPLE HEPATIC CYSTS. NO LESIONS ARE VISUALIZED TO CORRESPOND TO THE HYPODENSITY SEEN IN SEGMENT II AND SEGMENT Yannick ON THE PRIOR CT. 2. BORDERLINE ENLARGED PERIAORTIC LYMPH NODES PFTs 06/2023: FVC 2.66, FEV1 1.79, ratio 0.67 [facility] Consult SERVICE DATE: 06/06/2024 SERVICE TIME: 9:53 AM PRIMARY CARE PHYSICIAN: Shlomo Miller MD REASON FOR VISIT: Dixie Miller is a 58 year old female who is scheduled for EBUS at the request of Dr. PRITCHARD for consultation. My final recommendation will be communicated back to the requesting physician by way of shared medical record or letter. The patient has the following: ACTIVE PROBLEM LIST Ocd (Obsessive Compulsive Disorder) Overactive Bladder Urinary Incontinence Gross Hematuria Urge Incontinence Anal Fissure Mixed Hyperlipidemia Left Ankle Instability Plantar Fasciitis of Left Foot Facial Basal Cell Cancer Ddd (Degenerative Disc Disease), Cervical Urinary, Incontinence, Stress Female Muscle Weakness Lung Nodule Subjective CHIEF COMPLAINT: lymphadenopathy, lung nodules 58yo female, nonsmoker. PMH: chronic cough, lung nodules with periaortic lymphadenopathy (EBUS to r/o sarcoid/infection), hematuria, liver cysts, bladder incontinence, motion sickness PAST MEDICAL HISTORY Diagnosis Date Atopic eczema Dr. Saravanan James DSC Basal cell carcinoma Remvoed from forehead and left side of nose. Bladder incontinence Bettina Bermudez PA-C Chicken pox 03/31/1966 as a child-lasted [address] Pritchard Lung nodules PT states she has [address] Pritchard Lymphadenopathy Around lung region: Dr. Pritchard to do EBUS 06/12/24 Motion sickness Mumps [id number] as a child PAST SURGICAL HISTORY Procedure Laterality Date COLONOSCOPY FLX DX W/COLLJ SPEC WHEN PFRMD 12/23/2016 Colonoscopy PAST SURGICAL HISTORY OF basil cell removal forehead and left side of nose PAST SURGICAL HISTORY OF FAMILY HISTORY Problem Relation Age of Onset Breast Cancer Mother age 60's-triple negative Hypertension Father Under control Diabetes Paternal Grandmother Diabetes Paternal Uncle Colon Cancer Other none SOCIAL HISTORY: Social History Tobacco Use Smoking status: Never Passive exposure: Past Smokeless tobacco: Never Vaping Use Vaping status: Never Used Substance Use Topics Alcohol use: Not Currently Drug use: No Prior to Admission medications as of 06/06/24 0934 Medication Sig Last Dose Taking nitrofurantoin monohydrate and macrocrystal (MACROBID) 100 mg capsule Take one tablet PO after intercourse Patient taking differently: Take 100 mg by mouth as needed. Take one tablet PO after intercourse Yes Cholecalciferol, Vitamin D3, 50 mcg (2,000 unit) cap Take by mouth. Last dose 05/14/24 for OR 06/12/24 Yes ascorbic acid (VITAMIN C ORAL) Take by mouth. Last dose 05/14/24 for OR 06/12/24 Yes clobetasol (TEMOVATE) 0.05 % ointment Apply 1 application to affected area twice daily. For two weeks then use once per week . Yes MULTIVITAMIN TAB Take by mouth. Last dose 05/14/24 for OR 06/12/24 Yes iv contrast (will be provided with radiology test) CT Urogram WO/W Inject, intravenously, once for 1 dose.No IV access, insert saline lock prior to the beginning of sedation, infusion, injection of imaging exam. Discontinue saline lock post exam. If Pt. has a central line or IVAD, may access for administration according to line specific nursing protocol. Once exam is complete flush line and de-access according to line specific nursing protocol in the CT contrast administration guidelines link. No medication comments found. ALLERGIES Allergen Reactions Demerol [Meperidine* Other: See Comments Very bad reaction-Possible Low BP Hydroquinone Rash Methylchloroisothia* Rash Methylisothiazolino* Rash Penicillin G Propylene Glycol Rash Sulfa (Sulfonamide * REVIEW OF SYSTEMS: PAIN ASSESSMENT: General: No weight loss, malaise or fevers. Neuro: No history of TIA's, stroke, DATABASE MANAGEMENT SPECIALIST tumor, impaired sensorium, hemiplegia, paraplegia or quadraplegia. No neurological symptoms or problems. Respiratory: Positive for Current cough (2 years) Cardiovascular: No history of HTN requiring medication, no history of angina, CHF, OR, cardiac surgery or stents. Denies rest pain, gangrene or revascularization/amputation for PVD. No history of cardiovascular symptoms or problems. GI: No history of GI symptoms or problems. No history of esophageal varices, recent ascites, or ETOH greater than 2 drinks per day. 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 : Denies, Patient's last menstrual period was 11/26/2014. Endocrine: No history of diabetes. Has not taken steroids within the past 30 days. No history of endocrinological symptoms or problems. Hematology: No history of bleeding or clotting disorder. Pt is not taking anti-coagulation or platelet medications. No history of hematological symptoms or problems. Oncology: No history of CA metastasis, chemo within 30 days, or radiotherapy within 90 days. Has not lost 10% of body wt in 6 months. No history of oncological symptoms or problems. Psych: Anxiety Musculoskeletal: Negative for joint pain or swelling, back pain or muscle pain. Skin: Negative for lesions, rash and itching. Objective PHYSICAL EXAM: VITALS: BP 134/74 Pulse 81 Resp 16 Ht 5' 5.5 (1.66m) Wt 159 lb 3.2 oz (72.2kg) SpO2 99% LMP 11/26/2014 BMI 26.08 kg/(m^2). General: Alert and oriented, No acute distress, Healthy appearance Skin: Normal color, no rash, no lesions. Diagnostic tests reviewed for today's visit: Lab Value Units Date High Low HB 14.4 g/dL 05/03/2024 15.5 11.5 HCT 43.4 % 05/03/2024 46.0 36.0 WBC 6.27 k/uL 05/03/2024 11.00 3.70 PLT 368 k/uL 05/03/2024 400 150 NA 140 mmol/L 05/03/2024 144 136 K 3.7 mmol/L 05/03/2024 5.1 3.7 GLUC 108 mg/dL 05/03/2024 99 74 BUN 15 mg/dL 05/03/2024 21 7 CREAT 0.85 mg/dL 05/03/2024 0.96 0.58 PTSEC No results within date range. INR No results within date range. APTT No results within date range. ALT 15 U/L 05/03/2024 38 7 AST 17 U/L 05/03/2024 35 13 TBILI 0.6 mg/dL 05/03/2024 1.3 0.2 TSH No results within date range. Lab Value Units Date High Low HCGQT No results within date range. UHCG No results within date range. HCG, BODY* No results within date range. Lab Value Units Date High Low ABORHD No results within date range. ABSCREEN No results within date range. No results found for: HBA1C CT chest 05/2024: IMPRESSION: 1. Bilateral pulmonary nodules which may be infectious/inflammatory or neoplastic 2. Mediastinal and bilateral hilar lymphadenopathy MRI liver 04/2024: IMPRESSION: 1. MULTIPLE HEPATIC CYSTS. NO LESIONS ARE VISUALIZED TO CORRESPOND TO THE HYPODENSITY SEEN IN SEGMENT II AND SEGMENT Yannick ON THE PRIOR CT. 2. BORDERLINE ENLARGED PERIAORTIC LYMPH NODES PFTs 06/2023: FVC 2.66, FEV1 1.79, ratio 0.67 PENDING Assessment/Plan ASSESSMENT/PLAN: 1. Preop testing [Z01.818] - ICD9: V72.84, ICD10: Z01.818 (primary diagnosis) I met J Carlos today in [facility] for her upcoming EBUS with Dr. Pritchard. J Carlos has had a cough for >2 years; she denies much sputum production and if she does have any, it is clear and thin. She denies unintentional weight-loss, night sweats, fever, chills, hemoptysis. 2. Lymphadenopathy - ICD9: 785.6, ICD10: R59.[address] with lung nodules Follow with Dr. Pritchard Pending EBUS 06/12/24 3. 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 Pritchard for pending EBUS 06/12/24 Valerie Martini APRN.PEANUT SORTER METS: Walk indoors, such as around the house (1.75 METs) Do light work around the house, such as dusting or washing dishes (2.70 METs) Take care of self; that is eating, dressing, bathing, using the toilet (2.75 METs) Walk a block or two on level ground (2.75 METs) Do moderate work around the house such as vacuuming, sweeping floors, or carrying in groceries (3.50 METs) Do yardwork, such as raking leaves, weeding,or pushing a power mower (4.50 METs) Have sexual relations (5.25 METs) Climb a flight of stairs or walk up a hill (5.50 METs) Do heavy work around the house, such as scrubbing floors, lifting or moving heavy furniture (8.00 METs) Patient denies any chest pain or undue shortness of breath with the above physical activity. ANESTHESIA FINDINGS: Intubation History: No history of difficult intubation Significant Anesthesia Considerations: None Airway History: No abnormal airway history Planned Anesthetic: Per anesthesia choice Instructions Given to Patient: Instructions located in the after visit summary. Patient given verbal and written preop instructions and voices comprehension and compliance. SIGNATURE: Valerie Martini APRN.CNP PATIENT NAME: Dixie Miller DATE: June 06, 2024 TIME: 9:53 AM Summary: DOS MEDS MEDICATION INSTRUCTIONS PRIOR TO SURGERY Please read below carefully for your personalized instructions. Medications: If you are on blood thinner or anticoagulants including aspirin, please confirm with your surgical team on when to stop these medications. Unless instructed differently by your surgical team, stay on all of your medications until your surgery. Pre Surgery Med Instructions Medication instructions ascorbic acid (VITAMIN C ORAL) Follow surgeon's instructions. Cholecalciferol, Vitamin D3, 50 mcg (2,000 unit) cap Follow surgeon's instructions. clobetasol (TEMOVATE) 0.05 % ointment DO NOT TAKE THE MORNING OF SURGERY. MULTIVITAMIN TAB Follow surgeon's instructions. nitrofurantoin monohydrate and macrocrystal (MACROBID) 100 mg capsule DO NOT TAKE THE MORNING OF SURGERY. If you have any medication changes between receiving these instructions and your surgery date, please provide this updated information with the nurse who calls you the week day prior to your surgical procedure so we can update your list and provide you with updated instructions for the morning of your procedure. documented in this encounter [facility] 06-06-2024 Note HNO ID: [id number] Author: CAROLINE CAZARES APRN.CNP Service: ? Author Type: Nurse Practitioner Type: Progress Notes Filed: 06/06/2024 10:18 Note Text: Summary: preanesthesia review EBUS 06/12 Francheska 58yo female, nonsmoker. PMH: chronic cough, lung nodules with periaortic lymphadenopathy (EBUS to r/o sarcoid/infection), hematuria, liver cysts, bladder incontinence, motion sickness CT chest 05/2024: IMPRESSION: 1. Bilateral pulmonary nodules which may be infectious/inflammatory or neoplastic 2. Mediastinal and bilateral hilar lymphadenopathy MRI liver 04/2024: IMPRESSION: 1. MULTIPLE HEPATIC CYSTS. NO LESIONS ARE VISUALIZED TO CORRESPOND TO THE HYPODENSITY SEEN IN SEGMENT II AND SEGMENT Yannick ON THE PRIOR CT. 2. BORDERLINE ENLARGED PERIAORTIC LYMPH NODES PFTs 06/2023: FVC 2.66, FEV1 1.79, ratio 0.67 [facility] 06-06-2024 Note HNO ID: [id number] Author: TONI TRUJILLO PA-C Service: ? Author Type: Nurse Practitioner Type: Progress Notes Filed: 06/07/2024 11:19 Note Text: [facility] Consult SERVICE DATE: 06/06/2024 SERVICE TIME: 9:53 AM PRIMARY CARE PHYSICIAN: Shlomo Miller MD REASON FOR VISIT: Dixie Miller is a 58 year old female who is scheduled for EBUS at the request of Dr. PRITCHARD for consultation. My final recommendation will be communicated back to the requesting physician by way of shared medical record or letter. The patient has the following: ACTIVE PROBLEM LIST Ocd (Obsessive Compulsive Disorder) Overactive Bladder Urinary Incontinence Gross Hematuria Urge Incontinence Anal Fissure Mixed Hyperlipidemia Left Ankle Instability Plantar Fasciitis of Left Foot Facial Basal Cell Cancer Ddd (Degenerative Disc Disease), Cervical Urinary, Incontinence, Stress Female Muscle Weakness Lung Nodule Subjective CHIEF COMPLAINT: lymphadenopathy, lung nodules 58yo female, nonsmoker. PMH: chronic cough, lung nodules with periaortic lymphadenopathy (EBUS to r/o sarcoid/infection), hematuria, liver cysts, bladder incontinence, motion sickness PAST MEDICAL HISTORY Diagnosis Date Atopic eczema Dr. Saravanan James DSC Basal cell carcinoma Remvoed from forehead and left side of nose. Bladder incontinence Bettina Bermudez PA-C Chicken pox 03/31/1966 as a child-lasted [address] Pritchard Lung nodules PT states she has [address] Pritchard Lymphadenopathy Around lung region: Dr. Pritchard to do EBUS 06/12/24 Motion sickness Mumps [id number] as a child PAST SURGICAL HISTORY Procedure Laterality Date COLONOSCOPY FLX DX W/COLLJ SPEC WHEN PFRMD 12/23/2016 Colonoscopy PAST SURGICAL HISTORY OF basil cell removal forehead and left side of nose PAST SURGICAL HISTORY OF FAMILY HISTORY Problem Relation Age of Onset Breast Cancer Mother age 60's-triple negative Hypertension Father Under control Diabetes Paternal Grandmother Diabetes Paternal Uncle Colon Cancer Other none SOCIAL HISTORY: Social History Tobacco Use Smoking status: Never Passive exposure: Past Smokeless tobacco: Never Vaping Use Vaping status: Never Used Substance Use Topics Alcohol use: Not Currently Drug use: No Prior to Admission medications as of 06/06/24 0934 Medication Sig Last Dose Taking nitrofurantoin monohydrate and macrocrystal (MACROBID) 100 mg capsule Take one tablet PO after intercourse Patient taking differently: Take 100 mg by mouth as needed. Take one tablet PO after intercourse Yes Cholecalciferol, Vitamin D3, 50 mcg (2,000 unit) cap Take by mouth. Last dose 05/14/24 for OR 06/12/24 Yes ascorbic acid (VITAMIN C ORAL) Take by mouth. Last dose 05/14/24 for OR 06/12/24 Yes clobetasol (TEMOVATE) 0.05 % ointment Apply 1 application to affected area twice daily. For two weeks then use once per week . Yes MULTIVITAMIN TAB Take by mouth. Last dose 05/14/24 for OR 06/12/24 Yes iv contrast (will be provided with radiology test) CT Urogram WO/W Inject, intravenously, once for 1 dose.No IV access, insert saline lock prior to the beginning of sedation, infusion, injection of imaging exam. Discontinue saline lock post exam. If Pt. has a central line or IVAD, may access for administration according to line specific nursing protocol. Once exam is complete flush line and de-access according to line specific nursing protocol in the CT contrast administration guidelines link. No medication comments found. ALLERGIES Allergen Reactions Demerol [Meperidine* Other: See Comments Very bad reaction-Possible Low BP Hydroquinone Rash Methylchloroisothia* Rash Methylisothiazolino* Rash Penicillin G Propylene Glycol Rash Sulfa (Sulfonamide * REVIEW OF SYSTEMS: PAIN ASSESSMENT: General: No weight loss, malaise or fevers. Neuro: No history of TIA's, stroke, DATABASE MANAGEMENT SPECIALIST tumor, impaired sensorium, hemiplegia, paraplegia or quadraplegia. No neurological symptoms or problems. Respiratory: Positive for Current cough (2 years) Cardiovascular: No history of HTN requiring medication, no history of angina, CHF, OR, cardiac surgery or stents. Denies rest pain, gangrene or revascularization/amputation for PVD. No history of cardiovascular symptoms or problems. GI: No history of GI symptoms or problems. No history of esophageal varices, recent ascites, or ETOH greater than 2 drinks per day. 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 : Denies, Patient's last menstrual period was 11/26/2014. Endocrine: No history of diabetes. Has not taken steroids within the past 30 days. No history of endocrinological symptoms or problems. Hematology: No history of bleeding or clotting disorder. Pt is not taking anti-coagulation or platelet medications. No history of hematological symptoms or prob (more content not included)... [facility] 06-06-2024 Instructions Valerie Martini APRN.CNP - 06/06/2024 9:53 AM EDT MEDICATION INSTRUCTIONS PRIOR TO SURGERY Please read below carefully for your personalized instructions. Medications: If you are on blood thinner or anticoagulants including aspirin, please confirm with your surgical team on when to stop these medications. Unless instructed differently by your surgical team, stay on all of your medications until your surgery. Pre Surgery Med Instructions Medication instructions ascorbic acid (VITAMIN C ORAL) Follow surgeon's instructions. Cholecalciferol, Vitamin D3, 50 mcg (2,000 unit) cap Follow surgeon's instructions. clobetasol (TEMOVATE) 0.05 % ointment DO NOT TAKE THE MORNING OF SURGERY. MULTIVITAMIN TAB Follow surgeon's instructions. nitrofurantoin monohydrate and macrocrystal (MACROBID) 100 mg capsule DO NOT TAKE THE MORNING OF SURGERY. If you have any medication changes between receiving these instructions and your surgery date, please provide this updated information with the nurse who calls you the week day prior to your surgical procedure so we can update your list and provide you with updated instructions for the morning of your procedure. documented in this encounter [facility] 06-06-2024 Note HNO ID: [id number] Author: VALERIE MARTINI APRN.CNP Service: ? Author Type: Nurse Practitioner Type: Progress Notes Filed: 06/06/2024 10:18 Note Text: Summary: DOS MEDS MEDICATION INSTRUCTIONS PRIOR TO SURGERY Please read below carefully for your personalized instructions. Medications: If you are on blood thinner or anticoagulants including aspirin, please confirm with your surgical team on when to stop these medications. Unless instructed differently by your surgical team, stay on all of your medications until your surgery. Pre Surgery Med Instructions Medication instructions ascorbic acid (VITAMIN C ORAL) Follow surgeon's instructions. Cholecalciferol, Vitamin D3, 50 mcg (2,000 unit) cap Follow surgeon's instructions. clobetasol (TEMOVATE) 0.05 % ointment DO NOT TAKE THE MORNING OF SURGERY. MULTIVITAMIN TAB Follow surgeon's instructions. nitrofurantoin monohydrate and macrocrystal (MACROBID) 100 mg capsule DO NOT TAKE THE MORNING OF SURGERY. If you have any medication changes between receiving these instructions and your surgery date, please provide this updated information with the nurse who calls you the week day prior to your surgical procedure so we can update your list and provide you with updated instructions for the morning of your procedure. [facility] 06-05-2024 Note Addended by: GERTRUDE GOLDBERG on: 06/05/2024 04:07 PM Modules accepted: Orders [facility] 06-05-2024 Miscellaneous Notes Addended by: GERTRUDE GOLDBERG on: 06/05/2024 04:07 PM Modules accepted: Orders Order placed. Ivon Can you put in a new order for an ECG to be done for pretesting please. I spoke with Isaura in Pre testing and they would like to the order to be listed under the requesting provider. Thank you. documented in this encounter [facility] 06-05-2024 Telephone encounter Note Order placed. Ivon [facility] 06-05-2024 Telephone encounter Note Can you put in a new order for an ECG to be done for pretesting please. I spoke with Isaura in Pre testing and they would like to the order to be listed under the requesting provider. Thank you. [facility] 06-01-2024 Telephone encounter Note Called patient to discuss via phone. Aware bronch scheduling is pending at [facility]. She will inquire on if EKG can be done in pre op area vs. being done by nursing in [facility] [place] (PCP is at [facility]). Encouraged to contact this nurse with any additional questions. Merly Schmitz LPN [facility] 06-01-2024 Miscellaneous Notes Called patient to discuss via phone. Aware bronch scheduling is pending at [facility]. She will inquire on if EKG can be done in pre op area vs. being done by nursing in [facility] [place] (PCP is at [facility]). Encouraged to contact this nurse with any additional questions. Merly Schmitz LPN documented in this encounter [facility] 06-01-2024 Telephone encounter Note Can you put in the order for ebus for 06/12, this is the patient Ivon spoke with you about yesterday. Thank you. [facility] 06-01-2024 Miscellaneous Notes Can you put in the order for ebus for 06/12, this is the patient Ivon spoke with you about yesterday. Thank you. documented in this encounter [facility] 05-30-2024 Note HNO ID: [id number] Author: SHLOMO MILLER MD Service: ? Author Type: Physician Type: Progress Notes Filed: 05/30/2024 15:23 Note Text: Subjective J Carlos is a 58 year old female who presents for Follow Up (Feeling great! Doxy has helped cough is better. Saw pulm this morning. ) History of Present Illness Liver and Lung Nodules: - Recent CT urogram revealed questionable liver and lung nodules. - MRI of the liver suggested liver cysts. - CT scan showed borderline enlarged periaortic lymph nodes and lung nodules with swollen glands. - Discussed potential sarcoidosis with pulmonary vs other causes such as resolving infection. - Recent cystoscopy was clear; CT urogram did not show significant findings. 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 Chronic Cough: - Chronic cough improved significantly after a course of doxycycline. - Cough is less frequent and severe, particularly at night. - Aggravated by certain positions, such as slouching in a recliner. - Denies current dyspnea. - Previous treatments included Flonase, Advair, albuterol, and prednisone. - Pulmonary function tests in June showed mild obstruction with bronchodilator response, indicating small airway obstruction. - Previous chest X-rays in May and December 2022 showed atelectasis and scarring. - Denies current use of Prilosec; only takes it PRN for mild heartburn. - Recent ENT evaluation showed no esophageal or gastrointestinal issues. - Recent sinus issues resolved completely after doxycycline treatment. - Denies current abdominal pain, fever, or chills. Review of Systems Constitutional: (-) fever, (-) chills Ears/Nose/Mouth/Throat: (-) nasal congestion Respiratory: (+) chronic cough, (-) shortness of breath Gastrointestinal: (-) abdominal pain, (-) heartburn Objective Blood pressure 124/80, pulse 75, resp. rate 16, weight 73 kg (161 lb), last menstrual period 11/26/2014, SpO2 100%. Physical Exam GENERAL: NAD, alert and oriented. SKIN: Unremarkable, no rash or skin lesions. NECK: Supple, no lymphadenopathy, normal thyroid, no carotid bruits. LUNGS: Clear to auscultation bilaterally, no wheezes/rhonchi/rales. HEART: Regular rate and rhythm, no murmurs. No ectopy. EXTREMITIES: Normal, no deformities, no skin discoloration, no edema. Results IMPRESSION: CT lungs 1. Bilateral pulmonary nodules which may be infectious/inflammatory or neoplastic 2. Mediastinal and bilateral hilar lymphadenopathy MRI liver: IMPRESSION: 1. MULTIPLE HEPATIC CYSTS. NO LESIONS ARE VISUALIZED TO CORRESPOND TO THE HYPODENSITY SEEN IN SEGMENT II AND SEGMENT Yannick ON THE PRIOR CT. 2. BORDERLINE ENLARGED PERIAORTIC LYMPH NODES CT urogram. IMPRESSION: 1. No cause for hematuria detected. No renal or ureteral calculi. No hydronephrosis or hydroureter. No upper tract urothelial filling defects or strictures. 2. Multiple new findings for which the possibility of metastatic disease from an unknown primary should be excluded. There are hypodense hepatic lesions which are not adequately characterized on single phase imaging but are suspicious for solid hepatic lesions and may represent metastatic disease. Would advise further evaluation with an MRI of the liver with and without contrast at this time. There are also multiple mildly enlarged upper abdominal lymph nodes which are new when compared to the prior study and may represent metastatic adenopathy. Limited evaluation of the lower chest demonstrates multiple scattered pulmonary nodules. Would advise further evaluation with a CT of the chest with intravenous contrast. Assessment AND Plan 1. Multiple lung nodules on CT (R91.8) Rule out inflammatory or infectious process, malignancy much less likely. Debating about repeat ct vs bronchoscopy. 2. Lymphadenopathy, hilar (R59.0) - as above. 3. Lung nodule (R91.1) - CT urogram revealed multiple lung nodules and hilar lymphadenopathy. - Differential diagnosis includes sarcoidosis and underlying infection. - Doormaker reviewed findings and recommended either bronchoscopy or follow-up CT in 8-12 weeks. - Patient's chronic cough has improved significantly after doxycycline treatment, suggesting possible residual infection. - Will monitor and follow up with pulmonology as advised. 4. Liver cyst (K76.89) - MRI of the liver showed findings consistent with simple liver cysts. - No further action required at this time; will monitor for any changes. 5. Chronic cough (R05.3) - Chronic cough has improved significantly after doxycycline treatment. - Previous treatments included Flonase, Advair, and albuterol with minimal effect. - Pulmonary function tests in June showed mild obstruction with improvement post-bronchodilator, indicating small airway obstruction. - Will continue to monitor; no current need for additional medication. (more content not included)... [facility] 05-30-2024 History of Present illness Narrative Subjective J Carlos is a 58 year old female who presents for Follow Up (Feeling great! Doxy has helped cough is better. Saw pulm this morning. ) History of Present Illness Liver and Lung Nodules: - Recent CT urogram revealed questionable liver and lung nodules. - MRI of the liver suggested liver cysts. - CT scan showed borderline enlarged periaortic lymph nodes and lung nodules with swollen glands. - Discussed potential sarcoidosis with pulmonary vs other causes such as resolving infection. - Recent cystoscopy was clear; CT urogram did not show significant findings. 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 Chronic Cough: - Chronic cough improved significantly after a course of doxycycline. - Cough is less frequent and severe, particularly at night. - Aggravated by certain positions, such as slouching in a recliner. - Denies current dyspnea. - Previous treatments included Flonase, Advair, albuterol, and prednisone. - Pulmonary function tests in June showed mild obstruction with bronchodilator response, indicating small airway obstruction. - Previous chest X-rays in May and December 2022 showed atelectasis and scarring. - Denies current use of Prilosec; only takes it PRN for mild heartburn. - Recent ENT evaluation showed no esophageal or gastrointestinal issues. - Recent sinus issues resolved completely after doxycycline treatment. - Denies current abdominal pain, fever, or chills. Review of Systems Constitutional: (-) fever, (-) chills Ears/Nose/Mouth/Throat: (-) nasal congestion Respiratory: (+) chronic cough, (-) shortness of breath Gastrointestinal: (-) abdominal pain, (-) heartburn Objective Blood pressure 124/80, pulse 75, resp. rate 16, weight 73 kg (161 lb), last menstrual period 11/26/2014, SpO2 100%. Physical Exam GENERAL: NAD, alert and oriented. SKIN: Unremarkable, no rash or skin lesions. NECK: Supple, no lymphadenopathy, normal thyroid, no carotid bruits. LUNGS: Clear to auscultation bilaterally, no wheezes/rhonchi/rales. HEART: Regular rate and rhythm, no murmurs. No ectopy. EXTREMITIES: Normal, no deformities, no skin discoloration, no edema. Results IMPRESSION: CT lungs 1. Bilateral pulmonary nodules which may be infectious/inflammatory or neoplastic 2. Mediastinal and bilateral hilar lymphadenopathy MRI liver: IMPRESSION: 1. MULTIPLE HEPATIC CYSTS. NO LESIONS ARE VISUALIZED TO CORRESPOND TO THE HYPODENSITY SEEN IN SEGMENT II AND SEGMENT Yannick ON THE PRIOR CT. 2. BORDERLINE ENLARGED PERIAORTIC LYMPH NODES CT urogram. IMPRESSION: 1. No cause for hematuria detected. No renal or ureteral calculi. No hydronephrosis or hydroureter. No upper tract urothelial filling defects or strictures. 2. Multiple new findings for which the possibility of metastatic disease from an unknown primary should be excluded. There are hypodense hepatic lesions which are not adequately characterized on single phase imaging but are suspicious for solid hepatic lesions and may represent metastatic disease. Would advise further evaluation with an MRI of the liver with and without contrast at this time. There are also multiple mildly enlarged upper abdominal lymph nodes which are new when compared to the prior study and may represent metastatic adenopathy. Limited evaluation of the lower chest demonstrates multiple scattered pulmonary nodules. Would advise further evaluation with a CT of the chest with intravenous contrast. Assessment & Plan 1. Multiple lung nodules on CT (R91.8) Rule out inflammatory or infectious process, malignancy much less likely. Debating about repeat ct vs bronchoscopy. 2. Lymphadenopathy, hilar (R59.0) - as above. 3. Lung nodule (R91.1) - CT urogram revealed multiple lung nodules and hilar lymphadenopathy. - Differential diagnosis includes sarcoidosis and underlying infection. - Doormaker reviewed findings and recommended either bronchoscopy or follow-up CT in 8-12 weeks. - Patient's chronic cough has improved significantly after doxycycline treatment, suggesting possible residual infection. - Will monitor and follow up with pulmonology as advised. 4. Liver cyst (K76.89) - MRI of the liver showed findings consistent with simple liver cysts. - No further action required at this time; will monitor for any changes. 5. Chronic cough (R05.3) - Chronic cough has improved significantly after doxycycline treatment. - Previous treatments included Flonase, Advair, and albuterol with minimal effect. - Pulmonary function tests in June showed mild obstruction with improvement post-bronchodilator, indicating small airway obstruction. - Will continue to monitor; no current need for additional medication. 6. Microscopic hematuria (R31.29) 7. Gross hematuria (R31.0) - Cystoscopy and CT urogram were negative for any significant findings. - Possible causes include hormonal changes or minor blood vessel issues. - No further action required at this time; will monitor for any recurrence. 8. Atrophic vaginitis (N95.2) - Noted during gynecological exam; likely contributing to hematuria. - No specific treatment required at this time. Shlomo Miller MD Recording using [employer] software for draft documentation of the visit was discussed with the patient/authorized it sales representative; all questions welcomed and answered. Patient/authorized it sales representative agreed to proceed documented in this encounter [facility] 05-30-2024 Instructions Shlomo Miller MD - 05/30/2024 2:44 PM EDT Your liver MRI confirmed that the liver nodules are most likely benign cysts. Your chronic cough improved greatly after taking doxycycline. Your lung nodules and mildly enlarged lymph nodes will continue to be monitored. One option is a follow-up CT scan in 8-12 weeks, but for now we will sit tight and watch them. The negative cystoscopy and CT urogram suggest no serious urinary issue; the blood noted may be related to atrophic changes on the pap A follow-up appointment is planned for about three months to review your overall status and address any questions. Continue to monitor your symptoms and contact us if you notice any new or worsening issues. documented in this encounter [facility] 05-30-2024 Note HNO ID: [id number] Author: MAURO VALDERRAMA RN Service: ? Author Type: Physician Type: Progress Notes Filed: 05/31/2024 13:29 Note Text: Dear Gertrude Goldberg, Thank you for this interesting e-consult. One option is to have a follow up CT chest in 8-12 weeks to see if the nodules improved since we don't have a comparison. The other option is we can proceed with bronchoscopy now, versus later if still needed. I agree between inflammatory/ infection or sarcoidosis. I have submitted this note to our bronchoscopy scheduling team. But, if you or patient would like to opt for another CT chest first, please let us know. Feel free to review it if you feel it is necessary. Thank you again. Best, Tae Multani MD 05/30/2024 1:51 PM TO BRONCHOSCOPY TEAM: Bronchoscopy Request: Per Gertrude Goldberg's E-Consult reply (05/31), she prefers to stay closer to home. I am going to discuss with the EBUS providers at [facility] to see if we can get her scheduled there. Please schedule patient for the following: Outpatient Visit: Bronch Only, visit not needed (last HANDP Date: 05/30/2024) Bronchoscopy Procedures: BAL/TBBx Diagnostic EBUS Timing: Next available Time Allotment/Tier: TIER 2: 2 HOUR Physician Performing Bronchoscopy:Bronch A, B or C Anesthesia Type: General Special Requests: None Needs Labs: No Needs EKG: Yes Needs CT prior: No Does the pt need cardiac clearance? No Is he/she on anticoagulants/anti-plt therapy? No Is he/she on diabetic medication that needs holding? No Nursing Considerations: (ie: long term, TB, respiratory isolation, etc.) none Diagnosis/Reason for Bronchoscopy: Sarcoid protocol Referred by: Gertrude Goldberg Reviewed by: Tae Multani MD ADDENDUM: CBC with diff: WBC 6.27 05/03/2024 RBC 4.91 05/03/2024 Hemoglobin 14.4 05/03/2024 Hematocrit 43.4 05/03/2024 MCV 88.4 05/03/2024 MCH 29.3 05/03/2024 MCHC 33.2 05/03/2024 RDW-CV 12.5 05/03/2024 Platelet Count 368 05/03/2024 MPV 8.5 05/03/2024 Neut% 70.0 05/03/2024 Lymph% 15.5 05/03/2024 [place]% 10.2 05/03/2024 Eosin% 2.6 05/03/2024 Baso% 1.4 05/03/2024 Abs Neut (ANC) 4.39 05/03/2024 Abs [place] 0.64 05/03/2024 Abs Eosin 0.16 05/03/2024 Abs Baso 0.09 05/03/2024 Potassium Date Value Ref Range Status 05/03/2024 3.7 3.7 - 5.1 mmol/L Final 04/12/2022 4.5 3.7 - 5.1 mmol/L Final 11/10/2021 4.1 3.7 - 5.1 mmol/L Final Sodium Date Value Ref Range Status 05/03/2024 140 136 - 144 mmol/L Final 04/12/2022 139 136 - 144 mmol/L Final 11/10/2021 137 136 - 144 mmol/L Final BUN Date Value Ref Range Status 05/03/2024 15 7 - 21 mg/dL Final Creatinine Date Value Ref Range Status 05/03/2024 0.85 0.58 - 0.96 mg/dL Final 04/18/2024 0.77 0.58 - 0.96 mg/dL Final 04/12/2022 0.76 0.58 - 0.96 mg/dL Final 11/10/2021 0.75 0.58 - 0.96 mg/dL Final [facility] 05-30-2024 History of Present illness Narrative Dear Gertrude Goldberg, Thank you for this interesting e-consult. One option is to have a follow up CT chest in 8-12 weeks to see if the nodules improved since we don't have a comparison. The other option is we can proceed with bronchoscopy now, versus later if still needed. I agree between inflammatory/ infection or sarcoidosis. I have submitted this note to our bronchoscopy scheduling team. But, if you or patient would like to opt for another CT chest first, please let us know. Feel free to review it if you feel it is necessary. Thank you again. Best, See-Aaron Multani MD 05/30/2024 1:51 PM TO BRONCHOSCOPY TEAM: Bronchoscopy Request: Please schedule patient for the following: Outpatient Visit: Bronch Only, visit not needed (last H&P Date: 05/30/2024) Bronchoscopy Procedures: BAL/TBBx Diagnostic EBUS Timing: Next available Time Allotment/Tier: TIER 2: 2 HOUR Physician Performing Bronchoscopy:Bronch A, B or C Anesthesia Type: General Special Requests: None Needs Labs: No Needs EKG: Yes Needs CT prior: No Does the pt need cardiac clearance? No Is he/she on anticoagulants/anti-plt therapy? No Is he/she on diabetic medication that needs holding? No Nursing Considerations: (ie: long term, TB, respiratory isolation, etc.) none Diagnosis/Reason for Bronchoscopy: Sarcoid protocol Referred by: Gertrude Goldberg Reviewed by: Tae Multani MD ADDENDUM: CBC with diff: WBC 6.27 05/03/2024 RBC 4.91 05/03/2024 Hemoglobin 14.4 05/03/2024 Hematocrit 43.4 05/03/2024 MCV 88.4 05/03/2024 MCH 29.3 05/03/2024 MCHC 33.2 05/03/2024 RDW-CV 12.5 05/03/2024 Platelet Count 368 05/03/2024 MPV 8.5 05/03/2024 Neut% 70.0 05/03/2024 Lymph% 15.5 05/03/2024 [place]% 10.2 05/03/2024 Eosin% 2.6 05/03/2024 Baso% 1.4 05/03/2024 Abs Neut (ANC) 4.39 05/03/2024 Abs [place] 0.64 05/03/2024 Abs Eosin 0.16 05/03/2024 Abs Baso 0.09 05/03/2024 Potassium Date Value Ref Range Status 05/03/2024 3.7 3.7 - 5.1 mmol/L Final 04/12/2022 4.5 3.7 - 5.1 mmol/L Final 11/10/2021 4.1 3.7 - 5.1 mmol/L Final Sodium Date Value Ref Range Status 05/03/2024 140 136 - 144 mmol/L Final 04/12/2022 139 136 - 144 mmol/L Final 11/10/2021 137 136 - 144 mmol/L Final BUN Date Value Ref Range Status 05/03/2024 15 7 - 21 mg/dL Final Creatinine Date Value Ref Range Status 05/03/2024 0.85 0.58 - 0.96 mg/dL Final 04/18/2024 0.77 0.58 - 0.96 mg/dL Final 04/12/2022 0.76 0.58 - 0.96 mg/dL Final 11/10/2021 0.75 0.58 - 0.96 mg/dL Final documented in this encounter [facility] 05-30-2024 Note HNO ID: [id number] Author: GERTRUDE GOLDBERG PA-C Service: ? Author Type: Physician Spout Positioner Type: Progress Notes Filed: 05/30/2024 12:12 Note Text: [facility] INCIDENTAL LUNG NODULE PROGRAM Impression / Recommendations 1. Chronic cough - ICD9: 786.2, ICD10: R05.3 (primary diagnosis) 2. Lymphadenopathy, hilar - ICD9: 785.6, ICD10: R59.0 3. Multiple lung nodules on CT - ICD9: 793.19, ICD10: R91.8 Reviewed imaging with patient. I discussed the differential diagnosis of chronic cough: asthma, post nasal drip, gastro-esophageal reflux disease, medications, aspiration, malignancy, infections, cardiac disease, and other less common causes. We discussed Econsult with Interventional Pulmonary. I have a high index of suspicion for sarcoidosis. Further evaluation and management following E consult and possible EBUS. Gertrude Goldberg PA-C - Requesting Provider: Shlomo Miller Reason for the Consult Dixie Miller presents today for consultation / opinion regarding lung nodule(s). My impression and final recommendations will be communicated back to the requesting physician by way of shared medical record or letter via [place] mail. History of Present Illness Dixie Miller is a 58 year old female with a pertinent past medical history significant for chronic cough who is being seen as a new consultation for evaluation of a lung nodule(s). Dixie Miller had a CT chest on 05/08/2024 for the indication of chronic cough. 4 nodules were detected Incidentally. The nodule of greatest concern is a Ground Glass 12 mm nodule with a Smooth border in the Left upper lobe/lingula of the lung. The following nodules were noted as well as enlarged mediastinal and bilateral hilar lymph nodes: *8 mm nodule right upper lobe (7:45) *8 mm nodule right lower lobe (7:99) *12 mm nodule left upper lobe (7:43) *8 mm nodule left lower lobe (7:85) *1.4 cm precarinal lymph node (5:65) *1.2 cm right hilar lymph node (5:76) *1 cm left hilar lymph node (5:68) She was initially evaluated by PCP for cough 04/12/2022 at which time she had chest discomfort and nonproductive cough x 6 weeks that was preceded by URI. CXR at that time demonstrated small patchy opacities overlying the left mid lung and she was treated with Doxycyline. Cough improved and follow up CXR showed no acute issues. URI in August 2022 with viral panel negative and persistent non-productive cough in November 2022. CXR concerning for left sided pneumonia and patient treated with Doxycycline. CXR improved, but cough persisted until she had Covid in April 2023 and then cough worsened. At times it was productive of clear, sticky phlegm. PFTs June 2023 demonstrated some obstruction and improvement post bronchodilator and patient was started on Advair. She was also started on PPI for possible GERD. Patient was eventually referred to ENT at which time Omeprazole was increased to 40 mg. She underwent an esophagram which was unremarkable. Stopped PPI due to cough not improving. Most recently treated for URI early May 2024 with Doxycycline with minimal improvement in cough. Today, patient states she has had chronic cough for 2 years. She has tried Flonase nasal spray, Advair, Albuterol, Omeprazole 40 mg and Doxycycline over the course of the past 2 years. Nothing has helped. Currently her cough is non-productive. Typically occurs in the evenings, but does not wake her from sleep. Also triggered by cold air and occasionally is worse after eating. No fevers, chills, or night sweats. No unintentional weight loss. No wheezing, chest tightness or SOB. No family or personal history of lung cancer. History of basal cell cancer, facial. 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 Dog in home. No chickens or birds. Respiratory symptoms include: SOB: No Chest tightness: No Coughing: Yes: Without mucus Hemoptysis: No Wheezing: No Fever/Chills: No Recent Respiratory Infection: Yes Unintentional weight loss: No Last 6 Encounter Wt Readings: Date: Wt: 05/10/2024 74.8 kg (165 lb) 04/25/2024 74.8 kg (165 lb) 04/17/2024 74.4 kg (164 lb) 04/06/2024 72.6 kg (160 lb) 04/02/2024 76.2 kg (168 lb) 09/07/2023 73.5 kg (162 lb) Modified Medical Research [place] Dyspnea Scale (MMRC) I only get breathless with strenous exercise 0 Other Pertinent Clinical Risk Factors: Significant exposures (1 year or more of exposure): None. Recent travel history: None Animal exposure: Dog Second hand smoke exposure: No Does the patient have a prior history malignancy? Yes: Other Basal cell, facial Does the patient have a family history of lung cancer? No Problem List, History, Medications and allergies have been reviewed from the [facility] electronic medical record and any appropriate up-dates have been (more content not included)... [facility] 05-30-2024 History of Present illness Narrative Images from the original note were not included. [facility] INCIDENTAL LUNG NODULE PROGRAM Impression / Recommendations 1. Chronic cough - ICD9: 786.2, ICD10: R05.3 (primary diagnosis) 2. Lymphadenopathy, hilar - ICD9: 785.6, ICD10: R59.0 3. Multiple lung nodules on CT - ICD9: 793.19, ICD10: R91.8 Reviewed imaging with patient. I discussed the differential diagnosis of chronic cough: asthma, post nasal drip, gastro-esophageal reflux disease, medications, aspiration, malignancy, infections, cardiac disease, and other less common causes. We discussed Econsult with Interventional Pulmonary. I have a high index of suspicion for sarcoidosis. Further evaluation and management following E consult and possible EBUS. Gertrude Goldberg PA-C Requesting Provider: Shlomo Miller Reason for the Consult Dixie Miller presents today for consultation / opinion regarding lung nodule(s). My impression and final recommendations will be communicated back to the requesting physician by way of shared medical record or letter via [place] mail. History of Present Illness Dixie Miller is a 58 year old female with a pertinent past medical history significant for chronic cough who is being seen as a new consultation for evaluation of a lung nodule(s). Dixie Miller had a CT chest on 05/08/2024 for the indication of chronic cough. 4 nodules were detected Incidentally. The nodule of greatest concern is a Ground Glass 12 mm nodule with a Smooth border in the Left upper lobe/lingula of the lung. The following nodules were noted as well as enlarged mediastinal and bilateral hilar lymph nodes: *8 mm nodule right upper lobe (7:45) *8 mm nodule right lower lobe (7:99) *12 mm nodule left upper lobe (7:43) *8 mm nodule left lower lobe (7:85) *1.4 cm precarinal lymph node (5:65) *1.2 cm right hilar lymph node (5:76) *1 cm left hilar lymph node (5:68) She was initially evaluated by PCP for cough 04/12/2022 at which time she had chest discomfort and nonproductive cough x 6 weeks that was preceded by URI. CXR at that time demonstrated small patchy opacities overlying the left mid lung and she was treated with Doxycyline. Cough improved and follow up CXR showed no acute issues. URI in August 2022 with viral panel negative and persistent non-productive cough in November 2022. CXR concerning for left sided pneumonia and patient treated with Doxycycline. CXR improved, but cough persisted until she had Covid in April 2023 and then cough worsened. At times it was productive of clear, sticky phlegm. PFTs June 2023 demonstrated some obstruction and improvement post bronchodilator and patient was started on Advair. She was also started on PPI for possible GERD. Patient was eventually referred to ENT at which time Omeprazole was increased to 40 mg. She underwent an esophagram which was unremarkable. Stopped PPI due to cough not improving. Most recently treated for URI early May 2024 with Doxycycline with minimal improvement in cough. Today, patient states she has had chronic cough for 2 years. She has tried Flonase nasal spray, Advair, Albuterol, Omeprazole 40 mg and Doxycycline over the course of the past 2 years. Nothing has helped. Currently her cough is non-productive. Typically occurs in the evenings, but does not wake her from sleep. Also triggered by cold air and occasionally is worse after eating. No fevers, chills, or night sweats. No unintentional weight loss. No wheezing, chest tightness or SOB. No family or personal history of lung cancer. History of basal cell cancer, facial. 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 Dog in home. No chickens or birds. Respiratory symptoms include: SOB: No Chest tightness: No Coughing: Yes: Without mucus Hemoptysis: No Wheezing: No Fever/Chills: No Recent Respiratory Infection: Yes Unintentional weight loss: No Last 6 Encounter Wt Readings: Date: Wt: 05/10/2024 74.8 kg (165 lb) 04/25/2024 74.8 kg (165 lb) 04/17/2024 74.4 kg (164 lb) 04/06/2024 72.6 kg (160 lb) 04/02/2024 76.2 kg (168 lb) 09/07/2023 73.5 kg (162 lb) Modified Medical Research [place] Dyspnea Scale (MMRC) I only get breathless with strenous exercise 0 Other Pertinent Clinical Risk Factors: Significant exposures (1 year or more of exposure): None. Recent travel history: None Animal exposure: Dog Second hand smoke exposure: No Does the patient have a prior history malignancy? Yes: Other Basal cell, facial Does the patient have a family history of lung cancer? No Problem List, History, Medications and allergies have been reviewed from the [facility] electronic medical record and any appropriate up-dates have been made. Physical Exam BP 124/80 Pulse 75 Resp 16 Wt 73 kg (161 lb) LMP 11/26/2014 SpO2 100% BMI 27.21 kg/m Gen: No acute distress. Cooperative with examination. HEENT: Normocephalic. Oral hygeine and dentition good. Resp: Clear breath sounds. No wheezes, crackles. CV: Regular rythm. Heart tones normal. Radial pulses normal. Ext: Warm and well perfused. No clubbing, cyanosis, edema. Skin: No rash, ecchymoses. Neuro: Mental status normal. Affect normal. No tremor. Diagnostic Data I have personally visualized, reviewed and analyzed the findings on pulmonary function testing and radiographs. Last CT/CTA Chest/Lungs CT CHEST W IVCON Exam End: 05/08/2024 1:50 PM (Final result) Narrative: * * *Final Report* * * DATE OF EXAM: May 08 2024 1:50PM [facility] 0539 - CT CHEST W IVCON / PROCEDURE REASON: Lung nodules * * * * Physician Interpretation * * * * EXAMINATION: CHEST CT WITH CONTRAST CLINICAL HISTORY: Lung nodules Technique: Spiral CT acquisition of the chest from the thoracic inlet to the upper abdomen following IV contrast. MQ: [id number]_6 Contrast: 50 mL Omnipaque [address] Radiation dose: Integrated Dose-length product (DLP) for this visit = 210 mGy*cm CT Dose Reduction Employed: Iterative recon Comparison: CT urogram 04/26/2024. No prior CT chest is available for comparison. RESULT: Limitations: None. Lines, tubes, and devices: None. Lung parenchyma and airways: There are innumerable bilateral pulmonary nodules, predominantly along bronchovascular bundles and the pleural surface. For example: *8 mm nodule right upper lobe (7:45) *8 mm nodule right lower lobe (7:99) *12 mm nodule left upper lobe (7:43) *8 mm nodule left lower lobe (7:85) No consolidation. Right middle lobe atelectasis. Narrowing of bronchi to the right upper, middle and lower lobes due to hilar lymphadenopathy. Pleural space: No pleural effusion. No pleural thickening. Lower neck, lymph nodes, and mediastinum: The imaged thyroid gland is normal. Enlarged mediastinal and bilateral hilar lymph nodes. For example: *1.4 cm precarinal lymph node (5:65) *1.2 cm right hilar lymph node (5:76) *1 cm left hilar lymph node (5:68) Heart, pericardium, and thoracic vessels: The thoracic aorta and main pulmonary artery are normal in caliber. The cardiac chambers are normal in size. No coronary artery atherosclerotic calcifications are noted, although the study is not optimized for coronary assessment. No pericardial effusion or thickening. Bones and soft tissues: No destructive bone lesion. Chest wall is unremarkable. Upper abdomen: Small hiatal hernia. No acute abnormality in the imaged upper abdomen. Localizer images: No additional findings. Impression: IMPRESSION: 1. Bilateral pulmonary nodules which may be infectious/inflammatory or neoplastic 2. Mediastinal and bilateral hilar lymphadenopathy Lead Mobile Developer: [facility] Transcribe Date/Time: May 16 2024 9:59A Dictated by : ELVI SOLOMON MD This examination was interpreted and the report reviewed and electronically signed by: ELVI SOLOMON MD on May 16 2024 10:17AM EST Latest Ref Rng & Units 06/16/2023 Lung Volumes FRC Box (L) L 2.69 RV Box (L) L 1.84 ERV BOX (L) L 0.86 VC (L) BOX L 2.59 IC BOX (L) L 1.65 TLC Box (L) L 4.35 RV/TLC Box (%) % 42 Latest Ref Rng & Units 06/16/2023 Spirometry Data FVC PRE (L) L 2.66 FVC POST (L) L 2.67 FEV1 PRE (L) L 1.79 FEV1_POST (L) L 2.01 FEV1/FVC PRE (%) % 67 FEV1/FVC POST (%) % 75 AMP73-57% PRE (L/S) L/S 1.16 RPH08-70% POST (L/S) L/S 1.64 PEF PRE (L/S) L/S 3.87 PEF POST (L/S) L/S 4.92 VC (L) BOX L 2.59 IC BOX (L) L 1.65 ERV BOX (L) L 0.86 DLCO (ml/min/mmHg) ml/min/mmHg 18.95 FRC Box (L) L 2.69 RV Box (L) L 1.84 TLC Box (L) L 4.35 RV/TLC Box (%) % 42 VA (L) L 3.74 DLCO/VA (ml/min/mmHg/L) ml/min/mmHg/L 5.06 Latest Ref Rng & Units 06/16/2023 Lung Diffusion DLCO (ml/min/mmHg) ml/min/mmHg 18.95 DLCO/VA (ml/min/mmHg/L) ml/min/mmHg/L 5.06 VA (L) L 3.74 Impression / Recommendations To optimize physician communication via the electronic health record, the Impression & Recommendations section has been placed at the beginning of this note. ----- Gertrude Goldberg PA-C Pulmonary & Critical Care Medicine May 30, 2024 9:51 AM documented in this encounter [facility] 05-16-2024 Telephone encounter Note Scheduled with pul 05/30 [facility] 05-16-2024 Miscellaneous Notes Scheduled with pul 05/[address] patient. Ct shows some lymphadenopathy and multiple nodules. Rule out infectious vs inflammatory vs neoplastic. Has had a chronic cough for which she has been seeing ent. He had felt it was reflex. Has also recently been ill and still has some mild symptoms. Her mri of her liver showed hepatic cysts. Borderline lymph nodes as well. Labs are stable. Add doxycycline given recent illness, allergies and symptoms. Red flags for re-assessment reviewed with patient in detail. See pulmonary to start. She will set up appt with me after. Staff: please get into pulmonary YSABEL documented in this encounter [facility] 05-16-2024 Telephone encounter Note Discussed ct with patient. Ct shows some lymphadenopathy and multiple nodules. Rule out infectious vs inflammatory vs neoplastic. Has had a chronic cough for which she has been seeing ent. He had felt it was reflex. Has also recently been ill and still has some mild symptoms. Her mri of her liver showed hepatic cysts. Borderline lymph nodes as well. Labs are stable. Add doxycycline given recent illness, allergies and symptoms. Red flags for re-assessment reviewed with patient in detail. See pulmonary to start. She will set up appt with me after. Staff: please get into pulmonary YSABEL [facility] 05-15-2024 Note HNO ID: [id number] Author: JEN PALACIOS, PT Service: ? Author Type: Physical Therapist Type: Progress Notes Filed: 05/15/2024 14:40 Note Text: Episode Visit Count: 1 Therapist That Will Accept/Oversee The Plan Of Care: Jen Everett Start of Care Date: 05/15/24 Onset Date: 04/25/22 Patient Identified by Name and Date of : Yes REHABILITATION AND SPORTS THERAPY PHYSICAL THERAPY EVALUATION PLAN OF CARE: Assessment: Dixie Miller presents with chief complaint of CINDY that interferes with bladder function . The patient presents with good pelvic floor muscle strength, endurance, coordination, and ROM without muscle restrictions/tenderness noted. PROMIS? (Patient-Reported Outcomes Measurement Information System) scores were reviewed and identified as within normal limits. Prognosis for therapy is Good due to: current objective clinical presentation . The patient will benefit from skilled therapy services to meet the goals established for this plan of care as noted below. Goals for Episode of Care: established 05/15/24 Patient demonstrates independence and compliance with home exercise program. Patient reports at least 85% improvement in bladder leaks while coughing compared to evaluation in order to increase bladder function in activities of daily living. Patient reports increased ability to fully empty bladder at least 85% of the time to normalize bladder function. Patient Goals: improve bladder function Time Frame for Goals and Treatment : 07/14/24 Planned Interventions, Frequency, and Duration: Current Frequency: 1x/month Duration: 4 weeks (reassess at 4 weeks and progress as indicated) Total Number of Visits Planned: 1 Planned Treatment Interventions: Therapeutic exercise (36464), Neuromuscular re-education (57681), Manual therapy (81201), Therapeutic activities (05790), Self-correction management (17245), Patient/Family/Caregiver Education PLAN FOR NEXT VISIT: recheck in 1 month Patient demonstrates good understanding of plan of care and treatment. The above goals and plan of care were discussed and agreed upon by patient/family. SUBJECTIVE: Pt returns to PFPT with continued CINDY. Pt reports continuing to have a chronic cough, CINDY has gotten worse this past year since last seen in PFPT. Pt reports initially doing HEP exercises more than double what was prescribed, got worse, and then stopped doing exercises altogether. Patient Goals: improve bladder function Functional Limitations: bladder function Prior Level of Function: Independent without limitations Relevant History Past Relevant Medical Conditions: (see note) Past Relevant Surgical Conditions: (see note) Employment: Retired Recreation / Current Exercise: None. PAST MEDICAL HISTORY Diagnosis Date Bladder incontinence Chicken pox 03/31/66 as a child-lasted 12 weeks Mumps [id number] as a child NONE PAST SURGICAL HISTORY Procedure Laterality Date COLONOSCOPY FLX DX W/COLLJ SPEC WHEN PFRMD 12/23/2016 Colonoscopy PAST SURGICAL HISTORY OF basil cell removal forehead Intake Information: Prescription present Previous Treatment: Pelvic Floor Physical Therapy Falls Interview: No positive findings with falls interview Aquatic Screen: No Pain: Pain Pain Level: 0 Post Treatment Pain Post Treatment Pain Level: 0 PROMIS Scales 05/08/2024 04/26/2023 11/18/2021 Higher is Better Phys Func - T Score 62 (within normal limits) Incomplete Phys Func - Percentile 88 Self-Eff Symptom - T Score 41 (Average) 49 (Average) 68 (High) Self-Eff Symptom - Percentile 18 46 96 05/08/2024 11/18/2021 Lower is Better Pain Interference - T Score 40 (within normal limits) Incomplete Pain Interference - Percentile 84 T-scores: mean of general population = 50. 5 points is clinically meaningfully difference Percentiles provide an indication of how the patient's score ranks in relation to the general population. Higher percentile rankings indicate better function/quality of life. 50th percentile is the average of the general population and indicates half of respondents had a worse score. OBJECTIVE MEASURES WITH LEVEL OF FUNCTION: Pelvic Floor Pregnancies: 3 Births: 2 Vaginal Delivery: (2) Pain with penetration: No Urinary/Bowel History : Urinary History, Bowel History Difficulty starting stream: No Incomplete emptying: Sometimes Stress Incontinence: Cough Urgency: No Nocturia (times per night) : 0-1 Daytime Frequency (hours): 2 Fluid Intake: Water, Pop/Diet Pop Water : 64 oz/day Pop/Diet Pop : 1 can/week (7-up) Difficulty evacuating / Excessive Straining: No Incomplete emptying: No Bowel Movement Frequency: 1x/day Fecal incontinence: No Pelvic Floor Muscle Assessment Consent for pelvic assessment/testing and treatment: Patient was educated regarding pelvic floor physical therapy assessment/treatment which may include pelvic floor and girdle muscle assessmen (more content not included)... [facility] 05-15-2024 History of Present illness Narrative Episode Visit Count: 1 Therapist That Will Accept/Oversee The Plan Of Care: Jen Everett Start of Care Date: 05/15/24 Onset Date: 04/25/22 Patient Identified by Name and Date of : Yes REHABILITATION AND SPORTS THERAPY PHYSICAL THERAPY EVALUATION PLAN OF CARE: Assessment: Dixie Miller presents with chief complaint of CINDY that interferes with bladder function . The patient presents with good pelvic floor muscle strength, endurance, coordination, and ROM without muscle restrictions/tenderness noted. PROMIS (Patient-Reported Outcomes Measurement Information System) scores were reviewed and identified as within normal limits. Prognosis for therapy is Good due to: current objective clinical presentation . The patient will benefit from skilled therapy services to meet the goals established for this plan of care as noted below. Goals for Episode of Care: established 05/15/24 Patient demonstrates independence and compliance with home exercise program. Patient reports at least 85% improvement in bladder leaks while coughing compared to evaluation in order to increase bladder function in activities of daily living. Patient reports increased ability to fully empty bladder at least 85% of the time to normalize bladder function. Patient Goals: improve bladder function Time Frame for Goals and Treatment : 07/14/24 Planned Interventions, Frequency, and Duration: Current Frequency: 1x/month Duration: 4 weeks (reassess at 4 weeks and progress as indicated) Total Number of Visits Planned: 1 Planned Treatment Interventions: Therapeutic exercise (23032), Neuromuscular re-education (44576), Manual therapy (37145), Therapeutic activities (43261), Self-correction management (16572), Patient/Family/Caregiver Education PLAN FOR NEXT VISIT: recheck in 1 month Patient demonstrates good understanding of plan of care and treatment. The above goals and plan of care were discussed and agreed upon by patient/family. SUBJECTIVE: Pt returns to PFPT with continued CINDY. Pt reports continuing to have a chronic cough, CINDY has gotten worse this past year since last seen in PFPT. Pt reports initially doing HEP exercises more than double what was prescribed, got worse, and then stopped doing exercises altogether. Patient Goals: improve bladder function Functional Limitations: bladder function Prior Level of Function: Independent without limitations Relevant History Past Relevant Medical Conditions: (see note) Past Relevant Surgical Conditions: (see note) Employment: Retired Recreation / Current Exercise: None. PAST MEDICAL HISTORY Diagnosis Date Bladder incontinence Chicken pox 03/31/66 as a child-lasted 12 weeks Mumps [id number] as a child NONE PAST SURGICAL HISTORY Procedure Laterality Date COLONOSCOPY FLX DX W/COLLJ SPEC WHEN PFRMD 12/23/2016 Colonoscopy PAST SURGICAL HISTORY OF basil cell removal forehead Intake Information: Prescription present Previous Treatment: Pelvic Floor Physical Therapy Falls Interview: No positive findings with falls interview Aquatic Screen: No Pain: Pain Pain Level: 0 Post Treatment Pain Post Treatment Pain Level: 0 PROMIS Scales 05/08/2024 04/26/2023 11/18/2021 Higher is Better Phys Func - T Score 62 (within normal limits) Incomplete Phys Func - Percentile 88 Self-Eff Symptom - T Score 41 (Average) 49 (Average) 68 (High) Self-Eff Symptom - Percentile 18 46 96 05/08/2024 11/18/2021 Lower is Better Pain Interference - T Score 40 (within normal limits) Incomplete Pain Interference - Percentile 84 T-scores: mean of general population = 50. 5 points is clinically meaningfully difference Percentiles provide an indication of how the patient's score ranks in relation to the general population. Higher percentile rankings indicate better function/quality of life. 50th percentile is the average of the general population and indicates half of respondents had a worse score. OBJECTIVE MEASURES WITH LEVEL OF FUNCTION: Pelvic Floor Pregnancies: 3 Births: 2 Vaginal Delivery: (2) Pain with penetration: No Urinary/Bowel History : Urinary History, Bowel History Difficulty starting stream: No Incomplete emptying: Sometimes Stress Incontinence: Cough Urgency: No Nocturia (times per night) : 0-1 Daytime Frequency (hours): 2 Fluid Intake: Water, Pop/Diet Pop Water : 64 oz/day Pop/Diet Pop : 1 can/week (7-up) Difficulty evacuating / Excessive Straining: No Incomplete emptying: No Bowel Movement Frequency: 1x/day Fecal incontinence: No Pelvic Floor Muscle Assessment Consent for pelvic assessment/testing and treatment: Patient was educated regarding pelvic floor physical therapy assessment/treatment which may include pelvic floor and girdle muscle assessment externally or internally (vaginal or rectal approach)., Patient verbalized consent for the above treatment approaches today. Patient understands they have control of the treatment and an opportunity to stop treatment at any time. Pelvic Floor Muscle Assessment: PERFECT, Muscle Dynamics Power: 4 Endurance: 10 Fast Reps: 10 Contracton Pressure: Strong squeeze, full circumference of fingers compressed Duration of Contraction: >3 seconds Recruitment of pelvic floor muscles: Coordinated Range of Motion: Normal Ability to Lengthen pelvic floor: Yes Pelvic Floor Manual Assessment Pelvic Floor Tenderness/Hyperactivity: Tested Vaginally in Tested Vaginally in : Supine/hooklying (No restrictions/tenderness noted.) LE AROM R LE AROM: WFL L LE AROM: WFL LE Flexibility Flexibility: Hamstring Flexibility, Hip Adductor, Hip Internal Rotation Flexibility, Hip External Rotation Flexibility R Hamstring Flexibility: WNL L Hamstring Flexibility: WNL R Adductor Flexibility: WNL L Adductor Flexibility: WNL R Hip Internal Rotation Flexibility: WNL L Hip Internal Rotation Flexibility: WNL R Hip External Rotation Flexibility: WNL L Hip External Rotation Flexibility: WNL LE Strength Trunk Strength: Lower Abdominals: 4/5 R LE Strength: 5/5 L LE Strength: 5/5 Education: Education Learning Preferences: Demonstration, Explanation, Performance, Printed Materials Barriers: None Learning/educational needs: Home exercise program, Plan of Care Education Provided: Yes, see treatment interventions for education provided Education Provided To: Patient Education Mode/Type: Demonstration, Explanation/Discussion, Literature/Printed Materials, Performance Response to Education/Teach Back: States/Identifies, Return Demonstration TREATMENT: PT Treatment Interventions: Therapeutic Exercise, Self-Mcc Management Evaluation Therapeutic Exercise: 1: Reviewed HEP from previous episode of PFPT including: quick flicks, kegel holds, isometric hip adduction, standing hip abduction and extension with PF bracing, clamshells, and sidelying hip abduction. 2: *knack technique: reviewed importance of consistent contraction of PF with coughing Skilled Intervention: Patient was educated in proper exercise technique and purpose for exercises. Reviewed and educated patient on additions/changes for home exercise program as above (*). Skilled judgment was used in selection of appropriate interventions. Provided written instruction for home exercise program to facilitate proper performance and compliance. Self-Mcc Management: 1: Reviewed toileting techniques to fully empty bladder without straining 2: Reviewed importance of not overdoing HEP to avoid overfatiguing mm 3: Reviewed importance of continued good bladder habits, including regular voiding intervals and proper fluid intake/pacing 4: Reviewed body's change in intraabdominal pressure with coughing, clinical reasoning behind bracing PF Skilled Intervention: Skilled judgment in the selection of proper modification for activity of daily living/home management based on clinical presentation, deficits, and needs. Provided written instruction for activities of daily living techniques to facilitate proper performance and compliance. Billing * Evaluation Low Complexity: 1 Unit Therapeutic Exercise Treatment Minutes: 10 Self-Care/Home Management Treatment Minutes: 10 Skilled Treatment Time Minutes (timed and untimed codes): 42 Total Session Time (minutes): 42 Session Start Time : 1344 Session Stop Time : 1426 Jen Everett PT documented in this encounter [facility] 05-11-2024 Note HNO ID: [id number] Author: KASSANDRA NOE JR, MD Service: ? Author Type: Physician Type: Procedures Filed: 05/11/2024 15:52 Note Text: CYSTOSCOPY PROCEDURE NOTE: Dixie Miller is a 58 year old female who presents with hematuria gross for a cystoscopy. Pt ID verified with patient: Yes Fire risk assessment done Procedure verified with patient: Yes Procedure confirmed with physician and behaviour support teacher: Yes UNIVERSAL PROTOCOL / SAFETY CHECKLIST Procedure to be Performed: cysto Sign In: A Moment of CARE was completed. Appropriate PPE (Personal Protective Equipment) worn by all providers involved with the procedure. Special equipment not required. Patient/Surrogate Stated/Verified: Patient name, Date of , Relevant allergies, and The intended procedure Time Out: Relevant labs, photos, and/or imaging studies have been reviewed. Intended patient and procedure match the source document(s) (e.g. consent, HANDP, associated studies [imaging, pathology]) match the intended patient and procedure. Consent obtained and matches the intended procedure. Yes. Correct side/site is not applicable. Medications required for this procedure are verified. Fire risk assessed and is not applicable. Implants: are not applicable. Sign Out: Specimens are all correctly labeled and sent. All instruments, equipment, possible retained foreign bodies are accounted for. Yes. The post-procedure plan of care has been communicated to the patient or surrogate. Pre procedure dx: gross hematuria Post procedure dx: same A urinalysis was performed revealing no evidence of infection. The benefits, risks, alternatives of the cystoscopy procedure and personnel were discussed with the patient. The verbal consent was obtained and the patient agrees to proceed. Female staff present for entire exam/procedure. Procedure: The patient was placed on the procedure table in the supine position and prepped and draped in the usual sterile fashion. 2% Lidocaine Jelly was placed per urethra as an anesthetic in the standard fashion. Once adequate local anesthesia was achieved, the tip of the flexible cystoscope was carefully placed into the urethra under direct visual guidance. The scope was negotiated per urethra with no evidence of stricture into the bladder. Careful mcnamara endoscopy was carried out. The posterior, superior and lateral rider and dome of the bladder were all well visualized and the scope was retroflexed upon itself. The findings were consistent with no evidence of bladder mucosal pathology. At the conclusion of the procedure, the flexible cystoscope was removed atraumatically. The patient tolerated the procedure without complications. Patient was given standard post-procedure instructions, and was directed to complete the course of oral antibiotics and increase oral fluid intake as directed. ASSESSMENT/PLAN: Ines Noe Jr, MD [facility] 05-11-2024 Procedure note CYSTOSCOPY PROCEDURE NOTE: Dixie Miller is a 58 year old female who presents with hematuria gross for a cystoscopy. Pt ID verified with patient: Yes Fire risk assessment done Procedure verified with patient: Yes Procedure confirmed with physician and behaviour support teacher: Yes UNIVERSAL PROTOCOL / SAFETY CHECKLIST Procedure to be Performed: cysto Sign In: A Moment of CARE was completed. Appropriate PPE (Personal Protective Equipment) worn by all providers involved with the procedure. Special equipment not required. Patient/Surrogate Stated/Verified: Patient name, Date of , Relevant allergies, and The intended procedure Time Out: Relevant labs, photos, and/or imaging studies have been reviewed. Intended patient and procedure match the source document(s) (e.g. consent, H&P, associated studies [imaging, pathology]) match the intended patient and procedure. Consent obtained and matches the intended procedure. Yes. Correct side/site is not applicable. Medications required for this procedure are verified. Fire risk assessed and is not applicable. Implants: are not applicable. Sign Out: Specimens are all correctly labeled and sent. All instruments, equipment, possible retained foreign bodies are accounted for. Yes. The post-procedure plan of care has been communicated to the patient or surrogate. Pre procedure dx: gross hematuria Post procedure dx: same A urinalysis was performed revealing no evidence of infection. The benefits, risks, alternatives of the cystoscopy procedure and personnel were discussed with the patient. The verbal consent was obtained and the patient agrees to proceed. Female staff present for entire exam/procedure. Procedure: The patient was placed on the procedure table in the supine position and prepped and draped in the usual sterile fashion. 2% Lidocaine Jelly was placed per urethra as an anesthetic in the standard fashion. Once adequate local anesthesia was achieved, the tip of the flexible cystoscope was carefully placed into the urethra under direct visual guidance. The scope was negotiated per urethra with no evidence of stricture into the bladder. Careful mcnamara endoscopy was carried out. The posterior, superior and lateral rider and dome of the bladder were all well visualized and the scope was retroflexed upon itself. The findings were consistent with no evidence of bladder mucosal pathology. At the conclusion of the procedure, the flexible cystoscope was removed atraumatically. The patient tolerated the procedure without complications. Patient was given standard post-procedure instructions, and was directed to complete the course of oral antibiotics and increase oral fluid intake as directed. ASSESSMENT/PLAN: Ines Noe Jr, MD [facility] 05-11-2024 Procedure note CYSTOSCOPY PROCEDURE NOTE: Dixie Miller is a 58 year old female who presents with hematuria gross for a cystoscopy. Pt ID verified with patient: Yes Fire risk assessment done Procedure verified with patient: Yes Procedure confirmed with physician and behaviour support teacher: Yes UNIVERSAL PROTOCOL / SAFETY CHECKLIST Procedure to be Performed: cysto Sign In: A Moment of CARE was completed. Appropriate PPE (Personal Protective Equipment) worn by all providers involved with the procedure. Special equipment not required. Patient/Surrogate Stated/Verified: Patient name, Date of , Relevant allergies, and The intended procedure Time Out: Relevant labs, photos, and/or imaging studies have been reviewed. Intended patient and procedure match the source document(s) (e.g. consent, H&P, associated studies [imaging, pathology]) match the intended patient and procedure. Consent obtained and matches the intended procedure. Yes. Correct side/site is not applicable. Medications required for this procedure are verified. Fire risk assessed and is not applicable. Implants: are not applicable. Sign Out: Specimens are all correctly labeled and sent. All instruments, equipment, possible retained foreign bodies are accounted for. Yes. The post-procedure plan of care has been communicated to the patient or surrogate. Pre procedure dx: gross hematuria Post procedure dx: same A urinalysis was performed revealing no evidence of infection. The benefits, risks, alternatives of the cystoscopy procedure and personnel were discussed with the patient. The verbal consent was obtained and the patient agrees to proceed. Female staff present for entire exam/procedure. Procedure: The patient was placed on the procedure table in the supine position and prepped and draped in the usual sterile fashion. 2% Lidocaine Jelly was placed per urethra as an anesthetic in the standard fashion. Once adequate local anesthesia was achieved, the tip of the flexible cystoscope was carefully placed into the urethra under direct visual guidance. The scope was negotiated per urethra with no evidence of stricture into the bladder. Careful mcnamara endoscopy was carried out. The posterior, superior and lateral rider and dome of the bladder were all well visualized and the scope was retroflexed upon itself. The findings were consistent with no evidence of bladder mucosal pathology. At the conclusion of the procedure, the flexible cystoscope was removed atraumatically. The patient tolerated the procedure without complications. Patient was given standard post-procedure instructions, and was directed to complete the course of oral antibiotics and increase oral fluid intake as directed. ASSESSMENT/PLAN: Heme gunner Noe Jr, MD documented in this encounter [facility] 05-08-2024 History of Present illness Narrative Radiology Service Progress Note PATIENT NAME: Dixie Miller DATE OF SERVICE: May 08, 2024 TIME: 1:42 PM PATIENT IDENTITY VERIFICATION COMPLETED USING TWO (2) IDENTIFIERS: Name and Date of confirmed by patient verbally. FALL SCREENING: Has the patient had 2 falls in the last year or 1 fall with injury or currently using an Ambulatory Assistive Device (Walker, Cane, Wheelchair, Crutches, etc.)? No PATIENT GENDER DATA: Assigned female at . status: : No status: NO. PATIENT RELEVANT IMPLANT DATA REVIEWED: Yes PATIENT PRESENTS WITH AN IMPLANTABLE OR ATTACHED PREVENTATIVE MAINTENANCE TECHNICIAN: No RADIOLOGY DEPARTMENT: MR; Exam(s) Completed: Body: Liver (routine) PERIPHERAL IV DATA: Site assessment: Clean,Dry and Intact, Site disposition Discontinued SIGNED BY: RT Lucita(R) May 08, 2024 1:42 PM documented in this encounter [facility] 05-08-2024 Note HNO ID: [id number] Author: BLANCA ROSE RT(R) Service: ? Author Type: Technologist Type: Progress Notes Filed: 05/08/2024 13:42 Note Text: Radiology Service Progress Note PATIENT NAME: Dixie Miller DATE OF SERVICE: May 08, 2024 TIME: 1:42 PM PATIENT IDENTITY VERIFICATION COMPLETED USING TWO (2) IDENTIFIERS: Name and Date of confirmed by patient verbally. FALL SCREENING: Has the patient had 2 falls in the last year or 1 fall with injury or currently using an Ambulatory Assistive Device (Walker, Cane, Wheelchair, Crutches, etc.)? No PATIENT GENDER DATA: Assigned female at . status: : No status: NO. PATIENT RELEVANT IMPLANT DATA REVIEWED: Yes PATIENT PRESENTS WITH AN IMPLANTABLE OR ATTACHED PREVENTATIVE MAINTENANCE TECHNICIAN: No RADIOLOGY DEPARTMENT: MR; Exam(s) Completed: Body: Liver (routine) PERIPHERAL IV DATA: Site assessment: Clean,Dry and Intact, Site disposition Discontinued SIGNED BY: Blanca Gates Jeannie Rose, RT(R) May 08, 2024 1:42 PM [facility] 05-03-2024 Radiology Diagnostic study note [facility] Imaging Services [address] [place] [address] Esophagus Dual Contrast MR#: [id number] Acct: [id number] Name: DIXIE MILLER Rep #: [id number] : 1965 F 58 From: Nicola Klein MD PCP: Dr. Shlomo Miller MD Status: REG C REBA Study:Esophagus Dual Contrast Date of Exam: 05/03/24 Exam# [id number] Ordering Dr: Mohinder Giron MD PROCEDURE: ESOPHAGUS DUAL CONTRAST 05/03/2024 REASON FOR EXAM: GERD TECHNIQUE: Images from an intraoperative cholangiogram submitted by FLUOROSCOPIC TIME: 34 seconds. 3.6 mGy FLUOROGRAPHIC IMAGES: 44 COMPARISON: None. FINDINGS: The patient ingested barium. No evidence of esophageal obstruction. No mass lesion is seen. No evidence of gastroesophageal reflux. The patient ingested a 12 mm tablet of barium without any difficulty. RAD/Esophagus Dual Contrast IMPRESSION: Unremarkable air contrast esophagram. Reading Location: [place] [address] CC: Dr. Mohinder Giron MD; Dr. Shlomo Miller MD ~ Lead Mobile Developer: Signed [facility] 05-02-2024 Telephone encounter Note Called and left detailed message on patient's identified voicemail that insurance approved of MRI and CT scan. Advised patient that if she has questions she can call office back. Ana Melendrez RN [facility] 05-02-2024 Miscellaneous Notes Called and left detailed message on patient's identified voicemail that insurance approved of MRI and CT scan. Advised patient that if she has questions she can call office back. Ana Melendrez RN Patient calls and states that she was told by [facility] that Andre has to be contacted at [phone] to get approval expedited. Contacted patient, scheduled CT and MRI patient will be calling insurance to try and hurry up authorization. She will do a walk-in lab in the next few days I have placed orders for labs, mri and ct. I spoke with patient she is aware. Please get set up ysabel. I will handle follow up from here. Pt called in and reports she called Dr Bermudez's office about her CT results. She states he is out of the office today and they were going to try an get a hold of him to see if he wanted to do anything about this of have her PCP work on it. Pt wanted me to send message to Dr Miller as she is very nervous about it. Please call and advise. Impression IMPRESSION: 1. No cause for hematuria detected. No renal or ureteral calculi. No hydronephrosis or hydroureter. No upper tract urothelial filling defects or strictures. 2. Multiple new findings for which the possibility of metastatic disease from an unknown primary should be excluded. There are hypodense hepatic lesions which are not adequately characterized on single phase imaging but are suspicious for solid hepatic lesions and may represent metastatic disease. Would advise further evaluation with an MRI of the liver with and without contrast at this time. There are also multiple mildly enlarged upper abdominal lymph nodes which are new when compared to the prior study and may represent metastatic adenopathy. Limited evaluation of the lower chest demonstrates multiple scattered pulmonary nodules. Would advise further evaluation with a CT of the chest with intravenous contrast. Patient calling and states she had a CT scan done last week on 04/26. She received the results in my chart. States she needs further testing done as soon as possible. Patient is concerned and asking when these should be done? Patient is asking if you will order the additional testing or if her PCP needs to order it? documented in this encounter [facility] 05-02-2024 Telephone encounter Note Patient calls and states that she was told by [facility] that Andre has to be contacted at [phone] to get approval expedited. [facility] 05-02-2024 Telephone encounter Note Contacted patient, scheduled CT and MRI patient will be calling insurance to try and hurry up authorization. She will do a walk-in lab in the next few days [facility] Work Phone: 05-02-2024 Telephone encounter Note I have placed orders for labs, mri and ct. I spoke with patient she is aware. Please get set up ysabel. I will handle follow up from here. [facility] 05-02-2024 Telephone encounter Note Pt called in and reports she called Dr Bermudez's office about her CT results. She states he is out of the office today and they were going to try an get a hold of him to see if he wanted to do anything about this of have her PCP work on it. Pt wanted me to send message to Dr Miller as she is very nervous about it. Please call and advise. Impression IMPRESSION: 1. No cause for hematuria detected. No renal or ureteral calculi. No hydronephrosis or hydroureter. No upper tract urothelial filling defects or strictures. 2. Multiple new findings for which the possibility of metastatic disease from an unknown primary should be excluded. There are hypodense hepatic lesions which are not adequately characterized on single phase imaging but are suspicious for solid hepatic lesions and may represent metastatic disease. Would advise further evaluation with an MRI of the liver with and without contrast at this time. There are also multiple mildly enlarged upper abdominal lymph nodes which are new when compared to the prior study and may represent metastatic adenopathy. Limited evaluation of the lower chest demonstrates multiple scattered pulmonary nodules. Would advise further evaluation with a CT of the chest with intravenous contrast. [facility] 05-02-2024 Telephone encounter Note Patient calling and states she had a CT scan done last week on 04/26. She received the results in my chart. States she needs further testing done as soon as possible. Patient is concerned and asking when these should be done? Patient is asking if you will order the additional testing or if her PCP needs to order it? [facility] 04-26-2024 History of Present illness Narrative Radiology Service Progress Note DATE OF SERVICE: April 26, 2024 TIME: 2:44 PM PATIENT IDENTITY VERIFICATION COMPLETED USING TWO (2) STANDARD IDENTIFIERS: Name and Date of confirmed by patient verbally. FALL SCREENING: Has the patient had 2 falls in the last year or 1 fall with injury or currently using an Ambulatory Assistive Device (Walker, Cane, Wheelchair, Crutches, etc.)? No PATIENT GENDER DATA: Assigned female at . status: : No status: NO. PATIENT RELEVANT IMPLANT DATA REVIEWED: Yes PATIENT PRESENTS WITH AN IMPLANTABLE OR ATTACHED PREVENTATIVE MAINTENANCE TECHNICIAN: No ALLERGIES: Reviewed and unchanged CONTRAST ALLERGY: NO. EXAM: CT -CONTRAST INDUCED NEPHROPATHY RISK FACTORS: Not applicable CREATININE: Creatinine Date Value Ref Range Status 04/18/2024 0.77 0.58 - 0.96 mg/dL Final 04/12/2022 0.76 0.58 - 0.96 mg/dL Final 11/10/2021 0.75 0.58 - 0.96 mg/dL Final Estimated Glomerular Filtration Rate Date Value Ref Range Status 04/18/2024 90 >=60 mL/min/1.73m Final Comment: Estimated Glomerular Filtration Rate (eGFR) is calculated using the 2020 CKD-EPI creatinine equation. This equation utilizes serum creatinine, sex, and age as parameters. The creatinine assay has traceable calibration to isotope dilution-mass spectrometry. Refer to KDIGO guidelines for clinical interpretation. In patients with unstable renal function, e.g. those with acute kidney injury, the eGFR may not accurately reflect actual GFR. eGFR- Date Value Ref Range Status 10/16/2020 >60 Final P.O.C.T. RESULTS: POC done: Yes, See Lab Tab April 26, 2024 TREATMENT: N/A PERIPHERAL IV DATA: Ambulatory: A peripheral IV was started in the Left antecubital site with a Angio cath: 22 gauge. RADIOLOGY DEPARTMENT: CT; Exam(s) Completed: Urogram SIGNATURE: VEDA Devlin) PATIENT NAME: Dixie Miller DATE: April 26, 2024 TIME: 2:44 PM documented in this encounter [facility] 04-26-2024 Note HNO ID: [id number] Author: NICOLLE LORA RT (R) Service: ? Author Type: Fashion Consultant Sales Type: Progress Notes Filed: 04/26/2024 14:44 Note Text: Radiology Service Progress Note DATE OF SERVICE: April 26, 2024 TIME: 2:44 PM PATIENT IDENTITY VERIFICATION COMPLETED USING TWO (2) STANDARD IDENTIFIERS: Name and Date of confirmed by patient verbally. FALL SCREENING: Has the patient had 2 falls in the last year or 1 fall with injury or currently using an Ambulatory Assistive Device (Walker, Cane, Wheelchair, Crutches, etc.)? No PATIENT GENDER DATA: Assigned female at . status: : No status: NO. PATIENT RELEVANT IMPLANT DATA REVIEWED: Yes PATIENT PRESENTS WITH AN IMPLANTABLE OR ATTACHED PREVENTATIVE MAINTENANCE TECHNICIAN: No ALLERGIES: Reviewed and unchanged CONTRAST ALLERGY: NO. EXAM: CT -CONTRAST INDUCED NEPHROPATHY RISK FACTORS: Not applicable CREATININE: Creatinine Date Value Ref Range Status 04/18/2024 0.77 0.58 - 0.96 mg/dL Final 04/12/2022 0.76 0.58 - 0.96 mg/dL Final 11/10/2021 0.75 0.58 - 0.96 mg/dL Final Estimated Glomerular Filtration Rate Date Value Ref Range Status 04/18/2024 90 >=60 mL/min/1.73m? Final Comment: Estimated Glomerular Filtration Rate (eGFR) is calculated using the 2020 CKD-EPI creatinine equation. This equation utilizes serum creatinine, sex, and age as parameters. The creatinine assay has traceable calibration to isotope dilution-mass spectrometry. Refer to KDIGO guidelines for clinical interpretation. In patients with unstable renal function, e.g. those with acute kidney injury, the eGFR may not accurately reflect actual GFR. eGFR- Date Value Ref Range Status 10/16/2020 >60 Final P.O.C.T. RESULTS: POC done: Yes, See Lab Tab April 26, 2024 TREATMENT: N/A PERIPHERAL IV DATA: Ambulatory: A peripheral IV was started in the Left antecubital site with a Angio cath: 22 gauge. RADIOLOGY DEPARTMENT: CT; Exam(s) Completed: Urogram SIGNATURE: RT Claus(R) PATIENT NAME: Dixie Miller DATE: April 26, 2024 TIME: 2:44 PM [facility] 04-25-2024 Note SARS-COV-2 (AGENT OF COVID-19) RNA: Not detected INFLUENZA A RNA: Not detected INFLUENZA B RNA: Not detected RESPIRATORY SYNCYTIAL VIRUS (RSV) RNA: Not detected [facility] Comment on above: Performed By: #### [id number] ####[facility] [id number] [address] [facility] 04-25-2024 Note HNO ID: [id number] Author: SHLOMO MILLER MD Service: ? Author Type: Physician Type: Progress Notes Filed: 04/25/2024 10:14 Note Text: Subjective J Carlos is a 58 year old female who presents for Cough (Productive, congestion, throat madrigal/) History of Present Illness Acute Cough and URI Symptoms: - Onset of symptoms 4 days ago, with worsening on Tuesday. - Describes cough as dry, producing only saliva. - J Carlos reports hot sensation in throat, rhinorrhea, and nasal congestion. - Nasal discharge described as green. - Denies frontal sinus congestion or headaches. - Cough exacerbated at night. - Denies fatigue, eye drainage, nausea, emesis, or diarrhea. - Denies recent illness in household members. - No home COVID test performed. Chronic Cough and GERD: - Chronic cough previously evaluated by ENT, suspected to be related to GERD. - Scheduled for esophageal exam on the . - Previously prescribed omeprazole 40 mg, reduced to 20 mg due to constipation. - Currently not taking omeprazole. - Denies heartburn, dysphagia, or melena. Hematuria: - Recent episode of hematuria following abdominal pain. - Scheduled for CT scan and cystoscopy. - Denies dysuria. Basal Cell Carcinoma: - Mohs surgery performed in September for basal cell carcinoma on the left side of the face. Review of Systems As above Objective Blood pressure 132/82, pulse 84, weight 74.8 kg (165 lb), last menstrual period 11/26/2014, SpO2 98%. Physical Exam GENERAL: NAD, alert and oriented. SKIN: Unremarkable, no rash or skin lesions. Evidence of Mohs surgery on the left side of the face. HEAD: Normocephalic. EYES: PERRLA, EOMI, conjunctiva clear. EARS: External ears normal, canals clear, TM's normal. NOSE/SINUSES: Nares normal. Septum midline. No sinus tenderness. OROPHARYNX: Lips, mucosa, and tongue normal, good dentition. No oral lesions noted. NECK: Supple, no lymphadenopathy, normal thyroid, no carotid bruits. LUNGS: Clear to auscultation bilaterally, no wheezes/rhonchi/rales. HEART: Regular rate and rhythm, no murmurs. No ectopy. ABDOMEN: Soft, non-tender, no masses. Bowel sounds normal. EXTREMITIES: Normal, no deformities, no skin discoloration, no edema. NEURO: Awake, alert and oriented x3, cranial nerves II-XII grossly intact, normal gait, no involuntary motions. Results Labs: (Today) COVID/Influenza/RSV Swab: Results pending Urinalysis: Negative for blood Urinalysis: Positive for blood Tests: (September) Mohs Surgery: Basal cell carcinoma on the left side of the face ASSESSMENT/PLAN: 1. URI, acute - ICD9: 465.9, ICD10: J06.9 (primary diagnosis) - Discussed viral etiology and rationale for treatment. - Symptomatic treatment with prn analgesia - Supportive care with fluids and rest - COVID AND INFLUENZA A/B AND RSV PCR, ROUTINE 2. Mixed hyperlipidemia - ICD9: 272.2, ICD10: E78.2 -rto for check up 3. Facial basal cell cancer - ICD9: 173.31, ICD10: C44.310 - per derm 4. Microscopic hematuria - ICD9: 599.72, ICD10: R31.29 - per urology 5. Gastroesophageal reflux disease without esophagitis - ICD9: 530.81, ICD10: K21.9 -resume omeprazole. Get egd. 6. Chronic cough - ICD9: 786.2, ICD10: R05.3 - start omeprazole at 20 mg Shlomo Miller MD Medical Decision Making: Problems: Moderate: Acute illness with systemic symptoms and 1+ chronic illnesses with change Data: Unique test result(s) reviewed: 1 Unique test(s) ordered: 1 Risk: Moderate: Drug management Medical Decision Making Level: 4 - Moderate [facility] 04-25-2024 History of Present illness Narrative Subjective J Carlos is a 58 year old female who presents for Cough (Productive, congestion, throat madrigal/) History of Present Illness Acute Cough and URI Symptoms: - Onset of symptoms 4 days ago, with worsening on Tuesday. - Describes cough as dry, producing only saliva. - J Carlos reports hot sensation in throat, rhinorrhea, and nasal congestion. - Nasal discharge described as green. - Denies frontal sinus congestion or headaches. - Cough exacerbated at night. - Denies fatigue, eye drainage, nausea, emesis, or diarrhea. - Denies recent illness in household members. - No home COVID test performed. Chronic Cough and GERD: - Chronic cough previously evaluated by ENT, suspected to be related to GERD. - Scheduled for esophageal exam on the . - Previously prescribed omeprazole 40 mg, reduced to 20 mg due to constipation. - Currently not taking omeprazole. - Denies heartburn, dysphagia, or melena. Hematuria: - Recent episode of hematuria following abdominal pain. - Scheduled for CT scan and cystoscopy. - Denies dysuria. Basal Cell Carcinoma: - Mohs surgery performed in September for basal cell carcinoma on the left side of the face. Review of Systems As above Objective Blood pressure 132/82, pulse 84, weight 74.8 kg (165 lb), last menstrual period 11/26/2014, SpO2 98%. Physical Exam GENERAL: NAD, alert and oriented. SKIN: Unremarkable, no rash or skin lesions. Evidence of Mohs surgery on the left side of the face. HEAD: Normocephalic. EYES: PERRLA, EOMI, conjunctiva clear. EARS: External ears normal, canals clear, TM's normal. NOSE/SINUSES: Nares normal. Septum midline. No sinus tenderness. OROPHARYNX: Lips, mucosa, and tongue normal, good dentition. No oral lesions noted. NECK: Supple, no lymphadenopathy, normal thyroid, no carotid bruits. LUNGS: Clear to auscultation bilaterally, no wheezes/rhonchi/rales. HEART: Regular rate and rhythm, no murmurs. No ectopy. ABDOMEN: Soft, non-tender, no masses. Bowel sounds normal. EXTREMITIES: Normal, no deformities, no skin discoloration, no edema. NEURO: Awake, alert and oriented x3, cranial nerves II-XII grossly intact, normal gait, no involuntary motions. Results Labs: (Today) COVID/Influenza/RSV Swab: Results pending Urinalysis: Negative for blood Urinalysis: Positive for blood Tests: (September) Mohs Surgery: Basal cell carcinoma on the left side of the face ASSESSMENT/PLAN: 1. URI, acute - ICD9: 465.9, ICD10: J06.9 (primary diagnosis) - Discussed viral etiology and rationale for treatment. - Symptomatic treatment with prn analgesia - Supportive care with fluids and rest - COVID & INFLUENZA A/B & RSV PCR, ROUTINE 2. Mixed hyperlipidemia - ICD9: 272.2, ICD10: E78.2 -rto for check up 3. Facial basal cell cancer - ICD9: 173.31, ICD10: C44.310 - per derm 4. Microscopic hematuria - ICD9: 599.72, ICD10: R31.29 - per urology 5. Gastroesophageal reflux disease without esophagitis - ICD9: 530.81, ICD10: K21.9 -resume omeprazole. Get egd. 6. Chronic cough - ICD9: 786.2, ICD10: R05.3 - start omeprazole at 20 mg Shlomo Miller MD Medical Decision Making: Problems: Moderate: Acute illness with systemic symptoms and 1+ chronic illnesses with change Data: Unique test result(s) reviewed: 1 Unique test(s) ordered: 1 Risk: Moderate: Drug management Medical Decision Making Level: 4 - Moderate documented in this encounter [facility] 04-25-2024 Instructions Shlomo Miller MD - 04/25/2024 10:06 AM EDT - Resume taking Omeprazole 20 mg daily until your esophageal exam on the . - Use [id number] Delsym or Mucinex DM to manage your cough. - Take Tylenol as needed for discomfort. - Rest and drink plenty of fluids. - Monitor for symptoms such as shortness of breath, high fever, or worsening condition. Contact us if these occur. - If symptoms do not improve within a week, notify us. - Follow up with urology as scheduled. - Consider scheduling a physical exam to check cholesterol and other health metrics at your convenience. documented in this encounter [facility] 04-24-2024 Note HNO ID: [id number] Author: VAISHALI CORBETT RDMS Service: ? Author Type: Outside Maintenance Worker Type: Progress Notes Filed: 04/26/2024 09:30 Note Text: Radiology Service Progress Note PATIENT NAME: Dixie Miller DATE OF SERVICE: April 26, 2024 TIME: 9:30 AM PATIENT IDENTITY VERIFICATION COMPLETED USING TWO (2) IDENTIFIERS: Name and Date of confirmed by patient verbally. FALL SCREENING: Has the patient had 2 falls in the last year or 1 fall with injury or currently using an Ambulatory Assistive Device (Walker, Cane, Wheelchair, Crutches, etc.)? No PATIENT GENDER DATA: Assigned female at . status: : No status: NO. PATIENT RELEVANT IMPLANT DATA REVIEWED: Not Applicable PATIENT PRESENTS WITH AN IMPLANTABLE OR ATTACHED PREVENTATIVE MAINTENANCE TECHNICIAN: No RADIOLOGY DEPARTMENT: Ultrasound PERIPHERAL IV DATA: Not applicable SIGNED BY: Vaishali Corbett RDMS RVDelano April 26, 2024 9:30 AM [facility] 04-24-2024 History of Present illness Narrative Radiology Service Progress Note PATIENT NAME: Dixie Miller DATE OF SERVICE: April 24, 2024 TIME: 4:28 PM PATIENT IDENTITY VERIFICATION COMPLETED USING TWO (2) IDENTIFIERS: Name and Date of confirmed by patient verbally. FALL SCREENING: Has the patient had 2 falls in the last year or 1 fall with injury or currently using an Ambulatory Assistive Device (Walker, Cane, Wheelchair, Crutches, etc.)? No PATIENT GENDER DATA: Assigned female at . status: : No status: NO. PATIENT RELEVANT IMPLANT DATA REVIEWED: Not Applicable PATIENT PRESENTS WITH AN IMPLANTABLE OR ATTACHED PREVENTATIVE MAINTENANCE TECHNICIAN: No RADIOLOGY DEPARTMENT: Mammography PERIPHERAL IV DATA: Not applicable SIGNED BY: VEDA Rivera) April 24, 2024 4:28 PM documented in this encounter [facility] 04-24-2024 Note HNO ID: [id number] Author: PAMELA LUNDBERG RT (R) Service: ? Author Type: Technologist Type: Progress Notes Filed: 04/24/2024 16:28 Note Text: Radiology Service Progress Note PATIENT NAME: Dixie Miller DATE OF SERVICE: April 24, 2024 TIME: 4:28 PM PATIENT IDENTITY VERIFICATION COMPLETED USING TWO (2) IDENTIFIERS: Name and Date of confirmed by patient verbally. FALL SCREENING: Has the patient had 2 falls in the last year or 1 fall with injury or currently using an Ambulatory Assistive Device (Walker, Cane, Wheelchair, Crutches, etc.)? No PATIENT GENDER DATA: Assigned female at . status: : No status: NO. PATIENT RELEVANT IMPLANT DATA REVIEWED: Not Applicable PATIENT PRESENTS WITH AN IMPLANTABLE OR ATTACHED PREVENTATIVE MAINTENANCE TECHNICIAN: No RADIOLOGY DEPARTMENT: Mammography PERIPHERAL IV DATA: Not applicable SIGNED BY: VEDA Rivera) April 24, 2024 4:28 PM [facility] 04-23-2024 Telephone encounter Note Called patient. No answer- left message to call clinic for results but will leave MyChart message of results. Nicolle Valera LPN [facility] 04-23-2024 Miscellaneous Notes Called patient. No answer- left message to call clinic for results but will leave MyChart message of results. Nicolle Valera LPN ----- Message from Bettina Bermudez PA-C sent at 04/23/2024 4:13 PM EDT ----- No infection in the urine No cancer cells in urine, please continue the rest of the testing HILARIO Patel MT, PA-C documented in this encounter [facility] 04-23-2024 Telephone encounter Note ----- Message from Bettina Bermudez PA-C sent at 04/23/2024 4:13 PM EDT ----- No infection in the urine No cancer cells in urine, please continue the rest of the testing HILARIO Patel MT, PA-C [facility] 04-17-2024 Telephone encounter Note Pt confirmed cysto with Dr. Noe in [place] on 05/10/24 @ 9:[address] prior 04/26/24. Ref by Chantal Bermudez for hematuria. Jessica [facility] 04-17-2024 Miscellaneous Notes Pt confirmed cysto with Dr. Noe in [place] on 05/10/24 @ 9:[address] prior 04/26/24. Ref by Chantal Bermudez for hematuria. Jessica documented in this encounter [facility] 04-17-2024 Instructions Bettina Bermudez PA-C - 04/17/2024 11:[address] Urogram to be scheduled at [facility] Cystoscopy to scheduled at [facility] - Urology they will contact patient # [phone] Urine Culture Pending Urine Cytology Pending documented in this encounter [facility] 04-17-2024 Note HNO ID: [id number] Author: BETTINA BERMUDEZ PA-C Service: ? Author Type: Physician Spout Positioner Type: Progress Notes Filed: 04/17/2024 11:32 Note Text: [facility] [place] [facility] NEW PATIENT CLINIC NOTE (F) SERVICE DATE: April 17, 2024 NAME: Dixie Miller GENDER: female CHIEF COMPLAINT: Gross Hematuria HISTORY OF PRESENT ILLNESS: Dixie Miller is a 58 year old female new patient here for Gross Hematuria The patient reports over she noticed gross blood in the urine along with cramping pain over the lower abdomen She has had this before in 2013 and work-up was negative. Recommended Hematuria work-up > We discussed the common causes of urinary frequency and urgency, and restricting water intake In hopes to mitigate the need to urinate, we discussed how this behavior more often worsen the problem not improving it, > We discussed increasing daily water intake to 64-84 oz 7a -7p and try to reduce bladder irritants, caffeine, alcohol and acid foods and drink. LUTS: None LABS: No results found for: PSA Creatinine Date Value Ref Range Status 04/12/2022 0.76 0.58 - 0.96 mg/dL Final 11/10/2021 0.75 0.58 - 0.96 mg/dL Final 10/16/2020 0.74 0.58 - 0.96 mg/dL Final MEDICATIONS: nitrofurantoin monohydrate and macrocrystal (MACROBID) 100 mg capsule Take one tablet PO after intercourse omeprazole (PRILOSEC) 20 mg capsule Take 1 capsule by mouth daily before breakfast. 1/2 hr before meal. Cholecalciferol, Vitamin D3, 50 mcg (2,000 unit) cap Take by mouth. ascorbic acid (VITAMIN C ORAL) Take by mouth. clobetasol (TEMOVATE) 0.05 % ointment Apply 1 application to affected area twice daily. For two weeks then use once per week . MULTIVITAMIN TAB Take one(1) tablet daily. PAST MEDICAL HISTORY: PAST MEDICAL HISTORY Diagnosis Date Bladder incontinence Chicken pox 03/31/66 as a child-lasted 12 weeks Mumps [id number] as a child NONE PAST SURGICAL HISTORY: PAST SURGICAL HISTORY Procedure Laterality Date COLONOSCOPY FLX DX W/COLLJ SPEC WHEN PFRMD 12/23/2016 Colonoscopy PAST SURGICAL HISTORY OF basil cell removal forehead FAMILY HISTORY: FAMILY HISTORY Problem Relation Age of Onset Breast Cancer Mother age 60's-triple negative Hypertension Father Under control Diabetes Paternal Grandmother Diabetes Paternal Uncle Colon Cancer Other none SOCIAL HISTORY: Social Connections: Moderately Isolated (06/10/2023) Social Connection and Isolation Panel [NHANES] Frequency of Communication with Friends and Family: Three times a week Frequency of Social Gatherings with Friends and Family: Patient declined Attends Islam Services: Never Active Member of Clubs or Organizations: No Attends Club or Organization Meetings: Never Marital Status: REVIEW OF SYSTEMS: GENERAL: No fever, chills, weight loss, or fatigue. ENMT: Negative CARDIOVASCULAR:NO CHEST PAIN, PALPITATIONS, ANKLE EDEMA RESPIRATORY: No chronic cough, wheezing, dyspnea, hemoptysis. GENITOURINARY: SEE HPI MUSCULOSKELETAL:NO CHRONIC BACK PAIN, ARTHRITIS, CHRONIC NECK PAIN SKIN: NO VARICOSE VEINS, RASH, ABNORMAL ITCHING HEME/LYMPH/IMMUNE:Negative for prolonged bleeding, bruising easily or swollen nodes NEUROLOGICAL: NO HEADACHES, NUMBNESS, SEIZURES, STROKE DIABETES: No All other systems reviewed and are negative PHYSICAL EXAMINATION: Blood pressure 131/79, pulse 99, height 163.8 cm (5' 4.5), weight 74.4 kg (164 lb), last menstrual period 11/26/2014. GENERAL: WNL nutrition, no deformities, healthy appearing NEURO: Awake, alert and oriented x 3 and Normal gait PSYCH: No signs of depression, anxiety, or agitation ENMT (Ear, Nose, Mouth, Throat): No masses, adenopathy, icterus. Thyroid nonpalpable RESP: NL effort, no retractions or purse-lip breathing. CV: No extremity swelling, varices, edema, pallor, erythema GASTROINTESTINAL: Soft, nontender, nondistended, no masses. HERNIAS: None SKIN: No rash, lesions No palpable lymphadenopathy MUSCULOSKELETAL: Extremities normal. No deformities, edema, clubbing or skin discoloration. PROBLEM LIST REVIEW: Yes LABS: Results for orders placed or performed in visit on 04/17/24 UA DIP, URINE (POC) Result Value Ref Range GLUCOSE UA (POCT) Negative Negative mg/dL BILIRUBIN UA (POCT) Negative Negative KETONE UA (POCT) Trace Negative mg/dL SPECIFIC GRAVITY UA (POCT) 1.025 1.005 - 1.030 HEMOGLOBIN/BLOOD UA (POCT) Negative Negative PH UA (POCT) 5.5 4.5 - 8.0 PROTEIN UA (POCT) Trace (A) Negative mg/dL UROBILINOGEN UA (POCT) 0.2 Normal E.U./dL NITRITE UA (POCT) Negative Negative LEUKOCYTES UA (POCT) Negative Negative COLOR UA (POCT) Yellow CLARITY UA (POCT) Clear Urine Culture: Pending Urine Cytology: Pending IMAGING: CT Urogram - Pending ASSESSMENT/PLAN: 1. Gross hematuria - ICD9: 599.71, ICD10: R31.0 (primary diagnosis) (more content not included)... [facility] 04-17-2024 History of Present illness Narrative Images from the original note were not included. [facility] [place] [facility] NEW PATIENT CLINIC NOTE (F) SERVICE DATE: April 17, 2024 NAME: Dixie Miller GENDER: female CHIEF COMPLAINT: Gross Hematuria HISTORY OF PRESENT ILLNESS: Dixie Miller is a 58 year old female new patient here for Gross Hematuria The patient reports over she noticed gross blood in the urine along with cramping pain over the lower abdomen She has had this before in 2013 and work-up was negative. Recommended Hematuria work-up > We discussed the common causes of urinary frequency and urgency, and restricting water intake In hopes to mitigate the need to urinate, we discussed how this behavior more often worsen the problem not improving it, > We discussed increasing daily water intake to 64-84 oz 7a -7p and try to reduce bladder irritants, caffeine, alcohol and acid foods and drink. LUTS: None LABS: No results found for: PSA Creatinine Date Value Ref Range Status 04/12/2022 0.76 0.58 - 0.96 mg/dL Final 11/10/2021 0.75 0.58 - 0.96 mg/dL Final 10/16/2020 0.74 0.58 - 0.96 mg/dL Final MEDICATIONS: nitrofurantoin monohydrate and macrocrystal (MACROBID) 100 mg capsule Take one tablet PO after intercourse omeprazole (PRILOSEC) 20 mg capsule Take 1 capsule by mouth daily before breakfast. 1/2 hr before meal. Cholecalciferol, Vitamin D3, 50 mcg (2,000 unit) cap Take by mouth. ascorbic acid (VITAMIN C ORAL) Take by mouth. clobetasol (TEMOVATE) 0.05 % ointment Apply 1 application to affected area twice daily. For two weeks then use once per week . MULTIVITAMIN TAB Take one(1) tablet daily. PAST MEDICAL HISTORY: PAST MEDICAL HISTORY Diagnosis Date Bladder incontinence Chicken pox 03/31/66 as a child-lasted 12 weeks Mumps [id number] as a child NONE PAST SURGICAL HISTORY: PAST SURGICAL HISTORY Procedure Laterality Date COLONOSCOPY FLX DX W/COLLJ SPEC WHEN PFRMD 12/23/2016 Colonoscopy PAST SURGICAL HISTORY OF basil cell removal forehead FAMILY HISTORY: FAMILY HISTORY Problem Relation Age of Onset Breast Cancer Mother age 60's-triple negative Hypertension Father Under control Diabetes Paternal Grandmother Diabetes Paternal Uncle Colon Cancer Other none SOCIAL HISTORY: Social Connections: Moderately Isolated (06/10/2023) Social Connection and Isolation Panel [NHANES] Frequency of Communication with Friends and Family: Three times a week Frequency of Social Gatherings with Friends and Family: Patient declined Attends Islam Services: Never Active Member of Clubs or Organizations: No Attends Club or Organization Meetings: Never Marital Status: REVIEW OF SYSTEMS: GENERAL: No fever, chills, weight loss, or fatigue. ENMT: Negative CARDIOVASCULAR:NO CHEST PAIN, PALPITATIONS, ANKLE EDEMA RESPIRATORY: No chronic cough, wheezing, dyspnea, hemoptysis. GENITOURINARY: SEE HPI MUSCULOSKELETAL:NO CHRONIC BACK PAIN, ARTHRITIS, CHRONIC NECK PAIN SKIN: NO VARICOSE VEINS, RASH, ABNORMAL ITCHING HEME/LYMPH/IMMUNE:Negative for prolonged bleeding, bruising easily or swollen nodes NEUROLOGICAL: NO HEADACHES, NUMBNESS, SEIZURES, STROKE DIABETES: No All other systems reviewed and are negative PHYSICAL EXAMINATION: Blood pressure 131/79, pulse 99, height 163.8 cm (5' 4.5), weight 74.4 kg (164 lb), last menstrual period 11/26/2014. GENERAL: WNL nutrition, no deformities, healthy appearing NEURO: Awake, alert and oriented x 3 and Normal gait PSYCH: No signs of depression, anxiety, or agitation ENMT (Ear, Nose, Mouth, Throat): No masses, adenopathy, icterus. Thyroid nonpalpable RESP: NL effort, no retractions or purse-lip breathing. CV: No extremity swelling, varices, edema, pallor, erythema GASTROINTESTINAL: Soft, nontender, nondistended, no masses. HERNIAS: None SKIN: No rash, lesions No palpable lymphadenopathy MUSCULOSKELETAL: Extremities normal. No deformities, edema, clubbing or skin discoloration. PROBLEM LIST REVIEW: Yes LABS: Results for orders placed or performed in visit on 04/17/24 UA DIP, URINE (POC) Result Value Ref Range GLUCOSE UA (POCT) Negative Negative mg/dL BILIRUBIN UA (POCT) Negative Negative KETONE UA (POCT) Trace Negative mg/dL SPECIFIC GRAVITY UA (POCT) 1.025 1.005 - 1.030 HEMOGLOBIN/BLOOD UA (POCT) Negative Negative PH UA (POCT) 5.5 4.5 - 8.0 PROTEIN UA (POCT) Trace (A) Negative mg/dL UROBILINOGEN UA (POCT) 0.2 Normal E.U./dL NITRITE UA (POCT) Negative Negative LEUKOCYTES UA (POCT) Negative Negative COLOR UA (POCT) Yellow CLARITY UA (POCT) Clear Urine Culture: Pending Urine Cytology: Pending IMAGING: CT Urogram - Pending ASSESSMENT/PLAN: 1. Gross hematuria - ICD9: 599.71, ICD10: R31.0 (primary diagnosis) 2. Hematuria, unspecified type - ICD9: 599.70, ICD10: R31.9 New Diagnosis of unknown prognosis testing to follow > Follow-up to be determined by testing ordered today > Will contact patient with the Results & Recommendations once testing is completed We discussed the need for full hematuria workup due to the Gross Blood in the urine. These tests and procedures will be ordered today. Consultation requested by Keon Riggs [address] [facility] [place] [address] for an opinion regarding Dixie Miller patient and my final recommendations will be communicated back to the requesting physician by way of shared Medical record or letter via [place] mail. HILARIO Patel, SAMARA LYONS documented in this encounter [facility] 04-06-2024 Note HNO ID: [id number] Author: HILDA SUN MD Service: ? Author Type: Physician Type: Progress Notes Filed: 04/06/2024 14:36 Note Text: Sports Internship offered: Patient declines. J Carlos is a 58 year old who presents for an annual gynecologic exam without complaints. 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: Sexual Activity: Yes; Male; HAD VASECTOMY Contraception: Surgical, Vasectomy PAST MEDICAL HISTORY Diagnosis Date Bladder incontinence Chicken pox 03/31/66 as a child-lasted 12 weeks Mumps [id number] as a child NONE PAST SURGICAL HISTORY Procedure Laterality Date COLONOSCOPY FLX DX W/COLLJ SPEC WHEN PFRMD 12/23/2016 Colonoscopy PAST SURGICAL HISTORY OF basil cell removal forehead FAMILY HISTORY Problem Relation Age of Onset Breast Cancer Mother age 60's-triple negative Hypertension Father Under control Diabetes Paternal Grandmother Diabetes Paternal Uncle Colon Cancer Other none SOCIAL HISTORY Social History Tobacco Use Smoking status: Never Smokeless tobacco: Never Vaping Use Vaping status: Never Used Substance Use Topics Alcohol use: Yes Comment: OCCASSIONALLY Drug use: No REVIEW OF SYSTEMS Abdomen: No abdominal pain, nausea, vomiting, diarrhea, or constipation. No bloating, early satiety, indigestion, or increased flatulence. Bladder: No dysuria, gross hematuria, urinary frequency, urinary urgency, or incontinence Breast: No breast lumps, nipple d/c, overlying skin changes, redness or skin retraction Allergies and current medication updated:Yes SENSITIVE EXAM: The sensitive examination was discussed with the Patient or Patient's Authorized Location Man. As applicable, any other physician, advance practice provider, medical student, or other health professional student that will be observing or involved in the sensitive examination for educational or training purposes was discussed with the Patient or Authorized Location Man. The Patient or Authorized Location Man has agreed to proceed with the sensitive examination. (Sensitive examination includes inspection and/or palpation of the breasts, pelvis, prostate and anorectal regions). EXAM: BP 112/60 Ht 5' 4.5 (1.64m) Wt 160 lb (72.6kg) LMP 11/26/2014 BMI 27.05 kg/(m2). GENERAL: pleasant, female in no apparent distress HEENT: Normocephalic, atraumatic, mucus membranes moist, and no lesions NECK: Supple, full range of motion, no adenopathy, and thyroid normal DERMATOLOGY: Normal, without lesions, non-icteric, and non-hirsute BREAST: soft, non-tender, symmetric, left breast with tiny superficial mass noted at 10:00 position ? Cyst, normal nipple-areolar complex, no lymphadenopathy, and no nipple discharge CHEST: Normal inspiratory effort ABDOMEN: soft, non-tender, and no masses PELVIC: external genitalia normal, normal Bartholin's glands, urethra, [place]'s glands, no vulvar lesions, no cervical lesions, good vaginal support, physiologic discharge present, normal appearing perineal body and perianal region BIMANUAL: uterus normal size, shape and consistency, no adnexal masses, and non-tender RECTOVAGINAL: deferred. NEURO: alert and oriented x3,exam grossly non-focal EXTREMITIES: normal ASSESSMENT/PLAN: 1) Health maintenance: Pap done with HPV.- done on 04/02 Colonoscopy up to date If urology work up negative- consider Pelvic us - previous ultrasound 2022 lining 2.3mm 2) Follow up one year or sooner as needed 3) mammogram ordered 4) diagnostic mammogram ordered Hilda Ferrer MD [facility] 04-06-2024 History of Present illness Narrative Sports Internship offered: Patient declines. J Carlos is a 58 year old who presents for an annual gynecologic exam without complaints. 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: Sexual Activity: Yes; Male; HAD VASECTOMY Contraception: Surgical, Vasectomy PAST MEDICAL HISTORY Diagnosis Date Bladder incontinence Chicken pox 03/31/66 as a child-lasted 12 weeks Mumps [id number] as a child NONE PAST SURGICAL HISTORY Procedure Laterality Date COLONOSCOPY FLX DX W/COLLJ SPEC WHEN PFRMD 12/23/2016 Colonoscopy PAST SURGICAL HISTORY OF basil cell removal forehead FAMILY HISTORY Problem Relation Age of Onset Breast Cancer Mother age 60's-triple negative Hypertension Father Under control Diabetes Paternal Grandmother Diabetes Paternal Uncle Colon Cancer Other none SOCIAL HISTORY Social History Tobacco Use Smoking status: Never Smokeless tobacco: Never Vaping Use Vaping status: Never Used Substance Use Topics Alcohol use: Yes Comment: OCCASSIONALLY Drug use: No REVIEW OF SYSTEMS Abdomen: No abdominal pain, nausea, vomiting, diarrhea, or constipation. No bloating, early satiety, indigestion, or increased flatulence. Bladder: No dysuria, gross hematuria, urinary frequency, urinary urgency, or incontinence Breast: No breast lumps, nipple d/c, overlying skin changes, redness or skin retraction Allergies and current medication updated:Yes SENSITIVE EXAM: The sensitive examination was discussed with the Patient or Patient's Authorized Location Man. As applicable, any other physician, advance practice provider, medical student, or other health professional student that will be observing or involved in the sensitive examination for educational or training purposes was discussed with the Patient or Authorized Location Man. The Patient or Authorized Location Man has agreed to proceed with the sensitive examination. (Sensitive examination includes inspection and/or palpation of the breasts, pelvis, prostate and anorectal regions). EXAM: BP 112/60 Ht 5' 4.5 (1.64m) Wt 160 lb (72.6kg) LMP 11/26/2014 BMI 27.05 kg/(m^2). GENERAL: pleasant, female in no apparent distress HEENT: Normocephalic, atraumatic, mucus membranes moist, and no lesions NECK: Supple, full range of motion, no adenopathy, and thyroid normal DERMATOLOGY: Normal, without lesions, non-icteric, and non-hirsute BREAST: soft, non-tender, symmetric, left breast with tiny superficial mass noted at 10:00 position ? Cyst, normal nipple-areolar complex, no lymphadenopathy, and no nipple discharge CHEST: Normal inspiratory effort ABDOMEN: soft, non-tender, and no masses PELVIC: external genitalia normal, normal Bartholin's glands, urethra, [place]'s glands, no vulvar lesions, no cervical lesions, good vaginal support, physiologic discharge present, normal appearing perineal body and perianal region BIMANUAL: uterus normal size, shape and consistency, no adnexal masses, and non-tender RECTOVAGINAL: deferred. NEURO: alert and oriented x3,exam grossly non-focal EXTREMITIES: normal ASSESSMENT/PLAN: 1) Health maintenance: Pap done with HPV.- done on 04/02 Colonoscopy up to date If urology work up negative- consider Pelvic us - previous ultrasound 2022 lining 2.3mm 2) Follow up one year or sooner as needed 3) mammogram ordered 4) diagnostic mammogram ordered Hilda Ferrer MD documented in this encounter [facility] 04-04-2024 Telephone encounter Note Please notify patient: Urine culture is negative for infection. Consult to urology placed for further evaluation. Keon Riggs APRN.CNP [facility] 04-04-2024 Miscellaneous Notes Please notify patient: Urine culture is negative for infection. Consult to urology placed for further evaluation. Keon Riggs APRN.CNP documented in this encounter [facility] 04-02-2024 Note HNO ID: [id number] Author: KEON RIGGS APRN.CNP Service: ? Author Type: Nurse Practitioner Type: Progress Notes Filed: 04/02/2024 15:42 Note Text: Sports Internship offered: Patient declines. Dixie Miller is a 58 year old female who presents for problem visit for blood in urine. HPI: J Carlos reports pelvic cramping that occurred 2 days ago. She then had a small amount of blood in urine this morning. No concerns with constipation or urination. Denies discharge, irritation, frequency, or burning with urination. Reports an overall soreness from the cramping. UA today shows trace amount of blood. 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: Sexual Activity: Yes; Male; HAD VASECTOMY Contraception: Surgical, Vasectomy PAST MEDICAL HISTORY Diagnosis Date - Bladder incontinence - Chicken pox 03/31/66 as a child-lasted 12 weeks - Mumps [id number] as a child - NONE PAST SURGICAL HISTORY Procedure Laterality Date - COLONOSCOPY FLX DX W/COLLJ SPEC WHEN PFRMD 12/23/2016 Colonoscopy - PAST SURGICAL HISTORY OF basil cell removal forehead FAMILY HISTORY Problem Relation Age of Onset - Breast Cancer Mother age 60's - Hypertension Father Under control - Diabetes Paternal Grandmother - Diabetes Paternal Uncle - Colon Cancer Other none Social History Tobacco Use - Smoking status: Never - Smokeless tobacco: Never Vaping Use - Vaping status: Never Used Substance Use Topics - Alcohol use: Yes Comment: OCCASSIONALLY - Drug use: No Current Outpatient Medications Medication Sig - omeprazole (PRILOSEC) 20 mg capsule Take 1 capsule by mouth daily before breakfast. 1/2 hr before meal. - Cholecalciferol, Vitamin D3, 50 mcg (2,000 unit) cap Take by mouth. - ascorbic acid (VITAMIN C ORAL) Take by mouth. - MULTIVITAMIN TAB Take one(1) tablet daily. - nitrofurantoin monohydrate and macrocrystal (MACROBID) 100 mg capsule Take one tablet PO after intercourse - benzonatate (TESSALON PERLES) 100 mg capsule Take 1-2 capsules by mouth three times a day as needed for cough. (Patient not taking: Reported on 04/02/2024) - fluticasone-salmeterol HFA (ADVAIR HFA) 115-21 mcg/actuation inhaler Inhale 2 Puffs as instructed two times a day. Rinse mouth after use. (Patient not taking: Reported on 04/02/2024) - hydrocortisone 2.5 % cream Apply to affected area twice daily. - triamcinolone acetonide topical 0.5 % ointment Apply to affected area twice daily. - clobetasol (TEMOVATE) 0.05 % ointment Apply 1 application to affected area twice daily. For two weeks then use once per week . No current facility-administered medications for this visit. Allergies As of Date: 04/02/2024 Allergen Noted Reaction DEMEROL [MEPERIDINE (PF)] 03/19/2005 HYDROQUINONE 02/19/2010 Rash METHYLCHLOROISOTHIAZOLINONE 03/01/2018 Rash METHYLISOTHIAZOLINONE 03/01/2018 Rash PENICILLIN G 03/19/2005 PROPYLENE GLYCOL 03/01/2018 Rash SULFA (SULFONAMIDE ANTIBIOTICS) 03/19/2005 Fully Assessed 04/02/2024 REVIEW OF SYSTEMS Bladder: No dysuria, urinary frequency, urinary urgency, or incontinence. 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 As applicable, any other physician, advance practice provider, medical student, or other health professional student that will be observing or involved in the sensitive examination for educational or training purposes was discussed with the Patient or Authorized Location Man. The Patient or Authorized Location Man has agreed to proceed with the sensitive examination. (Sensitive examination includes inspection and/or palpation of the breasts, pelvis, prostate and anorectal regions). EXAM: BP 108/64 Wt 168 lb (76.2kg) LMP 11/26/2014 GENERAL: pleasant, female in no apparent distress HEENT: Normocephalic, atraumatic, mucus membranes moist, and no lesions CHEST: Normal inspiratory effort PELVIC: external genitalia atrophic, normal Bartholin's glands, urethra, [place]'s glands, no vulvar lesions, no cervical lesions, atrophic cervix, small amount of blood to 3:00 position of cervix noted likely related to atrophy, no blood coming from os, good vaginal support, physiologic discharge present, normal appearing perineal body and perianal region BIMANUAL: uterus normal size, shape and consistency, no adnexal masses, and non-tender NEURO: alert and oriented x3,exam grossly non-focal EXTREMITIES: normal ASSESSMENT AND PLAN: 1. Hematuria, unspecified type - ICD9: 599.70, ICD10: R31.9 (primary diagnosis) - Reviewed exam findings with J Carlos - Push water - Reviewed possible etiologies: atrophy vs UTI vs kidney (more content not included)... [facility] 04-02-2024 History of Present illness Narrative Sports Internship offered: Patient declines. Dixie Miller is a 58 year old female who presents for problem visit for blood in urine. HPI: J Carlos reports pelvic cramping that occurred 2 days ago. She then had a small amount of blood in urine this morning. No concerns with constipation or urination. Denies discharge, irritation, frequency, or burning with urination. Reports an overall soreness from the cramping. UA today shows trace amount of blood. 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: Sexual Activity: Yes; Male; HAD VASECTOMY Contraception: Surgical, Vasectomy PAST MEDICAL HISTORY Diagnosis Date Bladder incontinence Chicken pox 03/31/66 as a child-lasted 12 weeks Mumps [id number] as a child NONE PAST SURGICAL HISTORY Procedure Laterality Date COLONOSCOPY FLX DX W/COLLJ SPEC WHEN PFRMD 12/23/2016 Colonoscopy PAST SURGICAL HISTORY OF basil cell removal forehead FAMILY HISTORY Problem Relation Age of Onset Breast Cancer Mother age 60's Hypertension Father Under control Diabetes Paternal Grandmother Diabetes Paternal Uncle Colon Cancer Other none Social History Tobacco Use Smoking status: Never Smokeless tobacco: Never Vaping Use Vaping status: Never Used Substance Use Topics Alcohol use: Yes Comment: OCCASSIONALLY Drug use: No Current Outpatient Medications Medication Sig omeprazole (PRILOSEC) 20 mg capsule Take 1 capsule by mouth daily before breakfast. 1/2 hr before meal. Cholecalciferol, Vitamin D3, 50 mcg (2,000 unit) cap Take by mouth. ascorbic acid (VITAMIN C ORAL) Take by mouth. MULTIVITAMIN TAB Take one(1) tablet daily. nitrofurantoin monohydrate and macrocrystal (MACROBID) 100 mg capsule Take one tablet PO after intercourse benzonatate (TESSALON PERLES) 100 mg capsule Take 1-2 capsules by mouth three times a day as needed for cough. (Patient not taking: Reported on 04/02/2024) fluticasone-salmeterol HFA (ADVAIR HFA) 115-21 mcg/actuation inhaler Inhale 2 Puffs as instructed two times a day. Rinse mouth after use. (Patient not taking: Reported on 04/02/2024) hydrocortisone 2.5 % cream Apply to affected area twice daily. triamcinolone acetonide topical 0.5 % ointment Apply to affected area twice daily. clobetasol (TEMOVATE) 0.05 % ointment Apply 1 application to affected area twice daily. For two weeks then use once per week . No current facility-administered medications for this visit. Allergies As of Date: 04/02/2024 Allergen Noted Reaction DEMEROL [MEPERIDINE (PF)] 03/19/2005 HYDROQUINONE 02/19/2010 Rash METHYLCHLOROISOTHIAZOLINONE 03/01/2018 Rash METHYLISOTHIAZOLINONE 03/01/2018 Rash PENICILLIN G 03/19/2005 PROPYLENE GLYCOL 03/01/2018 Rash SULFA (SULFONAMIDE ANTIBIOTICS) 03/19/2005 Fully Assessed 04/02/2024 REVIEW OF SYSTEMS Bladder: No dysuria, urinary frequency, urinary urgency, or incontinence. 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 As applicable, any other physician, advance practice provider, medical student, or other health professional student that will be observing or involved in the sensitive examination for educational or training purposes was discussed with the Patient or Authorized Location Man. The Patient or Authorized Location Man has agreed to proceed with the sensitive examination. (Sensitive examination includes inspection and/or palpation of the breasts, pelvis, prostate and anorectal regions). EXAM: BP 108/64 Wt 168 lb (76.2kg) LMP 11/26/2014 GENERAL: pleasant, female in no apparent distress HEENT: Normocephalic, atraumatic, mucus membranes moist, and no lesions CHEST: Normal inspiratory effort PELVIC: external genitalia atrophic, normal Bartholin's glands, urethra, [place]'s glands, no vulvar lesions, no cervical lesions, atrophic cervix, small amount of blood to 3:00 position of cervix noted likely related to atrophy, no blood coming from os, good vaginal support, physiologic discharge present, normal appearing perineal body and perianal region BIMANUAL: uterus normal size, shape and consistency, no adnexal masses, and non-tender NEURO: alert and oriented x3,exam grossly non-focal EXTREMITIES: normal ASSESSMENT AND PLAN: 1. Hematuria, unspecified type - ICD9: 599.70, ICD10: R31.9 (primary diagnosis) - Reviewed exam findings with J Carlos - Push water - Reviewed possible etiologies: atrophy vs UTI vs kidney stone vs PMB - Low suspicion for uterine etiology as no blood was noted from os - appears to be from surface of cervix due to atrophy - Cultures obtained - If all findings negative, consider follow up with urology vs pelvic ultrasound 2. Pelvic cramping - ICD9: 625.9, ICD10: R10.2 - If continues, continue for pelvic ultrasound 3. Screening for cervical cancer - ICD9: V76.2, ICD10: Z12. 4. Screening for HPV (human papillomavirus) - ICD9: V73.81, ICD10: Z11.51 - PAP TEST Keon Riggs APRN.CNP Medical Decision Making: Problems: Low: Acute, uncomplicated illness or injury Data: Unique test(s) ordered: 3+ Risk: Minimal: Minimal risk from testing/treatment Medical Decision Making Level: 3 - Low documented in this encounter [facility] 11-07-2023 Telephone encounter Note Pt notified that referral paperwork has been faxed to [facility] and they should contact her to setup appt. If not contact info given for her to call there office. All referral paperwork faxed to [phone]. Laura Cowan MA [facility] 11-07-2023 Miscellaneous Notes Pt notified that referral paperwork has been faxed to [facility] and they should contact her to setup appt. If not contact info given for her to call there office. All referral paperwork faxed to [phone]. Laura Cowan MA See mychart message. documented in this encounter [facility] 11-01-2023 Telephone encounter Note See same encounter to Coleen Dunne. Hien Vasques MA [facility] 11-01-2023 Miscellaneous Notes See same encounter to Coleen Dunne. Hien Vasques MA documented in this encounter [facility] 11-01-2023 Telephone encounter Note See mychart message. [facility] 10-13-2023 Telephone encounter Note Refill request received via [facility] [employer]. Last seen in office for annual exam on 01/12/23. Patient comment: Could you possibly refill this prescription. Thank You! Toya Rivera RN [facility] 10-13-2023 Miscellaneous Notes Refill request received via [employer]. Last seen in office for annual exam on 01/12/23. Patient comment: Could you possibly refill this prescription. Thank You! Toya Rivera RN documented in this encounter [facility] 10-03-2023 Note Formatting of this n ote might be different from the original. October 03, 2023 PID: [id number] Dixie Miller [address] [place] [address] Dear Ms. Miller, We are pleased to inform you that the results of your recent breast imaging exam on 10/03/2023 are normal. Breast tissue can be either dense or not dense. Dense tissue makes it harder to find breast cancer on a mammogram and also raises the risk of developing breast cancer. Your breast tissue is not dense. Talk to your healthcare provider about breast density, risks for breast cancer, and your individual situation. Early detection of cancer is very important. We also understand recommendations regarding breast cancer screening are controversial. Please discuss with your primary care provider which strategy is best for you and whether a mammogram is right for you. Your imaging studies and report will be kept on file at [facility] as part of your permanent medical record and are available for your continuing care. Thank you for allowing us to help in meeting your health care needs. Sincerely, Dr. Martinez Interpreting Radiologist [facility] (Normal over 40) [facility] 10-03-2023 Miscellaneous Notes October 03, 2023 PID: [id number] Dixie Miller [address] [place] [address] Dear Ms. Miller, We are pleased to inform you that the results of your recent breast imaging exam on 10/03/2023 are normal. Breast tissue can be either dense or not dense. Dense tissue makes it harder to find breast cancer on a mammogram and also raises the risk of developing breast cancer. Your breast tissue is not dense. Talk to your healthcare provider about breast density, risks for breast cancer, and your individual situation. Early detection of cancer is very important. We also understand recommendations regarding breast cancer screening are controversial. Please discuss with your primary care provider which strategy is best for you and whether a mammogram is right for you. Your imaging studies and report will be kept on file at [facility] as part of your permanent medical record and are available for your continuing care. Thank you for allowing us to help in meeting your health care needs. Sincerely, Dr. Martinez Interpreting Radiologist [facility] (Normal over 40) documented in this encounter [facility] 10-03-2023 History of Present illness Narrative Radiology Service Progress Note PATIENT NAME: Dixie Miller DATE OF SERVICE: October 03, 2023 TIME: 7:46 AM PATIENT IDENTITY VERIFICATION COMPLETED USING TWO (2) IDENTIFIERS: Name and Date of confirmed by patient verbally. FALL SCREENING: Has the patient had 2 falls in the last year or 1 fall with injury or currently using an Ambulatory Assistive Device (Walker, Cane, Wheelchair, Crutches, etc.)? No PATIENT GENDER DATA: Female. status: : No status: NO. PATIENT RELEVANT IMPLANT DATA REVIEWED: Not Applicable PATIENT PRESENTS WITH AN IMPLANTABLE OR ATTACHED PREVENTATIVE MAINTENANCE TECHNICIAN: No RADIOLOGY DEPARTMENT: Mammography PERIPHERAL IV DATA: Not applicable SIGNED BY: Larissa Victoria October 03, 2023 7:46 AM documented in this encounter [facility] 10-03-2023 Note HNO ID: [id number] Author: STEFANIE CASTILLO Mammo Tech Service: ? Author Type: Technologist Type: Progress Notes Filed: 10/03/2023 07:46 Note Text: Radiology Service Progress Note PATIENT NAME: Dixie Miller DATE OF SERVICE: October 03, 2023 TIME: 7:46 AM PATIENT IDENTITY VERIFICATION COMPLETED USING TWO (2) IDENTIFIERS: Name and Date of confirmed by patient verbally. FALL SCREENING: Has the patient had 2 falls in the last year or 1 fall with injury or currently using an Ambulatory Assistive Device (Walker, Cane, Wheelchair, Crutches, etc.)? No PATIENT GENDER DATA: Female. status: : No status: NO. PATIENT RELEVANT IMPLANT DATA REVIEWED: Not Applicable PATIENT PRESENTS WITH AN IMPLANTABLE OR ATTACHED PREVENTATIVE MAINTENANCE TECHNICIAN: No RADIOLOGY DEPARTMENT: Mammography PERIPHERAL IV DATA: Not applicable SIGNED BY: Pierce Victoriao [address] October 03, 2023 7:46 AM [facility] 09-07-2023 Instructions Coleen Dunne APRN.CNP - 09/07/2023 9:41 AM EDT Continue the same medication. If cough continues, consider pulmonology and/or ENT referral. documented in this encounter [facility] 09-07-2023 Note HNO ID: [id number] Author: COLEEN DUNNE APRN.ANTHONY Service: ? Author Type: Nurse Practitioner Type: Progress Notes Filed: 09/07/2023 13:54 Note Text: This is a 58 year old female who presents today with: Patient presents with: Cough HISTORY OF PRESENT ILLNESS: Dixie Miller is a 58 year old female. Patient presents with: Cough Pt presents today to follow-up on cough. Thinks that the cough is getting better. Refers that she stopped the advair. Doesn't notice a lot of difference. Mostly dry cough. Cough doesn't seem as deep, not as much mucus. Refers that she is taking the tessalon perles three times daily. She is using zyrtec at night. Feels fine, just the occasional cough. Refers that she notices the tickle in her throat is feeling better -- not as frequent. Does have some throat clearing. No hemoptysis. No night sweats of changes in her weight. PAST MEDICAL HISTORY: PAST MEDICAL HISTORY Diagnosis Date Bladder incontinence Chicken pox 03/31/66 as a child-lasted 12 weeks Mumps [id number] as a child NONE PAST SURGICAL HISTORY Procedure Laterality Date COLONOSCOPY FLX DX W/COLLJ SPEC WHEN PFRMD 12/23/2016 Colonoscopy PAST SURGICAL HISTORY OF basil cell removal forehead ALLERGIES Demerol [Meperidine (Pf)], Hydroquinone, Methylchloroisothiazolinone, Methylisothiazolinone, Penicillin G, Propylene Glycol, and Sulfa (Sulfonamide Antibiotics) MEDICATIONS Current Outpatient Medications Medication Sig benzonatate (TESSALON PERLES) 100 mg capsule Take 1-2 capsules by mouth three times a day as needed for cough. omeprazole (PRILOSEC) 20 mg capsule Take 1 capsule by mouth daily before breakfast. 1/2 hr before meal. fluticasone-salmeterol HFA (ADVAIR HFA) 115-21 mcg/actuation inhaler Inhale 2 Puffs as instructed two times a day. Rinse mouth after use. hydrocortisone 2.5 % cream Apply to affected area twice daily. Cholecalciferol, Vitamin D3, 50 mcg (2,000 unit) cap Take by mouth. ascorbic acid (VITAMIN C ORAL) Take by mouth. triamcinolone acetonide topical 0.5 % ointment Apply to affected area twice daily. clobetasol (TEMOVATE) 0.05 % ointment Apply 1 application to affected area twice daily. For two weeks then use once per week . MULTIVITAMIN TAB Take one(1) tablet daily. nitrofurantoin monohydrate and macrocrystal (MACROBID) 100 mg capsule Take one tablet PO after intercourse No current facility-administered medications for this visit. FAMILY HISTORY Problem Relation Age of Onset Breast Cancer Mother age 60's Hypertension Father Under control Diabetes Paternal Grandmother Diabetes Paternal Uncle Colon Cancer Other none Social History Tobacco Use Smoking status: Never Smokeless tobacco: Never Vaping Use Vaping Use: Never used Substance Use Topics Alcohol use: Yes Comment: OCCASSIONALLY Drug use: No EXAM: BP 112/82 (BP Site: Left Arm, BP Position: Sitting, BP Cuff Size: Regular Adult) Pulse 80 Temp 37.1 ?C (98.8 ?F) Wt 73.5 kg (162 lb) LMP 11/26/2014 SpO2 97% BMI (P) 27.66 kg/m? PHYSICAL EXAM: General Appearance: Well appearing, alert, in no acute distress, well-hydrated, well nourished.. Skin: Skin color, texture, turgor normal, no suspicious rashes or lesions. Head: Normocephalic, no masses, lesions, tenderness or abnormalities. Eyes: Anicteric sclera. Extraocular movements are intact. . Ears: External ears normal, canals clear. Normal TMs bilaterally. Oropharynx: Lips, mucosa, and tongue normal, teeth and gums normal, oropharynx normal. Neck: Supple, no adenopathy; thyroid symmetric, normal size, no bruits. Lungs: Lungs clear to auscultation. No wheezing, rhonchi, rales.. Heart: RRR without murmur, gallop, or rubs. No ectopy. Neurologic: Gait normal. . ASSESSMENT/PLAN: 1. Chronic cough - ICD9: 786.2, ICD10: R05.3 Improving. Does notice some throat clearing. Has used flonase in the past, but caused epistaxis. Continue to monitor for improvement. If does not continue, consider ENT vs pulmonology. Discussed treatment plan and patient voices understanding. Patient's questions answered appropriately. Medications and potential side effects were discussed and patient voices understanding. Return to the office as scheduled or as needed for worsening/no improvement. Coleen Dunne APRN.[facility] 09-07-2023 History of Present illness Narrative This is a 58 year old female who presents today with: Patient presents with: Cough HISTORY OF PRESENT ILLNESS: Dixie Miller is a 58 year old female. Patient presents with: Cough Pt presents today to follow-up on cough. Thinks that the cough is getting better. Refers that she stopped the advair. Doesn't notice a lot of difference. Mostly dry cough. Cough doesn't seem as deep, not as much mucus. Refers that she is taking the tessalon perles three times daily. She is using zyrtec at night. Feels fine, just the occasional cough. Refers that she notices the tickle in her throat is feeling better -- not as frequent. Does have some throat clearing. No hemoptysis. No night sweats of changes in her weight. PAST MEDICAL HISTORY: PAST MEDICAL HISTORY Diagnosis Date Bladder incontinence Chicken pox 03/31/66 as a child-lasted 12 weeks [place] [id number] as a child NONE PAST SURGICAL HISTORY Procedure Laterality Date COLONOSCOPY FLX DX W/COLLJ SPEC WHEN PFRMD 12/23/2016 Colonoscopy PAST SURGICAL HISTORY OF basil cell removal forehead ALLERGIES Demerol [Meperidine (Pf)], Hydroquinone, Methylchloroisothiazolinone, Methylisothiazolinone, Penicillin G, Propylene Glycol, and Sulfa (Sulfonamide Antibiotics) MEDICATIONS Current Outpatient Medications Medication Sig benzonatate (TESSALON PERLES) 100 mg capsule Take 1-2 capsules by mouth three times a day as needed for cough. omeprazole (PRILOSEC) 20 mg capsule Take 1 capsule by mouth daily before breakfast. 1/2 hr before meal. fluticasone-salmeterol HFA (ADVAIR HFA) 115-21 mcg/actuation inhaler Inhale 2 Puffs as instructed two times a day. Rinse mouth after use. hydrocortisone 2.5 % cream Apply to affected area twice daily. Cholecalciferol, Vitamin D3, 50 mcg (2,000 unit) cap Take by mouth. ascorbic acid (VITAMIN C ORAL) Take by mouth. triamcinolone acetonide topical 0.5 % ointment Apply to affected area twice daily. clobetasol (TEMOVATE) 0.05 % ointment Apply 1 application to affected area twice daily. For two weeks then use once per week . MULTIVITAMIN TAB Take one(1) tablet daily. nitrofurantoin monohydrate and macrocrystal (MACROBID) 100 mg capsule Take one tablet PO after intercourse No current facility-administered medications for this visit. FAMILY HISTORY Problem Relation Age of Onset Breast Cancer Mother age 60's Hypertension Father Under control Diabetes Paternal Grandmother Diabetes Paternal Uncle Colon Cancer Other none Social History Tobacco Use Smoking status: Never Smokeless tobacco: Never Vaping Use Vaping Use: Never used Substance Use Topics Alcohol use: Yes Comment: OCCASSIONALLY Drug use: No EXAM: BP 112/82 (BP Site: Left Arm, BP Position: Sitting, BP Cuff Size: Regular Adult) Pulse 80 Temp 37.1 C (98.8 F) Wt 73.5 kg (162 lb) LMP 11/26/2014 SpO2 97% BMI (P) 27.66 kg/m PHYSICAL EXAM: General Appearance: Well appearing, alert, in no acute distress, well-hydrated, well nourished.. Skin: Skin color, texture, turgor normal, no suspicious rashes or lesions. Head: Normocephalic, no masses, lesions, tenderness or abnormalities. Eyes: Anicteric sclera. Extraocular movements are intact. . Ears: External ears normal, canals clear. Normal TMs bilaterally. Oropharynx: Lips, mucosa, and tongue normal, teeth and gums normal, oropharynx normal. Neck: Supple, no adenopathy; thyroid symmetric, normal size, no bruits. Lungs: Lungs clear to auscultation. No wheezing, rhonchi, rales.. Heart: RRR without murmur, gallop, or rubs. No ectopy. Neurologic: Gait normal. . ASSESSMENT/PLAN: 1. Chronic cough - ICD9: 786.2, ICD10: R05.3 Improving. Does notice some throat clearing. Has used flonase in the past, but caused epistaxis. Continue to monitor for improvement. If does not continue, consider ENT vs pulmonology. Discussed treatment plan and patient voices understanding. Patient's questions answered appropriately. Medications and potential side effects were discussed and patient voices understanding. Return to the office as scheduled or as needed for worsening/no improvement. Coleen Dunne APRN.ANTHONY documented in this encounter [facility] 07-13-2023 Instructions Coleen Dunne APRN.CNP - 07/13/2023 10:30 AM EDT Start the omeprazole. Continue the advair. Send an update in 2 weeks. Recheck in 1 month. documented in this encounter [facility] 07-13-2023 History of Present illness Narrative This is a 57 year old female who presents today with: Patient presents with: Recheck: 4 week follow up HISTORY OF PRESENT ILLNESS: Dixie Miller is a 57 year old female. Patient presents with: Recheck: 4 week follow up Pt presents today for follow-up. Was previously evaluated for a chronic cough. She had PFTs which showed some obstruction and improvement after a bronchodilator. Last chest xray showed some opacities, but she wanted to try treatment initially and monitor for improvement before proceeding with additional imaging, as she has had 5 chest xrays in the last year. Refers that she continues to have the cough, but is a little better. She has noticed a little improvement prior to starting the advair. Will sometimes expectorate some clear mucus. Refers that she feels fine, except the cough. Admits to get a little bit of heartburn. Doesn't take anything for that. Moreso indigestion. PAST MEDICAL HISTORY: PAST MEDICAL HISTORY Diagnosis Date Bladder incontinence Chicken pox 03/31/66 as a child-lasted 12 weeks Mumps [id number] as a child NONE PAST SURGICAL HISTORY Procedure Laterality Date COLONOSCOPY FLX DX W/COLLJ SPEC WHEN PFRMD 12/23/2016 Colonoscopy PAST SURGICAL HISTORY OF basil cell removal forehead ALLERGIES Demerol [Meperidine (Pf)], Hydroquinone, Methylchloroisothiazolinone, Methylisothiazolinone, Penicillin G, Propylene Glycol, and Sulfa (Sulfonamide Antibiotics) MEDICATIONS Current Outpatient Medications Medication Sig fluticasone-salmeterol HFA (ADVAIR HFA) 115-21 mcg/actuation inhaler Inhale 2 Puffs as instructed two times a day. Rinse mouth after use. hydrocortisone 2.5 % cream Apply to affected area twice daily. Cholecalciferol, Vitamin D3, 50 mcg (2,000 unit) cap Take by mouth. ascorbic acid (VITAMIN C ORAL) Take by mouth. triamcinolone acetonide topical 0.5 % ointment Apply to affected area twice daily. nitrofurantoin monohydrate and macrocrystal (MACROBID) 100 mg capsule Take one tablet PO after intercourse clobetasol (TEMOVATE) 0.05 % ointment Apply 1 application to affected area twice daily. For two weeks then use once per week . MULTIVITAMIN TAB Take one(1) tablet daily. No current facility-administered medications for this visit. FAMILY HISTORY Problem Relation Age of Onset Breast Cancer Mother age 60's Hypertension Father Under control Diabetes Paternal Grandmother Diabetes Paternal Uncle Colon Cancer Other none Social History Tobacco Use Smoking status: Never Smokeless tobacco: Never Vaping Use Vaping Use: Never used Substance Use Topics Alcohol use: Yes Comment: OCCASSIONALLY Drug use: No EXAM: BP 136/86 Pulse 73 Resp 16 LMP 11/26/2014 SpO2 99% PHYSICAL EXAM: General Appearance: Well appearing, alert, in no acute distress, well-hydrated, well nourished.. Skin: Skin color, texture, turgor normal, no suspicious rashes or lesions. Head: Normocephalic, no masses, lesions, tenderness or abnormalities. Eyes: Anicteric sclera. Extraocular movements are intact. . Lungs: Lungs clear to auscultation. No wheezing, rhonchi, rales.. Heart: RRR without murmur, gallop, or rubs. No ectopy. Neurologic: Gait normal. ASSESSMENT/PLAN: 1. Chronic cough - ICD9: 786.2, ICD10: R05.3 (primary diagnosis) Some improvement after starting the advair. She does have some problems with indigestion. Will go ahead and start PPI for in the event of a silent reflux. She will send in an update in 2 weeks. Recheck in 1 month. - OMEPRAZOLE 20 MG CAPSULE,DELAYED RELEASE 2. Indigestion - ICD9: 536.8, ICD10: K30 As above. - OMEPRAZOLE 20 MG CAPSULE,DELAYED RELEASE Discussed treatment plan and patient voices understanding. Patient's questions answered appropriately. Medications and potential side effects were discussed and patient voices understanding. Return to the office as scheduled or as needed for worsening/no improvement. Coleen Dunne APRN.[employer] documented in this encounter [facility] 06-16-2023 History of Present illness Narrative PULM FUNCTION SMARTBLOCK: Provider: Shlomo Miller MD Assisting Tech: Ana Mirza RPFT Spirometry w/BD: 1 DLCO: 1 LV - Box: 1 documented in this encounter [facility] 06-15-2023 Telephone encounter Note Spoke with patient. She is going to give the inhaler a try first and complete her upcoming pulm testing. [facility] 06-15-2023 Miscellaneous Notes Spoke with patient. She is going to give the inhaler a try first and complete her upcoming pulm testing. Xray shows no acute changes. Still showing some areas in the lung that could be scarring but it might be worth doing a ct scan for better pictures and to rule out other issues that can cause the chronic cough. documented in this encounter [facility] 06-15-2023 Telephone encounter Note Xray shows no acute changes. Still showing some areas in the lung that could be scarring but it might be worth doing a ct scan for better pictures and to rule out other issues that can cause the chronic cough. [facility] 06-13-2023 History of Present illness Narrative Radiology Service Progress Note PATIENT NAME: Dixie Miller DATE OF SERVICE: June 13, 2023 TIME: 6:40 PM PATIENT IDENTITY VERIFICATION COMPLETED USING TWO (2) IDENTIFIERS: Name and Date of confirmed by patient verbally. FALL SCREENING: Has the patient had 2 falls in the last year or 1 fall with injury or currently using an Ambulatory Assistive Device (Walker, Cane, Wheelchair, Crutches, etc.)? No PATIENT GENDER DATA: Female. status: : No status: NO. PATIENT RELEVANT IMPLANT DATA REVIEWED: Not Applicable PATIENT PRESENTS WITH AN IMPLANTABLE OR ATTACHED PREVENTATIVE MAINTENANCE TECHNICIAN: No RADIOLOGY DEPARTMENT: General X-ray: Exam(s) Completed: Chest X-Ray PERIPHERAL IV DATA: Not applicable SIGNED BY: RT Truong(R) June 13, 2023 6:40 PM documented in this encounter [facility] 06-13-2023 History of Present illness Narrative Patient presents with: Cough HPI: Patient presents today for office visit for follow up. Cough: Pneumonia in Nov slowly got better. Then after first of the year was better. Had COVID then in end of . Now with this lingering cough. At times can be productive slight clear sticky. Denies shortness of breath unless is in a coughing fit. Cough is worse at night but does have during the day as well. Uses cough drops. Did also use Delsym. No gerd has recently some stomach burning. No increased belching or burping. Not wheezing or shortness of breath. No fever or chills. No longer feels sick. MEDICATIONS: Current Outpatient Medications Medication Sig hydrocortisone 2.5 % cream Apply to affected area twice daily. Cholecalciferol, Vitamin D3, 50 mcg (2,000 unit) cap Take by mouth. ascorbic acid (VITAMIN C ORAL) Take by mouth. triamcinolone acetonide topical 0.5 % ointment Apply to affected area twice daily. nitrofurantoin monohydrate and macrocrystal (MACROBID) 100 mg capsule Take one tablet PO after intercourse clobetasol (TEMOVATE) 0.05 % ointment Apply 1 application to affected area twice daily. For two weeks then use once per week . MULTIVITAMIN TAB Take one(1) tablet daily. No current facility-administered medications for this visit. ALLERGIES: ALLERGIES Allergen Reactions Demerol [Meperidine* Hydroquinone Rash Methylchloroisothia* Rash Methylisothiazolino* Rash Penicillin G Propylene Glycol Rash Sulfa (Sulfonamide * PAST MEDICAL HISTORY Diagnosis Date Bladder incontinence Chicken pox 03/31/66 as a child-lasted 12 weeks Mumps [id number] as a child NONE PAST SURGICAL HISTORY Procedure Laterality Date COLONOSCOPY FLX DX W/COLLJ SPEC WHEN PFRMD 12/23/2016 Colonoscopy PAST SURGICAL HISTORY OF basil cell removal forehead FAMILY HISTORY Problem Relation Age of Onset Breast Cancer Mother age 60's Hypertension Father Under control Diabetes Paternal Grandmother Diabetes Paternal Uncle Colon Cancer Other none Social History Tobacco Use Smoking status: Never Smokeless tobacco: Never Vaping Use Vaping Use: Never used Substance Use Topics Alcohol use: Yes Comment: OCCASSIONALLY Drug use: No Reviewed current medications, allergies, past medical history, surgical history, family history and social history today. REVIEW OF SYSTEMS All other reviewed and negative other than HPI. VITALS: BP 129/79 Pulse 84 Wt 73 kg (161 lb) LMP 11/26/2014 SpO2 97% BMI 27.21 kg/m Last 4 Encounter Wt Readings: Date: Wt: 01/27/2023 74.4 kg (164 lb) 01/12/2023 73 kg (161 lb) 11/26/2022 71.1 kg (156 lb 12.8 oz) 09/08/2022 68.9 kg (152 lb) PHYSICAL EXAMINATION: General appearance: Well appearing, alert, in no acute distress, well-hydrated, well nourished. Skin: Skin color, texture, turgor normal, no suspicious rashes or lesions Head: Normocephalic, no masses, lesions, tenderness or abnormalities Eyes: Anicteric sclera. Pupils are equally round and reactive to light. Extraocular movements are intact. Ears: External ears normal, canals clear Nose/Sinuses: Nares normal, septum midline, mucosa normal, no drainage or sinus tenderness Oropharynx: Lips, mucosa, and tongue normal, teeth and gums normal, oropharynx normal Neck: Supple, no adenopathy; Lungs: Lungs clear to auscultation. No wheezing, rhonchi, rales Heart: RRR without murmur, gallop, or rubs. No ectopy Abdomen: Normal abdominal exam, Abdomen soft, non-tender. Bowel sounds normal. No masses, organomegaly Extremities: No deformities, edema, skin discoloration, clubbing or cyanosis. Good capillary refill. ASSESSMENT/PLAN: 1. Chronic cough - ICD9: 786.2, ICD10: R05.3 - Discussed risks and benefits of new medication with the patient. Advised them to call if any side effects or questions. Red flags for re-assessment reviewed with patient in detail. - consider pulmonary if continues or worsens. - SPIROMETRY WITH DILATOR IF OBSTRUCTED - LUNG DIFFUSION CAPACITY (DLCO) - LUNG VOLUMES - XR CHEST 2V FRONTAL/LAT - FLUTICASONE PROPIONATE 115 MCG-SALMETEROL 21 MCG/ACTUATION HFA INHALER Shlomo Miller MD RTO in one month or prn documented in this encounter [facility] 05-17-2023 History of Present illness Narrative Program_ID:[id number] Access Code: [email or web address] URL: [email or web address] Date: 05-17-2023 Prepared By: [email or web address] Program Notes Exercises - Supine Pelvic Floor Contraction - 1 x daily - x weekly - 3 sets - 10 reps - Supine Pelvic Floor Contraction - 1 x daily - x weekly - 2 sets - 10 reps - Seated Hip Adduction Isometrics with Ball - 1 x daily - x weekly - 3 sets - 10 reps - Standing Hip Abduction with Counter Support - 1 x daily - x weekly - 2 sets - 10 reps - Standing Hip Extension with Counter Support - 1 x daily - x weekly - 2 sets - 10 reps - Clamshell - 1 x daily - x weekly - 2 sets - 10 reps - Sidelying Hip Abduction - 1 x daily - x weekly - 2 sets - 10 reps Patient Education - cc Pelvic Floor - Knack Technique - cc Pelvic Floor - Bladder Alexis - Irritants - cc Pelvic Floor - Bladder Retention and Urge Suppression - cc Pelvic Floor - Bladder Emptying Ideas - cc Pelvic Floor - Bladder Health & Emptying Techniques - cc Pelvic Floor - Bowel Movement Education - cc Pelvic Floor - Constipation Massage Episode Visit Count: 2 Therapist That Will Accept/Oversee The Plan Of Care: Jen Everett Start of Care Date: 04/26/23 Onset Date: 04/25/22 Patient Identified by Name and Date of : Yes REHABILITATION AND SPORTS THERAPY PHYSICAL THERAPY TREATMENT NOTE ASSESSMENT: Dixie Miller tolerated the session with no issues. She demonstrated improvements in ability to empty bowels without straining, slight improvement in CINDY. The patient will continue to benefit from ongoing skilled physical therapy to progress toward set goals. PLAN FOR NEXT VISIT: reassessment SUBJECTIVE: Pt reports bladder felt good for two weeks after IE then had a little bit of bladder pressure this past week. Pt states she started doing exercises first thing in the morning before emptying bladder and felt that irritated bladder. Pt reports increased awareness of bladder irritants on bladder function. Pt reports some improvement in CINDY, has some days when she doesn't have to change pads, but then other days has CINDY with coughing. Pt reports improvement in ability to empty bowels without straining. Pain: Pain Pain Level: 0 Post Treatment Pain Post Treatment Pain Level: 0 OBJECTIVE MEASURES WITH LEVEL OF FUNCTION: Pelvic Floor Stress Incontinence: Cough/sneeze (slight improvement) Nocturia (times per night): 0 Daytime Frequency (hours): 4 Water : 6 Difficulty evacuating / Excessive Straining: No Incomplete emptying: No TREATMENT: Therapeutic Exercise: 1: standing quick kegals, 1x10 2: *standing hip abduction with PF bracing, 2x10 3: *standing hip extension with PF bracing, 2x10 4: *clamshells with TA bracing, 2x10 each 5: *sidelying hip abduction with TA bracing, 2x10 each Skilled Intervention: Patient was educated in proper exercise technique and purpose for exercises. Reviewed and educated patient on additions/changes for home exercise program as above (*). Skilled judgment was used in selection of appropriate interventions. Provided written instruction for home exercise program to facilitate proper performance and compliance. Self-Mcc Management: 1: Reviewed impact of bladder irritants on bladder function 2: Reviewed benefits of emptying bladder first thing in the morning before doing exercises Skilled Intervention: Skilled judgment in the selection of proper modification for activity of daily living/home management based on clinical presentation, deficits, and needs. Provided written instruction for activities of daily living techniques to facilitate proper performance and compliance. Billing Therapeutic Exercise Treatment Minutes: 40 Self-Care/Home Management Treatment Minutes: 8 Skilled Treatment Time Minutes (timed and untimed codes): 48 Total Session Time (minutes): 48 Session Start Time : 737 Session Stop Time : 825 Jen Everett PT documented in this encounter [facility] 04-26-2023 History of Present illness Narrative Program_ID:[id number] Access Code: [email or web address] URL: [email or web address] Date: 04-26-2023 Prepared By: Jen Program Notes Exercises - Supine Pelvic Floor Contraction - 1 x daily - x weekly - 3 sets - 10 reps - Supine Pelvic Floor Contraction - 1 x daily - x weekly - 2 sets - 10 reps - Seated Hip Adduction Isometrics with Ball - 1 x daily - x weekly - 3 sets - 10 reps Patient Education - cc Pelvic Floor - Knack Technique - cc Pelvic Floor - Bladder Alexis - Irritants - cc Pelvic Floor - Bladder Retention and Urge Suppression - cc Pelvic Floor - Bladder Emptying Ideas - cc Pelvic Floor - Bladder Health & Emptying Techniques - cc Pelvic Floor - Bowel Movement Education - cc Pelvic Floor - Constipation Massage Episode Visit Count: 1 Therapist That Will Accept/Oversee The Plan Of Care: Jen Everett Start of Care Date: 04/26/23 Onset Date: 04/25/22 Patient Identified by Name and Date of : Yes REHABILITATION AND SPORTS THERAPY PHYSICAL THERAPY EVALUATION PLAN OF CARE: Assessment: Dixie Miller presents with chief complaint of CINDY that interferes with bladder function, bowel function . She presents with impairments in decreased pelvic floor strength; impaired bladder and bowel function. PROMIS (Patient-Reported Outcomes Measurement Information System) scores were reviewed and identified as within normal limits. Prognosis for therapy is Good due to: current objective clinical presentation . She will benefit from skilled therapy services to meet the goals established for this plan of care as noted below. Goals for Episode of Care: created on 04/26/23 through 06/25/23 Patient demonstrates independence and compliance with home exercise program. Patient to increase strength of pelvic floor to Power: at least 3/5 in order to improve bladder control. Patient reports at least 85% improvement in bladder leaks while coughing/sneezing compared to evaluation in order to increase bladder function in activities of daily living. Patient reports increased ability to fully empty bowels without straining at least 85% of the time to normalize bowel function. Patient Goals: improve bladder function Planned Interventions, Frequency, and Duration: Current Frequency: 1x every other week Duration: 4 weeks (reassess at 4 weeks and progress as indicated) Total Number of Visits Planned: 2 Planned Treatment Interventions: Therapeutic exercise (03687), Manual therapy (75359), Self-correction management (76119), Patient/Family/Caregiver Education PLAN FOR NEXT VISIT: progress strengthening exercises as tolerated Patient demonstrates good understanding of plan of care and treatment. The above goals and plan of care were discussed and agreed upon by patient/family. SUBJECTIVE: Pt reports extensive history of holding bladder too long. Pt states she had pneumonia twice last year, had excessive coughing and then had significant CINDY. Pt reports CINDY has improved since pneumonia has improved but still has a little bit. Patient Goals: improve bladder function Functional Limitations: bladder function, bowel function Prior Level of Function: Independent without limitations Relevant History Past Relevant Medical Conditions: (see note) Past Relevant Surgical Conditions: (see note) Employment: Retired Recreation / Current Exercise: None currently. Intake Information: Prescription present PAST MEDICAL HISTORY Diagnosis Date Bladder incontinence Chicken pox 03/31/66 as a child-lasted 12 weeks Mumps [id number] as a child NONE PAST SURGICAL HISTORY Procedure Laterality Date COLONOSCOPY FLX DX W/COLLJ SPEC WHEN PFRMD 12/23/2016 Colonoscopy PAST SURGICAL HISTORY OF basil cell removal forehead Previous Treatment: None Falls Interview: No positive findings with falls interview Aquatic Screen: No Pain: Pain Pain Level: 0 Post Treatment Pain Post Treatment Pain Level: 0 PROMIS Scales 11/18/2021 04/26/2023 Higher is Better Phys Func - Score Incomplete 62 (within normal limits) Phys Func - Percentile 88 Self-Eff Symptom - Score 68 (High) 49 (Average) Self-Eff Symptom - Percentile 96 46 04/26/2023 11/18/2021 Higher is Better Phys Func - Score 62 (within normal limits) Incomplete Phys Func - Percentile 88 Self-Eff Symptom - Score 49 (Average) 68 (High) Self-Eff Symptom - Percentile 46 96 T-scores: mean of general population = 50. 5 points is clinically meaningfully difference Percentiles provide an indication of how the patient's score ranks in relation to the general population. Higher percentile rankings indicate better function/quality of life. 50th percentile is the average of the general population and indicates half of respondents had a worse score. OBJECTIVE MEASURES WITH LEVEL OF FUNCTION: Pelvic Floor Pregnancies: 3 Births: 2 Vaginal Delivery: Standard Pain with penetration: No Urinary/Bowel History : Urinary History, Bowel History Difficulty starting stream: No Incomplete emptying: No Stress Incontinence: Cough/sneeze Urgency: No (only if she ignores bladder for a while and holds longer than 4+ hours) Nocturia (times per night): 0 Daytime Frequency (hours): 4 Fluid Intake: Water, Tea, Other beverage (8 oz measurements) Water : 3-6 Tea : 1-2 Other beverage : 1 (sparkling water) Difficulty evacuating / Excessive Straining: Sometimes Incomplete emptying: Sometimes Bowel Movement Frequency: 1x/day Fecal incontinence: No Pelvic Floor Muscle Assessment Consent for pelvic assessment/testing and treatment: Patient was educated regarding pelvic floor physical therapy assessment/treatment which may include pelvic floor and girdle muscle assessment externally or internally (vaginal or rectal approach)., Patient verbalized consent for the above treatment approaches today. Patient understands they have control of the treatment and an opportunity to stop treatment at any time. Pelvic Floor Muscle Assessment: PERFECT, Muscle Dynamics Power: 2 Endurance: 10 Fast Reps: 10 Contracton Pressure: Weak squeeze, felt as flick at various points along finger surface, not all the way around Duration of Contraction: >3 seconds Recruitment of pelvic floor muscles: Coordinated Range of Motion: Normal Ability to Lengthen pelvic floor: Yes Pelvic Floor Manual Assessment Pelvic Floor Tenderness/Hyperactivity: Tested Vaginally in Tested Vaginally in : Supine/hooklying (No tightness/tenderness noted.) LE AROM R LE AROM: WFL L LE AROM: WFL LE Flexibility Flexibility: Hamstring Flexibility, Hip Adductor, Hip Internal Rotation Flexibility, Hip External Rotation Flexibility R Hamstring Flexibility: WNL L Hamstring Flexibility: WNL R Adductor Flexibility: WNL L Adductor Flexibility: WNL R Hip Internal Rotation Flexibility: WNL L Hip Internal Rotation Flexibility: WNL R Hip External Rotation Flexibility: WNL L Hip External Rotation Flexibility: WNL LE Strength Trunk Strength: Lower Abdominals: 4/5 R LE Strength: 5/5 L LE Strength: 5/5 Education: Education Learning Preferences: Demonstration, Explanation, Performance, Printed Materials Barriers: None Learning/educational needs: Home exercise program, Plan of Care Education Provided: Yes, see treatment interventions for education provided Education Provided To: Patient Education Mode/Type: Demonstration, Explanation/Discussion, Literature/Printed Materials, Performance Response to Education/Teach Back: States/Identifies, Return Demonstration TREATMENT: PT Treatment Interventions: Therapeutic Exercise, Self-Mcc Management Evaluation Therapeutic Exercise: 1: *quick kegals, 3x10 2: *kegal holds, 10sec hold with 5sec rest, 2x10 3: *knack technique 4: *isometric hip adduction, 3x10 Skilled Intervention: Patient was educated in proper exercise technique and purpose for exercises. Reviewed and educated patient on additions/changes for home exercise program as above (*). Skilled judgment was used in selection of appropriate interventions. Provided written instruction for home exercise program to facilitate proper performance and compliance. Self-Mcc Management: 1: Reviewed pelvic floor anatomy and function with 3D pelvic model 2: Reviewed typical vs dysfunctional bladder and bowel health 3: Reviewed bladder irritants, importance of water intake 4: Reviewed urinary urgency suppression techniques 5: Reviewed toileting techniques to fully empty bowels without straining 6: *self-colon massage Skilled Intervention: Skilled judgment in the selection of proper modification for activity of daily living/home management based on clinical presentation, deficits, and needs. Provided written instruction for activities of daily living techniques to facilitate proper performance and compliance. Billing * Evaluation Low Complexity: 1 Unit Therapeutic Exercise Treatment Minutes: 10 Self-Care/Home Management Treatment Minutes: 14 Skilled Treatment Time Minutes (timed and untimed codes): 48 Total Session Time (minutes): 48 Session Start Time : 741 Session Stop Time : 829 Jen Everett PT documented in this encounter [facility] 01-27-2023 Instructions Eliza Oconnor Ma 01/27/2023 1:48 PM EST YOUR RECOVERY After your biopsy you may have: Vaginal bleeding (less than a normal menstrual period) Mild cramping Do NOT put anything in the vagina for 1 week after your endometrial biopsy. This includes: tampons douches and refraining from having sexual intercourse If you have any discomfort, you may take an over the counter pain medication (motrin, advil, ibuprofen, tylenol, etc). If this does not relieve your discomfort, contact the office. It is okay to wear a sanitary pad until the discharge and spotting stops. RISKS Although problems seldom occur with endometrial biopsies, there can be some complications. You may feel faint during and shortly after the procedure as well as have some bleeding after the procedure. There is also a risk of infection after the procedure. These complications are rare and can be easily treated. You should contact you doctor is you have any of the following: Heavy bleeding (more than your normal period) Bleeding with clots Severe abdominal pain Fever (more than 100.4F) Foul smelling vaginal discharge RESULTS We will have the results of your biopsy in 1-2 weeks. If you do not hear the results of your biopsy after 2 weeks, please contact the office for the results. If you have any additional questions or concerns please do not hesitate to contact the office. documented in this encounter [facility] 01-27-2023 History of Present illness Narrative Sports Internship offered: Patient declines. Patient here for possible endometrial biopsy for abnormal vaginal discharge which was possible for postmenopausal bleeding. Patient had a pelvic ultrasound performed on 01/24/2023. Patient reports has not had any further vaginal discharge for approximately 1 month. She states that the vaginal discharge was brown in nature and was after bouts of coughing after having pneumonia. She was previously seen for her annual exam and on speculum exam it was apparent that the discharge distant with vaginal atrophy it was slightly yellow and light brown. There is no active bleeding. Pelvic ultrasound revealed endometrial thickness of 2.7 mm normal ovaries no gross abnormalities were appreciated. Pt still c/o leaking fluid with coughing/laughing . [place]egal not helping. A/p: (N95.2) Postmenopausal atrophic vaginitis (primary encounter diagnosis) (N39.3) Urinary, incontinence, stress female 1) discussed findings with the patient. I do not feel that an endometrial biopsy is warranted at this time. Patient in agreement. 2) USI reviewed- consult to pelvic floor PT, Intone Pamphlet given. Reviewed poise bladder supports 3) declines Vaginal Estrogen 4) RTO for yearly exams or PRN I spent a total of 20 minutes on the date of the service which included preparing to see the patient, [id number] patient care, completing clinical documentation, obtaining and/or reviewing separately obtained history, performing a medically appropriate examination, counseling and educating the patient/family/caregiver, and ordering medications, tests, or procedures Hilda Ferrer MD . documented in this encounter [facility] 01-03-2023 Miscellaneous Notes See pt message, advise. Laura Cowan Ma documented in this encounter [facility] 01-03-2023 Miscellaneous Notes [employer] message sent to pt notifying her of results and recommendations below from Provider. Laura Cowan Ma Please let the patient know that her chest x-ray no longer shows any signs of ongoing infection. Just shows some postinfectious state. No further antibiotics or imaging needed. This will resolve on own. Parish Kaplan APRN.ANTHONY documented in this encounter [facility] 12-31-2022 History of Present illness Narrative Radiology Service Progress Note PATIENT NAME: Dixie Miller DATE OF SERVICE: December 31, 2022 TIME: 10:16 AM PATIENT IDENTITY VERIFICATION COMPLETED USING TWO (2) IDENTIFIERS: Name and Date of confirmed by patient verbally. FALL SCREENING: Has the patient had 2 falls in the last year or 1 fall with injury or currently using an Ambulatory Assistive Device (Walker, Cane, Wheelchair, Crutches, etc.)? No PATIENT GENDER DATA: Female. status: : No status: NO. PATIENT RELEVANT IMPLANT DATA REVIEWED: Yes RADIOLOGY DEPARTMENT: General X-ray: Exam(s) Completed: Chest X-Ray PERIPHERAL IV DATA: Not applicable SIGNED BY: RT Shanon(R) December 31, 2022 10:16 AM documented in this encounter [facility] 11-26-2022 Miscellaneous Notes Pt informed, verbalized understanding. Zainab Torre MA She may continue with plan to take prednisone. Technically, if this is pneumonia, she could be contagious. Parish Kaplan APRN.CNP Pt called and is notified of providers results and instructions. Pt voices understanding. Pt asking if provider still wants her to take the prednisone. She was also asking if provider thinks she is contagious because her elderly parents live with her. Asked Pt and she reports she hasn't been running a fever or coughing anything up. Please call and advise. Elle Hernandez RN Please let the patient know that her chest x-ray shows possible pneumonia in the left side. I prescribed doxycycline to be taken twice daily for the next 10 days. I would like for her to repeat the chest x-ray in 1 month to see that it resolved. I would like for her to follow-up with myself or Dr. Miller if her cough is worsening over the next few weeks. Parish Kaplan APRN.CNP documented in this encounter [facility] 11-26-2022 History of Present illness Narrative Radiology Service Progress Note PATIENT NAME: Dixie Miller DATE OF SERVICE: November 26, 2022 TIME: 12:35 PM PATIENT IDENTITY VERIFICATION COMPLETED USING TWO (2) IDENTIFIERS: Name and Date of confirmed by patient verbally. FALL SCREENING: Has the patient had 2 falls in the last year or 1 fall with injury or currently using an Ambulatory Assistive Device (Walker, Cane, Wheelchair, Crutches, etc.)? No PATIENT GENDER DATA: Female. status: : No status: NO. PATIENT RELEVANT IMPLANT DATA REVIEWED: Not Applicable RADIOLOGY DEPARTMENT: General X-ray: Exam(s) Completed: Chest X-Ray PERIPHERAL IV DATA: Not applicable SIGNED BY: RT Truong(R) November 26, 2022 12:35 PM documented in this encounter [facility] 11-26-2022 Instructions Parish Kaplan APRN.CNP - 11/26/2022 12:23 PM EDT Get xray of chest today Start prednisone with food for 9 days Start zyrtec or some type of anti-histamine daily, other than benadryl. Start Flonase 2 puffs per nostril daily If no better, then mychart me and we will get breathing testing, send to pulmonary. Parish Kaplan APRN.PEANUT SORTER documented in this encounter [facility] 11-26-2022 History of Present illness Narrative Chief Complaint Patient presents with: Cough: Dry productive x 3 weeks with drainage & RIGHT HEAD pressure & ear discomfort x 1 day HPI Dixie Miller is a 57 year old female who presents here today for Above Complaints. follow up for cough. Patient states that she has had a dry-non productive cough. Intermittent. Was seen in August for a URI. COVID and Flu negative. Claims that it was a light cough but with the past 3 weeks, it has gotten worse. She has had a dripy nose the past few days but not previously. She did a COVID test last night and it was negative. Was taking Zyrtec and tessalon pearles but stopped this week. No SOB fever, nightsweats. No wheezing. Throat feels raw. Seems like evening is worse than daytime. Coughing as soon as she gets up. She is a non-smoking. No history of COPD, Asthma or reactive airway disease. 1 day of right ear discomfort and right sided head pressure. Took ibuprofen today. Helped with ear pain. Also pulling her ear seemed to relieve the pain. Past medical history, appointments, medications, allergies reviewed. EXAM: BP 138/81 Pulse 87 Temp 36.8 C (98.3 F) (Left Tympanic) Resp 16 Wt 71.1 kg (156 lb 12.8 oz) LMP 11/26/2014 SpO2 100% BMI 26.09 kg/m General Appearance: Well appearing, alert, in no acute distress, well-hydrated, well nourished.. Head: Normocephalic, no masses, lesions, tenderness or abnormalities. Eyes: Anicteric sclera. Pupils are equally round and reactive to light. Extraocular movements are intact. . Ears: External ears normal, canals clear. Nose/Sinuses: Positive findings: mucosa swollen, pale, and boggy. Oropharynx: PND. Lungs: Lungs clear to auscultation. No wheezing, rhonchi, rales. Cough. Heart: RRR without murmur, gallop, or rubs. No ectopy. ASSESSMENT/PLAN: 1. Persistent cough for 3 weeks or longer - ICD9: 786.2, ICD10: R05.3 (primary diagnosis) -Exam was mostly normal. Likely cough secondary to PND. Given length of cough, get chest x-ray, start Zyrtec again, start Flonase daily, trial 9-day prednisone taper. If cough does not improve or it worsens, consider spirometry referral to pulmonology. - XR CHEST 2V FRONTAL/LAT - PREDNISONE 10 MG TABLET 2. Right ear pain - ICD9: 388.70, ICD10: H92.01 -Likely eustachian tube dysfunction, continue with plan to start Flonase Parish Kaplan APRN.PEANUT SORTER This note was partly generated using [employer] voice recognition dictation and may contain some misspelled or inaccurate words missed on review. documented in this encounter [facility] 11-24-2022 Miscellaneous Notes Appt scheduled with JOSE for 11/26. Would need seen. Needs work up Patient calling, was seen in August and at the time had a URI. She still has a nagging cough. It seems to get better and then comes back. She took the Tessalon perls that were prescribed. Since finishing the prescription she has taken Robitussin DM and used throat lozenges. She also has some nasal congestion and some drainage that comes and goes. Please advise. documented in this encounter [facility] 10-20-2022 History of Present illness Narrative Radiology Service Progress Note PATIENT NAME: Dixie Miller DATE OF SERVICE: October 20, 2022 TIME: 9:38 AM PATIENT IDENTITY VERIFICATION COMPLETED USING TWO (2) IDENTIFIERS: Name and Date of confirmed by patient verbally. FALL SCREENING: Has the patient had 2 falls in the last year or 1 fall with injury or currently using an Ambulatory Assistive Device (Walker, Cane, Wheelchair, Crutches, etc.)? No PATIENT GENDER DATA: Female. status: : No status: NO. PATIENT RELEVANT IMPLANT DATA REVIEWED: Not Applicable RADIOLOGY DEPARTMENT: Ultrasound PERIPHERAL IV DATA: Not applicable SIGNED BY: Ciarra Melo RDMS October 20, 2022 9:38 AM documented in this encounter [facility] 10-01-2022 Miscellaneous Notes October 01, 2022 PID: [id number] Dixie Miller [address] [place] [address] Dear Ms. Miller, Your recent breast imaging exam on 09/30/2022 showed a possible finding that requires additional imaging studies for a complete evaluation. Most such findings are probably benign (not cancer). If you have a healthcare provider who ordered/prescribed your screening mammogram: Please call [phone] or [phone]: [phone] to schedule an appointment for your additional imaging (if you have not already done so). If you DO NOT have a healthcare provider (ie you did not have an order/prescription for your screening mammogram): Please call to schedule an appointment for your additional imaging (if you have not already done so). You must have an order/prescription from your physician when calling to schedule your appointment. If your order/prescription is not electronic, you must bring the hard copy with you on the day of your exam to avoid delays. Your imaging studies and reports are kept on file at [facility] as part of your permanent medical record, and are available for your continuing care. Thank you for allowing us to help in meeting your health care needs. Sincerely, Dr. Mike Interpreting Radiologist [facility] (Additional imaging) documented in this encounter [facility] 05-13-2022 History of Present illness Narrative Radiology Service Progress Note PATIENT NAME: Dixie Miller DATE OF SERVICE: May 13, 2022 TIME: 2:25 PM PATIENT IDENTITY VERIFICATION COMPLETED USING TWO (2) IDENTIFIERS: Name and Date of confirmed by patient verbally. FALL SCREENING: Has the patient had 2 falls in the last year or 1 fall with injury or currently using an Ambulatory Assistive Device (Walker, Cane, Wheelchair, Crutches, etc.)? No PATIENT GENDER DATA: Female. status: : No status: NO. PATIENT RELEVANT IMPLANT DATA REVIEWED: Not Applicable RADIOLOGY DEPARTMENT: General X-ray: Exam(s) Completed: Chest X-Ray PERIPHERAL IV DATA: Not applicable SIGNED BY: RT Truong(R) May 13, 2022 2:25 PM documented in this encounter [facility] 04-27-2022 Miscellaneous Notes Spoke with Rosaura hardwick at pre access and she will start new referral for pt, then send to [facility]. Pt notified. Kimberly Oakes Ma Pt called in and reports that [facility] needs the pre-certification information for her stress test. She said that they had called in and talked to a Gloria about not needing a pre-cert for it. She states that they still need this information sent over to [facility]. Pt asking if someone from providers office could call her back. documented in this encounter [facility] 04-14-2022 Miscellaneous Notes Spoke with patient. Given message from provider's office. Patient verbalizes understanding. Luann Bennett RN Chest xray actually shows what could be a pneumonia. Add doxycycline. Recheck chest xray in one month documented in this encounter [facility] 04-12-2022 Miscellaneous Notes D-Dimer [facility] result 0.34 (0.27-0.49) documented in this encounter [facility] 04-12-2022 Miscellaneous Notes Order faxed, pt notified Patient called stating her stress test is scheduled in [place]. She is asking to stay local and would like to see if [facility] has something soon. Please fax order and advise patient so that she can call to schedule. Patient asked that we do not cancel [place] appt. She wants to check [facility] sched first. documented in this encounter [facility] 04-12-2022 History of Present illness Narrative Radiology Service Progress Note PATIENT NAME: Dixie Miller DATE OF SERVICE: April 12, 2022 TIME: 2:16 PM PATIENT IDENTITY VERIFICATION COMPLETED USING TWO (2) IDENTIFIERS: Name and Date of confirmed by patient verbally. FALL SCREENING: Has the patient had 2 falls in the last year or 1 fall with injury or currently using an Ambulatory Assistive Device (Walker, Cane, Wheelchair, Crutches, etc.)? No PATIENT GENDER DATA: Female. status: : No status: NO. PATIENT RELEVANT IMPLANT DATA REVIEWED: Yes RADIOLOGY DEPARTMENT: General X-ray: Exam(s) Completed: Chest X-Ray PERIPHERAL IV DATA: Not applicable SIGNED BY: RT Shanon(Eulogio) April 12, 2022 2:16 PM documented in this encounter [facility] 04-12-2022 Miscellaneous Notes Addended by: SHLOMO MILLER on: 04/12/2022 01:42 PM Modules accepted: Orders documented in this encounter [facility] 04-12-2022 History of Present illness Narrative Patient presents with: Cough HPI: Patient presents today for office visit for follow up. Has a chest discomfort that moves around for the last month. Started with lifting things. Not sure if related to cough below. Is short lived. Can occur anywhere on the chest. Not associated with exertion. No shortness of breath. No edema. Some days does not happen at all. Is vague in description. Not sure if anything makes it better or worse. Cough has been there the last month and a half. Followed a cold she had. Nonproductive No fever or chills. Did not check covid. No current ear pain or sore throat. Has occasional mild nasal drainage. No sinus congestion. Does get heartburn occasionally. Does not happen often. Depends on diet. Has noted issues with anxiety. Can be irritable. No depression. No suicidal ideation. MEDICATIONS: Current Outpatient Medications Medication Sig predniSONE (DELTASONE) 20 mg tablet as needed. hydrocortisone 2.5 % cream Apply to affected area twice daily. Cholecalciferol, Vitamin D3, 50 mcg (2,000 unit) cap Take by mouth. ascorbic acid (VITAMIN C ORAL) Take by mouth. triamcinolone acetonide topical 0.5 % ointment Apply to affected area twice daily. nitrofurantoin monohydrate and macrocrystal (MACROBID) 100 mg capsule Take one tablet PO after intercourse clobetasol (TEMOVATE) 0.05 % ointment Apply 1 application to affected area twice daily. For two weeks then use once per week . MULTIVITAMIN TAB Take one(1) tablet daily. No current facility-administered medications for this visit. ALLERGIES: ALLERGIES Allergen Reactions Demerol [Meperidine* Hydroquinone Rash Methylchloroisothia* Rash Methylisothiazolino* Rash Penicillin G Propylene Glycol Rash Sulfa (Sulfonamide * PAST MEDICAL HISTORY Diagnosis Date Bladder incontinence Chicken pox 03/31/66 as a child-lasted 12 weeks Mumps 5025-5398 as a child NONE PAST SURGICAL HISTORY Procedure Laterality Date COLONOSCOPY FLX DX W/COLLJ SPEC WHEN PFRMD 12/23/2016 Colonoscopy PAST SURGICAL HISTORY OF basil cell removal forehead FAMILY HISTORY Problem Relation Age of Onset Breast Cancer Mother age 60's Hypertension Father Under control Diabetes Paternal Grandmother Diabetes Paternal Uncle Colon Cancer Other none Social History Tobacco Use Smoking status: Never Smokeless tobacco: Never Vaping Use Vaping Use: Never used Substance Use Topics Alcohol use: Yes Comment: OCCASSIONALLY Drug use: No Reviewed current medications, allergies, past medical history, surgical history, family history and social history today. REVIEW OF SYSTEMS All other reviewed and negative other than HPI. HEALTH MAINTENANCE: Reviewed health maintenance issues today and recommended the following in detail. DEPRESSION ASSESSMENT-declines VITALS: BP 132/80 Pulse 81 Resp 16 Ht 165.1 cm (5' 5) Wt 68 kg (150 lb) LMP 11/26/2014 SpO2 98% BMI 24.96 kg/m Last 4 Encounter Wt Readings: Date: Wt: 04/12/2022 68 kg (150 lb) 01/29/2022 67.5 kg (148 lb 12.8 oz) 11/10/2021 67.6 kg (149 lb) 10/27/2021 67.7 kg (149 lb 3.2 oz) PHYSICAL EXAMINATION: General appearance: Well appearing, alert, in no acute distress, well-hydrated, well nourished. Skin: Skin color, texture, turgor normal, no suspicious rashes or lesions Head: Normocephalic, no masses, lesions, tenderness or abnormalities Eyes: Anicteric sclera. Pupils are equally round and reactive to light. Extraocular movements are intact. Ears: External ears normal, canals clear Nose/Sinuses: Nares normal, septum midline, mucosa normal, no drainage or sinus tenderness Oropharynx: Lips, mucosa, and tongue normal Chest wall nonterne. Lungs: Lungs clear to auscultation. No wheezing, rhonchi, rales Heart: RRR without murmur, gallop, or rubs. No ectopy Abdomen: Normal abdominal exam, Abdomen soft, non-tender. Bowel sounds normal. No masses, organomegaly Extremities: No deformities, edema, skin discoloration, clubbing or cyanosis. Good capillary refill. Musculoskeletal: No joint swelling, deformity, or tenderness ASSESSMENT/PLAN: 1. Chest discomfort - ICD9: 786.59, ICD10: R07.89 (primary diagnosis) - get stress test to rule out ischemia. Check labs. Call prn. Red flags for re-assessment reviewed with patient in detail. - ECG COMPLETE- nsr, incomplete rbbb, nonspecific st changes. - CBC + DIFF - D-DIMER - COMP METABOLIC PANEL 2. Cough, unspecified type - ICD9: 786.2, ICD10: R05.9 - ? Related to previous infection.Call if symptoms worsen at all or if not better in one to two weeks - XR CHEST 2V FRONTAL/LAT 3. Anxiety Zoloft Discussed risks and benefits of new medication with the patient. Advised them to call if any side effects or questions. Shlomo Miller MD RTO in one month documented in this encounter [facility] 01-31-2022 Miscellaneous Notes Patient given results and verbalized understanding of instructions given. [place] Please call patient and let know their urine culture did not show a significant infection. if antibiotics are helping finish those, otherwise follow up with pcp with further symptoms. documented in this encounter [facility] 01-29-2022 Instructions Ramone Carlson APRN.PEANUT SORTER - 01/29/2022 5:03 PM EST URINARY TRACT INFECTION GENERAL INFORMATION: A urinary tract infection (UTI) is an infection of the bladder or kidneys. A bladder infection, called cystitis, is the more common type. If the infection travels up to the kidneys, it is called pyelonephritis. This can be more serious. UTIs are a common problem in women. Having sexual relations can leave a woman more susceptible to developing a UTI, but it is not sexually transmitted like gonorrhea. Some women have a problem with recurrent UTIs. INSTRUCTIONS: 1. Your doctor prescribed an antibiotic to treat the UTI. Take exactly as directed. Be sure to take all the medication prescribed, even if your symptoms disappear. If you stop treatment early, the infection may not be fully treated and the symptoms could come back again. 2. Get plenty of rest. You may take acetaminophen for fever and aches. 3. Drink 6 to 8 glasses of fluids, especially water, every day. This helps wash out germs from your urinary tract. Cranberry juice or other sources of vitamin C are also good for you. 4. Urinate often, as soon as you feel the urge. Empty your bladder completely. Urinate before and after you have sex. 5. Always wipe from front to back after going to the bathroom. This pushes germs away from your bladder, rather than towards it. 6. Showers are better than baths, and you should wash the genital area daily. Avoid bubble bath or bath oils if you do take a bath. 7. Wear underwear and pantyhose with a cotton crotch. CONTACT YOUR DOCTOR: 1. You have a temperature over 102F (38.8C) after 48 hours on medication. 2. You notice blood in your urine. 3. Your symptoms don't improve in 2 days. 4. You develop nausea, vomiting, diarrhea, or a rash. 5. You develop new or unexplained symptoms. These may be related to the medication you are taking. 6. Your symptoms return after you finish treatment. RETURN TO THE EMERGENCY DEPARTMENT IF: You develop vomiting and can't keep your medication or fluids down. documented in this encounter [facility] 01-29-2022 History of Present illness Narrative Subjective HPI A nontoxic appearing female presents to urgent care with chief complaint of possible UTI. Duration of symptoms on and off for 2 weeks. Associated symptoms frequency and urgency. Patient has history of UTIs in past with similar signs and symptoms. States did take 2 Macrobid's that were prescribed to take after intercourse. Symptoms did resolve for a little bit and then returned again. Patient states pain is a 0/10. Patient denies any fevers, flank pain, abdominal pain, nausea, vomiting, vaginal discharge, chance of STDs, or urological abnormalities. Past medical history prescription medication use allergies reviewed. .Patient presents with: Urinary Frequency: Frequency and bladder pressure off and on x 2 weeks PAST MEDICAL HISTORY Diagnosis Date Bladder incontinence Chicken pox 03/31/66 as a child-lasted 12 weeks Mumps 8623-5053 as a child NONE PAST SURGICAL HISTORY Procedure Laterality Date COLONOSCOPY FLX DX W/COLLJ SPEC WHEN PFRMD 12/23/2016 Colonoscopy PAST SURGICAL HISTORY OF basil cell removal forehead ALLERGIES Demerol [Meperidine (Pf)], Hydroquinone, Methylchloroisothiazolinone, Methylisothiazolinone, Penicillin G, Propylene Glycol, and Sulfa (Sulfonamide Antibiotics) MEDICATIONS hydrocortisone 2.5 % cream Apply to affected area twice daily. Cholecalciferol, Vitamin D3, 50 mcg (2,000 unit) cap Take by mouth. ascorbic acid (VITAMIN C ORAL) Take by mouth. triamcinolone acetonide topical 0.5 % ointment Apply to affected area twice daily. nitrofurantoin monohydrate and macrocrystal (MACROBID) 100 mg capsule Take one tablet PO after intercourse clobetasol (TEMOVATE) 0.05 % ointment Apply 1 application to affected area twice daily. For two weeks then use once per week . MULTIVITAMIN TAB Take one(1) tablet daily. FAMILY HISTORY Problem Relation Age of Onset Breast Cancer Mother age 60's Hypertension Father Under control Diabetes Paternal Grandmother Diabetes Paternal Uncle Colon Cancer Other none Social History Tobacco Use Smoking status: Never Smokeless tobacco: Never Vaping Use Vaping Use: Never used Substance Use Topics Alcohol use: Yes Comment: OCCASSIONALLY Drug use: No BP 142/82 Pulse 67 Temp 36.4 C (97.5 F) (Tympanic) Resp 18 Wt 67.5 kg (148 lb 12.8 oz) LMP 11/26/2014 SpO2 100% BMI 24.02 kg/m Review of Systems Constitutional: Negative for chills, fever and malaise/fatigue. HENT: Negative for congestion, ear discharge, ear pain, sinus pain and sore throat. Eyes: Negative for blurred vision, pain, discharge and redness. Respiratory: Negative for cough, hemoptysis, sputum production, shortness of breath, wheezing and stridor. Cardiovascular: Negative for chest pain. Gastrointestinal: Negative for abdominal pain, diarrhea, nausea and vomiting. Genitourinary: Positive for frequency and urgency. Negative for dysuria, flank pain and hematuria. Musculoskeletal: Negative for myalgias. Skin: Negative for itching and rash. Neurological: Negative for dizziness and headaches. Objective Physical Exam Constitutional: General: She is not in acute distress. Appearance: She is not diaphoretic. HENT: Head: Normocephalic. Eyes: Conjunctiva/sclera: Conjunctivae normal. Pupils: Pupils are equal, round, and reactive to light. Cardiovascular: Rate and Rhythm: Normal rate and regular rhythm. Heart sounds: Normal heart sounds. Pulmonary: Effort: Pulmonary effort is normal. No tachypnea, accessory muscle usage or respiratory distress. Breath sounds: Normal breath sounds. No stridor. No wheezing, rhonchi or rales. Abdominal: Palpations: Abdomen is soft. Tenderness: There is no abdominal tenderness. There is no right CVA tenderness, left CVA tenderness, guarding or rebound. Musculoskeletal: Cervical back: Normal range of motion and neck supple. No rigidity or tenderness. Lymphadenopathy: Cervical: No cervical adenopathy. Skin: General: Skin is warm and dry. Neurological: Mental Status: She is alert and oriented to person, place, and time. ASSESSMENT/PLAN: 1. Urinary frequency - ICD9: 788.41, ICD10: R35.0 - UA positive for juan esterase - Send urine for culture - Begin treatment with Macrobid 100 mg BID for 7 days - Patient education for prevention given - UA DIP, URINE (POC) - URINE CULTURE - NITROFURANTOIN MONOHYDRATE & MACROCRYSTAL 100 MG ORAL CAP Patient was educated on supportive therapies. Patient will follow up with primary care provider as needed. Patient was instructed to immediately proceed to emergency room for any new, worsening, or symptoms lasting longer than anticipated. The patient's clinical presentation is otherwise unremarkable at this time. Based on exam and clinical finding, the patient is stable for discharge. Plan of care was discussed with patient. Patient verbalizes understanding and agrees to plan of care. This note was generated using [employer] software. It may contain errors in wording, punctuation, or spelling. Ramone Carlson APRN.[email or web address] documented in this encounter [facility] 12-01-2021 History of Present illness Narrative Episode Visit Count: 2 Therapist That Will Accept/Oversee The Plan Of Care: Jonatan Meléndez Start of Care Date: 11/19/21 Onset Date: 10/20/21 REHABILITATION AND SPORTS THERAPY PHYSICAL THERAPY TREATMENT NOTE ASSESSMENT: Dixie Miller tolerated the session with decreased symptoms. She demonstrated improvements in neck pain. The patient will continue to benefit from ongoing skilled physical therapy to progress toward set goals. PLAN FOR NEXT VISIT: NM SUBJECTIVE: Patient Reason for Visit: Pt doing much better today. Maybe a slight bit of tightness or soreness today. Finds she is able to self release that knot in her neck really well at home Pain: Pain Pain Level: 1 Pain Location: Neck - Left Description: Tightness Frequency: Intermittent OBJECTIVE MEASURES WITH LEVEL OF FUNCTION: Trigger point in L upper trap reproduces pain TREATMENT: Therapeutic Exercise: 1: Reviewed HEP 2: *GTB W's 3x10 3: *GTB rows 3x10 Skilled Intervention: Patient was educated in proper exercise technique and purpose for exercises. Skilled judgment was provided in selection of appropriate interventions. Provided written instruction for home exercise program to facilitate proper performance and compliance. Correct performance of therapeutic exercises was facilitated with verbal and visual cuing. Manual Therapy: 1: STM and TrPr to upper trap, levator with push to tolerance 2: Cervical manual traction x 10 min between 2 bouts Skilled Intervention: Manual skills to improve joint mobility, ROM, and decrease pain. Utilized anatomy knowledge of the therapist, and assessment of patient's response to intervention. Billing Therapeutic Exercise Treatment Minutes: 9 Manual TherapyTreatment Minutes: 30 Total Treatment Time Minutes (timed/untimed): 39 Jonatan Meléndez PT documented in this encounter [facility] 11-19-2021 History of Present illness Narrative Episode Visit Count: 1 Therapist That Will Accept/Oversee The Plan Of Care: Jonatan Meléndez Start of Care Date: 11/19/21 Onset Date: 10/20/21 Patient Identified by Name and Date of : Yes REHABILITATION AND SPORTS THERAPY PHYSICAL THERAPY EVALUATION PLAN OF CARE: Assessment: Dixie Miller presents with chief complaint of L sided neck pain that interferes with recreational activities;driving;cleaning;dressi ng;grooming;carrying . She presents with impairments in joint mobility, overall function, posture, range of motion, and tissue tenderness. PROMIS (Patient-Reported Outcomes Measurement Information System) scores were reviewed and all domains identified as within normal limits. Prognosis for therapy is Excellent due to: current objective clinical presentation;good overall health status;acuteness of condition;within-session changes. She will benefit from skilled therapy services to meet the goals established for this plan of care as noted below. Goals for Episode of Care: created on 11/19/21 through 01/19/22 [place] in home exercise program. Patient will decrease pain rating by 2 points to meet minimal clinical important difference for numeric pain rating scale. Perform ADLs with decreased report of symptoms/pain in 8 weeks. Improve postural awareness. Drive with no aggravation of pain/symptoms. Patient Goals: Decrease tightness, improve ROM, receive information about home program to be proactive Planned Interventions, Frequency, and Duration: Current Frequency: 1x every other week Duration: 8 weeks Total Number of Visits Planned: 4 Planned Treatment Interventions: Therapeutic exercise (13911);Manual therapy (91616);Neuromuscular re-education (06647);Therapeutic activities (28669);Self-correction management (83927);Body Mechanics Training;E-Stim Unattended (41227);E-Stim Attended/TENS (45264) PLAN FOR NEXT VISIT: Advance to banded W's, continue manual Patient demonstrates good understanding of plan of care and treatment. The above goals and plan of care were discussed and agreed upon by patient/family. SUBJECTIVE: Dixie Miller is a 56 year old female seen today for Pt states she has been having some neck pain and twinge with certain movements or putting on clothes, not extremely painful but abnormal Patient Goals: Decrease tightness, improve ROM, receive information about home program to be proactive Functional Limitations: recreational activities;driving;cleaning;dressi ng;grooming;carrying Prior Level of Function: Independent without limitations Intake Information: Prescription present Previous Treatment: NSAIDs Pain: Pain Pain Level: 2 Pain Location: Neck - Left;Shoulder - Left Description: Sore;Tightness;Stiffness;Dull Frequency: Intermittent Post Treatment Pain Post Treatment Pain Level: 0 Post Treatment Pain Location: Neck - Left Post Treatment Pain Description: Tightness Post Treatment Symptoms: STM and traction relieved tightness today PROMIS Scales Higher is Better 10/09/2020 10/20/2021 11/18/2021 Phys Func - Score - - Incomplete GH Physical - Score 57.7 (Very Good) 61.9 (Excellent) 57.7 (Very Good) GH Physical - Percentile 78 % 88 % 78 % GH Mental - Score 53.3 (Very Good) 59 (Excellent) 53.3 (Very Good) GH Mental - Percentile 63 % 82 % 63 % Self-Eff Symptom - Score - - 68 (High) Self-Eff Symptom - Percentile - - 96 % T-scores: mean of general population = 50. 5 points is clinically meaningfully difference Percentiles provide an indication of how the patient's score ranks in relation to the general population. Higher percentile rankings indicate better function/quality of life. 50th percentile is the average of the general population and indicates half of respondents had a worse score. T-scores: mean of general population = 50. 5 points is clinically meaningfully difference Percentiles provide an indication of how the patient's score ranks in relation to the general population. Higher percentile rankings indicate better function/quality of life. 50th percentile is the average of the general population and indicates half of respondents had a worse score. OBJECTIVE MEASURES WITH LEVEL OF FUNCTION: Posture / Alignment Posture: Forward head;Increased thoracic kyphosis;Rounded shoulders Spine Observations R Cervical Spine Palpation Tenderness: Upper trapezius;Sternocleidomastoid L Cervical Spine Palpation Tenderness: Upper trapezius;Sternocleidomastoid Cervical Spine ROM Cervical ROM : Limitation AROM Cervical Flexion AROM: Normal Cervical Extension AROM: Minimal limitation Cervical Side-Bend Right AROM: Minimal limitation (Cavour crunch/crack) Cervical Side-Bend Left AROM: Minimal limitation (felt crunch/crack) Cervical Rotation Right AROM: Normal Cervical Rotation Left AROM: Normal Special Tests - Cervical Cervical Special Tests: Cervical Distraction;Spurling;Quadrant Cervical Distraction: Positive Quadrant: Right Negative;Left Negative Spurling: Right Negative;Left Negative Education: Education Learning/educational needs: Home exercise program Education Provided: Yes, see treatment interventions for education provided Education Provided To: Patient TREATMENT: PT Treatment Interventions: Therapeutic Exercise;Manual Therapy Evaluation Therapeutic Exercise: 1: *Lateral flexion stretch w/trigger point [id number]/side 2: *Cervical retractions 3x10 3: *Extension w/trap depression [id number] 4: *Shoulder retractions 3x10 Skilled Intervention: Patient was educated in proper exercise technique and purpose for exercises. Reviewed and educated patient on additions/changes for home exercise program as above (*). Skilled judgment was provided in selection of appropriate interventions. Provided written instruction for home exercise program to facilitate proper performance and compliance. Correct performance of therapeutic exercises was facilitated with verbal, visual, and tactile cuing. Manual Therapy: 1: STM and TrPr to upper trap, SCM push to tolerance 2: Cervical manual traction 5min (Relieved tension in SCM and trap) Skilled Intervention: Manual skills to improve joint mobility, ROM, and decrease pain. Utilized anatomy knowledge of the therapist, and assessment of patient's response to intervention. Billing * Evaluation Low Complexity: 1 Unit Therapeutic Exercise Treatment Minutes: 10 Manual TherapyTreatment Minutes: 17 Total Treatment Time Minutes (timed/untimed): 45 Jairon Armstrong, ANMOL Meléndez PT Supervising therapist was present and guided the care of the patient for the entire session on this date. All documentation was reviewed and agreed upon. Jonatan Meléndez PT documented in this encounter [facility] 11-10-2021 History of Present illness Narrative Radiology Service Progress Note PATIENT NAME: Dixie Miller DATE OF SERVICE: November 10, 2021 TIME: 9:04 AM PATIENT IDENTITY VERIFICATION COMPLETED USING TWO (2) IDENTIFIERS: Name and Date of confirmed by patient verbally. FALL SCREENING: Has the patient had 2 falls in the last year or 1 fall with injury or currently using an Ambulatory Assistive Device (Walker, Cane, Wheelchair, Crutches, etc.)? No PATIENT GENDER DATA: Female. status: : No status: NO. PATIENT RELEVANT IMPLANT DATA REVIEWED: Not Applicable RADIOLOGY DEPARTMENT: General X-ray: Exam(s) Completed: Spine X-Ray(s): Cervical AP / LAT / OBL and Thoracic PERIPHERAL IV DATA: Not applicable SIGNED BY: RT Truong(R) November 10, 2021 9:04 AM documented in this encounter [facility] 11-10-2021 History of Present illness Narrative J Carlos Miller is a 56 year old who presents for an annual gynecologic exam without complaints. Using triamcinolone with good results when she remembers to use it. Son moved to [place]. Libido slightly improved. Postmenopausal: Yes since age 49 HRT use: No. Last Pap: 03/06/2019 normal HPV: 03/06/2019 negative History of abnormal pap: No Last mammogram: 2021 normal History of abnormal mammogram: No Sexually active: Yes History of STDS: None Patient concerns for STD exposure: No. Pain with intercourse: mild from dryness but improved Postcoital bleeding: No Vaginal dryness: Yes Exercise: active Diet: balanced OB History T2 L2 SAB0 IAB1 Ectopic0 Multiple0 Live Births0 [employer] History LMP: 11/26/2014, Postmenopausal Age at Menarche: Age at First : Age at Menopause: [employer] History Comments: Sexual Activity: Yes; Male; HAD VASECTOMY Contraception: Surgical, Vasectomy PAST MEDICAL HISTORY Diagnosis Date Bladder incontinence Chicken pox 03/31/66 as a child-lasted 12 weeks Mumps [id number] as a child NONE PAST SURGICAL HISTORY Procedure Laterality Date COLONOSCOPY FLX DX W/COLLJ SPEC WHEN PFRMD 12/23/2016 Colonoscopy PAST SURGICAL HISTORY OF basil cell removal forehead FAMILY HISTORY Problem Relation Age of Onset Breast Cancer Mother age 60's Hypertension Father Under control Diabetes Paternal Grandmother Diabetes Paternal Uncle Colon Cancer Other none SOCIAL HISTORY Social History Tobacco Use Smoking status: Never Smokeless tobacco: Never Vaping Use Vaping Use: Never used Substance Use Topics Alcohol use: Yes Comment: OCCASSIONALLY Drug use: No REVIEW OF SYSTEMS Abdomen: No abdominal pain, nausea, vomiting, diarrhea, or constipation. No bloating, early satiety, indigestion, or increased flatulence. Bladder: No dysuria, gross hematuria, urinary frequency, urinary urgency, or incontinence Breast: No breast lumps, nipple d/c, overlying skin changes, redness or skin retraction Allergies and current medication updated:Yes EXAM: BP 120/80 Ht 5' 6 (1.68m) Wt 149 lb (67.6kg) LMP 11/26/2014 BMI 24.06 kg/(m^2). GENERAL: pleasant, female in no apparent distress HEENT: Normocephalic, atraumatic, mucus membranes moist, and no lesions NECK: Supple, full range of motion, no adenopathy, and thyroid normal DERMATOLOGY: Normal, without lesions, non-icteric, and non-hirsute BREAST: soft, non-tender, symmetric, no dominant mass, normal nipple-areolar complex, no lymphadenopathy, and no nipple discharge ABDOMEN: soft, non-tender, and no masses PELVIC: external genitalia normal, normal Bartholin's glands, urethra, [place]'s glands, no vulvar lesions, no cervical lesions, good vaginal support, physiologic discharge present, normal appearing perineal body and perianal region BIMANUAL: uterus normal size, shape and consistency, no adnexal masses, and non-tender RECTOVAGINAL: deferred. NEURO: alert and oriented x3,exam grossly non-focal EXTREMITIES: normal ASSESSMENT/PLAN: 1) Health maintenance: Pap/HPV up to date. Mammogram ordered Mammogram up to date Nutrition, exercise and routine health maintenance exams reviewed. Calcium/Vitamin D supplementation information provided. Colon cancer screening: up to date with screening 2) Follow up one year or sooner as needed Hilda Ferrer MD [employer] Internship offered: Patient declines. documented in this encounter [facility] 10-27-2021 History of Present illness Narrative Patient presents with: Physical HPI: Patient presents today for office visit for yearly physical. Last labs showed high cholesterol. Been eating well, increased water intake and has lost weight. Varicose veins in B/L legs. Has some spider veins. Do not cause her any issues. No edema. No pain or redness. Would like referral to Ortho for neck/upper back pain. C/o stiffness X 2 months Has seen massotherapy in her upper back. Has some pain in her upper back and neck. No trauma. No radicular symptoms. Follow with Dr. Keenan every six months. MEDICATIONS: Current Outpatient Medications Medication Sig triamcinolone acetonide topical 0.5 % ointment Apply to affected area twice daily. nitrofurantoin monohydrate and macrocrystal (MACROBID) 100 mg capsule Take one tablet PO after intercourse Triamcinolone Acetonide 0.05 % oint Use pea sized amount on affected area twice daily for two weeks the use prn or once per week for maintenance clobetasol (TEMOVATE) 0.05 % ointment Apply 1 application to affected area twice daily. For two weeks then use once per week . MULTIVITAMIN TAB Take one(1) tablet daily. No current facility-administered medications for this visit. ALLERGIES: ALLERGIES Allergen Reactions Demerol [Meperidine* Hydroquinone Rash Methylchloroisothia* Rash Methylisothiazolino* Rash Penicillin G Propylene Glycol Rash Sulfa (Sulfonamide * PAST MEDICAL HISTORY Diagnosis Date Bladder incontinence Chicken pox 03/31/66 as a child-lasted 12 weeks Mumps [id number] as a child NONE PAST SURGICAL HISTORY Procedure Laterality Date COLONOSCOP W/ OR W/O [facility] SPEC 12/23/2016 Colonoscopy PAST SURGICAL HISTORY OF basil cell removal forehead FAMILY HISTORY Problem Relation Age of Onset Breast Cancer Mother age 60's Hypertension Father Under control Diabetes Paternal Grandmother Diabetes Paternal Uncle Colon Cancer Other none Social History Tobacco Use Smoking status: Never Smokeless tobacco: Never Vaping Use Vaping Use: Never used Substance Use Topics Alcohol use: Yes Comment: OCCASSIONALLY Drug use: No Reviewed current medications, allergies, past medical history, surgical history, family history and social history today. REVIEW OF SYSTEMS RESPIRATORY: Negative for cough, hemoptysis, wheezing, COPD, dyspnea or shortness of breath CARDIOVASCULAR: Negative for chest pain, leg swelling, hypertension, CHF or palpitations GI: No nausea, vomiting, or diarrhea : No history of dysuria, frequency or incontinence All other reviewed and negative other than HPI. HEALTH MAINTENANCE: Reviewed health maintenance issues today and recommended the following in detail. HEPATITIS B(1 of 3 - 3-dose series) Never done HEPATITIS C SCREENING Never done HIV SCREENING Never done COVID-19 VACCINE(4 - Booster for Moderna series) due on 05/23/2021 DEPRESSION SCREENING - Depression Screening 01/20/2016 04/26/2018 10/09/2020 10/27/2021 PHQ-2 Score 0 0 0 0 Depression screening tool completed and reviewed. Based on score and interview, patient is not at risk for depression. Screening tool discussed with patient, and I recommended no further intervention at this time. INFLUENZA(1) due on 10/15/2021 VITALS: BP 122/80 Pulse 101 Ht 165.1 cm (5' 5) Wt 67.7 kg (149 lb 3.2 oz) LMP 11/26/2014 SpO2 99% BMI 24.83 kg/m Last 4 Encounter Wt Readings: Date: Wt: 11/05/2020 74.4 kg (164 lb) 10/16/2020 75.8 kg (167 lb) 03/02/2019 71.2 kg (157 lb) 04/26/2018 73.5 kg (162 lb) PHYSICAL EXAMINATION: General appearance: Well appearing, alert, in no acute distress, well-hydrated, well nourished. Skin: Skin color, texture, turgor normal, no suspicious rashes or lesions Head: Normocephalic, no masses, lesions, tenderness or abnormalities Eyes: Anicteric sclera. Pupils are equally round and reactive to light. Extraocular movements are intact. Ears: External ears normal, canals clear Neck: Supple, no adenopathy; thyroid symmetric, normal size, no bruits Back: Normal exam Lungs: Lungs clear to auscultation. No wheezing, rhonchi, rales Heart: RRR without murmur, gallop, or rubs. No ectopy Abdomen: Normal abdominal exam, Abdomen soft, non-tender. Bowel sounds normal. No masses, organomegaly Extremities: No deformities, edema, skin discoloration, clubbing or cyanosis. Good capillary refill. Musculoskeletal: No joint swelling, deformity, or tenderness Peripheral pulses: Normal Neuro: Gait normal. Reflexes normal and symmetric. Sensation grossly intact. ASSESSMENT/PLAN: 1. Well adult exam - ICD9: V70.0, ICD10: Z00.00 (primary diagnosis) - get labs. - CBC + DIFF - COMP METABOLIC PANEL - LIPID PANEL BASIC 2. Hyperlipidemia, mixed - ICD9: 272.2, ICD10: E78.2 - to be determined upon return of lab results - Continue current medication. 3. Vitamin D deficiency - ICD9: 268.9, ICD10: E55. - VITAMIN D 25 HYDROXY 4. 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 5. Neck discomfort - ICD9: 723.1, ICD10: M54.2 - get xray -consider physical therapy. - XR CERV OTHER 4V AP/LAT/OBL 6. Discomfort of back - ICD9: 724.5, ICD10: M54.9 - consider therapy. - XR THORACIC GENERAL 3V AP/LAT/SWIMMERS Shlomo Miller MD RTO annually documented in this encounter [facility] 02-28-2012 History of Past i llness Narrative Problem Noted Date Resolved Date Abnormal uterine bleeding 02/28/20122016 Cervicalgia 12/31/2011 03/13/2012 Brachial neuritis or radiculitis NOS 12/31/2011 03/13/2012 Postmenopausal bleeding 10/04/2011 02/27/19 13 Routine general medical exam ination at a health care facility 02/19/2010 07/14/2011 Overview: 02/19/2010, establish from Dr. Garzon Routine gynecological examination 02/19/2010 07/14/2011 Overview: [facility], [facility] [place] Subclinical hypothyroidism 02/19/201003/13 Overview: TSH borderline -- considering treatment as of 2010 (see labs 02/19/2010) documented as of this encounter (statuses as of 10/27/2021) [facility] History of Past illness Narrative* Problem Noted Date Resolved Date Abnormal uterine bleeding 02/28/20122016 Cervicalgia 12/31/2011 03/13/2012 Brachial neuritis or radiculitis NOS 12/31/2011 03/13/2012 Postmenopausal bleeding 10/04/2011 02/27/19 13 Routine general medical exam ination at a health care facility 02/19/2010 07/14/2011 Overview: 02/19/2010, establish from Dr. Garzon Routine gynecological examination 02/19/2010 07/14/2011 Overview: [facility], [facility] [place] Subclinical hypothyroidism 02/19/201003/13 Overview: TSH borderline -- considering treatment as of 2010 (see labs 02/19/2010) documented as of this encounter (statuses as of 11/10/2021) [facility] History of Past illness Narrative* Problem Noted Date Resolved Date Abnormal uterine bleeding 02/28/20122016 Cervicalgia 12/31/2011 03/13/2012 Brachial neuritis or radiculitis NOS 12/31/2011 03/13/2012 Postmenopausal bleeding 10/04/2011 02/27/19 13 Routine general medical exam ination at a health care facility 02/19/2010 07/14/2011 Overview: 02/19/2010, establish from Dr. Garzon Routine gynecological examination 02/19/2010 07/14/2011 Overview: [facility] Subclinical hypothyroidism 02/19/201003/13 Overview: TSH borderline -- considering treatment as of 2010 (see labs 02/19/2010) documented as of this encounter (statuses as of 11/11/2021) [facility] History of Past illness Narrative* Problem Noted Date Resolved Date Abnormal uterine bleeding 02/28/20122016 Cervicalgia 12/31/2011 03/13/2012 Brachial neuritis or radiculitis NOS 12/31/2011 03/13/2012 Postmenopausal bleeding 10/04/2011 02/27/19 13 Routine general medical exam ination at a health care facility 02/19/2010 07/14/2011 Overview: 02/19/2010, establish from Dr. Garzon Routine gynecological examination 02/19/2010 07/14/2011 Overview: [facility] Subclinical hypothyroidism 02/19/201003/13 Overview: TSH borderline -- considering treatment as of 2010 (see labs 02/19/2010) documented as of this encounter (statuses as of 11/19/2021) [facility]01-14-2013 History of Past illness Narrative* Problem Noted Date Resolved Date Abnormal uterine bleeding 02/28/20122016 Cervicalgia 12/31/2011 03/13/2012 Brachial neuritis or radiculitis NOS 12/31/2011 03/13/2012 Postmenopausal bleeding 10/04/2011 02/27/19 13 Routine general medical exam ination at a health care facility 02/19/2010 07/14/2011 Overview: 02/19/2010, establish from Dr. Garzon Routine gynecological examination 02/19/2010 07/14/2011 Overview: [facility] Subclinical hypothyroidism 02/19/201003/13 Overview: TSH borderline -- considering treatment as of 2010 (see labs 02/19/2010) documented as of this encounter (statuses as of 12/01/2021) [facility]01-[facility]2013 History of Past illness Narrative* Problem Noted Date Resolved Date Abnormal uterine bleeding 02/28/20122016 Cervicalgia 12/31/2011 03/13/2012 Brachial neuritis or radiculitis NOS 12/31/2011 03/13/2012 Postmenopausal bleeding 10/04/2011 02/27/19 13 Routine general medical exam ination at a health care facility 02/19/2010 07/14/2011 Overview: 02/19/2010, establish from Dr. Garzon Routine gynecological examination 02/19/2010 07/14/2011 Overview: [facility] Subclinical hypothyroidism 02/19/201003/13 Overview: TSH borderline -- considering treatment as of 2010 (see labs 02/19/2010) documented as of this encounter (statuses as of 01/29/2022) [facility]2013 History of Past illness Narrative* Problem Noted Date Resolved Date Abnormal uterine bleeding 02/28/20122016 Cervicalgia 12/31/2011 03/13/2012 Brachial neuritis or radiculitis NOS 12/31/2011 03/13/2012 Postmenopausal bleeding 10/04/2011 02/27/19 13 Routine general medical exam ination at a health care facility 02/19/2010 07/14/2011 Overview: 02/19/2010, establish from Dr. Garzon Routine gynecological examination 02/19/2010 07/14/2011 Overview: [facility] Subclinical hypothyroidism 02/19/201003/13 Overview: TSH borderline -- considering treatment as of 2010 (see labs 02/19/2010) documented as of this encounter (statuses as of 01/31/2022) [facility]01[facility] History of Past illness Narrative* Problem Noted Date Resolved Date Abnormal uterine bleeding 02/28/20122016 Cervicalgia 12/31/2011 03/13/2012 Brachial neuritis or radiculitis NOS 12/31/2011 03/13/2012 Postmenopausal bleeding 10/04/2011 02/27/19 13 Routine general medical exam ination at a health care facility 02/19/2010 07/14/2011 Overview: 02/19/2010, establish from Dr. Garzon Routine gynecological examination 02/19/2010 07/14/2011 Overview: [facility] Subclinical hypothyroidism 02/19/201003/13 Overview: TSH borderline -- considering treatment as of 2010 (see labs 02/19/2010) documented as of this encounter (statuses as of 04/12/2022) [facility] History of Past illness Narrative* Problem Noted Date Resolved Date Abnormal uterine bleeding 02/28/20122016 Cervicalgia 12/31/2011 03/13/2012 Brachial neuritis or radiculitis NOS 12/31/2011 03/13/2012 Postmenopausal bleeding 10/04/2011 02/27/19 13 Routine general medical exam ination at a health care facility 02/19/2010 07/14/2011 Overview: 02/19/2010, establish from Dr. Garzon Routine gynecological examination 02/19/2010 07/14/2011 Overview: [facility] Subclinical hypothyroidism 02/19/201003/13 Overview: TSH borderline -- considering treatment as of 2010 (see labs 02/19/2010) documented as of this encounter (statuses as of 04/13/2022) [facility] History of Past illness Narrative* Problem Noted Date Resolved Date Abnormal uterine bleeding 02/28/20122016 Cervicalgia 12/31/2011 03/13/2012 Brachial neuritis or radiculitis NOS 12/31/2011 03/13/2012 Postmenopausal bleeding 10/04/2011 02/27/19 13 Routine general medical exam ination at a health care facility 02/19/2010 07/14/2011 Overview: 02/19/2010, establish from Dr. Garzon Routine gynecological examination 02/19/2010 07/14/2011 Overview: [facility] Subclinical hypothyroidism 02/19/201003/13 Overview: TSH borderline -- considering treatment as of 2010 (see labs 02/19/2010) documented as of this encounter (statuses as of 04/13/2022) [facility] History of Past illness Narrative* Problem Noted Date Resolved Date Abnormal uterine bleeding 02/28/20122016 Cervicalgia 12/31/2011 03/13/2012 Brachial neuritis or radiculitis NOS 12/31/2011 03/13/2012 Postmenopausal bleeding 10/04/2011 02/27/19 13 Routine general medical exam ination at a health care facility 02/19/2010 07/14/2011 Overview: 02/19/2010, establish from Dr. Garzon Routine gynecological examination 02/19/2010 07/14/2011 Overview: [facility] Subclinical hypothyroidism 02/19/201003/13 Overview: TSH borderline -- considering treatment as of 2010 (see labs 02/19/2010) documented as of this encounter (statuses as of 04/14/2022) [facility]01[facility] History of Past illness Narrative* Problem Noted Date Resolved Date Abnormal uterine bleeding 02/28/20122016 Cervicalgia 12/31/2011 03/13/2012 Brachial neuritis or radiculitis NOS 12/31/2011 03/13/2012 Postmenopausal bleeding 10/04/2011 02/27/19 13 Routine general medical exam ination at a health care facility 02/19/2010 07/14/2011 Overview: 02/19/2010, establish from Dr. Garzon Routine gynecological examination 02/19/2010 07/14/2011 Overview: [facility] Subclinical hypothyroidism 02/19/201003/13 Overview: TSH borderline -- considering treatment as of 2010 (see labs 02/19/2010) documented as of this encounter (statuses as of 04/27/2022) [facility] History of Past illness Narrative* Problem Noted Date Diagnosed Date Resolved Date Abnormal uterine bleeding 02/28/2012 Cervicalgia 12/31/2011 03/13/2012 Brachial neuritis or radiculitis NOS 12/31/2011 03/13/2012 Postmenopausal bleeding 10/04/201102/14 Routine general medical exam ination at a health care facility 02/19/2010 07/14/2011 Overview: 02/19/2010, establish from Dr. Garzon Routine gynecological examination 02/19/2010 07/14/2011 Overview: [facility] Subclinical hypothyroidism 02/19/2010 0 03/13/2012 Overview: TSH borderline -- considering treatment as of 2010 (see labs 02/19/2010) documented as of this encounter (statuses as of 10/01/2022) [facility]01[facility] History of Past illness Narrative* Problem Noted Date Diagnosed Date Resolved Date Abnormal uterine bleeding 02/28/2012 Cervicalgia 12/31/2011 03/13/2012 Brachial neuritis or radiculitis NOS 12/31/2011 03/13/2012 Postmenopausal bleeding 10/04/201102/14 Routine general medical exam ination at a health care facility 02/19/2010 07/14/2011 Overview: 02/19/2010, establish from Dr. Garzon Routine gynecological examination 02/19/2010 07/14/2011 Overview: [facility] Subclinical hypothyroidism 02/19/2010 0 03/13/2012 Overview: TSH borderline -- considering treatment as of 2010 (see labs 02/19/2010) documented as of this encounter (statuses as of 10/01/2022) [facility]01[facility] History of Past illness Narrative* Problem Noted Date Diagnosed Date Resolved Date Abnormal uterine bleeding 02/28/2012 Cervicalgia 12/31/2011 03/13/2012 Brachial neuritis or radiculitis NOS 12/31/2011 03/13/2012 Postmenopausal bleeding 10/04/201102/14 Routine general medical exam ination at a health care facility 02/19/2010 07/14/2011 Overview: 02/19/2010, establish from Dr. Garzon Routine gynecological examination 02/19/2010 07/14/2011 Overview: [facility] Subclinical hypothyroidism 02/19/2010 0 03/13/2012 Overview: TSH borderline -- considering treatment as of 2010 (see labs 02/19/2010) documented as of this encounter (statuses as of 10/05/2022) [facility] History of Past illness Narrative* Problem Noted Date Diagnosed Date Resolved Date Abnormal uterine bleeding 02/28/2012 Cervicalgia 12/31/2011 03/13/2012 Brachial neuritis or radiculitis NOS 12/31/2011 03/13/2012 Postmenopausal bleeding 10/04/201102/14 Routine general medical exam ination at a health care facility 02/19/2010 07/14/2011 Overview: 02/19/2010, establish from Dr. Garzon Routine gynecological examination 02/19/2010 07/14/2011 Overview: [facility], [facility] Subclinical hypothyroidism 02/19/2010 0 03/13/2012 Overview: TSH borderline -- considering treatment as of 2010 (see labs 02/19/2010) documented as of this encounter (statuses as of 11/25/2022) [facility] History of Past illness Narrative* Problem Noted Date Diagnosed Date Resolved Date Abnormal uterine bleeding 02/28/2012 Cervicalgia 12/31/2011 03/13/2012 Brachial neuritis or radiculitis NOS 12/31/2011 03/13/2012 Postmenopausal bleeding 10/04/201102/14 Routine general medical exam ination at a health care facility 02/19/2010 07/14/2011 Overview: 02/19/2010, establish from Dr. Garzon Routine gynecological examination 02/19/2010 07/14/2011 Overview: [facility], [facility] [place] Subclinical hypothyroidism 02/19/2010 0 03/13/2012 Overview: TSH borderline -- considering treatment as of 2010 (see labs 02/19/2010) documented as of this encounter (statuses as of 11/26/2022) [facility] History of Past illness Narrative* Problem Noted Date Diagnosed Date Resolved Date Abnormal uterine bleeding 02/28/2012 Cervicalgia 12/31/2011 03/13/2012 Brachial neuritis or radiculitis NOS 12/31/2011 03/13/2012 Postmenopausal bleeding 10/04/201102/14 Routine general medical exam ination at a health care facility 02/19/2010 07/14/2011 Overview: 02/19/2010, establish from Dr. Garzon Routine gynecological examination 02/19/2010 07/14/2011 Overview: [facility], [facility] [place] Subclinical hypothyroidism 02/19/2010 0 03/13/2012 Overview: TSH borderline -- considering treatment as 2010 (see labs 02/19/2010) documented as of this encounter (statuses as of 11/26/2022) [facility]01[facility] History of Past illness Narrative* Problem Noted Date Diagnosed Date Resolved Date Abnormal uterine bleeding 02/28/2012 Cervicalgia 12/31/2011 03/13/2012 Brachial neuritis or radiculitis NOS 12/31/2011 03/13/2012 Postmenopausal bleeding 10/04/201102/14 Routine general medical exam ination at a health care facility 02/19/2010 07/14/2011 Overview: 02/19/2010, establish from Dr. Garzon Routine gynecological examination 02/19/2010 07/14/2011 Overview: [facility], [facility] [place] Subclinical hypothyroidism 02/19/2010 0 03/13/2012 Overview: TSH borderline -- considering treatment as of 2010 (see labs 02/19/2010) documented as of this encounter (statuses as of 12/19/2022) [facility] History of Past illness Narrative* Problem Noted Date Diagnosed Date Resolved Date Abnormal uterine bleeding 02/28/2012 Cervicalgia 12/31/2011 03/13/2012 Brachial neuritis or radiculitis NOS 12/31/2011 03/13/2012 Postmenopausal bleeding 10/04/201102/14 Routine general medical exam ination at a health care facility 02/19/2010 07/14/2011 Overview: 02/19/2010, establish from Dr. Garzon Routine gynecological examination 02/19/2010 07/14/2011 Overview: [facility] Subclinical hypothyroidism 02/19/2010 0 03/13/2012 Overview: TSH borderline -- considering treatment as of 2010 (see labs 02/19/2010) documented as of this encounter (statuses as of 01/03/2023) [facility] History of Past illness Narrative* Problem Noted Date Diagnosed Date Resolved Date Abnormal uterine bleeding 02/28/2012 Cervicalgia 12/31/2011 03/13/2012 Brachial neuritis or radiculitis NOS 12/31/2011 03/13/2012 Postmenopausal bleeding 10/04/201102/14 Routine general medical exam ination at a health care facility 02/19/2010 07/14/2011 Overview: 02/19/2010, establish from Dr. Garzon Routine gynecological examination 02/19/2010 07/14/2011 Overview: [facility] Subclinical hypothyroidism 02/19/2010 0 03/13/2012 Overview: TSH borderline -- considering treatment as of 2010 (see labs 02/19/2010) documented as of this encounter (statuses as of 01/03/2023) [facility] History of Past illness Narrative* Problem Noted Date Diagnosed Date Resolved Date Abnormal uterine bleeding 02/28/2012 Cervicalgia 12/31/2011 03/13/2012 Brachial neuritis or radiculitis NOS 12/31/2011 03/13/2012 Postmenopausal bleeding 10/04/201102/14 Routine general medical exam ination at a health care facility 02/19/2010 07/14/2011 Overview: 02/19/2010, establish from Dr. Garzon Routine gynecological examination 02/19/2010 07/14/2011 Overview: [facility] Subclinical hypothyroidism 02/19/2010 0 03/13/2012 Overview: TSH borderline -- considering treatment as of 2010 (see labs 02/19/2010) documented as of this encounter (statuses as of 01/28/2023) [facility] History of Past illness Narrative* Problem Noted Date Diagnosed Date Resolved Date Abnormal uterine bleeding 02/28/2012 Cervicalgia 12/31/2011 03/13/2012 Brachial neuritis or radiculitis NOS 12/31/2011 03/13/2012 Postmenopausal bleeding 10/04/201102/14 Routine general medical exam ination at a health care facility 02/19/2010 07/14/2011 Overview: 02/19/2010, establish from Dr. Garzon Routine gynecological examination 02/19/2010 07/14/2011 Overview: [facility] Subclinical hypothyroidism 02/19/2010 0 03/13/2012 Overview: TSH borderline -- considering treatment as of 2010 (see labs 02/19/2010) documented as of this encounter (statuses as of 01/28/2023) [facility] History of Past illness Narrative* Problem Noted Date Diagnosed Date Resolved Date Abnormal uterine bleeding 02/28/2012 Cervicalgia 12/31/2011 03/13/2012 Brachial neuritis or radiculitis NOS 12/31/2011 03/13/2012 Postmenopausal bleeding 10/04/201102/14 Routine general medical exam ination at a health care facility 02/19/2010 07/14/2011 Overview: 02/19/2010, establish from Dr. Garzon Routine gynecological examination 02/19/2010 07/14/2011 Overview: [facility], [facility] [place] Subclinical hypothyroidism 02/19/2010 0 03/13/2012 Overview: TSH borderline -- considering treatment as of 2010 (see labs 02/19/2010) documented as of this encounter (statuses as of 04/26/2023) [facility] History of Past illness Narrative* Problem Noted Date Diagnosed Date Resolved Date Abnormal uterine bleeding 02/28/2012 Cervicalgia 12/31/2011 03/13/2012 Brachial neuritis or radiculitis NOS 12/31/2011 03/13/2012 Postmenopausal bleeding 10/04/201102/14 Routine general medical exam ination at a health care facility 02/19/2010 07/14/2011 Overview: 02/19/2010, establish from Dr. Garzon Routine gynecological examination 02/19/2010 07/14/2011 Overview: [facility], [facility] [place] Subclinical hypothyroidism 02/19/2010 0 03/13/2012 Overview: TSH borderline -- considering treatment as of 2010 (see labs 02/19/2010) documented as of this encounter (statuses as of 05/10/2023) [facility] History of Past illness Narrative* Problem Noted Date Diagnosed Date Resolved Date Abnormal uterine bleeding 02/28/2012 Cervicalgia 12/31/2011 03/13/2012 Brachial neuritis or radiculitis NOS 12/31/2011 03/13/2012 Postmenopausal bleeding 10/04/201102/14 Routine general medical exam ination at a health care facility 02/19/2010 07/14/2011 Overview: 02/19/2010, establish from Dr. Garzon Routine gynecological examination 02/19/2010 07/14/2011 Overview: [facility] Subclinical hypothyroidism 02/19/2010 0 03/13/2012 Overview: TSH borderline -- considering treatment as of 2010 (see labs 02/19/2010) documented as of this encounter (statuses as of 05/17/2023) [facility] Diagnosis Well adult exam- Primary Routine general medical examination at a health care facility Hyperlipidemia, mixed Mixed hyperlipidemia Vitamin D deficiency Unspecified vitamin D deficiency Facial basal cell cancer Basal cell carcinoma of skin of other and unspecified parts of face Neck discomfort Discomfort of back Backache, unspecified documented [facility] this encounter [facility]* Diagnosis Encounter for gynecological examination (general) (routine) without abnormal findings- Primary Encounter for screening mammogram for malignant neoplasm of breast Other screening mammogram [facility]* Diagnosis Neck discomfort Discomfort of back Backache, unspecified [facility]* Diagnosis DDD (degenerative disc disease), cervical Degeneration of cervical intervertebral disc [facility]* Diagnosis DDD (degenerative disc disease), cervical- Primary Degeneration of cervical intervertebral disc [facility]* Diagnosis Urinary frequency- Primary documented in this [facility]* Diagnosis Chest discomfort- Primary Other chest pain Cough, unspecified type Anxiety Anxiety state, unspecified [facility]* Diagnosis Abnormal x-ray- Primary Other nonspecific (abnormal) findings on radiological and other examinations of body structure documented in this [facility]* Diagnosis Abnormal mammogram- Primary Abnormal mammogram, unspecified [facility]* Diagnosis Persistent cough for 3 weeks or longer- Primary Right ear pain Otalgia, unspecified [facility]* Diagnosis Persistent cough for 3 weeks or longer- Primary documented [facility]* Diagnosis Abnormal mammogram Abnormal mammogram, unspecified [facility]* Diagnosis PMB (postmenopausal bleeding) Postmenopausal bleeding documented in [facility]* Diagnosis Postmenopausal atrophic vaginitis- Primary Urinary, incontinence, stress female Female stress incontinence documented in this [facility]* Diagnosis Urinary, incontinence, stress female- Primary Female stress incontinence Muscle weakness Muscle weakness (generalized) documented in [facility]* Diagnosis Chronic cough- Primary Cough documented in [facility]* Diagnosis Chronic cough- Primary Cough documented in this encounter [facility] note* Diagnosis [facility] Diagnosis Chronic cough- Primary Cough Indigestion Dyspepsia and other specified disorders of function of stomach documented in this encounter [facility] note* Diagnosis Chronic cough- Primary Cough documented in this encounter [facility] note* Diagnosis Encounter for screening mammogram for breast cancer documented in this encounter [facility] note* Diagnosis Chronic cough Cough documented in this encounter [facility] note* Diagnosis Persistent cough for 3 weeks or longer documented in this encounter [facility] note* Diagnosis Persistent cough for 3 weeks or longer documented in this encounter [facility] note* Diagnosis Chronic cough- Primary Cough documented in this encounter [facility] note* Diagnosis Abnormal x-ray Other nonspecific (abnormal) findings on radiological and other examinations of body structure documented in this encounter [facility] note* Diagnosis Cough, unspecified type documented in this encounter [facility] note* Diagnosis Hematuria, unspecified type- Primary Pelvic cramping Unspecified symptom associated with female genital organs Screening for cervical cancer Screening for malignant neoplasm of the cervix Screening for HPV (human papillomavirus) Special screening examination for human papillomavirus (HPV) documented in this encounter [facility] note* Diagnosis Hematuria, unspecified type- Primary Mass of upper inner quadrant of left breast [facility] Diagnosis Encounter for gynecological examination (general) (routine) without abnormal findings- Primary Encounter for screening mammogram for breast cancer Mass of upper inner quadrant of left breast documented in this encounter [facility] note* Diagnosis Urinary, incontinence, stress female- Primary Female stress incontinence documented in this encounter [facility] note* Diagnosis Gross hematuria- Primary [facility] Diagnosis Mass of upper inner quadrant of left breast documented in this encounter [facility] note* Diagnosis Mass of upper inner quadrant of left breast [facility]* Diagnosis URI, acute- Primary Acute upper respiratory infections of unspecified site Mixed hyperlipidemia Facial basal cell cancer Basal cell carcinoma of skin of other and unspecified parts of face Microscopic hematuria Gastroesophageal reflux disease without esophagitis Esophageal reflux Chronic cough Cough documented in this encounter [facility] note* Diagnosis Gross hematuria documented in this encounter [facility] note* Diagnosis Lung nodules- Primary Other nonspecific abnormal finding of lung field Liver mass Unspecified disorder of liver documented in this encounter [facility] note* Diagnosis Liver mass Unspecified disorder of liver Gross hematuria- Primary documented in this encounter [facility] note* Diagnosis Lung nodules Other nonspecific abnormal finding of lung field Gross hematuria- Primary documented in this encounter [facility] note* Diagnosis Gross hematuria- Primary documented in this encounter [facility] noteNo assessment information availableWGrand [facility] Work Phone: [facility]* Diagnosis Urinary, incontinence, stress female- Primary Female stress incontinence documented in this encounter [facility] note* Diagnosis Lymphadenopathy, hilar- Primary Enlargement of lymph nodes Multiple lung nodules on CT documented in this encounter [facility] note* Diagnosis Chronic cough- Primary Cough Lymphadenopathy, hilar Enlargement of lymph nodes Multiple lung nodules on CT documented in this encounter [facility] note* Diagnosis Chronic cough- Primary Cough Mediastinal adenopathy Enlargement of lymph nodes Hilar adenopathy Enlargement of lymph nodes Multiple lung nodules on CT Preoperative examination Preoperative examination, unspecified documented in this encounter [facility] note* Diagnosis Multiple lung nodules on CT- Primary Lymphadenopathy, hilar Enlargement of lymph nodes Liver cyst Other specified disorders of liver Chronic cough Cough Microscopic hematuria Gross hematuria Lung nodule Solitary pulmonary nodule Atrophic vaginitis Postmenopausal atrophic vaginitis documented in this encounter [facility] note* Diagnosis Lymphadenopathy- Primary Enlargement of lymph nodes documented in this encounter [facility] note* Diagnosis Preoperative examination- Primary Preoperative examination, unspecified Lymphadenopathy Enlargement of lymph nodes documented in this encounter [facility] note* Diagnosis Preop testing [Z01.818]- Primary Preoperative examination, unspecified Lymphadenopathy Enlargement of lymph nodes Chronic cough Cough Lymphadenopathy Enlargement of lymph nodes documented in this encounter [facility] note* Diagnosis Urinary, incontinence, stress female- Primary Female stress incontinence documented in this encounter [facility] note* Diagnosis Lung nodules- Primary Other nonspecific abnormal finding of lung field Methemoglobinemia Lymphadenopathy Enlargement of lymph nodes documented in this encounter [facility] note* Diagnosis Need for pneumocystis prophylaxis- Primary Need for other prophylactic chemotherapy [facility] Diagnosis Urinary, incontinence, stress female- Primary Female stress incontinence documented in this encounter [facility] for referral (narrative)* Diagnostic Procedure Only (Routine) - Pending Review Specialty Diagnoses / Procedures Referred By Contac t Referred To Contact XR IMAGING Diagnoses Discomfort of back Procedures XR THORACIC GENERAL 3V AP/LAT/SWIMMERS RADEX SPINE THORACIC 3 VIEWS Shlomo Miller MD [address] [place] [address] Xr Imaging Referral ID Status Reason Start Date Expiration Date Visits Requested Visits Authorized [id number] Pending Review Auto-Generat ed Referral 10/27/2021 11/26/2022 1 1 * Diagnostic Procedure Only (Routine) - Pending Review Specialty Diagnoses / Procedures Referred By Contac t Referred To Contact XR IMAGING Diagnoses Neck discomfort Procedures XR CERV OTHER 4V AP/LAT/OBL RADEX SPINE CERVICAL 4 OR 5 VIEWS Shlomo Miller MD [address] [place] [address] Xr Imaging Referral ID Status Reason Start Date Expiration Date Visits Requested Visits Authorized [id number] Pending Review Auto-Generat ed Referral 10/27/2021 11/26/2022 1 1 [facility] for referral (narrative)* Diagnostic Procedure Only (Routine) - Pending Review Specialty Diagnoses / Procedures Referred By Contac t Referred To Contact BR IM[facility] Diagnoses Encounter for screening mammogram for malignant neoplasm of breast Procedures GENARO SCREENING W PAT SCREENING DIGITAL BREAST TOMOSYNTHESIS BI SCREENING MAMMOGRAPHY BI 2-VIEW BREAST INC CAD Hilda Sun MD [address] [place] [address] [facility] [address] [place] [address] Referral ID Status Reason Start Date Expiration Date Visits Requested Visits Authorized [id number] Pending Review Auto-Generat ed Referral 11/10/2021 12/10/2022 1 1 [facility] for referral (narrative)* Diagnostic Procedure Only (Routine) - Closed Specialty Diagnoses / Procedures Referred By Contac t Referred To Contact XR IMAGING Diagnoses Discomfort of back Procedures XR THORACIC GENERAL 3V AP/LAT/SWIMMERS RADEX SPINE THORACIC 3 VIEWS Shlomo Miller MD [address] [place] [address] Xr Imaging Referral ID Status Reason Start Date Expiration Date V isits Requested Visits Authorized [id number] Closed Auto-Generate d Referral 10/27/2021 11/26/2022 1 1 * Diagnostic Procedure Only (Routine) - Closed Specialty Diagnoses / Procedures Referred By Contac t Referred To Contact XR IMAGING Diagnoses Neck discomfort Procedures XR CERV OTHER 4V AP/LAT/OBL RADEX SPINE CERVICAL 4 OR 5 VIEWS Shlomo Miller MD [address] [place] [address] Xr Imaging Referral ID Status Reason Start Date Expiration Date V isits Requested Visits Authorized [id number] Closed Auto-Generate d Referral 10/27/2021 11/26/2022 1 1 [facility] for referral (narrative)* Outpatient Procedure (Routine) - Closed Specialty Diagnoses / Procedures Referred By Contac t Referred To [facility] Diagnoses Chest discomfort Procedures ECG COMPLETE ECG ROUTINE ECG W/LEAST 12 LDS W/I&R Shlomo Miller MD [address] [place] [address] [facility] [place] [address] [place] [address] Referral ID Status Reason Start Date Expiration Date V isits Requested Visits Authorized [id number] Closed Auto-Generate d Referral 04/12/2022 04/12/2023 1 1 [facility] for referral (narrative)* Diagnostic Procedure Only (Routine) - Authorized Specialty Diagnoses / Procedures Referred By Adenike t Referred To Contact BR IMAGING Diagnoses Abnormal mammogram Procedures GENARO DIAGNOSTIC RIGHT DIAGNOSTIC MAMMOGRAPHY COMPUTER-AIDED DETCJ UNI Lian Roman APRN.CNP [address] [place] [address] [facility] [address] [place] [address] Referral ID Status Reason Start Date Expiration Date Visits Requested Visits Authorized [id number] Authorized Auto-Generat ed Referral 10/01/2022 10/31/2023 1 1 * Diagnostic Procedure Only (Routine) - Authorized Specialty Diagnoses / Procedures Referred By Adenike t Referred To Contact BR IM[facility] Diagnoses Abnormal mammogram Procedures US BREAST LTD RIGHT US BREAST UNI REAL TIME WITH IMAGE LIMITED Lian Roman APRN.PEANUT SORTER [address] [place] [address] [facility] [address] [place] [address] Referral ID Status Reason Start Date Expiration Date Visits Requested Visits Authorized [id number] Authorized Auto-Generat ed Referral 10/01/2022 10/31/2023 1 1 [facility] for referral (narrative)* Diagnostic Procedure Only (Routine) - Closed Specialty Diagnoses / Procedures Referred By Adenike t Referred To Contact [facility] Diagnoses Abnormal mammogram Procedures US BREAST LTD RIGHT US BREAST UNI REAL TIME WITH IMAGE LIMITED Lian Roman APRN.CNP [address] [place] [address] [facility] [address] [place] [address] Referral ID Status Reason Start Date Expiration Date V isits Requested Visits Authorized [id number] Closed Auto-Generate d Referral 10/01/2022 10/31/2023 1 1 [facility] for referral (narrative)* Outpatient Procedure (Routine) - Pending Review Specialty Diagnoses / Procedures Referred By Adanac t Referred To Contact [facility] Diagnoses Chronic cough Procedures LUNG VOLUMES Shlomo Miller MD [address] [place] [address] [address] Referral ID Status Reason Start Date Expiration Date Visits Requested Visits Authorized [id number] Pending Review Auto-Generat ed Referral 06/13/2023 07/12/2024 1 1 * Outpatient Procedure (Routine) - Authorized Specialty Diagnoses / Procedures Referred By Adenike t Referred To Contact [facility] Diagnoses Chronic cough Procedures LUNG DIFFUSION CAPACITY (DLCO) DIFFUSING CAPACITY Shlomo Miller MD [address] [place] [address] [address] Referral ID Status Reason Start Date Expiration Date Visits Requested Visits Authorized [id number] Authorized Auto-Generat ed Referral 06/13/2023 07/12/2024 1 1 * Outpatient Procedure (Routine) - Authorized Specialty Diagnoses / Procedures Referred By Adenike t Referred To Contact [facility] Diagnoses Chronic cough Procedures SPIROMETRY WITH DILATOR IF OBSTRUCTED BRNCDILAT RSPSE SPMTRY PRE&POST-BRNCDILAT ADMN Shlomo Miller MD [address] [place] [address] [address] Referral ID Status Reason Start Date Expiration Date Visits Requested Visits Authorized [id number] Authorized Auto-Generat ed Referral 06/13/2023 07/12/2024 1 1 [facility] for referral (narrative)* Diagnostic Procedure Only (Routine) - Closed Specialty Diagnoses / Procedures Referred By Adenike t Referred To Contact [facility] Diagnoses Encounter for screening mammogram for breast cancer Procedures GENARO SCREENING W PAT SCREENING DIGITAL BREAST TOMOSYNTHESIS BI SCREENING MAMMOGRAPHY BI 2-VIEW BREAST INC CAD Hilda Sun MD [address] [place] [address] [facility] [address] [place] [address] Referral ID Status Reason Start Date Expiration Date V isits Requested Visits Authorized [id number] Closed Auto-Generate d Referral 01/12/2023 02/11/2024 1 1 [facility] for referral (narrative)No reason for referral information availableWGrand [facility] Work Phone: Reason for visit Narrative* Diagnostic Procedure Only (Routine) - Closed Specialty Diagnoses / Procedures Referred By Contac t Referred To Contact XR IMAGING Diagnoses Discomfort of back Procedures XR THORACIC GENERAL 3V AP/LAT/SWIMMERS RADEX SPINE THORACIC 3 VIEWS Shlomo Miller MD [address] [place] [address] Xr Imaging Referral ID Status Reason Start Date Expiration Date V isits Requested Visits Authorized [id number] Closed Auto-Generate d Referral 10/27/2021 11/26/2022 1 1 [facility] for visit Narrative* Diagnostic Procedure Only (Routine) - Closed Specialty Diagnoses / Procedures Referred By Contac t Referred To Contact BR IM[facility] Diagnoses Encounter for screening mammogram for breast cancer Procedures GENARO SCREENING W PAT SCREENING DIGITAL BREAST TOMOSYNTHESIS BI SCREENING MAMMOGRAPHY BI 2-VIEW BREAST INC CAD Hilda Sun MD [address] [place] [address] [facility] [address] [place] [address] Referral ID Status Reason Start Date Expiration Date V isits Requested Visits Authorized [id number] Closed Auto-Generate d Referral 01/12/2023 02/11/2024 1 1 [facility] for visit Narrative* Diagnostic Procedure Only (Routine) - Closed Specialty Diagnoses / Procedures Referred By Contac t Referred To Contact [facility] Diagnoses Mass of upper inner quadrant of left breast Procedures US BREAST LTD LEFT US BREAST UNI REAL TIME WITH IMAGE LIMITED Hilda Sun MD [address] [place] [address] Phone: tel: fax:[phone] [facility] [address] [place] [address] Referral ID Status Reason Start Date Expiration Date V isits Requested Visits Authorized [id number] Closed Auto-Generate d Referral 04/06/2024 05/06/2025 1 1 [facility] for visit Narrative* Diagnostic Procedure Only (Routine) - Closed Specialty Diagnoses / Procedures [facility] Referred To Contact [facility] Diagnoses Mass of upper inner quadrant of left breast Procedures GENARO DIAGNOSTIC LEFT DIAGNOSTIC MAMMOGRAPHY COMPUTER-AIDED DETCJ UNI Hilda Sun MD [address] [place] [address] Phone: tel: fax:[phone] [facility] [address] [place] [address] Referral ID Status Reason Start Date Expiration Date V isits Requested Visits Authorized [id number] Closed Auto-Generate d Referral 04/06/2024 05/06/2025 1 1 [facility] for visit Narrative* MRI/CT (Urgent) - Closed Specialty Diagnoses / Procedures [facility] Referred To Contact MR IMAGING Diagnoses Liver mass Procedures MRI LIVER WO/W IVCON MRI ABDOMEN W/O & W/CONTRAST MATERIAL Shlomo Miller MD [address] [place] [address] Phone: tel: fax: [place] [address] Referral ID Status Reason Start Date Expiration Date V isits Requested Visits Authorized [id number] Closed Auto-Generate d Referral 05/02/2024 07/01/2024 1 1 [facility] for visit Narrative* MRI/CT (Routine) - Closed Specialty Diagnoses / Procedures [facility] Ref[facility] To Contact CT IM[facility] Diagnoses Lung nodules Procedures CT CHEST W IVCON DIAGNOSTIC COMPUTED TOMOGRAPHY THORAX W/CONTRAST Shlomo Miller MD [address] [place] [address] Phone: tel: fax: CT IMAGING [facility] Referral ID Status Reason Start Date Expiration Date V isits Requested Visits Authorized [id number] Closed Auto-Generate d Referral 05/02/2024 07/01/2024 1 1 [facility] Reason for Referral Specialty Diagnoses / Procedures Referred By Contac t Referred To Contact [facility] Diagnoses Urinary, incontinence, stress female Procedures CONSULT TO PHYSICAL THERAPY PHYSICAL THERAPY EVALUATION HIGH COMPLEX 45 MINS Hilda Sun MD [address] [place] [address] [facility] [place] [address] [place] [address] Referral ID Status Reason Start Date Expiration Date Visits Requested Visits Authorized [id number] Pending Review Auto-Generat ed Referral 01/27/2024 1 1 Specialty Diagnoses / Procedures Referred By Contac t Referred To Contact CT IMAGING Diagnoses Chronic cough Procedures CT CHEST W IVCON DIAGNOSTIC COMPUTED TOMOGRAPHY THORAX W/CONTRAST Shlomo Miller MD [address] [place] [address] Ct Imaging [facility] Referral ID Status Reason Start Date Expiration Date Visits Requested Visits Authorized [id number] Pending Review Auto-Generat ed Referral 06/15/2023 07/14/2024 1 1 Specialty Diagnoses / Procedures Referred By Contac t Referred To Contact Diagnoses Chronic cough Procedures CONSULT TO ENT OFFICE/OUTPATIENT [facility] 60 MINUTES Coleen Dunne, BUSHRA.PEAN[employer] SORTER [address] [place] [address] Referral ID Status Reason Start Date Expiration Date Visits Requested Visits Authorized [id number] Authorized PCP Requested Referral 11/04/2023 11/03/2024 1 1 Chief Complaint and Reason for Visit Chief Complaint Admit Date K21.9 GERD May 03, 2024 7:4 5am Summary Purpose Family History No Family History Records FoundNo Family History Records FoundNo Family History Records FoundNo Family History Records Found Advance Directives No Advanced Directives Records FoundNo Advanced Directives Records FoundNo Advanced Directives Records FoundNo Advanced Directives Records Found Additional Source Comments Source Comments (unrecognize d section and content) In the event this informatio n is protected by the Federal Confidentiality of Alcohol and Drug Abuse Patient Records regulations: The Federal rules restrict any use of the information to criminally investigate or prosecute any alcohol or drug abuse patient.[facility] the event this information is protected by the Federal Confidentiality of Alcohol and Drug Abuse Patient Records regulations: The Federal rules restrict any use of the information to criminally investigate or prosecute any alcohol or drug abuse patient.[facility] CenterIn the event this information is protected by the Federal Confidentiality of Alcohol and Drug Abuse Patient Records regulations: The Federal rules restrict any use of the information to criminally investigate or prosecute any alcohol or drug abuse patient.[facility] CenterIn the event this information is protected by the Federal Confidentiality of Alcohol and Drug Abuse Patient Records regulations: The Federal rules restrict any use of the information to criminally investigate or prosecute any alcohol or drug abuse patient.[facility] CenterIn the event this information is protected by the Federal Confidentiality of Alcohol and Drug Abuse Patient Records regulations: The Federal rules restrict any use of the information to criminally investigate or prosecute any alcohol or drug abuse patient.[facility] CenterIn the event this information is protected by the Federal Confidentiality of Alcohol and Drug Abuse Patient Records regulations: The Federal rules restrict any use of the information to criminally investigate or prosecute any alcohol or drug abuse patient.[facility] CenterIn the event this information is protected by the Federal Confidentiality of Alcohol and Drug Abuse Patient Records regulations: The Federal rules restrict any use of the information to criminally investigate or prosecute any alcohol or drug abuse patient.[facility] CenterIn the event this information is protected by the Federal Confidentiality of Alcohol and Drug Abuse Patient Records regulations: The Federal rules restrict any use of the information to criminally investigate or prosecute any alcohol or drug abuse patient.[facility] CenterIn the event this information is protected by the Federal Confidentiality of Alcohol and Drug Abuse Patient Records regulations: The Federal rules restrict any use of the information to criminally investigate or prosecute any alcohol or drug abuse patient.[facility] CenterIn the event this information is protected by the Federal Confidentiality of Alcohol and Drug Abuse Patient Records regulations: The Federal rules restrict any use of the information to criminally investigate or prosecute any alcohol or drug abuse patient.[facility] CenterIn the event this information is protected by the Federal Confidentiality of Alcohol and Drug Abuse Patient Records regulations: The Federal rules restrict any use of the information to criminally investigate or prosecute any alcohol or drug abuse patient.[facility] CenterIn the event this information is protected by the Federal Confidentiality of Alcohol and Drug Abuse Patient Records regulations: The Federal rules restrict any use of the information to criminally investigate or prosecute any alcohol or drug abuse patient.[facility] the event this information is protected by the Federal Confidentiality of Alcohol and Drug Abuse Patient Records regulations: The Federal rules restrict any use of the information to criminally investigate or prosecute any alcohol or drug abuse patient.[facility] CenterIn the event this information is protected by the Federal Confidentiality of Alcohol and Drug Abuse Patient Records regulations: The Federal rules restrict any use of the information to criminally investigate or prosecute any alcohol or drug abuse patient.[facility] CenterIn the event this information is protected by the Federal Confidentiality of Alcohol and Drug Abuse Patient Records regulations: The Federal rules restrict any use of the information to criminally investigate or prosecute any alcohol or drug abuse patient.[facility] CenterIn the event this information is protected by the Federal Confidentiality of Alcohol and Drug Abuse Patient Records regulations: The Federal rules restrict any use of the information to criminally investigate or prosecute any alcohol or drug abuse patient.[facility] CenterIn the event this information is protected by the Federal Confidentiality of Alcohol and Drug Abuse Patient Records regulations: The Federal rules restrict any use of the information to criminally investigate or prosecute any alcohol or drug abuse patient.[facility] CenterIn the event this information is protected by the Federal Confidentiality of Alcohol and Drug Abuse Patient Records regulations: The Federal rules restrict any use of the information to criminally investigate or prosecute any alcohol or drug abuse patient.[facility] CenterIn the event this information is protected by the Federal Confidentiality of Alcohol and Drug Abuse Patient Records regulations: The Federal rules restrict any use of the information to criminally investigate or prosecute any alcohol or drug abuse patient.[facility] CenterIn the event this information is protected by the Federal Confidentiality of Alcohol and Drug Abuse Patient Records regulations: The Federal rules restrict any use of the information to criminally investigate or prosecute any alcohol or drug abuse patient.[facility] CenterIn the event this information is protected by the Federal Confidentiality of Alcohol and Drug Abuse Patient Records regulations: The Federal rules restrict any use of the information to criminally investigate or prosecute any alcohol or drug abuse patient.[facility] CenterIn the event this information is protected by the Federal Confidentiality of Alcohol and Drug Abuse Patient Records regulations: The Federal rules restrict any use of the information to criminally investigate or prosecute any alcohol or drug abuse patient.[facility] CenterIn the event this information is protected by the Federal Confidentiality of Alcohol and Drug Abuse Patient Records regulations: The Federal rules restrict any use of the information to criminally investigate or prosecute any alcohol or drug abuse patient.[facility] CenterIn the event this information is protected by the Federal Confidentiality of Alcohol and Drug Abuse Patient Records regulations: The Federal rules restrict any use of the information to criminally investigate or prosecute any alcohol or drug abuse patient.[facility] CenterIn the event this information is protected by the Federal Confidentiality of Alcohol and Drug Abuse Patient Records regulations: The Federal rules restrict any use of the information to criminally investigate or prosecute any alcohol or drug abuse patient.[facility] CenterIn the event this information is protected by the Federal Confidentiality of Alcohol and Drug Abuse Patient Records regulations: The Federal rules restrict any use of the information to criminally investigate or prosecute any alcohol or drug abuse patient.[facility] CenterIn the event this information is protected by the Federal Confidentiality of Alcohol and Drug Abuse Patient Records regulations: The Federal rules restrict any use of the information to criminally investigate or prosecute any alcohol or drug abuse patient.[facility] CenterIn the event this information is protected by the Federal Confidentiality of Alcohol and Drug Abuse Patient Records regulations: The Federal rules restrict any use of the information to criminally investigate or prosecute any alcohol or drug abuse patient.[facility] CenterIn the event this information is protected by the Federal Confidentiality of Alcohol and Drug Abuse Patient Records regulations: The Federal rules restrict any use of the information to criminally investigate or prosecute any alcohol or drug abuse patient.[facility] CenterIn the event this information is protected by the Federal Confidentiality of Alcohol and Drug Abuse Patient Records regulations: The Federal rules restrict any use of the information to criminally investigate or prosecute any alcohol or drug abuse patient.[facility] CenterIn the event this information is protected by the Federal Confidentiality of Alcohol and Drug Abuse Patient Records regulations: The Federal rules restrict any use of the information to criminally investigate or prosecute any alcohol or drug abuse patient.[facility] CenterIn the event this information is protected by the Federal Confidentiality of Alcohol and Drug Abuse Patient Records regulations: The Federal rules restrict any use of the information to criminally investigate or prosecute any alcohol or drug abuse patient.[facility] CenterIn the event this information is protected by the Federal Confidentiality of Alcohol and Drug Abuse Patient Records regulations: The Federal rules restrict any use of the information to criminally investigate or prosecute any alcohol or drug abuse patient.[facility] CenterIn the event this information is protected by the Federal Confidentiality of Alcohol and Drug Abuse Patient Records regulations: The Federal rules restrict any use of the information to criminally investigate or prosecute any alcohol or drug abuse patient.[facility] CenterIn the event this information is protected by the Federal Confidentiality of Alcohol and Drug Abuse Patient Records regulations: The Federal rules restrict any use of the information to criminally investigate or prosecute any alcohol or drug abuse patient.[facility] CenterIn the event this information is protected by the Federal Confidentiality of Alcohol and Drug Abuse Patient Records regulations: The Federal rules restrict any use of the information to criminally investigate or prosecute any alcohol or drug abuse patient.[facility] CenterIn the event this information is protected by the Federal Confidentiality of Alcohol and Drug Abuse Patient Records regulations: The Federal rules restrict any use of the information to criminally investigate or prosecute any alcohol or drug abuse patient.[facility] CenterIn the event this information is protected by the Federal Confidentiality of Alcohol and Drug Abuse Patient Records regulations: The Federal rules restrict any use of the information to criminally investigate or prosecute any alcohol or drug abuse patient.[facility] CenterIn the event this information is protected by the Federal Confidentiality of Alcohol and Drug Abuse Patient Records regulations: The Federal rules restrict any use of the information to criminally investigate or prosecute any alcohol or drug abuse patient.[facility] CenterIn the event this information is protected by the Federal Confidentiality of Alcohol and Drug Abuse Patient Records regulations: The Federal rules restrict any use of the information to criminally investigate or prosecute any alcohol or drug abuse patient.[facility] CenterIn the event this information is protected by the Federal Confidentiality of Alcohol and Drug Abuse Patient Records regulations: The Federal rules restrict any use of the information to criminally investigate or prosecute any alcohol or drug abuse patient.[facility] CenterIn the event this information is protected by the Federal Confidentiality of Alcohol and Drug Abuse Patient Records regulations: The Federal rules restrict any use of the information to criminally investigate or prosecute any alcohol or drug abuse patient.[facility] CenterIn the event this information is protected by the Federal Confidentiality of Alcohol and Drug Abuse Patient Records regulations: The Federal rules restrict any use of the information to criminally investigate or prosecute any alcohol or drug abuse patient.[facility] CenterIn the event this information is protected by the Federal Confidentiality of Alcohol and Drug Abuse Patient Records regulations: The Federal rules restrict any use of the information to criminally investigate or prosecute any alcohol or drug abuse patient.[facility] CenterIn the event this information is protected by the Federal Confidentiality of Alcohol and Drug Abuse Patient Records regulations: The Federal rules restrict any use of the information to criminally investigate or prosecute any alcohol or drug abuse patient.[facility] CenterIn the event this information is protected by the Federal Confidentiality of Alcohol and Drug Abuse Patient Records regulations: The Federal rules restrict any use of the information to criminally investigate or prosecute any alcohol or drug abuse patient.[facility] CenterIn the event this information is protected by the Federal Confidentiality of Alcohol and Drug Abuse Patient Records regulations: The Federal rules restrict any use of the information to criminally investigate or prosecute any alcohol or drug abuse patient.[facility] CenterIn the event this information is protected by the Federal Confidentiality of Alcohol and Drug Abuse Patient Records regulations: The Federal rules restrict any use of the information to criminally investigate or prosecute any alcohol or drug abuse patient.[facility] CenterIn the event this information is protected by the Federal Confidentiality of Alcohol and Drug Abuse Patient Records regulations: The Federal rules restrict any use of the information to criminally investigate or prosecute any alcohol or drug abuse patient.[facility] CenterIn the event this information is protected by the Federal Confidentiality of Alcohol and Drug Abuse Patient Records regulations: The Federal rules restrict any use of the information to criminally investigate or prosecute any alcohol or drug abuse patient.[facility] CenterIn the event this information is protected by the Federal Confidentiality of Alcohol and Drug Abuse Patient Records regulations: The Federal rules restrict any use of the information to criminally investigate or prosecute any alcohol or drug abuse patient.[facility] CenterIn the event this information is protected by the Federal Confidentiality of Alcohol and Drug Abuse Patient Records regulations: The Federal rules restrict any use of the information to criminally investigate or prosecute any alcohol or drug abuse patient.[facility] CenterIn the event this information is protected by the Federal Confidentiality of Alcohol and Drug Abuse Patient Records regulations: The Federal rules restrict any use of the information to criminally investigate or prosecute any alcohol or drug abuse patient.[facility] CenterIn the event this information is protected by the Federal Confidentiality of Alcohol and Drug Abuse Patient Records regulations: The Federal rules restrict any use of the information to criminally investigate or prosecute any alcohol or drug abuse patient.[facility] CenterIn the event this information is protected by the Federal Confidentiality of Alcohol and Drug Abuse Patient Records regulations: The Federal rules restrict any use of the information to criminally investigate or prosecute any alcohol or drug abuse patient.[facility] CenterIn the event this information is protected by the Federal Confidentiality of Alcohol and Drug Abuse Patient Records regulations: The Federal rules restrict any use of the information to criminally investigate or prosecute any alcohol or drug abuse patient.[facility] CenterIn the event this information is protected by the Federal Confidentiality of Alcohol and Drug Abuse Patient Records regulations: The Federal rules restrict any use of the information to criminally investigate or prosecute any alcohol or drug abuse patient.[facility] CenterIn the event this information is protected by the Federal Confidentiality of Alcohol and Drug Abuse Patient Records regulations: The Federal rules restrict any use of the information to criminally investigate or prosecute any alcohol or drug abuse patient.[facility] CenterIn the event this information is protected by the Federal Confidentiality of Alcohol and Drug Abuse Patient Records regulations: The Federal rules restrict any use of the information to criminally investigate or prosecute any alcohol or drug abuse patient.[facility] CenterIn the event this information is protected by the Federal Confidentiality of Alcohol and Drug Abuse Patient Records regulations: The Federal rules restrict any use of the information to criminally investigate or prosecute any alcohol or drug abuse patient.[facility] CenterIn the event this information is protected by the Federal Confidentiality of Alcohol and Drug Abuse Patient Records regulations: The Federal rules restrict any use of the information to criminally investigate or prosecute any alcohol or drug abuse patient.[facility] CenterIn the event this information is protected by the Federal Confidentiality of Alcohol and Drug Abuse Patient Records regulations: The Federal rules restrict any use of the information to criminally investigate or prosecute any alcohol or drug abuse patient.[facility] the event this information is protected by the Federal Confidentiality of Alcohol and Drug Abuse Patient Records regulations: The Federal rules restrict any use of the information to criminally investigate or prosecute any alcohol or drug abuse patient.[facility] CenterIn the event this information is protected by the Federal Confidentiality of Alcohol and Drug Abuse Patient Records regulations: The Federal rules restrict any use of the information to criminally investigate or prosecute any alcohol or drug abuse patient.[facility] CenterIn the event this information is protected by the Federal Confidentiality of Alcohol and Drug Abuse Patient Records regulations: The Federal rules restrict any use of the information to criminally investigate or prosecute any alcohol or drug abuse patient.[facility] CenterIn the event this information is protected by the Federal Confidentiality of Alcohol and Drug Abuse Patient Records regulations: The Federal rules restrict any use of the information to criminally investigate or prosecute any alcohol or drug abuse patient.[facility] CenterIn the event this information is protected by the Federal Confidentiality of Alcohol and Drug Abuse Patient Records regulations: The Federal rules restrict any use of the information to criminally investigate or prosecute any alcohol or drug abuse patient.[facility] CenterIn the event this information is protected by the Federal Confidentiality of Alcohol and Drug Abuse Patient Records regulations: The Federal rules restrict any use of the information to criminally investigate or prosecute any alcohol or drug abuse patient.[facility] CenterIn the event this information is protected by the Federal Confidentiality of Alcohol and Drug Abuse Patient Records regulations: The Federal rules restrict any use of the information to criminally investigate or prosecute any alcohol or drug abuse patient.[facility] CenterIn the event this information is protected by the Federal Confidentiality of Alcohol and Drug Abuse Patient Records regulations: The Federal rules restrict any use of the information to criminally investigate or prosecute any alcohol or drug abuse patient.[facility] CenterIn the event this information is protected by the Federal Confidentiality of Alcohol and Drug Abuse Patient Records regulations: The Federal rules restrict any use of the information to criminally investigate or prosecute any alcohol or drug abuse patient.[facility] CenterIn the event this information is protected by the Federal Confidentiality of Alcohol and Drug Abuse Patient Records regulations: The Federal rules restrict any use of the information to criminally investigate or prosecute any alcohol or drug abuse patient.[facility] CenterIn the event this information is protected by the Federal Confidentiality of Alcohol and Drug Abuse Patient Records regulations: The Federal rules restrict any use of the information to criminally investigate or prosecute any alcohol or drug abuse patient.[facility] CenterIn the event this information is protected by the Federal Confidentiality of Alcohol and Drug Abuse Patient Records regulations: The Federal rules restrict any use of the information to criminally investigate or prosecute any alcohol or drug abuse patient.[facility] CenterIn the event this information is protected by the Federal Confidentiality of Alcohol and Drug Abuse Patient Records regulations: The Federal rules restrict any use of the information to criminally investigate or prosecute any alcohol or drug abuse patient.[facility] CenterIn the event this information is protected by the Federal Confidentiality of Alcohol and Drug Abuse Patient Records regulations: The Federal rules restrict any use of the information to criminally investigate or prosecute any alcohol or drug abuse patient.[facility] CenterIn the event this information is protected by the Federal Confidentiality of Alcohol and Drug Abuse Patient Records regulations: The Federal rules restrict any use of the information to criminally investigate or prosecute any alcohol or drug abuse patient.[facility] CenterIn the event this information is protected by the Federal Confidentiality of Alcohol and Drug Abuse Patient Records regulations: The Federal rules restrict any use of the information to criminally investigate or prosecute any alcohol or drug abuse patient.[facility] CenterIn the event this information is protected by the Federal Confidentiality of Alcohol and Drug Abuse Patient Records regulations: The Federal rules restrict any use of the information to criminally investigate or prosecute any alcohol or drug abuse patient.[facility] CenterIn the event this information is protected by the Federal Confidentiality of Alcohol and Drug Abuse Patient Records regulations: The Federal rules restrict any use of the information to criminally investigate or prosecute any alcohol or drug abuse patient.[facility] Reason for Visit (unrecogniz ed section and content) Reason Comments PT Discharge Specialty Diagnoses / Procedures Referred By Adenike t Referred To Contact [facility] Diagnoses Urinary, incontinence, stress female Procedures CONSULT TO PHYSICAL THERAPY PHYSICAL THERAPY EVALUATION HIGH COMPLEX 45 MINS Hilda Sun MD [address] [place] [address] Phone: tel: fax: [facility] [address] [place], [place] [phone] Referral ID Status Reason Start Date Expiration Date Visits Requested Visits Authorized [id number] Authorized Auto-Generat ed Referral 04/10/2024 02/13/2025 99 99 Reason Comments PT Progress Note Reason Comments PT Eval Specialty Diagnoses / Procedures Referred By Contac t Referred To Contact [facility] Diagnoses Urinary, incontinence, stress female Procedures CONSULT TO PHYSICAL THERAPY PHYSICAL THERAPY EVALUATION HIGH COMPLEX 45 MINS Hilda Sun MD [address] [place] [address] [facility] [place] [address] Referral ID Status Reason Start Date Expiration Date Visits Requested Visits Authorized [id number] Authorized Auto-Generat ed Referral 02/14/2023 02/14/2024 20 20 Reason Comments Physical Therapy Specialty Diagnoses / Procedures Referred By Contac t Referred To Contact [facility] Diagnoses DDD (degenerative disc disease), cervical Procedures CONSULT TO PHYSICAL THERAPY PHYSICAL THERAPY EVALUATION HIGH COMPLEX 45 MINS THERAPEUTIC EXERCISES RE, EA 15 MIN. Shlomo Miller MD [facility] [place] [address] [place] [address] Referral ID Status Reason Start Date Expiration Date Visits Requested Visits Authorized [id number] Authorized Auto-Generat ed Referral 10/15/2021 02/13/2022 20 20 Reason Comments Physical Reason Comments Yearly Exam Reason Comments Urinary Frequency Frequency and bladde r pressure off and on x 2 weeks Reason Comments Results Reason Comments Cough Reason Comments Patient Question Orders Reason Comments Pre-Certification for Stress Test Reason Comments Orders Reason Comments Mammogram Result Call Back Reason Comments Cough Reason Comments Cough Dry productive x 3 w eeks with drainage & RIGHT HEAD pressure & ear discomfort x 1 day Reason Comments Radiology US Specialty Diagnoses / Procedures Referred By Contac t Referred To Contact [facility] Diagnoses Abnormal mammogram Procedures US BREAST LTD RIGHT US BREAST UNI REAL TIME WITH IMAGE LIMITED Lian RomanBUSHRA.[facility] [address] [place] [address] [facility] [address] [place] [address] Referral ID Status Reason Start Date Expiration Date V isits Requested Visits Authorized [id number] Closed Auto-Generate d Referral 10/01/2022 10/31/2023 1 1 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 / Procedures Referred By Contac t Referred To Contact [facility] Diagnoses PMB (postmenopausal bleeding) Procedures PELVIC US I US PELVIC NONOBSTETRIC REAL-TIME IMAGE COMPLETE Hilda Sun MD [address] [place] [address] [address] Referral ID Status Reason Start Date Expiration Date V isits Requested Visits Authorized [id number] Closed Auto-Generate d Referral 01/12/2023 01/12/2024 1 1 Reason Comments Endometrial Biopsy Specialty Diagnoses / Procedures Referred By Contac t Referred To Contact [facility] Diagnoses PMB (postmenopausal bleeding) Procedures ENDOMETRIAL BIOPSY ENDOMETRIAL BX W/WO ENDOCERVIX BX W/O DILAT SPX Hilda Sun MD [address] [place] [address] [address] Referral ID Status Reason Start Date Expiration Date V isits Requested Visits Authorized [id number] Closed Auto-Generate d Referral 01/12/2023 01/12/2024 1 1 Reason Comments Cough Reason Comments Results Reason Comments Spirometry Specialty Diagnoses / Procedures Referred By Contac t Referred To Contact [facility] Diagnoses Chronic cough Procedures SPIROMETRY WITH DILATOR IF OBSTRUCTED BRNCDILAT RSPSE SPMTRY PRE&POST-BRNCDILAT Shlomo Hendrix MD [address] [place] [address] [facility] [address] [place] [id number] Referral ID Status Reason Start Date Expiration Date V isits Requested Visits Authorized [id number] Closed Auto-Generate d Referral 06/13/2023 07/12/2024 1 1 Specialty Diagnoses / Procedures Referred By Contac t Referred To Contact [facility] Diagnoses Chronic cough Procedures LUNG DIFFUSION CAPACITY (DLCO) DIFFUSING CAPACITY Shlomo Miller MD [address] [place] [address] [facility] [address] [place] [phone] Referral ID Status Reason Start Date Expiration Date V isits Requested Visits Authorized [id number] Closed Auto-Generate d Referral 06/13/2023 07/12/2024 1 1 Specialty Diagnoses / Procedures Referred By Contac t Referred To Contact [facility] Diagnoses Chronic cough Procedures LUNG VOLUMES Shlomo Miller MD [address] [place] [address] [facility] [place] [address] [place] [id number] Referral ID Status Reason Start Date Expiration Date V isits Requested Visits Authorized [id number] Closed Auto-Generate d Referral 06/13/2023 07/12/2024 1 1 Reason Comments Recheck 4 week follow up Reason Onset Date Comments Refill Request 10/13/2023 Reason Comments UTI Reason Onset Date Comments Results 04/03/2024 Reason Comments Yearly Exam Reason Comments New Patient Hematuria Specialty Diagnoses / Procedures Referred By Contac t Referred To Contact Urology Diagnoses Hematuria, unspecified type Procedures CONSULT TO UROLOGY OFFICE/OUTPATIENT NEW HIGH MDM 60 MINUTES Keon Riggs APRN.[facility] [address] [place] [address] Phone: tel: fax: Referral ID Status Reason Start Date Expiration Date V isits Requested Visits Authorized [id number] Closed PCP Requested Referral 04/04/2024 04/04/2025 1 1 Reason Comments Appointment Reason Comments Cough Productive, congesti on, throat madrigal Reason Comments Radiology CT Specialty Diagnoses / Procedures Referred By Contac t Referred To Contact [facility] Diagnoses Gross hematuria Procedures CT UROGRAM WO/W IVCON CT ABD & PELVIS W/WO CONTRST 1+ BODY Bettina Menendez PA-C [address] [place] [address] Phone: tel: fax: [facility] [place] [id number] Referral ID Status Reason Start Date Expiration Date V isits Requested Visits Authorized [id number] Closed Auto-Generate d Referral 04/19/2024 06/18/2024 1 1 Reason Comments Results - Ct Reason Comments Cystoscopy-1 Reason Comments New Patient Lung nodules-evaluat e for EBUS Specialty Diagnoses / Procedures Referred By Adenike t Referred To Contact [facility] Diagnoses Lymphadenopathy, hilar Multiple lung nodules on CT Procedures CONSULT TO PULM/CRITICAL CARE OFFICE/OUTPATIENT NEW HIGH MDM 60 MINUTES Shlomo Miller MD [address] [place] [address] Phone: tel: fax: Referral ID Status Reason Start Date Expiration Date V isits Requested Visits Authorized [id number] Closed PCP Requested Referral 05/16/2024 05/16/2025 1 1 Reason Onset Date Comments Bronchoscopy Scheduling 05/30/2024 Initial Bronch Request Reason Comments Follow Up Feeling great! Doxy has helped cough is better. Saw pulm this morning. Reason Comments New Patient Bronchoscopy follow up Care Teams (unrecognized sec tion and content) Insurance Producer Relationship Specialty Start Date End Date Shlomo Miller MD [address] [place], [place] [address] PCP - General Family Practice 03/13/12 Insurance Producer Relationship Specialty Start Date End Date Shlomo Miller MD [facility] [place], [place] [id number] PCP - General Family Medicine 03/13/12 Insurance Producer Relationship Specialty Start Date End Date Shlomo Miller MD [address] [place] [phone] PCP - General Family Medicine 03/13/12 Insurance Producer Relationship Specialty Start Date End Date Shlomo Miller MD [address] [place] [phone] PCP - General Family Medicine 03/13/12 Insurance Producer Relationship Specialty Start Date End Date Shlomo Miller MD [address] [facility] [place] [place] [address] PCP - General Family Medicine 03/13/12 Insurance Producer Relationship Specialty Start Date End Date Shlomo Miller MD [address] [facility] [place] [place] [address] PCP - General Family Medicine 03/13/12 Insurance Producer Relationship Specialty Start Date End Date Shlomo Miller MD [address] [facility] [place] [address] PCP - General Family Medicine 03/13/12 Insurance Producer Relationship Specialty Start Date End Date Shlomo Miller MD [address] [facility] [place] [place] [address] PCP - General Family Medicine 03/13/12 Insurance Producer Relationship Specialty Start Date End Date Shlomo Mliler MD [address] [facility] [place] [place] [address] PCP - General Family Medicine 03/13/12 Insurance Producer Relationship Specialty Start Date End Date Shlomo Miller MD [address] [facility] [place] [place] [address] PCP - General Family Medicine 03/13/12 Insurance Producer Relationship Specialty Start Date End Date Shlomo Miller MD [address] [facility] [place] [place] [address] PCP - General Family Medicine 03/13/12 Insurance Producer Relationship Specialty Start Date End Date Shlomo Miller MD [address] [facility] [place] [place] [address] PCP - General Family Medicine 03/13/12 Insurance Producer Relationship Specialty Start Date End Date Shlomo Miller MD [address] [place] [address] PCP - General Family Medicine 03/13/12 Insurance Producer Relationship Specialty Start Date End Date Shlomo Miller MD [address] [place] [address] PCP - General Family Medicine 03/13/12 Insurance Producer Relationship Specialty Start Date End Date Shlomo Miller MD [address] [place] [address] PCP - General Family Medicine 03/13/12 Insurance Producer Relationship Specialty Start Date End Date Shlomo Miller MD [address] [place] [address] PCP - General Family Medicine 03/13/12 Insurance Producer Relationship Specialty Start Date End Date Shlomo Miller MD [address] [place] [address] PCP - General Family Medicine 03/13/12 Insurance Producer Relationship Specialty Start Date End Date Shlomo Miller MD [address] [place] [address] PCP - General Family Medicine 03/13/12 Insurance Producer Relationship Specialty Start Date End Date Shlomo Miller MD [address] [place] [address] PCP - General Family Medicine 03/13/12 Insurance Producer Relationship Specialty Start Date End Date Shlomo Miller MD [address] [place] [address] PCP - General Family Medicine 03/13/12 Insurance Producer Relationship Specialty Start Date End Date Shlomo Miller MD [address] [facility] [place] [address] PCP - General Family Medicine 03/13/12 Insurance Producer Relationship Specialty Start Date End Date Shlomo Miller MD [address] [facility] [place] [address] PCP - General Family Medicine 03/13/12 Insurance Producer Relationship Specialty Start Date End Date Shlomo Miller MD [address] [facility] [place] [address] PCP - General Family Medicine 03/13/12 Insurance Producer Relationship Specialty Start Date End Date Shlomo Miller MD [address] [facility] [place] [address] PCP - General Family Medicine 03/13/12 Insurance Producer Relationship Specialty Start Date End Date Shlomo Miller MD [address] [facility] [place] [address] PCP - General Family Medicine 03/13/12 Insurance Producer Relationship Specialty Start Date End Date Shlomo Miller MD [address] [facility] [place] [address] PCP - General Family Medicine 03/13/12 Insurance Producer Relationship Specialty Start Date End Date Shlomo Miller MD [address] [facility] [place] [address] PCP - General Family Medicine 03/13/12 Insurance Producer Relationship Specialty Start Date End Date Shlomo Miller MD [address] [facility] [place] [address] PCP - General Family Medicine 03/13/12 Insurance Producer Relationship Specialty Start Date End Date Shlomo Miller MD [address] [facility] [place] [address] PCP - General Family Medicine 03/13/12 Coleen Dunne APRN.PEANUT SORTER [address] [place] [address] Replacer Family Medicine 01/23/24 Belkis Still APRN.PEANUT SORTER [address] [facility] [place] [address] Replacer Family Medicine 01/23/24 Insurance Producer Relationship Specialty Start Date End Date Shlomo Miller MD [address] [facility] [place] [address] PCP - General Family Medicine 03/13/12 Coleen Dunne APRN.PEANUT SORTER [address] [place] [address] Replacer Family Medicine 01/23/24 Belkis Still APRN.PEANUT SORTER [address] [facility] [place] [address] Replacer Family Medicine 01/23/24 Insurance Producer Relationship Specialty Start Date End Date Shlomo Miller MD [address] [facility] [place] [address] PCP - General Family Medicine 03/13/12 Coleen Dunne APRN.PEANUT SORTER [address] [facility] [place] [address] Replacer Family Medicine 01/23/24 Belkis Still APRN.PEANUT SORTER [address] [place] [address] Replacer Family [facility] 01/23/24 Insurance Producer Relationship Specialty Start Date End Date Shlomo Miller MD [address] [place] [address] PCP - General Family Medicine 03/13/12 Coleen Dunne, BUSINESS CONTINUITY MANAGER.PEANUT SORTER [address] [place] [address] Replacer Family Medicine 01/23/24 Belkis Still BUSINESS CONTINUITY MANAGER.PEANUT SORTER [address] [place] [address] [facility] 01/23/24 Insurance Producer Relationship Specialty Start Date End Date Shlomo Miller MD [address] [place] [address] PCP - General Family Medicine 03/13/12 Coleen Dunne, BUSINESS CONTINUITY MANAGER.PEANUT SORTER [address] [place] [address] Replacer Family Medicine 01/23/24 Belkis Still BUSINESS CONTINUITY MANAGER.PEANUT SORTER [address] [place] [address] [facility] 01/23/24 Insurance Producer Relationship Specialty Start Date End Date Shlomo Miller MD [address] [place] [address] PCP - General Family Medicine 03/13/12 Coleen Dunne, BUSINESS CONTINUITY MANAGER.PEANUT SORTER [address] [place] [address] Replacer Family Medicine 01/23/24 Belkis Still BUSINESS CONTINUITY MANAGER.PEANUT SORTER [address] [place] [address] [facility] 01/23/24 Insurance Producer Relationship Specialty Start Date End Date Shlomo Miller MD [address] [place] [address] PCP - General Family Medicine 03/13/12 Coleen Dunne BUSINESS CONTINUITY MANAGER.PEANUT SORTER [address] [place] [address] [facility] 01/23/24 Belkis Still BUSINESS CONTINUITY MANAGER.PEANUT SORTER [address] [place] [address] [facility] 01/23/24 Insurance Producer Relationship Specialty Start Date End Date Shlomo Miller MD [address] [place] [address] PCP - General Family Medicine 03/13/12 Coleen Dunne BUSINESS CONTINUITY MANAGER.PEANUT SORTER [address] [place] [address] [facility] Medicine 01/23/24 Belkis Still BUSINESS CONTINUITY MANAGER.PEANUT SORTER [address] [place] [address] [facility] Medicine 01/23/24 Insurance Producer Relationship Specialty Start Date End Date Shlomo Miller MD [address] [place], [place] [address] [phone] PCP - General Family Medicine 03/13/12 Coleen Dunne APRN.PEANUT SORTER [address] [facility] [place] [address] Replacer Family Medicine 01/23/24 Belkis Still APRN.PEANUT SORTER [address] [place] [address] Replacer Family Medicine 01/23/24 Insurance Producer Relationship Specialty Start Date End Date Shlomo Miller MD [address] [facility] [place] [address] PCP - General Family Medicine 03/13/12 Coleen Dunne APRN.PEANUT SORTER [address] [facility] [place] [address] Replacer Family Medicine 01/23/24 Belkis Still APRN.PEANUT SORTER [address] [facility] [place] [address] [facility] 01/23/24 Insurance Producer Relationship Specialty Start Date End Date Shlomo Miller MD [address] [facility] [place] [address] PCP - General Family Medicine 03/13/12 Coleen Dunne BUSINESS CONTINUITY MANAGER.PEANUT SORTER [address] [facility] [place] [address] Replacer Family Medicine 01/23/24 Belkis Still APRN.PEANUT SORTER [address] [place] [address] Replacer Family Medicine 01/23/24 Insurance Producer Relationship Specialty Start Date End Date Shlomo Miller MD [address] [facility] [place] [address] PCP - General Family Medicine 03/13/12 Coleen Dunne APRN.PEANUT SORTER [address] [facility] [place] [address] Replacer Family Medicine 01/23/24 Belkis Still APRN.PEANUT SORTER [address] [facility] [place] [address] Replacer Family Medicine 01/23/24 Insurance Producer Relationship Specialty Start Date End Date Shlomo Miller MD [address] [facility] [place] [address] PCP - General Family Medicine 03/13/12 Coleen Dunne APRN.PEANUT SORTER [address] [facility] [place] [address] Replacer Family Medicine 01/23/24 Belkis Still APRN.PEANUT SORTER [address] [facility] [place] [address] Replacer Family Medicine 01/23/24 Insurance Producer Relationship Specialty Start Date End Date Shlomo Miller MD [address] [facility] [place] [address] PCP - General Family Medicine 03/13/12 Coleen Dunne APRN.PEANUT SORTER [address] [facility] [place] [address] Replacer Family Medicine 01/23/24 Belkis Still APRN.PEANUT SORTER [address] [facility] [place] [address] Critical Access [facility] 01/23/24 Team Status: Active Member Role Status Dates Dr. Shlomo Miller MD Primary Care Provider Active Team Status: Inactive Member Role Status Dates Dr. Mohinder Giron MD Attending Provider Activ e Start: May 03, 2024 End: May 03, 2024 Dr. Mohinder Giron MD Referring Provider Activ e Start: May 03, 2024 End: May 03, 2024 Dr. Shlomo Miller MD Primary Care Provider Active Start: May 03, 2024 End: May 03, 2024 Insurance Producer Relationship Specialty Start Date End Date Shlomo Miller MD [address] [facility] [address] PCP - General Family Medicine 03/13/12 Coleen Dunne, BUSINESS CONTINUITY MANAGER.PEANUT SORTER [address] [facility] [place] [address] Critical [facility] 01/23/24 Belkis Still, BUSINESS CONTINUITY MANAGER.PEANUT SORTER [address] [facility] [address] Critical [facility] 01/23/24 Insurance Producer Relationship Specialty Start Date End Date Shlomo Miller MD [address] [facility] [place] [address] PCP - General Family Medicine 03/13/12 Coleen Dunne, BUSINESS CONTINUITY MANAGER.PEANUT SORTER [address] [facility] [place] [address] [facility] Medicine 01/23/24 Belkis Still, BUSINESS CONTINUITY MANAGER.PEANUT SORTER [address] [facility] [place] [address] Critical [facility] 01/23/24 Insurance Producer Relationship Specialty Start Date End Date Shlomo Miller MD [address] [facility] [place] [address] PCP - General Family Medicine 03/13/12 Coleen Dunne APRN.PEANUT SORTER [address] [facility] [place] [address] Replacer Family Medicine 01/23/24 Belkis Still BUSINESS CONTINUITY MANAGER.PEANUT SORTER [address] [facility] [place] [address] Replacer Family Medicine 01/23/24 Insurance Producer Relationship Specialty Start Date End Date Shlomo Miller MD [address] [facility] [place] [address] PCP - General Family Medicine 03/13/12 Coleen Dunne BUSINESS CONTINUITY MANAGER.PEANUT SORTER [address] [facility] [place] [address] Replacer Family Medicine 01/23/24 Belkis Still BUSINESS CONTINUITY MANAGER.PEANUT SORTER [address] [facility] [place] [address] Replacer Family Medicine 01/23/24 Insurance Producer Relationship Specialty Start Date End Date Shlomo Miller MD [address] [facility] [place] [address] PCP - General Family Medicine 03/13/12 Coleen Dunne APRN.PEANUT SORTER [address] [facility] [place] [address] Replacer Family Medicine 01/23/24 Belkis Still BUSINESS CONTINUITY MANAGER.PEANUT SORTER [address] [place] [address] Repl[facility] Family Medicine 01/23/24 Insurance Producer Relationship Specialty Start Date End Date Shlomo Miller MD [address] [place] [address] PCP - General Family Medicine 03/13/12 Coleen Dunne APRN.PEANUT SORTER [address] [place] [address] Repl[facility] Family Medicine 01/23/24 Belkis Still APRN.PEANUT SORTER [address] [place] [address] [facility] 01/23/24 Insurance Producer Relationship Specialty Start Date End Date Shlomo Miller MD [address] [place] [address] PCP - General Family Medicine 03/13/12 Coleen Dunne BUSINESS CONTINUITY MANAGER.PEANUT SORTER [address] [place] [address] Repl[facility] Family Medicine 01/23/24 Belkis Still BUSINESS CONTINUITY MANAGER.PEANUT SORTER [address] [place] [address] Repl[facility] Family Medicine 01/23/24 Insurance Producer Relationship Specialty Start Date End Date Shlomo Miller MD [address] [place] [address] PCP - General Family Medicine 03/13/12 Coleen Dunne BUSINESS CONTINUITY MANAGER.PEANUT SORTER [address] [place] [address] Replacer Family Medicine 01/23/24 Belkis Still BUSINESS CONTINUITY MANAGER.PEANUT SORTER [address] [facility] [place] [address] [facility] 01/23/24 Insurance Producer Relationship Specialty Start Date End Date Shlomo Miller MD [address] [facility] [place] [address] [phone] PCP - General Family Medicine 03/13/12 Coleen Dunne APRN.PEANUT SORTER [address] [facility] [place] [address] Critical [facility] 01/23/24 Belkis Still BUSINESS CONTINUITY MANAGER.PEANUT SORTER [address] [facility] [address] Critical [facility] 01/23/24 Insurance Producer Relationship Specialty Start Date End Date Shlomo Miller MD [address] [facility] [address] PCP - General Family Medicine 03/13/12 Coleen Dunne, BUSINESS CONTINUITY MANAGER.PEANUT SORTER [address] [facility] [place] [address] [facility] Medicine 01/23/24 Belkis Still BUSINESS CONTINUITY MANAGER.PEANUT SORTER [address] [facility] [place] [address] [facility] Medicine 01/23/24 Insurance Producer Relationship Specialty Start Date End Date Shlomo Miller MD [address] [facility] [place] [address] [phone] PCP - General Family Medicine 03/13/12 Coleen Dunne, BUSHRA.PEANUT SORTER [address] [place], [place] [address] [facility] 01/23/24 Belkis Still APRN.PEANUT SORTER [address] [place], [place] [address] [facility] 01/23/24 Insurance Producer Relationship Specialty Start Date End Date Shlomo Miller MD [address] [place], [place] [id number] PCP - [facility] Family [facility] 03/13/12 Coleen Dunne APRN.PEANUT SORTER [address] [place], [place] [id number] [facility] 01/23/24 Belkis Still BUSINESS CONTINUITY MANAGER.PEANUT SORTER [address] [place], [place] [id number] [facility] 01/23/24 Goals (unrecognized section and content) Goals may be documented in a n alternate section INFORMATION SOURCE (unrecogn ized section and content) DATE CREATED AUTHOR 07/18/2024 [facility] DATE CREATED AUTHOR AUTHOR'S ORGANIZ ATION 07/24/2024 [facility] DATE CREATED AUTHOR AUTHOR'S ORGANIZ ATION 07/28/2024 [facility] DATE CREATED AUTHOR AUTHOR'S ORGANIZ ATION 08/04/2024 [facility] FOR RECORDS PERTAINING TO PATIENTS WHO ARE OR HAVE BEEN ENROLLED IN A CHEMICAL DEPENDENCY/SUBSTANCEABUSE PROGRAM, SOME INFORMATION MAY BE OMITTED. This clinical summary was aggregated from multiple sources. Caution should be exercised in using it in the provision of clinical care. This summary normalizes information from multiple sources, and as a consequence, information in this document may materially change the coding, format and clinical context of patient data. In addition, data may be omitted in some cases. CLINICAL DECISIONS SHOULD BE BASED ON THE PRIMARY CLINICAL RECORDS. [facility] [employer] [facility]. provides no warranty or guarantee of the accuracy or completeness of information in this document.
[2024-08-06 08:07] VITALS: PULSE 80; RESP 16
== END | disposition home or self-care (01) ==
LOC: PSN 06:48
PROVIDERS: PCP Family Medicine
DX: Z29.89 Encounter for other specified prophylactic measures (principal)
CPT/HCPCS: 94642

== ENCOUNTER → 2024-09-03 | Outpatient (CLI) | payer OTHER, SELFPAY ==
[2024-09-03 08:30] VITALS: PULSE 71; RESP 16
--- NOTE | 2024-09-03 08:59 | CPS ---
Attempted to scan medication but was unable to due to computer issue
== END | disposition home or self-care (01) ==
LOC: PSN 07:52
PROVIDERS: PCP Family Medicine
DX: Z29.89 Encounter for other specified prophylactic measures (principal)
CPT/HCPCS: 94640

== ENCOUNTER → 2024-10-01 | Outpatient (CLI) | payer OTHER, SELFPAY ==
[2024-10-01] MEDS: Pentamidine Isethionate 300 MG, Water For Injection,Sterile 6 ML INHALATION (08:15)
== END | disposition home or self-care (01) ==
LOC: PSN 07:53
PROVIDERS: PCP Family Medicine
DX: Z29.89 Encounter for other specified prophylactic measures (principal)
CPT/HCPCS: 94642

== ENCOUNTER → 2024-10-30 | Outpatient (CLI) | payer OTHER, SELFPAY ==
[2024-10-30] MEDS: Pentamidine Isethionate 300 MG, Water For Injection,Sterile 6 ML INHALATION (08:23)
== END | disposition home or self-care (01) ==
LOC: PSN 07:54
PROVIDERS: PCP Family Medicine
DX: Z29.89 Encounter for other specified prophylactic measures (principal)
CPT/HCPCS: 94642

== ENCOUNTER → 2024-11-26 | Outpatient (CLI) | payer OTHER, SELFPAY ==
[2024-11-26] MEDS: Pentamidine Isethionate 300 MG, Water For Injection,Sterile 6 ML INHALATION (08:05)
== END | disposition home or self-care (01) ==
PROVIDERS: PCP Family Medicine
DX: Z29.89 Encounter for other specified prophylactic measures (principal)
CPT/HCPCS: 94642

== ENCOUNTER → 2024-12-24 | Outpatient (CLI) | payer OTHER, SELFPAY ==
[2024-12-24] MEDS: Pentamidine Isethionate 300 MG, Water For Injection,Sterile 6 ML INHALATION (08:16)
== END | disposition home or self-care (01) ==
LOC: PSN 07:57
PROVIDERS: PCP Family Medicine
DX: Z29.89 Encounter for other specified prophylactic measures (principal)
CPT/HCPCS: 94642